=== PATIENT | female | born 1940 | race Caucasian/White ===

== ENCOUNTER → 2016-10-08 | Outpatient (CLI) | payer OTHER, BC ==
[~2016-10-08] MED LIST: ALBU18002 INH; ALBU1AER9 INH; AMLO-110 PO; B-CO-25 PO; BND25 PO; CALCTAB7 PO; CHOL100010 PO; CHOL1TAB76 PO; CLTP PO; COLE625T PO; DILT-115 PO; FISHOIL PO; HYDR12.56 PO; LISI-461 PO; LPR25 PO; LSN40 PO; MOME200A INH; MONT1TAB3 PO; OMEG10007 PO; POTA8CAP6 PO; PRED20TA PO; PRIM250T30 PO; SYMIN160 INH; ZNTT/150 PO
[2016-10-08 13:29] LABS: HEMATOCRIT 36.7 % (37-47); MEAN CELL VOLUME 91.1 fL (80-100); MEAN CORPUSCULAR HEMOGLOBIN 32.3 pg (25-34); MEAN CORPUSCULAR HGB CONC 35.4 g/dl (32-36); MEAN PLATELET VOLUME 12.3 fL (7.4-10.4); PLATELET COUNT 188 K/uL (130-400); RED BLOOD COUNT 4.03 M/uL (4.2-5.4); WHITE BLOOD COUNT 7.03 K/uL (4.8-10.8)
[2016-10-08 13:59] LABS: ALT/SGPT 28 U/L (12-78); AST/SGOT 19 U/L (15-37); BLOOD UREA NITROGEN 15 mg/dl (7-18); BUN/CREATININE RATIO 19.4 (10-20); CALCIUM 9.2 mg/dl (8.5-10.1); CARBON DIOXIDE 23 mmol/L (21-32); CHLORIDE 98 mmol/L (98-107); CHOLESTEROL 253 mg/dl (0-200); CREATININE 0.78 mg/dl (0.60-1.20); GLUCOSE 96 mg/dl (70-99); POTASSIUM 3.9 mmol/L (3.5-5.1); SODIUM 133 mmol/L (136-145); TRIGLYCERIDES 93 mg/dl (0-150); VERY LOW DENSITY LIPOPROT CALC 19 mg/dl
[2016-10-08 14:08] LABS: ALB/GLOB RATIO 0.9 (0.9-2); ALKALINE PHOSPHATASE 57 U/L (45-117); CHOLESTEROL/HDL RATIO 2.8; HDL CHOLESTEROL 92 mg/dl; LDL CHOLESTEROL CALCULATED 142 mg/dl
[2016-10-08 14:24] LABS: ESTIMATED AVERAGE GLUCOSE 114 mg/dl; HA1C FLAG Normal (Normal)
== END | disposition home or self-care (01) ==
LOC: C.LABBC 09:34
PROVIDERS: ATTEND Family Medicine
DX: I47.1 Supraventricular tachycardia (principal); I10 Essential (primary) hypertension; D69.3 Immune thrombocytopenic purpura; G40.909 Epilepsy, unspecified, not intractable, without status epilepticus; Z51.81 Encounter for therapeutic drug level monitoring; Z79.899 Other long term (current) drug therapy

== ENCOUNTER 2017-01-16 14:30 | Inpatient (IN) | payer OTHER, BC ==
[~2017-01-16] VITALS: Ht 157.5 cm; Wt 67.5 kg
[~2017-01-16 14:30] MED LIST changes: -ALBU18002 INH; -B-CO-25 PO; -BND25 PO; -CALCTAB7 PO; -CHOL1TAB76 PO; -DILT-115 PO; -HYDR12.56 PO; -LPR25 PO; -LSN40 PO; -MOME200A INH; -MONT1TAB3 PO; -OMEG10007 PO; -PRED20TA PO; -PRIM250T30 PO; +PRIM250T9 PO; -ZNTT/150 PO
[2017-01-16] MEDS ORDERED: METHYLPREDNISOLONE 125 MG VIAL IV STA (15:09)
[2017-01-16] MEDS ORDERED: DiphenhydrAMINE HCL 50 MG/ML VIAL IV STA (15:09)
--- NOTE | 2017-01-16 15:11 | EMERGENCY ROOM VISIT NOTE ---
ED Visit Note First contact with patient: 14:51 I have personally evaluated and examined this patient. I agree with assessment and plan of Issac Venegas PA-C. 76 yr old female with bilateral upper lip swelling, worse on left. No respiratory nor swallowing difficult. Does not involve tongue/posterior pharynx. Ongoing for last 12-18 hours and stable. She is on lisinopril and without other clear cause I suspect this is related to lisinopril and advised against further use of this.
[2017-01-16] MEDS ORDERED: FAMOTIDINE IV INJ 20 MG in DEXTROSE 5% 100ML 100 ML IV SCH (15:15)
[2017-01-16 15:34] LABS: BASO % 0.9 %; BASO ABS # 0.08 K/uL (0-0.2); COMPLETE YES; HEMATOCRIT 37.6 % (37-47); IG% 0.2 %; LYMPH % 36.8 %; LYMPH ABS # 3.42 K/uL (1.2-3.4); MEAN CELL VOLUME 89.7 fL (80-100); MEAN CORPUSCULAR HEMOGLOBIN 31.7 pg (25-34); MEAN CORPUSCULAR HGB CONC 35.4 g/dl (32-36); MEAN PLATELET VOLUME 11.4 fL (7.4-10.4); MONO % 8.5 %; NEUT % 48.6 %; PLATELET COUNT 165 K/uL (130-400); RED BLOOD COUNT 4.19 M/uL (4.2-5.4); WHITE BLOOD COUNT 9.29 K/uL (4.8-10.8)
[2017-01-16] MEDS ORDERED: CHOL1TAB76 PO (15:36)
[2017-01-16] MEDS ORDERED: MOME200A INH (15:36)
[2017-01-16] MEDS ORDERED: OMEG10007 PO (15:36)
[2017-01-16] MEDS ORDERED: ALBU18002 INH (15:36)
[2017-01-16] MEDS ORDERED: MONT1TAB3 PO (15:36)
[2017-01-16] MEDS ORDERED: B-CO-25 PO (15:36)
[2017-01-16] MEDS ORDERED: DILT-115 PO (15:36)
[2017-01-16] MEDS ORDERED: CALCTAB7 PO (15:36)
[2017-01-16] MEDS ORDERED: HYDR12.56 PO (15:36)
[2017-01-16] MEDS ORDERED: LSN40 PO (15:36)
[2017-01-16 15:48] LABS: CALCIUM 10.3 mg/dl (8.5-10.1)
[2017-01-16 15:52] LABS: BUN/CREATININE RATIO 22.4 (10-20); CREATININE 0.78 mg/dl (0.60-1.20); POTASSIUM 3.9 mmol/L (3.5-5.1)
[2017-01-16] MEDS ORDERED: SODIUM CHLORIDE 0.9% 1000ML 1,000 ML IV STA (17:01)
--- NOTE | 2017-01-16 17:01 | EMERGENCY ROOM VISIT NOTE ---
History First contact with patient: 14:51 Chief Complaint: SWELLING TO EXTREMITY Stated Complaint: SWELLING IN FACE History of Present Illness The patient is a 76 year old female who presents to the Emergency Room with complaints of swelling of her left cheek and upper lip. She believes her symptoms began overnight. She denies any new medications. Denies eating or drinking anything out of the ordinary last night. She did have a Gala apple, but states she has been eating them for the past week or more without issue. She currently denies any difficulty swallowing or breathing. No prior history of similar episode. No other complaints at this point. Her accompanies her today. She does take lisinopril and has been doing so since 2011. She was initially on 20 mg twice a day but states she was changed to 40 mg once a day last March. Review of Systems REVIEW OF SYSTEM: HEENT: No dizziness, visual problems, hearing loss, or tinnitus. There is no difficulty swallowing and no oral lesions are present. LYMPH: No adenopathy. PULMONARY: No cough, shortness of breath, sputum production or hemoptysis. CARDIOVASCULAR: No chest pain, palpitations, shortness of breath or peripheral edema. GASTROINTESTINAL: No diarrhea, constipation, nausea, vomiting, or abdominal pain. GENITOURINARY: No dysuria, frequency, urgency or nocturia. NEUROLOGIC: No weakness, muscle tenderness, epilepsy or history of neurological problems. MUSCULOSKELETAL: No history of joint tenderness/swelling. Positive history of arthritis and arthralgias. SKIN: No rashes or lesions. PSYCHIATRIC: No history of depression or mental illness. ENDOCRINE: No history of diabetes, thyroid disorders, or abnormal hair growth. Past Medical/Surgical History Previous surgeries: Medical history: Significant for seizure 50 years ago. Hypertension, asthma, osteoarthritis Family History Noncontributory. Social History Smoking Status: Never Smoker Smokeless Tobacco Use: No Alcohol Use: none Drug Use: none Marital Status: Housing Status: lives with family Occupation Status: retired Current/Historical Medications Scheduled B-Complex W/ Folic Acid (Super B Complex Maxi), 1 TAB PO DAILY Calcium Carbonate-Vitamin D W/ (Caltrate 600 Plus), 1 TAB PO BID Cholecalciferol (D 2000), 2,000 UNITS PO QAM Diltiazem Hcl Ext Rel (Tiazac), 240 MG PO BID Fish Oil ([place]-3), 1 CAP PO TID Hydrochlorothiazide (Hctz), 12.5 MG PO QAM Lisinopril (Lisinopril), 40 MG PO QAM Mometasone Furoate-Formoterol (Dulera 200/5 Mcg), 2 PUFFS INH BID Montelukast Sodium (Singulair), 10 MG PO QAM Potassium Chloride (Klor-Con Ext Rel), 8 MEQ PO BID Primidone (Mysoline), 250 MG PO BID Scheduled PRN Albuterol Sulfate (Proair Respiclick), 1-2 PUFFS INH Q4H PRN for Shortness of Breath Allergies Coded Allergies: Levofloxacin (Verified Allergy, Mild, rash, 01/16/17) Aspirin (Verified Allergy, Unknown, HX ITP, 01/16/17) Atorvastatin (Verified Allergy, Unknown, UNKNOWN, 01/16/17) Niacin (Verified Allergy, Unknown, UNKNOWN, 01/16/17) Phenobarbital (Verified Allergy, Unknown, UNKNOWN, 01/16/17) Uncoded Allergies: LOSARTAN/HCTZ (Allergy, Intermediate, DIZZINESS, 01/16/17) PT TAKES HCTZ ALLOW AND TOLERATES. Physical Exam Vital Signs Date Time Temp Pulse Resp B/P Pulse Ox O2 Delivery O2 Flow Rate FiO2 01/16/17 15:49 63 17 145/79 96 Room Air 01/16/17 15:21 71 01/16/17 14:33 36.6 83 18 171/80 96 Room Air Physical Exam Gen.: Well-developed, well-nourished, elderly white female, in no acute distress. Laying on a bed. Alert and oriented. Skin:Warm and dry with good turgor. No rashes or lesions. No ecchymosis or erythema. The patient is not diaphoretic. No abrasions. HEENT: Normocephalic atraumatic. Eyes PERRLA, EOMI. No conjunctiva or scleral injection. Ears TMs intact bilaterally with good light reflexes. No erythema or bulging. No hemotympanum. Canals are patent. Nares patent bilaterally without turbinate enlargement. No significant drainage. No epistaxis. Oropharynx without erythema or exudate. Uvula midline, oral mucosa moist. Significant swelling is present in her upper lip. It extends into her left cheek. No involvement of the right cheek. No involvement of her uvula or tongue. No lesions present. Lymphatics are palpated without anterior or posterior chain enlargement or tenderness. No sublingual fullness. Heart: Heart RRR. 3/6 systolic ejection murmur noted. No GR. Peripheral pulses are 2+. Lungs: Lungs are clear to auscultation. No crackles rhonchi or wheezing. Good air movement. The patient is able to take a deep breath. Musculoskeletal: Gross motor function of the upper and lower extremities is intact and unremarkable. Neurologic: Gross sensation is intact across the upper and lower extremities by soft touch. Medical Decision & Procedures Laboratory Results 01/16/17 15:20 Red Blood Count 4.19, Mean Corpuscular Volume 89.7, Mean Corpuscular Hemoglobin 31.7, Mean Corpuscular Hemoglobin Concent 35.4, Mean Platelet Volume 11.4, Neutrophils (%) (Auto) 48.6, Lymphocytes (%) (Auto) 36.8, Monocytes (%) (Auto) 8.5, Eosinophils (%) (Auto) 5.0, Basophils (%) (Auto) 0.9, Neutrophils # (Auto) 4.52, Lymphocytes # (Auto) 3.42, Monocytes # (Auto) 0.79, Eosinophils # (Auto) 0.46, Basophils # (Auto) 0.08 01/16/17 15:20 Test 01/16/17 15:20 01/16/17 16:40 White Blood Count 9.29 K/uL (4.8-10.8) Red Blood Count 4.19 M/uL (4.2-5.4) Hemoglobin 13.3 g/dL (12.0-16.0) Hematocrit 37.6 % (37-47) Mean Corpuscular Volume 89.7 fL (80-100) Mean Corpuscular Hemoglobin 31.7 pg (25-34) Mean Corpuscular Hemoglobin Concent 35.4 g/dl (32-36) Platelet Count 165 K/uL (130-400) Mean Platelet Volume 11.4 fL (7.4-10.4) Neutrophils (%) (Auto) 48.6 % Lymphocytes (%) (Auto) 36.8 % Monocytes (%) (Auto) 8.5 % Eosinophils (%) (Auto) 5.0 % Basophils (%) (Auto) 0.9 % Neutrophils # (Auto) 4.52 K/uL (1.4-6.5) Lymphocytes # (Auto) 3.42 K/uL (1.2-3.4) Monocytes # (Auto) 0.79 K/uL (0.11-0.59) Eosinophils # (Auto) 0.46 K/uL (0-0.5) Basophils # (Auto) 0.08 K/uL (0-0.2) RDW Standard Deviation 43.0 fL (36.4-46.3) RDW Coefficient of Variation 13.0 % (11.5-14.5) Immature Granulocyte % (Auto) 0.2 % Immature Granulocyte # (Auto) 0.02 K/uL (0.00-0.02) Anion Gap 10.0 mmol/L (3-11) Est Creatinine Clear Calc Drug Dose 55.6 ml/min Estimated GFR () 84.4 Estimated GFR (Non- 72.8 BUN/Creatinine Ratio 22.4 (10-20) Osmolality 262 mOsm/kg (280-300) Calcium Level 10.3 mg/dl (8.5-10.1) CBC and PRP were obtained today. Patient has a significantly low sodium at 126 and a significantly low chloride at 88. Medications Administered Medications (Trade) Dose Ordered Sig/Ever Route Start Time Stop Time Status Last Admin Dose Admin Diphenhydramine HCl 25 mg 25 mg NOW STAT IV 01/16/17 15:09 01/16/17 15:12 DC 01/16/17 15:35 25 MG Famotidine/ Dextrose (Pepcid IV Inj/ D5 100ml) 102 ml @ 200 mls/hr ONE IV 01/16/17 15:15 02/15/17 15:14 01/16/17 16:01 200 MLS/HR Methylprednisolone Sodium Succinate (Solu-Medrol IV) 125 mg NOW STAT IV 01/16/17 15:09 01/16/17 15:12 DC 01/16/17 15:35 125 MG Benadryl 25 mg IV, Pepcid 20 mg IV, Solu-Medrol 125 mg IV, 1 L normal sterile saline at 150 per hour. ED Course Patient was evaluated in B4. She and her were educated regarding today' s findings. Conservative care measures were discussed. IV was established. Labs were obtained. EKG was also obtained. Patient was given Benadryl 25 mg IV , Pepcid 20 mg IV, and Solu-Medrol 125 mg IV with no significant improvement in her perioral edema. Sodium is significantly low. Because of the combination of hyponatremia, perioral edema, and her age, I do think it would be prudent to admit her for further evaluation. [facility] hospitalist service was consulted. Please see that dictation for final management. She remained stable while in the ED. Oxygen saturation remained adequate. Patient was seen in conjunction with Dr. Rodriguez, who also evaluated the patient and concurred with today's diagnosis and treatment plan. Medical Decision Possibility of food allergy, medication allergy, angioedema from lisinopril, infection, airway compromise, and electrolyte abnormality were considered. Impression Primary Impression: Angioedema of lips Additional Impression: Hyponatremia Departure Information Referrals Kenny Castillo M.D. (PCP) Patient Instructions My [facility] Problem Qualifiers Primary Impression: Angioedema of lips Encounter type: initial encounter Qualified Codes: T78.3XXA - Angioneurotic edema, initial encounter
[2017-01-16] MEDS ORDERED: SODIUM CHLORIDE 0.9% 1000ML 1,000 ML IV SCH (17:21)
[2017-01-16] MEDS ORDERED: ALUMINUM/MAGNESIUM/SIMETH (MAALOX MAX) 30 ML UDC PO PRN (17:30)
[2017-01-16] MEDS ORDERED: ONDANSETRON INJ 2 MG/ML 2 ML VIAL IV PRN (17:30)
[2017-01-16] MEDS ORDERED: ALBUTEROL 0.083% NEBU SOLN 3 ML VIAL INH PRN (17:30)
[2017-01-16] MEDS ORDERED: ACETAMINOPHEN 325 MG TAB PO PRN (17:30)
[2017-01-16] MEDS ORDERED: MAGNESIUM HYDROXIDE SUSP 30 ML UDC PO PRN (17:30)
[2017-01-16 18:46] VITALS: BP 167/78; PULSE 76; TEMP 36.7; O2SAT 95; Ht 157.5 cm; Wt 67.5 kg
[2017-01-16 18:46] LABS: PROTHROMBIN TIME (PATIENT) 10.5 SECONDS (9.0-12.0)
[2017-01-16] MEDS: BUDESONIDE/FORMOTEROL FUMARATE 160/4.5 60 PUFFS/INHALER INH SCH (19:53)
[2017-01-16] MEDS: METHYLPREDNISOLONE IV 40 MG in SYRINGE 0 ML IV SCH (19:53)
[2017-01-16] MEDS: PRIMIDONE 250 MG TAB PO SCH (19:54)
[2017-01-16] MEDS: DILTIAZEM HCL 120 MG EXT REL CAP PO SCH (19:54)
[2017-01-16] MEDS ORDERED: NURSING DECISION MEDICATION ORDER SCH (21:15)
[2017-01-16] MEDS: HEPARIN SOD 5000 UNIT/0.5 ML CARP SQ SCH (22:24)
[2017-01-16 22:40] LABS: BUN/CREATININE RATIO 15.9 (10-20); CALCIUM 9.1 mg/dl (8.5-10.1); CREATININE 0.98 mg/dl (0.60-1.20); POTASSIUM 3.6 mmol/L (3.5-5.1)
--- NOTE | 2017-01-16 23:00 | History and Physical ---
History & Physical Date & Time of Service: Jan 16, 2017 at 16:56 Chief Complaint: Swelling In Face Primary Care Physician: Kenny Castillo M.D. History of Present Illness Source: patient, spouse 76yo female with history of HTN and asthma who presents with lip and facial swelling starting about 0330. When she went to bed last evening she had no swelling. Initially the swelling was in the upper lip, then progressed to the left cheek, and finally the right cheek. Denies any throat or neck swelling. Denies any dyspnea. Denies dysphagia or dysarthria. Since coming to the ER her swelling HAS improved in her estimation. Takes DEBRA inhibitor (lisinopril) and has taken such for about 5 years. Denies any new OTC medications or herbals. Denies any new prescription medications. No hives or generalized rash. Prior to today's events she has otherwise been feeling well. No recent illnesses. No vomiting or diarrhea. Past Medical/Surgical History PMH: 1. HTN 2. asthma 3. seizure disorder - dx 1960s - no seizures since that time (was thought to have a tumor but this was ultimately proven false) 4. ITP PSH: 1. appendectomy 2. tonsillectomy 3. 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 ) Immunizations History of Influenza Vaccine: N/A History of Tetanus Vaccine?: Unknown History of Pneumococcal: Yes History of Hepatitis B Vaccine: No Multi-Drug Resistant Organisms History of MDRO: No Allergies Coded Allergies: Levofloxacin (Verified Allergy, Mild, rash, 01/16/17) Aspirin (Verified Allergy, Unknown, HX ITP, 01/16/17) Atorvastatin (Verified Allergy, Unknown, UNKNOWN, 01/16/17) Niacin (Verified Allergy, Unknown, UNKNOWN, 01/16/17) Phenobarbital (Verified Allergy, Unknown, UNKNOWN, 01/16/17) Losartan (Verified Adverse Reaction, Intermediate, DIZZINESS., 01/16/17) PT TAKES HCTZ ALLOW AND TOLERATES. Home Medications Scheduled B-Complex W/ Folic Acid (Super B Complex Maxi), 1 TAB PO DAILY Calcium Carbonate-Vitamin D W/ (Caltrate 600 Plus), 1 TAB PO BID Cholecalciferol (D 1999), 2,000 UNITS PO QAM Diltiazem Hcl Ext Rel (Tiazac), 240 MG PO BID Fish Oil ([place]-3), 1 CAP PO TID Hydrochlorothiazide (Hctz), 12.5 MG PO QAM Lisinopril (Lisinopril), 40 MG PO QAM Mometasone Furoate-Formoterol (Dulera 200/5 Mcg), 2 PUFFS INH BID Montelukast Sodium (Singulair), 10 MG PO QAM Potassium Chloride (Klor-Con Ext Rel), 8 MEQ PO BID Primidone (Mysoline), 250 MG PO BID Scheduled PRN Albuterol Sulfate (Proair Respiclick), 1-2 PUFFS INH Q4H PRN for Shortness of Breath Review of Systems Constitutional: No chills, No fatigue, No fever, No weight loss Eyes: No worsening of vision ENT: No nasal symptoms, No sore throat, No trouble swallowing Respiratory: No cough, No dyspnea at rest, No dyspnea on exertion, No shortness of breath, No sputum, No wheezing Cardiovascular: No PND, No chest pain, No edema, No orthopnea Abdomen: No diarrhea, No nausea, No pain, No vomiting Musculoskeletal: No joint pain, No muscle pain Genitourinary - Female: No dysuria Neurologic: + problem reported (frontal headache earlier today), No numbness/ tingling Psychiatric: No anxiety, No depression symptoms Endocrine: + excessive urination (due to HCTZ?) Hematologic / Lymphatic: + abnormal bleeding/bruising (left arm ) Integumentary: No rash Physical Exam Vital Signs Date Time Temp Pulse Resp B/P Pulse Ox O2 Delivery O2 Flow Rate FiO2 01/16/17 15:49 63 17 145/79 96 Room Air 01/16/17 15:21 71 01/16/17 14:33 36.6 83 18 171/80 96 Room Air General Appearance: WD/WN, no apparent distress Head: normocephalic, atraumatic Eyes: normal inspection, PERRL ENT: hearing grossly normal, TMs normal, + pertinent finding (upper lip with angioedema; lower lip normal. There is mild angioedema of the left cheek, none appreciated on the right. There might be trace amount of posterior pharyngeal edema but the oral cavity is largely normal. Tongue is NORMAL size. ) Neck: supple, no adenopathy, thyroid normal, no JVD, no carotid bruits, trachea midline (no obvious angioedema of the neck tissues), + pertinent finding Respiratory/Chest: lungs clear, normal breath sounds, no respiratory distress, no accessory muscle use Cardiovascular: regular rate, rhythm, no gallop, normal peripheral pulses, + systolic murmur (2/6 RUSB/LSB) Abdomen/GI: normal bowel sounds, non tender, soft, no organomegaly, + pertinent finding (large scar LUQ from prior splenectomy ) Back: normal inspection Extremities/Musculoskelatal: no pedal edema Neurologic/Psych: no motor/sensory deficits, alert, normal mood/affect, normal reflexes, oriented x 3 Skin: no rash (no hives) Lymphatic: no adenopathy (no cervical LAD ) Diagnostics Laboratory Results Results Past 24 Hours Test 01/16/17 15:20 01/16/17 16:40 Range/Units White Blood Count 9.29 4.8-10.8 K/uL Red Blood Count 4.19 4.2-5.4 M/uL Hemoglobin 13.3 12.0-16.0 g/dL Hematocrit 37.6 37-47 % Mean Corpuscular Volume 89.7 80-100 fL Mean Corpuscular Hemoglobin 31.7 25-34 pg Mean Corpuscular Hemoglobin Concent 35.4 32-36 g/dl Platelet Count 165 130-400 K/uL Mean Platelet Volume 11.4 7.4-10.4 fL Neutrophils (%) (Auto) 48.6 % Lymphocytes (%) (Auto) 36.8 % Monocytes (%) (Auto) 8.5 % Eosinophils (%) (Auto) 5.0 % Basophils (%) (Auto) 0.9 % Neutrophils # (Auto) 4.52 1.4-6.5 K/uL Lymphocytes # (Auto) 3.42 1.2-3.4 K/uL Monocytes # (Auto) 0.79 0.11-0.59 K/uL Eosinophils # (Auto) 0.46 0-0.5 K/uL Basophils # (Auto) 0.08 0-0.2 K/uL RDW Standard Deviation 43.0 36.4-46.3 fL RDW Coefficient of Variation 13.0 11.5-14.5 % Immature Granulocyte % (Auto) 0.2 % Immature Granulocyte # (Auto) 0.02 0.00-0.02 K/uL Sodium Level 126 136-145 mmol/L Potassium Level 3.9 3.5-5.1 mmol/L Chloride Level 88 98-107 mmol/L Carbon Dioxide Level 28 21-32 mmol/L Anion Gap 10.0 3-11 mmol/L Blood Urea Nitrogen 18 7-18 mg/dl Creatinine 0.78 0.60-1.20 mg/dl Est Creatinine Clear Calc Drug Dose 55.6 ml/min Estimated GFR () 84.4 Estimated GFR (Non- 72.8 BUN/Creatinine Ratio 22.4 10-20 Random Glucose 87 70-99 mg/dl Calcium Level 10.3 8.5-10.1 mg/dl EKG EKG - NSR, 1st degree AV block, left axis deviation, no ST changes Impression Assessment and Plan 76yo female with history of asthma, HTN, seizure disorder, and prior ITP s/p splenectomy who presents with angioedema starting early this AM. The patient has been taking lisinopril for about 5 years and is the most likely culprit for her angioedema. She has been on NO new prescription medications or OTC meds. 1. 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 Typically DEBRA-associated angioedema responds poorly (or little to none) to steroids, antihistamines, etc but the patient feels that her ER treatment (IV benadryl, solumedrol, etc) HAS helped her thus far. Reasonable to continue steroids/H2 blockers/antihistamines. I asked the ER staff to place a 2nd IV in the event her angioedema worsens tonight. If any worsening then transfuse with FFP. Place on telemetry for close observation. DEBRA added to allergy list. 2. hyponatremia - chronic dating back to 03/2016. She keeps excellent records and she notes that she was started on HCTZ at that time. Likely that the low Na is due to HCTZ but need to r/o other causes. The mildly elevated calcium would be consistent with HCTZ as well. Check serum and urine osm along with urine Na. Recheck BMP in 6 hours then again in AM. 3. HTN - since we are stopping both the HCTZ & lisinopril we will likely need to titrate her CCB. Follow for now and adjust as needed while here. 4. DVT proph - heparin. 5. asthma - not in exacerbation. Albuterol prn. Singulair HS. 6. h/o seizure disorder - no seizure in 40+ years. Remains on primidone. 7. FEN - see #2 above. cautiously hydrate while awaiting the above studies. Full liquid diet until we know her angioedema does not worsen. serial labs. 8. h/o ITP - platelet count is normal. Level of Care Telemetry Advanced Directives Existing Advance Directive: Yes Existing Living Will: Yes Resuscitation Status FULL RESUSCITATION VTE Prophylaxis Risk Level: Moderate Given or contraindicated: Unfractionated heparin SQ Social Service Consult None Apply Additional Copies To Kenny Castillo M.D.
--- NOTE | 2017-01-16 23:22 | Progress Note ---
Progress Note Date of Service Jan 16, 2017. Progress Note Still awaiting Urine Osm and Urine Na. Repeat BMP with worsened Na to 125. Hold fluids. Await the urine studies to help with decision making on the Na. Kaleigh CRUZ MD
[2017-01-16] MEDS: RANITIDINE IV 50 MG in DEXTROSE 5% 100ML 100 ML IV SCH (23:41)
[2017-01-16 23:44] VITALS: BP 147/73; PULSE 70; TEMP 36.7; O2SAT 96
[2017-01-17] VITALS (9 sets, daily range): BP systolic 134–164; BP diastolic 68–78; PULSE 67–88; TEMP 36.4–36.9; O2SAT 95–97
[2017-01-17] MEDS: METHYLPREDNISOLONE IV 40 MG in SYRINGE 0 ML IV SCH ×3 (03:50→20:38)
[2017-01-17] MEDS: HEPARIN SOD 5000 UNIT/0.5 ML CARP SQ SCH ×3 (05:37→22:30)
[2017-01-17 07:35] LABS: BUN/CREATININE RATIO 22.5 (10-20); CREATININE 0.7 mg/dl (0.60-1.20); POTASSIUM 3.6 mmol/L (3.5-5.1)
[2017-01-17] MEDS: BUDESONIDE/FORMOTEROL FUMARATE 160/4.5 60 PUFFS/INHALER INH SCH ×2 (08:50→20:38)
[2017-01-17] MEDS: RANITIDINE IV 50 MG in DEXTROSE 5% 100ML 100 ML IV SCH ×3 (08:50→23:52)
[2017-01-17] MEDS: PRIMIDONE 250 MG TAB PO SCH ×2 (08:51→20:39)
[2017-01-17] MEDS: DILTIAZEM HCL 120 MG EXT REL CAP PO SCH ×2 (08:53→20:39)
[2017-01-17] MEDS ORDERED: MONTELUKAST SOD 10 MG TAB PO SCH ×2 (09:00→21:00)
--- NOTE | 2017-01-17 14:51 | Family Medicine Progress Note ---
Progress Note Date of Service Jan 17, 2017. Subjective Pt evaluation today including: conversation w/ patient, conversation w/ family , physical exam, conversation w/ organizational development consultant, review of inpatient medication list Pain: none Voiding: no voiding problems Patient with no acute events overnight Swelling of her lips and cheeks has gone down substantially overnight. She did have a facial rash this afternoon that the nurse informed me of, she said that is was bright red, non raised, not itchy and went part way down her neck; however when i went to see her the rash had subsided. During this episode she did not complain of any chest tightness, shortness of breath or itchiness in her throat. Overnight she did well and denied any chest pain, palpitations, leg swelling, cough, shortness of breath, chest tightness, rashes, joint pain or recurrent swelling of face and lips. Additional Comments: Please see note for ROS Medications Current Inpatient Medications Medications (Trade) Dose Ordered Sig/Ever Route Start Time Stop Time Status Last Admin Dose Admin Famotidine/ Dextrose (Pepcid IV Inj/ D5 100ml) 102 ml @ 200 mls/hr ONE IV 01/16/17 15:15 02/15/17 15:14 01/16/17 16:01 200 MLS/HR Heparin Sodium (Porcine) 5000 unit 5,000 unit Q8 SQ 01/16/17 22:00 02/15/17 21:59 01/17/17 14:35 5,000 UNIT Sodium Chloride (Nss 1000ml) 1,000 ml @ 80 mls/hr [id number] IV 01/16/17 17:21 02/15/17 17:20 Future Hold 01/16/17 19:50 80 MLS/HR Acetaminophen (Tylenol Tab) 650 mg Q4H PRN PO 01/16/17 17:30 02/15/17 17:29 Al Hydrox/Mg Hydrox/Simethicone (Maalox Max Susp) 15 ml Q4H PRN PO 01/16/17 17:30 02/15/17 17:29 Magnesium Hydroxide (Milk Of Magnesia Susp) 30 ml Q12H PRN PO 01/16/17 17:30 02/15/17 17:29 Ondansetron HCl (Zofran Inj) 4 mg Q6H PRN IV 01/16/17 17:30 02/15/17 17:29 Diltiazem HCl (TIAzac CAP) 240 mg BID PO 01/16/17 21:00 02/15/17 20:59 01/17/17 08:53 240 MG Primidone (Mysoline Tab) 250 mg BID PO 01/16/17 21:00 02/15/17 20:59 01/17/17 08:51 250 MG Albuterol Sulfate (Ventolin 0.083% 2.5MG/3ML Neb) 2.5 mg Q4H PRN INH 01/16/17 17:30 02/15/17 17:29 Budesonide/ Formoterol Fumarate 2 puffs 2 puffs BID INH 01/16/17 21:00 02/15/17 20:59 01/17/17 08:50 2 PUFFS Methylprednisolone Sodium Succinate 40 mg/Syringe 0.64 ml @ 1.5 mls/min Q8@0400,1200,2000 IV 01/16/17 20:00 02/15/17 19:59 01/17/17 11:41 1.5 MLS/MIN Ranitidine HCl/ Dextrose (zANTac IV/D5 100ml) 102 ml @ 200 mls/hr Q8H IV 01/17/17 00:00 02/16/17 00:00 01/17/17 08:50 200 MLS/HR Diphenhydramine HCl (Benadryl Cap) 25 mg Q6H PO 01/16/17 21:30 02/15/17 21:29 01/17/17 08:54 25 MG Montelukast Sodium (Singulair Tab) 10 mg HS PO 01/17/17 21:00 02/16/17 20:59 Objective Vital Signs Date Time Temp Pulse Resp B/P Pulse Ox O2 Delivery O2 Flow Rate FiO2 01/17/17 15:24 36.6 72 18 148/75 97 Room Air 01/17/17 12:00 96 Room Air 01/17/17 11:20 36.5 78 17 150/74 95 Room Air 01/17/17 08:00 95 Room Air 01/17/17 07:34 36.7 67 16 134/72 96 Room Air 01/17/17 04:33 36.4 71 16 155/68 97 Room Air 01/17/17 04:00 Room Air 01/16/17 23:44 36.7 70 16 147/73 96 Room Air 01/16/17 23:20 Room Air 01/16/17 20:00 Room Air 01/16/17 18:46 36.7 76 18 167/78 95 Room Air 01/16/17 18:19 74 16 153/59 97 01/16/17 17:45 72 21 153/59 96 Room Air 01/16/17 15:49 63 17 145/79 96 Room Air Physical Exam General Appearance: WD/WN, no apparent distress Eyes: normal inspection, PERRL, sclerae normal ENT: normal ENT inspection, hearing grossly normal, TMs normal, pharynx normal , + pertinent finding (upper lip very mildly swollen, otherwise no other facial swelling) Neck: supple, no adenopathy, thyroid normal, no JVD, trachea midline Respiratory/Chest: lungs clear, normal breath sounds, no respiratory distress, no accessory muscle use Cardiovascular: regular rate, rhythm, no JVD, + systolic murmur (harsh 4/6 systolic murmur heard best at the LUSB, with radiation to the carotids) Extremities: non-tender, no calf tenderness, normal capillary refill Neurologic/Psychiatric: alert, normal mood/affect, oriented x 3 Laboratory Results Results Past 24 Hours Test 01/16/17 22:04 01/17/17 00:00 01/17/17 06:22 Range/Units Sodium Level 125 129 136-145 mmol/L Potassium Level 3.6 3.6 3.5-5.1 mmol/L Chloride Level 89 93 98-107 mmol/L Carbon Dioxide Level 22 25 21-32 mmol/L Anion Gap 14.0 11.0 3-11 mmol/L Blood Urea Nitrogen 16 16 7-18 mg/dl Creatinine 0.98 0.70 0.60-1.20 mg/dl Est Creatinine Clear Calc Drug Dose 42.4 58.3 ml/min Estimated GFR () 64.0 96.2 Estimated GFR (Non- 55.3 83.0 BUN/Creatinine Ratio 15.9 22.5 10-20 Random Glucose 227 148 70-99 mg/dl Calcium Level 9.1 9.0 8.5-10.1 mg/dl Urine Osmolality 310 500-800 mOms/kg Urine Random Sodium 16 mEq/L Assessment and Plan 76yo female with history of asthma, HTN, seizure disorder, and prior ITP s/p splenectomy who presented with angioedema yesterday morning The patient has been taking lisinopril for about 5 years and is the most likely culprit for her angioedema. 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 Asthma - Albuterol prn - Singulair HS Hx of seizure - primidone FULL CODE . Continued [facility] stay due to: other (monitor for angioedema) History Resident Physician Supervision Note: I was present with Dr. Piedra during the history and exam. I discussed the case with the resident and agree with the findings and plan as documented in the note. Any exceptions or clarifications are listed here. Swelling continues to improve from previous. Tolerating medication regimen well. Reports no BAKER, CP/ SOB, palpitations, n/v, diaphoresis, sensory changes. General Appearance: WD/WN, no apparent distress Eye Exam: bilateral eye EOMI, bilateral eye PERRL Ears, Nose, Throat: normal ENT inspection, hearing grossly normal, pharynx normal, other (visible swelling of the face mildly at the midline upper lip and left cheek) Neck: non-tender, full range of motion, supple Respiratory: chest non-tender, lungs clear, normal breath sounds, no respiratory distress Cardiovascular: normal peripheral pulses, regular rate, rhythm, no edema, systolic murmur (3/6 SILVANA) Gastrointestinal: normal bowel sounds, non tender, soft, no organomegaly Assessment/Plan 76 y/o female h/o asthma, HTN, sz d/o, ITP s/p splenectomy p/w angioedema Angioedema - DEBRA-I discontinued. As has shown some improvement, continue steroid , H2 blockers and antihistamines Hyponatremia - d/c HCTZ, repeat BMP in AM HTN - only on diltiazem 240mg BID at present - add metrolol tartrate 25mg BID (no DEBRA-I/ARB, off diuretic 2/2 low Na, on CCB at present) Systolic murmur - agree w/ echo as outpatient for further evaluation Asthma - Albuterol, Singulair Hx of seizure - continue primidone DVTPPX - heparin FULL CODE
[2017-01-17] MEDS: METOPROLOL TARTRATE 25 MG TAB PO SCH (20:38)
[2017-01-18] MEDS: METHYLPREDNISOLONE IV 40 MG in SYRINGE 0 ML IV SCH ×2 (03:21→11:14)
[2017-01-18 03:50] VITALS: BP 147/82; PULSE 78; TEMP 36.8; O2SAT 95
[2017-01-18] MEDS: HEPARIN SOD 5000 UNIT/0.5 ML CARP SQ SCH ×2 (06:23→13:48)
[2017-01-18 07:38] VITALS: BP 131/69; PULSE 65; TEMP 36.5; O2SAT 94
[2017-01-18] MEDS: BUDESONIDE/FORMOTEROL FUMARATE 160/4.5 60 PUFFS/INHALER INH SCH (07:44)
[2017-01-18] MEDS: PRIMIDONE 250 MG TAB PO SCH (07:44)
[2017-01-18] MEDS: METOPROLOL TARTRATE 25 MG TAB PO SCH (07:44)
[2017-01-18] MEDS: DILTIAZEM HCL 120 MG EXT REL CAP PO SCH (07:44)
[2017-01-18] MEDS: RANITIDINE IV 50 MG in DEXTROSE 5% 100ML 100 ML IV SCH ×2 (07:47→15:45)
[2017-01-18 08:00] VITALS: O2SAT 94
[2017-01-18] MEDS ORDERED: DIPH25CA5 PO (11:12)
[2017-01-18] MEDS ORDERED: ZNTT/150 PO (11:12)
[2017-01-18] MEDS ORDERED: PRED20TA PO (11:12)
[2017-01-18] MEDS ORDERED: LPR25 PO (11:12)
--- NOTE | 2017-01-18 11:16 | Discharge Instructions ---
Discharge Instructions Date of Service January 18, 2017. Admission Reason for Admission: Angioedema Of Lips; Hyponatremia Discharge Discharge Diagnosis / Problem: DEBRA inhibitor related angioedema Discharge Goals Goal(s): Decrease discomfort, Therapeutic intervention, Prevent Disease Progression Activity Recommendations Activity Limitations: resume your previous activity . Instructions / Follow-Up Instructions / Follow-Up Please stop taking your lisinopril and your hydrochlorothiazide We have prescribed you with prednisone, ranitidine and benadryl to take for the next 4 days. Please take these as prescribed We have started a new hypertension medication called metoprolol. Please take this as indicated. If you have any shortness of breath, wheezing, worsening facial swelling or rash then please come back to the emergency department Please follow up with your electronic sensing equipment assembler in order to get an echo of your heart in the next couple of weeks Current Hospital Diet Patient's current hospital diet: Regular Diet Discharge Diet Recommended Diet: AHA Diet (Heart Healthy) Pending Studies Studies pending at discharge: no Medical Emergencies . Who to Call and When: Medical Emergencies: If at any time you feel your situation is an emergency, please call 911 immediately. . Non-Emergent Contact Non-Emergency issues call your: Primary Care Provider . . "Provider Documentation" section prepared by Alexx Piedra. . VTE Core Measure Inpt VTE Proph given/why not?: Unfractionated heparin SQ
[2017-01-18 11:56] VITALS: BP 118/67; PULSE 62; TEMP 36.4; O2SAT 95
[2017-01-18 12:00] VITALS: O2SAT 94
--- NOTE | 2017-01-18 14:49 | Discharge Summary ---
Discharge Summary Date of Service January 18, 2017. (Alexx Piedra MD) Discharge Summary Admission Date: Jan 16, 2017 at 17:24 Discharge Date: January 18, 2017 Discharge Disposition: Home Principal Diagnosis: DEBRA induced angioedema Immunizations: Have You Had Influenza Vaccine: N/A History of Tetanus Vaccine?: Unknown History of Pneumococcal: Yes History of Hepatitis B Vaccine: No (Alexx Piedra MD) Medication Reconciliation New Medications: Prednisone (Prednisone) 20 Mg Tab 20 MG PO DIRECTED for 4 Days, #3 TAB Take 1 tablet days 1-2 Take 1/2 tablet days 3-4 Ranitidine (Zantac) 150 Mg Tab 150 MG PO DAILY for 4 Days, #4 TAB Diphenhydramine Hcl (Benadryl) 25 Mg Cap 25 MG PO DIRECTED PRN for ALLERGIC REACTION for 14 Days, #14 CAP Metoprolol Tartrate (Lopressor) 25 Mg Tab 25 MG PO BID for 30 Days, #60 TAB Continued Medications: Albuterol Sulfate (Proair Respiclick) 108 Mcg/Act Aer 1-2 PUFFS INH Q4H PRN for Shortness of Breath B-Complex W/ Folic Acid (Super B Complex Maxi) 1 Tab Tab 1 TAB PO DAILY Calcium Carbonate-Vitamin D W/ (Caltrate 600 Plus) 1 Tab Tab 1 TAB PO BID, TAB Cholecalciferol (D 2000) 2,000 Unit Tab 2000 UNITS PO QAM Diltiazem Hcl Ext Rel (Tiazac) 240 Mg Capcr 240 MG PO BID, CAP Fish Oil ([place]-3) 1 Ea Cap 1 CAP PO TID, CAP Mometasone Furoate-Formoterol (Dulera 200/5 Mcg) 1 Aer Aer 2 PUFFS INH BID for 30 Days, #13 GM 3 Refills Montelukast Sodium (Singulair) 10 Mg Tab 10 MG PO QAM, TAB Potassium Chloride (Klor-Con Ext Rel) 8 Meq Tabcr 8 MEQ PO BID, 0 Refills Primidone (Mysoline) 250 Mg Tab 250 MG PO BID Discontinued Medications: Hydrochlorothiazide (Hctz) 12.5 Mg Cap 12.5 MG PO QAM, TAB Lisinopril (Lisinopril) 40 Mg Tab 40 MG PO QAM Discharge Exam Patient had no acute events overnight She did have another mild facial rash this morning that subsequently subsided after being given a dose of benadryl She is doing well clinically and is planned to go home today Review of Systems: Constitutional: No chills, No fever, No sweats Eyes: No diplopia, No eye pain, No worsening of vision Respiratory: No cough, No dyspnea on exertion, No shortness of breath, No sputum, No wheezing Cardiovascular: No chest pain, No claudication, No palpitations Abdomen: No nausea, No pain, No vomiting Integumentary: + rash (on face and neck), No itch Physical Exam: General Appearance: WD/WN, no apparent distress ENT: normal ENT inspection, hearing grossly normal, pharynx normal Neck: supple, no adenopathy, thyroid normal, trachea midline Respiratory/Chest: lungs clear, normal breath sounds, no accessory muscle use Cardiovascular: regular rate, rhythm, no edema, normal peripheral pulses, + systolic murmur (4/6 systolic ejection murmur) Extremities: no calf tenderness, no pedal edema, non-tender (Alexx Piedra MD) Review of Systems: Constitutional: No fever ENT: No sore throat, No trouble swallowing Respiratory: No shortness of breath Cardiovascular: No chest pain Abdomen: No nausea Physical Exam: General Appearance: no apparent distress ENT: normal ENT inspection Respiratory/Chest: lungs clear, no respiratory distress Cardiovascular: regular rate, rhythm Neurologic/Psychiatric: alert, oriented x 3 Skin: warm/dry (Micaela Daniel M.D.) Hospital Course 76 year old female with history of asthma, HTN, seizure disorder and prior ITP s /p splenectomy presented to [facility] with angioedema of her lips and cheeks. This was after the patient had been taking lisinopril for 5 years. The DEBRA inhibitor was stopped as was her HCTZ as she was found to have a low sodium. In the hospital she was given IV steroids, ranitidine and benadryl which she responded to well. Over the following two days her swelling decreased substantially. Before discharge she was started on metoprolol as her HCTZ and DEBRA were stopped. She also had a ejection systolic murmur found on physical exam or which she is to follow up with cardiology as an outpatient She was discharged on 01/18/2017 with a 4 day prescription for prednisone, ranitidine and benadryl Total Time Spent: Less than 30 minutes This includes examination of the patient, discharge planning, medication reconciliation, and communication with other providers. (Alexx Piedra MD) I have reviewed the medical record and performed a history and physical examination of this patient today. I have discussed the case with Dr. Piedra. The above note reflects my findings, conclusions, and recommendation. Total Time Spent: Greater than 30 minutes (35) (Micaela Daniel M.D.) Discharge Instructions Please refer to the electronic Patient Visit Report (Discharge Instructions) for additional information. (Alexx Piedra MD) Additional Copies To Kenny Castillo M.D.
[2017-01-18 15:28] VITALS: BP 118/67; PULSE 62; TEMP 36.4; O2SAT 94
== END 2017-01-18 16:54 | disposition home or self-care (01) | DRG 641 ==
LOC: ENRESERVTM → ENRESERVDT → C.EDB 14:30 → C.2T 17:24
PROVIDERS: ADMIT Internal Medicine; ATTEND Family Medicine
DX: E87.1 Hypo-osmolality and hyponatremia (principal); T78.3XXA Angioneurotic edema, initial encounter; T46.4X5A Adverse effect of angiotensin-converting-enzyme inhibitors, initial encounter; R22.0 Localized swelling, mass and lump, head; I10 Essential (primary) hypertension; G40.909 Epilepsy, unspecified, not intractable, without status epilepticus; J45.909 Unspecified asthma, uncomplicated; R01.1 Cardiac murmur, unspecified; Z90.81 Acquired absence of spleen; Z86.2 Personal history of diseases of the blood and blood-forming organs and certain disorders involving the immune mechanism; Z79.51 Long term (current) use of inhaled steroids; Z79.899 Other long term (current) drug therapy

== ENCOUNTER → 2017-02-09 | Outpatient (CLI) | payer OTHER, BC ==
[~2017-02-09] MED LIST changes: +ALBU18002 INH; -ALBU1AER9 INH; -AMLO-110 PO; +B-CO-25 PO; +CALCTAB7 PO; -CHOL100010 PO; +CHOL1TAB76 PO; -CLTP PO; -COLE625T PO; +DILT-115 PO; +DIPH25CA5 PO; -FISHOIL PO; -LISI-461 PO; +LPR25 PO; +MOME200A INH; +MONT1TAB3 PO; +OMEG10007 PO; -SYMIN160 INH
== END | disposition home or self-care (01) ==
LOC: C.LABSPEC 11:22
PROVIDERS: ATTEND Family Medicine
DX: N39.0 Urinary tract infection, site not specified (principal)

== ENCOUNTER → 2017-04-07 | Outpatient (CLI) | payer OTHER, BC ==
[~2017-04-07] MED LIST changes: +BND25 PO; -DIPH25CA5 PO; +PRIM250T30 PO; -PRIM250T9 PO
[2017-04-07 10:52] LABS: HEMATOCRIT 41.2 % (37-47); MEAN CELL VOLUME 94.3 fL (80-100); MEAN CORPUSCULAR HEMOGLOBIN 31.8 pg (25-34); MEAN CORPUSCULAR HGB CONC 33.7 g/dl (32-36); PLATELET COUNT 227 K/uL (130-400); RED BLOOD COUNT 4.37 M/uL (4.2-5.4); WHITE BLOOD COUNT 6.87 K/uL (4.8-10.8)
[2017-04-07 11:24] LABS: ALT/SGPT 23 U/L (12-78); BLOOD UREA NITROGEN 19 mg/dl (7-18); BUN/CREATININE RATIO 21.8 (10-20); CALCIUM 9.1 mg/dl (8.5-10.1); CARBON DIOXIDE 27 mmol/L (21-32); CHLORIDE 104 mmol/L (98-107); CHOLESTEROL 221 mg/dl (0-200); CREATININE 0.87 mg/dl (0.60-1.20); GLUCOSE 92 mg/dl (70-99); POTASSIUM 4.1 mmol/L (3.5-5.1); SODIUM 137 mmol/L (136-145); TRIGLYCERIDES 76 mg/dl (0-150); URIC ACID 4.1 mg/dl (2.6-7.2); VERY LOW DENSITY LIPOPROT CALC 15 mg/dl
[2017-04-07 11:31] LABS: ALB/GLOB RATIO 0.9 (0.9-2); ALKALINE PHOSPHATASE 62 U/L (45-117); AST/SGOT 14 U/L (15-37); CHOLESTEROL/HDL RATIO 2.8; HDL CHOLESTEROL 80 mg/dl; LDL CHOLESTEROL CALCULATED 126 mg/dl; PHOSPHORUS 3.4 mg/dl (2.5-4.9)
[2017-04-07 11:55] LABS: ESTIMATED AVERAGE GLUCOSE 117 mg/dl; HA1C FLAG Normal (Normal)
[2017-04-07 12:03] LABS: ACANTHOCYTES 1+; BASO ABS # 0.12 K/uL (0-0.2); BASOPHIL % 1.7 %; COMPLETE YES; ECHINOCYTES 2+; EOSINOPHIL % 3.5 %; LARGE GRANULAR LYMPH ABSOLUTE 1.79 K/uL; LARGE GRANULAR LYMPHOCYTE % 26.1 %; LYMPH ABS # 2.33 K/uL (1.2-3.4); LYMPHOCYTE % 33.9 %; NEUTROPHILS % 28.7 %
[2017-04-08 13:16] LABS: HOWELL-JOLLY BODIES OCCASIONAL
--- NOTE | 2017-04-15 08:10 | CODING QUERY MEDICAL NECESSITY ---
CQSUPPORTING DIAGNOSIS NEEDED A supporting diagnosis is required for the test/procedure performed on this patient in order for us to be reimbursed by the patient's insurance. Please provide a supporting diagnosis for the following test/procedure listed below next to the test name along with your signature. *If there is no additional diagnosis for this patient that would support the following test/procedure please document that below next to the test/procedure. Test(s)/Procedure(s) that require a supporting diagnosis: DOS 04/07/17 C-REACTIVE PROTEIN HIGH SENSITIVITY TESTS THYROID TESTS Provider Signature: Date: Thank you Damaris Obrien Health Information Management Once completed, please kindly fax back to [phone] For questions please call [phone]
== END | disposition home or self-care (01) ==
LOC: C.LABBC 08:21
PROVIDERS: ATTEND Family Medicine
DX: R73.09 Other abnormal glucose (principal); E55.9 Vitamin D deficiency, unspecified; D51.9 Vitamin B12 deficiency anemia, unspecified; Z79.899 Other long term (current) drug therapy; E78.5 Hyperlipidemia, unspecified; R53.83 Other fatigue

== ENCOUNTER → 2017-04-16 | Outpatient (CLI) | payer OTHER, BC ==
--- NOTE | 2017-04-19 07:43 | MAMMOGRAPHY REPORT ---
BILATERAL DIGITAL SCREENING MAMMOGRAM WITH CAD: 04/16/2017 CLINICAL HISTORY: Routine screening. Patient has no complaints. TECHNIQUE: Current study was also evaluated with a Computer Aided Detection (CAD) system. Bilateral CC and MLO views were obtained. COMPARISON: Comparison is made to exams dated: 04/15/2016 mammogram, 04/08/2015 mammogram, 04/06/2014 m ammogram, 04/05/2013 mammogram, 04/04/2012 mammogram, and 04/01/2011 mammogram - [facility] enter. BREAST COMPOSITION: There are scattered areas of fibroglandular density in both breasts. FINDINGS: No suspicious masses, calcifications, or areas of architectural distortion are noted in ei ther breast. There has been no significant interval change compared to prior exams. IMPRESSION: ACR BI-RADS CATEGORY 1: NEGATIVE There is no mammographic evidence of malignancy. A 1 year screening mammogram is recommended. The pa tient will receive written notification of the results. Approximately 10% of breast cancers are not detected with mammography. A negative mammographic report should not delay biopsy if a clinically suggestive mass is present. Deirdre Peoples M.D. /:04/16/2017 16:34:15 Estimator And Drafter Supervisor: Kellie HENAO(Sheila)(M), [facility] letter sent: Normal 1/2 BI-RADS Code: ACR BI-RADS Category 1: Negative
== END | disposition home or self-care (01) ==
LOC: C.MAMM 14:59
PROVIDERS: ATTEND Family Medicine
DX: Z12.31 Encounter for screening mammogram for malignant neoplasm of breast (principal)

== ENCOUNTER → 2017-05-13 | Outpatient (CLI) | payer OTHER, BC ==
--- NOTE | 2017-05-13 15:38 | DIAGNOSTIC IMAGING REPORT ---
HEAD CT NONCONTRAST CT DOSE: 638.56 mGycm HISTORY: R51 [id number] Vision [id number] TECHNIQUE: Multiaxial CT images of the head were performed without the use of intravenous contrast. Automated exposure control was utilized for this study. A dose lowering technique was utilized adhering to the principles of ALARA. Comparison: None. Findings: Partial passive use of the ethmoid air cells and a small fluid level within the right maxillary sinus. Mucosal thickening within the sphenoid sinuses. The mastoid air cells are clear. The calvarium and skull base are intact. There is no mass, hematoma, midline shift, acute infarct. White matter hypodensity is nonspecific but suggestive of microvascular ischemic change. The ventricles and sulci demonstrate mild age-related involutional changes. Impression: No acute intracranial abnormality. Atrophy and microvascular ischemic changes. Electronically signed by: Trey Herrera M.D. 05/13/2017 3:36 PM Dictated Date/Time: 05/13/2017 3:33 PM
== END | disposition home or self-care (01) ==
LOC: C.CTS 14:56
PROVIDERS: ATTEND Physician Assistant
DX: R51 Headache (principal); R42 Dizziness and giddiness; H53.9 Unspecified visual disturbance

== ENCOUNTER → 2017-05-28 | Outpatient (CLI) | payer OTHER, BC ==
--- NOTE | 2017-05-28 09:52 | DIAGNOSTIC IMAGING REPORT ---
ULTRASOUND OF THE CAROTID ARTERIES CLINICAL HISTORY: TIA COMPARISON STUDY: 03/16/2011 TECHNIQUE: Real-time, grayscale, and color Doppler sonography of the carotid arteries was performed. Imaging reviewed in the transverse and longitudinal planes. NASCET criteria was utilized for stenosis calcification. FINDINGS: There is moderate atherosclerotic plaque present . The peak systolic velocity within the right internal carotid artery is 89 cm/sec. The systolic velocity ratio of right internal to common carotid artery is 1.0. The peak systolic velocity within the left internal carotid artery is 124 cm/sec. The systolic velocity ratio left internal to common carotid artery is 1.8. Antegrade flow is seen in the vertebral arteries. The external carotid arteries are patent. Blood pressure in the right arm measured 178 mm/Hg. Blood pressure in the left arm measured 176 mm/Hg. IMPRESSION: Moderate atheromatous plaquing. No evidence of hemodynamically significant carotid stenosis. Electronically signed by: Eduardo Phillips M.D. 05/28/2017 9:51 AM Dictated Date/Time: 05/28/2017 9:50 AM
== END | disposition home or self-care (01) ==
LOC: C.ULTRBC 09:15
PROVIDERS: ATTEND Family Medicine
DX: G45.9 Transient cerebral ischemic attack, unspecified (principal); I65.23 Occlusion and stenosis of bilateral carotid arteries

== ENCOUNTER → 2017-08-19 | Outpatient (CLI) | payer OTHER, BC ==
[~2017-08-19] MED LIST changes: -BND25 PO; +DIPH25CA5 PO; -PRIM250T30 PO; +PRIM250T9 PO
[2017-08-19 11:06] LABS: HEMATOCRIT 35.3 % (37-47); MEAN CELL VOLUME 93.1 fL (80-100); MEAN CORPUSCULAR HEMOGLOBIN 32.7 pg (25-34); MEAN CORPUSCULAR HGB CONC 35.1 g/dl (32-36); MEAN PLATELET VOLUME 11.6 fL (7.4-10.4); PLATELET COUNT 271 K/uL (130-400); RED BLOOD COUNT 3.79 M/uL (4.2-5.4)
[2017-08-19 11:43] LABS: ESTIMATED AVERAGE GLUCOSE 128 mg/dl; HA1C FLAG Normal (Normal)
[2017-08-19 13:00] LABS: BASO ABS # 0.24 K/uL (0-0.2); BASOPHIL % 3.5 %; COMPLETE YES; EOSINOPHIL % 15.9 %; LARGE GRANULAR LYMPH ABSOLUTE 1.28 K/uL; LARGE GRANULAR LYMPHOCYTE % 18.6 %; LYMPH ABS # 2.33 K/uL (1.2-3.4); LYMPHOCYTE % 33.7 %; NEUTROPHILS % 23.9 %
[2017-08-19 14:26] LABS: ALB/GLOB RATIO 0.9 (0.9-2); ALKALINE PHOSPHATASE 64 U/L (45-117); ALT/SGPT 29 U/L (12-78); AST/SGOT 19 U/L (15-37); BLOOD UREA NITROGEN 23 mg/dl (7-18); BUN/CREATININE RATIO 20.8 (10-20); CALCIUM 9.3 mg/dl (8.5-10.1); CARBON DIOXIDE 27 mmol/L (21-32); CHLORIDE 97 mmol/L (98-107); CHOLESTEROL 242 mg/dl (0-200); CHOLESTEROL/HDL RATIO 2.4; CREATININE 1.09 mg/dl (0.60-1.20); GLUCOSE 105 mg/dl (70-99); HDL CHOLESTEROL 100 mg/dl; LDL CHOLESTEROL CALCULATED 124 mg/dl; POTASSIUM 3.8 mmol/L (3.5-5.1); SODIUM 132 mmol/L (136-145); TRIGLYCERIDES 88 mg/dl (0-150); URIC ACID 5.6 mg/dl (2.6-7.2); VERY LOW DENSITY LIPOPROT CALC 18 mg/dl
[2017-08-19 14:35] LABS: TOTAL IRON BINDING CAPACITY 360 mcg/dl (250-450)
[2017-08-24 13:37] LABS: PHENOBARBITAL 17.6 mg/L (15.0-40.0)
== END | disposition home or self-care (01) ==
LOC: C.LABBC 09:12
PROVIDERS: ATTEND Family Medicine
DX: E88.81 Metabolic syndrome and other insulin resistance (principal); E55.9 Vitamin D deficiency, unspecified; D51.9 Vitamin B12 deficiency anemia, unspecified; E78.9 Disorder of lipoprotein metabolism, unspecified; R53.83 Other fatigue

== ENCOUNTER → 2017-09-07 | Outpatient (CLI) | payer OTHER, BC ==
[~2017-09-07] MED LIST changes: +ASPI81TA28 PO; +CLON0.2T PO; +CTP1 PO; +HYDR12.55 PO; +IRBE1TAB46 PO; +PLV75 PO; +ROSU20TA PO
[2017-09-07 17:25] LABS: ALBUMIN 3.8 gm/dl (3.4-5.0); ALKALINE PHOSPHATASE 62 U/L (45-117); ALT/SGPT 36 U/L (12-78); AST/SGOT 24 U/L (15-37); BLOOD UREA NITROGEN 32 mg/dl (7-18); CALCIUM 9.7 mg/dl (8.5-10.1); CARBON DIOXIDE 29 mmol/L (21-32); CREATININE 1.04 mg/dl (0.60-1.20); GLUCOSE 168 mg/dl (70-99); POTASSIUM 3.6 mmol/L (3.5-5.1); SODIUM 130 mmol/L (136-145)
== END | disposition home or self-care (01) ==
LOC: C.CPL 15:57
PROVIDERS: ATTEND Family Medicine
DX: R55 Syncope and collapse (principal)

== ENCOUNTER 2017-09-21 13:45 | Inpatient (IN) | payer OTHER, BC ==
[2017-09-21] VITALS (19 sets, daily range): BP systolic 112–186; BP diastolic 59–117; PULSE 60–105; TEMP 36.6–36.9; O2SAT 93–97; Ht 157.5 cm; Wt 67.8 kg
[~2017-09-21] VITALS: Ht 157.5 cm; Wt 67.8 kg
[~2017-09-21 13:45] MED LIST changes: -ASPI81TA28 PO; -CLON0.2T PO; -CTP1 PO; -HYDR12.55 PO; -IRBE1TAB46 PO; -PLV75 PO; -ROSU20TA PO
[2017-09-21] MEDS ORDERED: ASPIRIN 324 MG CHEW ONE (14:03)
[2017-09-21] MEDS ORDERED: NITROGLYCERIN 0.4 MG SL PER TAB CHARGE ONE (14:03)
[2017-09-21] MEDS ORDERED: NITROGLYCERIN 0.4 MG SL PER TAB CHARGE SL STA (14:04)
[2017-09-21] MEDS ORDERED: ASPIRIN 81 MG CHEW PO STA (14:04)
[2017-09-21] MEDS ORDERED: MIDAZOLAM HCL 1 MG/ML 2ML VIAL ONE (14:07)
[2017-09-21] MEDS ORDERED: HEPARIN SOD (PORCINE) 1000 UNIT/ML 10 ML VIAL ONE (14:07)
[2017-09-21] MEDS ORDERED: NiCARDipine HCL INJ 2.5 MG/ML 10 ML AMP ONE (14:07)
[2017-09-21] MEDS ORDERED: FENTANYL CITRATE INJ 50 MCG/1 ML 2 ML VIAL ONE (14:07)
[2017-09-21] MEDS ORDERED: NITROGLYCERIN/D5W 100MCG/ML 20ML SYR ONE (14:08)
--- NOTE | 2017-09-21 14:18 | DIAGNOSTIC IMAGING REPORT ---
CHEST ONE VIEW PORTABLE CLINICAL HISTORY: Evaluate Fever/Sepsis dyspnea COMPARISON STUDY: 01/15/2011 FINDINGS: The bones soft tissues and hemidiaphragms are normal. The cardiomediastinal silhouette is normal. The lungs are clear. The pulmonary vasculature is normal. IMPRESSION: Negative chest. The above report was generated using voice recognition software. It may contain grammatical, syntax or spelling errors. Electronically signed by: Kentrell Anderson M.D. 09/21/2017 2:17 PM Dictated Date/Time: 09/21/2017 2:16 PM
[2017-09-21 14:20] LABS: ISTAT CREATININE 0.8 mg/dl (0.6-1.3); ISTAT IONIZED CALCIUM 1.15 mmol/l (1.12-1.32); ISTAT POTASSIUM 3.9 mEq/L (3.3-5.0)
--- NOTE | 2017-09-21 14:26 | EMERGENCY ROOM VISIT NOTE ---
History Report prepared by Lalo: Jack Arteaga Under the Supervision of: Dr. Giovany Aly D.O. First contact with patient: 13:57 Chief Complaint: CARDIAC ASSESSMENT Stated Complaint: TIGHTNESS IN CHEST History of Present Illness The patient is a 77 year old female who presents to the Emergency Room with complaints of chest tightness that began earlier this morning. She describes this sensation as a pressure on her chest. She has a past medical history of hypertension and SVT. She awoke this morning with this sensation present. She is mildly short of breath with a headache. She denies any nausea, vomiting, or recent illness. She is not on any blood thinners and did not take any Aspirin today. She notes that she had a similar sensation in her chest intermittently over the past couple of weeks associated with whenever her heart rate increases significantly. Source of History: patient Onset: earlier this morning Position: chest Symptom Intensity: moderate Quality: pressure Timing: constant Associated Symptoms: + headache, + SOB (mild), No nausea, No vomiting Review of Systems See HPI for pertinent positives & negatives. A total of 10 systems reviewed and were otherwise negative. Past Medical & Surgical Medical Problems: (1) HTN (hypertension) (2) SVT (supraventricular tachycardia) Family History Omitted secondary to the patient's age. Social History Smoking Status: Never Smoker Alcohol Use: none Drug Use: none Marital Status: Housing Status: lives with family Occupation Status: retired Current/Historical Medications Scheduled B-Complex W/ Folic Acid (Super B Complex Maxi), 1 TAB PO DAILY Calcium Carbonate-Vitamin D W/ (Caltrate 600 Plus), 1 TAB PO BID Cholecalciferol (D 1999), 2,000 UNITS PO QAM Diltiazem Hcl Ext Rel (Tiazac), 240 MG PO BID Fish Oil ([place]-3), 1 CAP PO TID Metoprolol Tartrate (Lopressor), 25 MG PO BID Mometasone Furoate-Formoterol (Dulera 200/5 Mcg), 2 PUFFS INH BID Montelukast Sodium (Singulair), 10 MG PO QAM Potassium Chloride (Klor-Con Ext Rel), 8 MEQ PO BID Primidone (Mysoline), 250 MG PO BID Scheduled PRN Albuterol Sulfate (Proair Respiclick), 1-2 PUFFS INH Q4H PRN for Shortness of Breath Diphenhydramine Hcl (Benadryl), 25 MG PO DIRECTED PRN for ALLERGIC REACTION Allergies Coded Allergies: Lisinopril (Verified Allergy, Severe, ANAPHYLAXIS, 01/17/17) Levofloxacin (Verified Allergy, Mild, rash, 01/16/17) Aspirin (Verified Allergy, Unknown, HX ITP, 01/16/17) Atorvastatin (Verified Allergy, Unknown, UNKNOWN, 01/16/17) CI Pigment Blue 63 (Verified Allergy, Unknown, RASH, ITCH, 09/21/17) Nebivolol (Verified Allergy, Unknown, RASH, ITCH, 09/21/17) Niacin (Verified Allergy, Unknown, UNKNOWN, 01/16/17) Phenobarbital (Verified Allergy, Unknown, UNKNOWN, 01/16/17) Yellow Dye (Verified Allergy, Unknown, RASH, ITCH, 09/21/17) Losartan (Verified Adverse Reaction, Intermediate, DIZZINESS., 01/16/17) PT TAKES HCTZ ALLOW AND TOLERATES. Physical Exam Vital Signs Date Time Temp Pulse Resp B/P (MAP) Pulse Ox O2 Delivery O2 Flow Rate FiO2 09/21/17 14:13 99 18 190/102 98 Nasal Cannula 2.0 09/21/17 14:12 98 Nasal Cannula 2.0 09/21/17 14:03 98 09/21/17 13:49 36.5 92 20 154/74 94 Room Air Physical Exam CONSTITUTIONAL/VITAL SIGNS: Reviewed / noted above. GENERAL: Non-toxic in appearance. INTEGUMENTARY: Warm, dry, and Steen. HEAD: Normocephalic. EYES: without scleral icterus or trauma. ENT/OROPHARYNX: clear and moist. LYMPHADENOPATHY/NECK: Is supple without lymphadenopathy or meningismus. RESPIRATORY: Lungs clear and equal. CARDIOVASCULAR: Regular rate and rhythm. GI/ABDOMEN: Soft and nontender. No organomegaly or pulsatile mass. No rebound or guarding. Normal bowel sounds. EXTREMITIES: Warm and well perfused. BACK: No CVA tenderness. NEUROLOGICAL: Intact without focal deficits. PSYCHIATRIC: normal affect. MUSCULOSKELETAL: Normally developed with good muscle tone. Medical Decision & Procedures ER Provider Diagnostic Interpretation: Radiology results as stated below per my review and radiologist interpretation: CHEST ONE VIEW PORTABLE CLINICAL HISTORY: Evaluate Fever/Sepsis dyspnea COMPARISON STUDY: 01/15/2011 FINDINGS: The bones soft tissues and hemidiaphragms are normal. The cardiomediastinal silhouette is normal. The lungs are clear. The pulmonary vasculature is normal. IMPRESSION: Negative chest. The above report was generated using voice recognition software. It may contain grammatical, syntax or spelling errors. Electronically signed by: Kentrell Anderson M.D. 09/21/2017 2:17 PM Dictated Date/Time: 09/21/2017 2:16 PM Laboratory Results Test 09/21/17 14:00 09/21/17 14:04 09/21/17 14:08 Creatine Kinase MB Ratio (0-3.0) Bedside Hemoglobin 12.9 g/dl (12.0-16.0) Bedside Hematocrit 38 % (37-47) Bedside Sodium 136 mEq/L (135-144) Bedside Potassium 3.9 mEq/L (3.3-5.0) Bedside Chloride 100 mEq/L (101-112) Bedside Total CO2 28 mEq/l (24-31) Anion Gap 13.0 mmol/L (16-25) Bedside Blood Urea Nitrogen 27 mg/dl (7-18) Bedside Creatinine 0.8 mg/dl (0.6-1.3) Bedside Glucose (other) 116 mg/dl (70-99) Bedside Ionized Calcium (Carmella) 1.15 mmol/l (1.12-1.32) ECG Indication: chest pain Rate (beats per minute): 92 Rhythm: sinus rhythm Findings: ST elevation (Inferior, concerning for acute inferior wall NE), no ectopy ED Course 1357: Previous medical records were reviewed. The patient was evaluated in room C7. A complete history and physical examination was performed. 1411: I spoke with Dr. Siddiqui of Cardiology at this time. He will evaluate the patient in the catheterization lab after evaluating her in the ER. Medical Decision Differentials considered include acute myocardial infarction, acute coronary syndrome, myocarditis, pericarditis, pericardial effusions /tamponade, esophageal perforation, thoracic aortic dissection, pulmonary embolism, pneumonia, pneumothorax, pancreatitis, shingles, acute cholecystitis, and perforated abdominal viscus. This is a 77-year-old female who presents to the ED with a chief complaint of chest discomfort. The patient reports that her chest discomfort started this morning. It is associated with shortness of breath. She thinks that she may have had it since she woke up. The patient also reports a recent exertional chest discomfort with activity. She had an EKG done last week by her PCP. The patient denies recent illness, fevers or chills. Her initial presentation to the emergency department revealed an EKG showing an acute inferior wall NE. Heart alert was called. Dr. Siddiqui arrived to the emergency department evaluated the patient. Initial EKG was compared to EKG last week and shows significant changes in the inferior leads as well as some reciprocal changes concerning for acute NE. The patient's exam was unremarkable. She is in no distress at this time. CBC and chemistry panel was unremarkable. Troponin was elevated at 0.7. The patient does report allergy to aspirin related to ITP in the past. She was given aspirin 325 mg by mouth as this was felt to be beneficial at this time. The patient was given one sublingual nitroglycerin tablet. The patient will be taken to the cardiac cork slabs [facility] for further evaluation by cardiology. Medication Reconcilliation Current Medication List: was personally reviewed by me Blood Pressure Screening Patient's blood pressure: Elevated blood pressure Blood pressure disposition: Referred to PCP Consults Time Called: 1408 Consulting Physician: Dr. Siddiqui - Cardiology Returned Call: 1411 We discussed the patient's case. He will evaluate the patient in the catheterization lab after evaluating her in the ER. Impression Primary Impression: Acute NE, inferior wall Critical Care I have personally spent greater than 30 minutes of critical care time in the direct management of this patient. This includes bedside care, interpretation of diagnostic studies, and testing, discussion with consultants, patient, and family members, and other required patient management activities. This 30 minutes is in excess of all separately billable procedures. Scribe Attestation The scribe's documentation has been prepared under my direction and personally reviewed by me in its entirety. I confirm that the note above accurately reflects all work, treatment, procedures, and medical decision making performed by me. Departure Information Dispostion Other (Dr. Siddiqui of Cardiology is evaluating her in the catheterization lab) Referrals Kenny Castillo M.D. (PCP) Patient Instructions My [facility]
[2017-09-21 14:32] LABS: HEMATOCRIT 37.5 % (37-47); HEMOGLOBIN 12.9 g/dL (12.0-16.0); MEAN CELL VOLUME 96.6 fL (80-100); MEAN CORPUSCULAR HEMOGLOBIN 33.2 pg (25-34); MEAN CORPUSCULAR HGB CONC 34.4 g/dl (32-36); MEAN PLATELET VOLUME 11.8 fL (7.4-10.4); PLATELET COUNT 308 K/uL (130-400); RED CELL DISTRIBUTION WIDTH CV 15.1 % (11.5-14.5); RED CELL DISTRIBUTION WIDTH SD 53.4 fL (36.4-46.3); WHITE BLOOD COUNT 10.93 K/uL (4.8-10.8)
[2017-09-21 14:44] LABS: PTT PATIENT 21.5 SECONDS (21.0-31.0)
[2017-09-21] MEDS ORDERED: CLOPIDOGREL BISULFATE 300 MG TAB PO ONE (15:09)
--- NOTE | 2017-09-21 15:25 | Post Sedation Assessment ---
Post Sedation Assessment General Date of Sedation Sep 21, 2017. Vital Signs: Vital Signs Past 12 Hours Date Time Temp Pulse Resp B/P (MAP) Pulse Ox O2 Delivery O2 Flow Rate FiO2 09/21/17 15:20 85 16 140/80 (100) 95 Room Air 09/21/17 15:08 70 16 157/91 (113) 95 Room Air 09/21/17 14:13 99 18 190/102 98 Nasal Cannula 2.0 09/21/17 14:12 98 Nasal Cannula 2.0 09/21/17 14:03 98 09/21/17 13:49 36.5 92 20 154/74 94 Room Air Post Procedure Recovery Score Activity: (2) Moves 4 extremities * Respiration: (2) Deep breath/cough Circulation: (2) +/-20% PreAnes Value Consciousness: (2) Fully Awake Oxygen Saturation: (2) > 92% On Room Air Post Anesthesia Score: 10 Discharge Sedation Level of Care: Fast Track Phase II Post Sedation Plan On clinical assessment, the patient appears to have tolerated the sedation without complications. Patient is recovering as anticipated. Patient will continue to be monitored by nursing and may be discharged when sedation discharge criteria are met per below protocol. Upon Completions of procedure and additional 15 minutes continue every 5 minute vital signs and the P.A.R. score; then discharge to a Phase I or Fast Track to Phase II per the following guidelines: * Discharge Patient to appropriate Phase II area if PAR is 8 or greater or return to pre- procedure baseline. The post - procedure orders will be as directed. * If PAR score is less than 8 or not return to pre-procedure baseline then patient will follow Phase I monitoring till PAR is reached for Phase II. The Phase I may be done in procedure room or may call to secure a Phase I area. * If naloxone or flumazenil are used for reversal, hold in Phase I for an additional 60 -120 minutes before discharge to Phase II. Please call the Sedation Physician to re-evaluate and complete post-note for discharge to Phase II area. Do NOT discharge from procedure sedation or Phase 1 until post- sedation evaluation note is complete by procedure /sedation MD Sedation Discharge Instructions to be given to the patient at discharge to home.
--- NOTE | 2017-09-21 15:25 | Pre Sedation Assessment ---
Pre Sedation Assessment General Date of Sedation: Sep 21, 2017. Vital Signs Past 12 Hours Date Time Temp Pulse Resp B/P (MAP) Pulse Ox O2 Delivery O2 Flow Rate FiO2 09/21/17 15:20 85 16 140/80 (100) 95 Room Air 09/21/17 15:08 70 16 157/91 (113) 95 Room Air 09/21/17 14:13 99 18 190/102 98 Nasal Cannula 2.0 09/21/17 14:12 98 Nasal Cannula 2.0 09/21/17 14:03 98 09/21/17 13:49 36.5 92 20 154/74 94 Room Air Review Cardiovascular: regular rate, rhythm, no edema Lungs: chest non-tender, lungs clear Pre-Sedation Airway Assessment Smoking Status: Never Smoker Hx of Sleep Apnea: No Hx of difficult intubation: No Thyro-mental Distance: > 3 Finger Breadths Oral Cavity: Dental Abnormalities Mallampati Classification: Class II ASA Classification: Class IV Procedure Planning Contraindications for Sedation: None Current Medications Reviewed: Yes Notes The planned sedation has been discussed with the patient. Informed Consent was obtained. I have identified the patient, determined the appropriateness of sedation and have assessed the patient immediately prior to the procedure. All medicine(s) and interventions are by my order.
[2017-09-21] MEDS ORDERED: ONDANSETRON INJ 2 MG/ML 2 ML VIAL IV PRN (15:30)
[2017-09-21] MEDS ORDERED: ACETAMINOPHEN 325 MG TAB PO PRN (15:30)
[2017-09-21] MEDS ORDERED: NITROGLYCERIN 0.4 MG SL PER TAB CHARGE SL PRN (15:30)
--- NOTE | 2017-09-21 15:35 | Cardiac Catheterization ---
Procedure Note Procedure Date Sep 21, 2017. Pre-Procedure Diagnosis STEMI AUC Score 9 Post-Procedure Diagnosis Severe CAD, Successful PCI Procedure(s) Performed Coronary Angiography, Drug Eluting Stent Sausage Stringer Artur Metal Machine Setter(s) Pearl Estimated Blood Loss 20 Medication(s) Clopidogrel, Fentanyl, Heparin, Versed, Lidocaine 1% Summary of Findings Indication: STEMI/Heart Alert Access: 6Fr right radial artery Catheters: [place]; JR4 guide Findings: LM - Luminal irregularities LAD - 50-60% mid LAD stenosis; distal luminal irregularities as wraps around apex. Circumflex - Chronically occluded distally at bifurcation of OM2/OM3; Large OM1 with 40% ostial stenosis; OM2/OM3 and distal AV groove circumflex fill via left to left collaterals RCA - Dominant, 50% late-proximal stenosis; diffuse mid segment disease before acute late mid 100% occlusion. -- PCI -- Antithrombotic therapy: Heparin, Clopidogrel Procedure: RCA cannulated with JR4 guide Vascular Physician 50 wire passed across lesion into distal vessel Mid RCA lesion predilated with 2.5 compliant balloon Dilated lesion stented distally with 2.75 x 30 Rolando DAVIDSON Overlapping 2nd stent placed from proximal segment back to first stent (3.0 x 22 Rolando DAVIDSON) Stents post-dilated with 3.0 noncompliant balloon IC vasodilators administered for spasm Post procedure KIMBERLY 3 flow, stent well expanded with minimal residual stenosis and no apparent cardiac complications. Arterial Closure: TR Band Summary: 1. Inferior STEMI/Occluded mid RCA 2. Multi-vessel coronary artery disease - MASTER BAKER distal circumflex with OM2/OM3 filling via left to left collaterals - 50-60% mid LAD 3. Successful PCI of mid RCA with 2 overlapping drug-eluting stents (3.0 x 22, 2.75 x 30 Rolando; post-dilated with 3.0 NC). Recommendations: Admit to ICU for continued monitoring Loaded with Clopidogrel 600 mg in catheterization laboratory technician Continue dual-antiplatelet therapy for at least 1 year Trend troponins until peak, Check Echo Continue home beta-carlota; previously was intolerant to ARB Retry high-dose statin. Consult cardiac Rehab Hemodynamics Rest Ao: 164/66/109 Final Ao: LV: -- Recommendations PCI without planned CABG Specimens None Radiation Exposure (mGy) 1264 Contrast (mls) 95 Fluids (cc crystalloids) 80 Drains none Anesthesia Moderate Procedural Complication(s) None Disposition ICU ACC Data Cardiac Status Clinical evaluation leading to the procedure CAD Presntation: STEMI Anginal Classification: CCS IV Heart Failure: No, NYHA Class: CCS I Cardiogenic Shock w/in 24Hrs: No Cardiac Arrest w/in 24Hrs: No Imaging studies past 6 months: No Stress studies past 6 months: No Closure Device Percutaneous Entry Location: Radial Closure Device: Radial Band Recommendations: PCI without planned CABG PCI Indication: Immediate PCI for STEMI First Noted: First EKG Lesion Segment Name: mid RCA Culprit Artery: Yes Stenosis Prior to Rx (%): 100 Chronic Total Occlusion: No IVUS: No FFR: No Pre-Procedure KIMBERLY Flow: 0 Previously Treated Lesion: No Lesion Complexity: Non-High/Non-C Lesion Length (mm): 25 Thrombus Present: Yes Bifurcation Lesion: No Guidewire Across Lesion: Yes Guidewire: Stenosis Post-Procedure (%): 0 Post-Procedure KIMBERLY Flow: 3 Device(s) Deployed: Yes Intraprocedure Events Significant Dissection: No Perforation: No
[2017-09-21 16:02] LABS: ALBUMIN 3.6 gm/dl (3.4-5.0); ALKALINE PHOSPHATASE 75 U/L (45-117); ALT/SGPT 32 U/L (12-78); AST/SGOT 34 U/L (15-37); BLOOD UREA NITROGEN 19 mg/dl (7-18); CALCIUM 9.4 mg/dl (8.5-10.1); CARBON DIOXIDE 24 mmol/L (21-32); CKMB 3.4 ng/ml (0.5-3.6); CREATININE 0.86 mg/dl (0.60-1.20); GLUCOSE 110 mg/dl (70-99); LIPASE 144 U/L (73-393); POTASSIUM 3.6 mmol/L (3.5-5.1); SODIUM 134 mmol/L (136-145); TOTAL PROTEIN 7.9 gm/dl (6.4-8.2)
[2017-09-21] MEDS ORDERED: ALBUTEROL HFA 8 GM INHALER INH PRN (16:15)
[2017-09-21] MEDS ORDERED: SODIUM CHLORIDE 0.9% 1000ML 1,000 ML IV SCH (16:15)
[2017-09-21] MEDS ORDERED: HYDR12.55 PO (16:31)
[2017-09-21] MEDS ORDERED: CLON0.2T PO (16:31)
--- NOTE | 2017-09-21 19:11 | CARDIOLOGY CONSULTATION ---
DATE OF CONSULTATION: 09/21/2017 CONSULTATION REQUESTED BY: Dr. Aly. REASON FOR CONSULTATION: Heart alert. PRIMARY TRUCK DESPATCHER: Dr. Howard. HISTORY OF PRESENT ILLNESS: Mrs. Tijerina is a very pleasant 77-year-old woman with a history of prior ST-T and difficult to control hypertension who presented today after developing a chest pressure earlier this a.m. that persisted throughout the day. On arrival, she was found to have inferior ST elevations on her presenting EKG and was taken emergently to the cardiac catheterization lab, there she was found to have an occluded mid RCA which was treated with 2 drug-eluting stents with good angiographic result. Her left system was remarkable for a chronically occluded distal circumflex with a distal OMs filling by left to left collaterals and an intermediate mid LAD lesion. Post-catheterization, she had minimal residual chest pain and was transferred to the ICU in stable condition. PAST MEDICAL HISTORY: 1. Supraventricular tachycardia, followed by Dr. Howard has been on longstanding AV jose agents. 2. Hypertension with difficult to control blood pressure on 4 blood pressure agents. 3. Asthma. 4. Hyperlipidemia. 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 6. Mild aortic stenosis on last echo, 03/08/2017, preserved LV function, EF 55-60%. PAST SURGICAL HISTORY: Status post appendectomy, laminectomy and tonsillectomy. FAMILY HISTORY: Her mother had an ID requiring bypass surgery in her 70s. Two siblings had MIs in their 70s. 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 HOME MEDICATIONS: Include Lovaza 1 gram 3 times daily, clonidine 0.2 three times daily, diltiazem 1 capsule 240 mg twice daily, Dulera, montelukast, ProAir, vitamin D, primidone for seizure disorder, B complex oral capsule, calcium plus vitamin D and potassium supplementation. ALLERGIES: INCLUDE LISINOPRIL, WHICH LED TO ANGIOEDEMA, LEVAQUIN, WHICH LEAD TO RASH, LIPITOR, WHICH LED ELEVATED HEPATIC ENZYMES; LOSARTAN, WHICH CAUSED DIZZINESS; NIACIN, WHICH CAUSED ELEVATED HEPATIC ENZYMES. REVIEW OF SYSTEMS: Unable to be obtained secondary to Emergency situation. PHYSICAL EXAMINATION: VITAL SIGNS: Temperature 36.9, pulse 79, blood pressure 150/65. She is 99% on room air. GENERAL: The patient appears comfortable in no acute distress. HEENT: Sclerae are anicteric. Oropharynx is clear. Mucous membranes are moist. NECK: Supple with no lymphadenopathy. LUNGS: Clear to auscultation bilaterally. HEART: Regular with no murmurs, rubs or gallops. ABDOMEN: Soft, nontender, nondistended with positive bowel sounds. EXTREMITIES: Warm. She had 2+ radial pulses bilaterally. Her right radial artery access site shows no hematoma or ecchymosis. She has intact distal pulses and sensation. NEUROLOGICAL: Nonfocal. PSYCHIATRIC: Alert, oriented and appropriate. LABORATORY AND IMAGING DATA: White blood cell count 10.9, hemoglobin of 12.9, platelets of 308. INR of 1.0. Sodium of 136, potassium is 3.9, BUN of 19, creatinine of 0.86. Presenting troponin was 0.695 and presenting chest x-ray showed no acute cardiopulmonary process. Initial EKG showed sinus rhythm with PACs and inferior ST elevations with lateral ST depressions. IMPRESSION AND PLAN: 1. Inferior ST-elevation myocardial infarction/occluded mid right coronary artery. 2. Difficult to control hypertension. 3. Multivessel coronary artery disease with moderate left anterior descending coronary artery disease, occluded distal circumflex, chronic. 4. History of supraventricular tachycardia. 5. Dyslipidemia. Mrs. Tijerina is status post primary percutaneous coronary intervention for her inferior ST-elevation myocardial infarction. She had successful placement of 2 drug-eluting stents with good angiographic result. She is now largely chest pain free and hemodynamically and electrically stable. She was loaded with clopidogrel 600 mg in the catheterization lab and will plan to continue on aspirin and Plavix for at least 1 year. She has prior intolerance to atorvastatin with elevated hepatic enzymes and will retry with Crestor at present. Otherwise, regards to her blood pressure, will continue home diltiazem, metoprolol and clonidine. We will hold her diuretic and start on ARB with irbesartan, which she states she previously tolerated in the form of a combination pill. Otherwise, we will plan to trend troponins, continue to monitor on telemetry in the ICU. Repeat echocardiogram in the morning. Will be followed while in hospital. Thank you for consultation.
[2017-09-21] MEDS: CLONIDINE HCL 0.1 MG TAB PO SCH (19:21)
[2017-09-21] MEDS: IRBESARTAN 75 MG TAB PO SCH (19:33)
[2017-09-21] MEDS: PRIMIDONE 250 MG TAB PO SCH (20:32)
[2017-09-21] MEDS: METOPROLOL TARTRATE 25 MG TAB PO SCH (20:33)
[2017-09-21] MEDS: CALCIUM 600MG + VIT D 400 IU TAB PO SCH (20:33)
[2017-09-21] MEDS: DILTIAZEM HCL 120 MG EXT REL CAP PO SCH (20:33)
[2017-09-21] MEDS: MONTELUKAST SOD 10 MG TAB PO SCH (20:35)
[2017-09-21 21:41] LABS: HEMATOCRIT 33.5 % (37-47); HEMOGLOBIN 11.7 g/dL (12.0-16.0); MEAN CELL VOLUME 95.7 fL (80-100); MEAN CORPUSCULAR HEMOGLOBIN 33.4 pg (25-34); MEAN CORPUSCULAR HGB CONC 34.9 g/dl (32-36); MEAN PLATELET VOLUME 10.7 fL (7.4-10.4); PLATELET COUNT 264 K/uL (130-400); RED CELL DISTRIBUTION WIDTH SD 52.9 fL (36.4-46.3); WHITE BLOOD COUNT 10.19 K/uL (4.8-10.8)
--- NOTE | 2017-09-21 23:02 | Critical Care Consultation ---
Critical Care Consultation Date of Consultation: Sep 21, 2017. Attending Physician: Tye Melendez M.D. Reason for Consultation: STEMI History of Present Illness Donna Tijerina is a 77-year-old female who presented today secondary to chest pressure that had developed earlier in the morning and was persisting throughout the day. On arrival to the emergency department EKG demonstrated inferior wall ST elevation and patient was taken by Dr. Siddiqui emergently to the cardiac rd lab technician. She was found to have 100% occlusion of the mid RCA and received 2 drug-eluting stents. Multivessel disease was also noted in the distal circumflex with a distal ON and mid LAD lesion. These vessels could not be stented and will currently be treated medically. Patient was loaded with parenteral 600 mg in the Hand Drawer In Helper and will be contingent on aspirin and Plavix for at least [address] Siddiqui note the patient did not tolerate her prior treatment with atorvastatin secondary to elevated hepatic enzymes and therefore he will try Crestor at this time. Patient has known hypertension which will continue to be treated with diltiazem, metoprolol and clonidine. Dr. Siddiqui ordered irbesartan and clonidine to tx hypertension. Pts TR band was also slow to remove secondary to continued bleeding at the site; likely mulitfactorial between the elevated blood pressures and hx of ITP s/p splenectomy. The patient denies weight loss, fever, dizziness, headache, muscle weakness, numbness, change in vision, sore throat, chest pain, palpitations, awareness of tachyarrhythmias, leg swelling, shortness of breath, cough, nausea, vomiting, bloody stools, diarrhea, constipation, abdominal pain, other changes in urine or bowel habits. She is concerned about side effects to current medications such as constipation. States she eats prunes regularly and would possibly like a bowel regimen if nothing by tomorrow. Past Medical/Surgical History Medical Problems: HTN (hypertension) STEMI (ST elevation myocardial infarction) SVT (supraventricular tachycardia) Asthma Hyperlipidemia History of ITP Aortic stenosis Surgical history: Splenectomy Appendectomy Tonsillectomy Laminectomy Family History Mother CAD, Bypass in 70s, Siblings x 2 with MIs in 70s Social History Smoking Status: Never Smoker Drug Use: none Marital Status: Housing Status: lives with family Occupation Status: retired Allergies Coded Allergies: Lisinopril (Verified Allergy, Severe, ANAPHYLAXIS, 01/17/17) Levofloxacin (Verified Allergy, Mild, rash, 01/16/17) Aspirin (Verified Allergy, Unknown, HX ITP, 01/16/17) Atorvastatin (Verified Allergy, Unknown, UNKNOWN, 01/16/17) CI Pigment Blue 63 (Verified Allergy, Unknown, RASH, ITCH, 09/21/17) Nebivolol (Verified Allergy, Unknown, RASH, ITCH, 09/21/17) Niacin (Verified Allergy, Unknown, UNKNOWN, 01/16/17) Phenobarbital (Verified Allergy, Unknown, UNKNOWN, 01/16/17) Yellow Dye (Verified Allergy, Unknown, RASH, ITCH, 09/21/17) Losartan (Verified Adverse Reaction, Intermediate, DIZZINESS., 01/16/17) PT TAKES HCTZ ALLOW AND TOLERATES. Home Medications Scheduled B-Complex W/ Folic Acid (Super B Complex Maxi), 1 TAB PO DAILY Calcium Carbonate-Vitamin D W/ (Caltrate 600 Plus), 1 TAB PO BID Cholecalciferol (D 2000), 2,000 UNITS PO QAM Clonidine Hcl (Catapres), 2 TAB PO DAILY Diltiazem Hcl Ext Rel (Tiazac), 240 MG PO BID Fish Oil (Saxe-3), 1 CAP PO TID Hydrochlorothiazide (Hydrochlorothiazide), 1 TAB PO DAILY Metoprolol Tartrate (Lopressor), 25 MG PO BID Mometasone Furoate-Formoterol (Dulera 200/5 Mcg), 2 PUFFS INH BID Montelukast Sodium (Singulair), 10 MG PO QAM Potassium Chloride (Klor-Con Ext Rel), 8 MEQ PO BID Primidone (Mysoline), 250 MG PO BID Scheduled PRN Albuterol Sulfate (Proair Respiclick), 1-2 PUFFS INH Q4H PRN for Shortness of Breath Diphenhydramine Hcl (Benadryl), 25 MG PO DIRECTED PRN for ALLERGIC REACTION Current Inpatient Medications Current Inpatient Medications Medications (Trade) Dose Ordered Sig/Ever Route Start Time Stop Time Status Last Admin Dose Admin Nitroglycerin (Nitrostat Tab) 0.4 mg UD PRN SL 09/21/17 15:30 10/21/17 15:29 Ondansetron HCl (Zofran Inj) 4 mg Q6H PRN IV 09/21/17 15:30 10/21/17 15:29 Clopidogrel Bisulfate (plAVix TAB) 75 mg QAM PO 09/22/17 09:00 10/22/17 08:59 Metoprolol Tartrate (Lopressor Tab) 25 mg Q12 PO 09/21/17 21:00 10/21/17 20:59 09/21/17 20:33 25 MG Acetaminophen (Tylenol Tab) 650 mg Q4H PRN PO 09/21/17 15:30 10/21/17 15:29 Calcium/Vitamin D (Caltrate Plus Tab) 1 tab BID PO 09/21/17 21:00 10/21/17 20:59 09/21/17 20:33 1 TAB Diltiazem HCl (TIAzac CAP) 240 mg BID PO 09/21/17 21:00 10/21/17 20:59 09/21/17 20:33 240 MG Diphenhydramine HCl (Benadryl Cap) 25 mg BID PRN PO 09/21/17 15:30 10/21/17 15:29 Montelukast Sodium (Singulair Tab) 10 mg QAM PO 09/22/17 09:00 10/22/17 08:59 09/21/17 20:35 10 MG Primidone (Mysoline Tab) 250 mg BID PO 09/21/17 21:00 10/21/17 20:59 09/21/17 20:32 250 MG Albuterol (Ventolin Hfa Inhaler) 1-2 PUFFS Q4H PRN INH 09/21/17 16:15 10/21/17 16:14 Miscellaneous Information (Order Awaiting Action) 1 ea QS N/A 09/22/17 00:00 10/22/17 00:00 Rosuvastatin Calcium (Crestor Tab) 20 mg QAM PO 09/22/17 09:00 10/22/17 08:59 Clonidine HCl (Catapres Tab) 0.2 mg TID PO 09/21/17 19:00 10/21/17 18:59 09/21/17 19:21 0.2 MG Irbesartan (Avapro Tab) 75 mg QAM PO 09/21/17 19:00 10/21/17 18:59 09/21/17 19:33 75 MG Review of Systems 12 systems reviewed and negative other than previously mentioned in the HPI. Physical Exam Date Time Temp Pulse Resp B/P (MAP) Pulse Ox O2 Delivery O2 Flow Rate FiO2 09/21/17 22:00 60 19 112/59 (76) 93 09/21/17 21:00 73 19 129/66 (87) 94 09/21/17 20:31 74 20 138/75 (96) 94 09/21/17 20:01 36.6 83 23 140/79 (99) 94 09/21/17 20:00 Room Air 09/21/17 19:01 77 23 168/78 (108) 96 09/21/17 18:54 82 22 183/88 (119) 96 09/21/17 18:31 86 18 178/84 (115) 97 09/21/17 18:01 96 23 165/94 (117) 95 09/21/17 17:53 91 25 186/86 (119) 96 09/21/17 17:45 93 24 181/78 (112) 96 09/21/17 17:36 96 24 165/117 (133) 96 09/21/17 17:31 105 18 183/92 (122) 96 09/21/17 17:15 90 21 172/77 (108) 97 09/21/17 17:00 36.9 79 21 150/65 (93) 96 Room Air 09/21/17 16:46 80 25 146/62 (90) 96 Room Air 09/21/17 16:30 74 16 150/72 (98) 95 Room Air 09/21/17 16:20 36.6 80 23 156/93 (114) 95 Room Air 09/21/17 15:45 95 Room Air 09/21/17 15:32 86 22 164/85 (111) 95 Room Air 09/21/17 15:20 85 16 140/80 (100) 95 Room Air 09/21/17 15:08 70 16 157/91 (113) 95 Room Air 09/21/17 14:13 99 18 190/102 98 Nasal Cannula 2.0 09/21/17 14:12 98 Nasal Cannula 2.0 09/21/17 14:03 98 09/21/17 13:49 36.5 92 20 154/74 94 Room Air Vital Signs - as noted Laboratory Data - as noted Physical Exam: General - NAD Eyes - PERRL, EOMI No icterus, gaze conjugate ENT - Mucosa moist, no lesions or candidiasis Neck - Supple, trachea midline, no masses or lymphadenopathy, no JVD or bruits Lungs - No paradoxical chest wall movement, clear to auscultation bilaterally, no wheezes, rales, or rhonchi Heart - Reg rate and rhythm, Grade 2 Systolic murmur, No rubs, clicks, or gallops appreciated Abdomen - normoactive BS present, no bruits noted, tympanic to percussion, soft , nontender, nondistended, no organomegaly Extremities - No edema, pedal pulses intact Neuro - A&OX3 Proprioception intact, neg pronator drift Strength extremities equal and appropriate bilaterally Reflexes: normal and equal Cerebellum: Finger to nose appropriate CN:PERRL, EOMI, no facial asymmetry, uvula/tongue midline Laboratory Results Last 24 Hours Test 09/21/17 14:00 09/21/17 14:08 09/21/17 14:40 09/21/17 15:01 White Blood Count 10.93 K/uL Red Blood Count 3.88 M/uL Hemoglobin 12.9 g/dL Hematocrit 37.5 % Mean Corpuscular Volume 96.6 fL Mean Corpuscular Hemoglobin 33.2 pg Mean Corpuscular Hemoglobin Concent 34.4 g/dl Platelet Count 308 K/uL Mean Platelet Volume 11.8 fL RDW Standard Deviation 53.4 fL RDW Coefficient of Variation 15.1 % Neutrophils % (Manual) 29.8 % Lymphocytes % (Manual) 34.2 % Monocytes % (Manual) 5.3 % Eosinophils % (Manual) 6.1 % Basophils % (Manual) 1.8 % Neutrophils # (Manual) 3.26 K/uL Total Absolute Neutrophils 3.26 K/uL Lymphocytes # (Manual) 3.74 K/uL Total Absolute Lymphocytes 6.23 K/uL Monocytes # (Manual) 0.58 K/uL Eosinophils # (Manual) 0.67 K/uL Basophils # (Manual) 0.20 K/uL Percent Large Granular Lymphocytes 22.8 % Absolute Large Granular Lymphocytes 2.49 K/uL Acanthocytes 1+ Prothrombin Time 10.1 SECONDS Prothromb Time International Ratio 1.0 Activated Partial Thromboplast Time 21.5 SECONDS Partial Thromboplastin Ratio 0.8 Sodium Level 134 mmol/L Potassium Level 3.6 mmol/L Chloride Level 99 mmol/L Carbon Dioxide Level 24 mmol/L Anion Gap 11.0 mmol/L 13.0 mmol/L Blood Urea Nitrogen 19 mg/dl Creatinine 0.86 mg/dl Est Creatinine Clear Calc Drug Dose 48.4 ml/min Estimated GFR () 74.5 Estimated GFR (Non- 64.3 BUN/Creatinine Ratio 22.6 Random Glucose 110 mg/dl Calcium Level 9.4 mg/dl Total Bilirubin 0.3 mg/dl Direct Bilirubin < 0.1 mg/dl Aspartate Amino Transf (AST/SGOT) 34 U/L Alanine Aminotransferase (ALT/SGPT) 32 U/L Alkaline Phosphatase 75 U/L Total Creatine Kinase 80 U/L Creatine Kinase MB 3.4 ng/ml Creatine Kinase MB Ratio 4.3 Troponin I 0.695 ng/ml Total Protein 7.9 gm/dl Albumin 3.6 gm/dl Lipase 144 U/L Bedside Hemoglobin 12.9 g/dl Bedside Hematocrit 38 % Bedside Sodium 136 mEq/L Bedside Potassium 3.9 mEq/L Bedside Chloride 100 mEq/L Bedside Total CO2 28 mEq/l Bedside Blood Urea Nitrogen 27 mg/dl Bedside Creatinine 0.8 mg/dl Bedside Glucose (other) 116 mg/dl Bedside Ionized Calcium (Carmella) 1.15 mmol/l Bedside Troponin I 0.710 ng/ml Kaolin Activated Coagulation Time 263 SECONDS 252 SECONDS Test 09/21/17 16:18 09/21/17 21:21 09/21/17 21:27 Bedside Glucose 112 mg/dl 123 mg/dl White Blood Count 10.19 K/uL Red Blood Count 3.50 M/uL Hemoglobin 11.7 g/dL Hematocrit 33.5 % Mean Corpuscular Volume 95.7 fL Mean Corpuscular Hemoglobin 33.4 pg Mean Corpuscular Hemoglobin Concent 34.9 g/dl RDW Standard Deviation 52.9 fL RDW Coefficient of Variation 15.0 % Platelet Count 264 K/uL Mean Platelet Volume 10.7 fL Troponin I 11.300 ng/ml Diagnostic Results CHEST ONE VIEW PORTABLE CLINICAL HISTORY: Evaluate Fever/Sepsis dyspnea COMPARISON STUDY: 01/15/2011 FINDINGS: The bones soft tissues and hemidiaphragms are normal. The cardiomediastinal silhouette is normal. The lungs are clear. The pulmonary vasculature is normal. IMPRESSION: Negative chest. The above report was generated using voice recognition software. It may contain grammatical, syntax or spelling errors. Electronically signed by: Kentrell Anderson M.D. 09/21/2017 2:17 PM Dictated Date/Time: 09/21/2017 2:16 PM Assessment & Plan (1) HTN (hypertension) (2) Acute VT, inferior wall PLAN: CV: * Inferior Wall VT Cath findings per Dr. Siddiqui as below * LM - Luminal irregularities * LAD - 50-60% mid LAD stenosis; distal luminal irregularities as wraps around apex. * Circumflex - Chronically occluded distally at bifurcation of OM2/OM3; Large OM1 with 40% ostial stenosis; OM2/OM3 and distal AV groove circumflex fill via left to left collaterals * RCA - Dominant, 50% late-proximal stenosis; diffuse mid segment disease before acute late mid 100% occlusion. * Troponin trending down * ECHO in AM * Dual Antiplatelet therapy x 1 yr * Continue home cardiac meds * Add Crestor and ARB * Cardiac Rehab Consulted Neuro: * Alert provider to return of chest pain * Neuro checks per protocol Resp: Supplemental oxygen as required Fluids/Renal: * Fluids discontinued * Monitor daily PRP * No catheter at this time ID: * No infectious process noted * Afebrile, No leukocytosis * Monitor Fever curve GI/Nutrition: * May advance diet as tolerated * AHA Heart Healthy Diet Heme: * Coags, H&H and Plts WNL * CBC daily Endocrine: Accu-Checks per protocol, started insulin infusion for 2 blood sugars greater than 180 or one greater than 250 CCT: 0 Minutes; Level 3 inpatient care. This time is exclusive of all separately billable procedures. Thank you for involving us in the care of this patient. Please refer to Dr. Abebe Echeverria's addendum for further recommendations.
[2017-09-22] VITALS (15 sets, daily range): BP systolic 85–130; BP diastolic 42–87; PULSE 54–74; TEMP 36.4–37; O2SAT 94–98
[2017-09-22] MEDS ORDERED: ICU PROTOCOL FOR HYPERGLYCEMIA PRN (00:15)
[2017-09-22] MEDS ORDERED: ATORVASTATIN 10 MG TAB PO ONE (00:15)
--- NOTE | 2017-09-22 00:15 | History and Physical ---
History & Physical Date & Time of Service: Sep 22, 2017 at 00:10 Chief Complaint: Acute Mi, Inferior Wall Primary Care Physician: Kenny Castillo M.D. History of Present Illness Source: patient 77 year old female with past medical history of supraventricular tachycardia, hypertension, dyslipidemia, ITP status post splenectomy and mild aortic stenosis presented to the ED with substernal chest pain. Chest pain has been on and off for the past 2-3 days. This morning she developed substernal chest pain more intense than before. Describes the pain as heaviness appears to be moderate in intensity. No associated factor. Localized at the substernal area. No shortness of breath. Accompanied by some numbness and both hands. No diaphoresis, nausea, shortness of breath, or vomiting. Presented to the ED and was found to have elevated troponin, concomitant with ST changes Patient went to cardiac cath status post 2 drug-eluting stents in RCA. Tolerated the procedure well. Past Medical/Surgical History Medical Problems: (1) HTN (hypertension) Status: Chronic (2) SVT (supraventricular tachycardia) Status: Chronic Social History Smoking Status: Never Smoker Drug Use: none Marital Status: Housing status: lives with family Occupational Status: retired Immunizations History of Influenza Vaccine: N/A History of Tetanus Vaccine?: Unknown History of Pneumococcal: Yes History of Hepatitis B Vaccine: No Multi-Drug Resistant Organisms History of MDRO: No Allergies Coded Allergies: Lisinopril (Verified Allergy, Severe, ANAPHYLAXIS, 01/17/17) Levofloxacin (Verified Allergy, Mild, rash, 01/16/17) Aspirin (Verified Allergy, Unknown, HX ITP, 01/16/17) Atorvastatin (Verified Allergy, Unknown, UNKNOWN, 01/16/17) CI Pigment Blue 63 (Verified Allergy, Unknown, RASH, ITCH, 09/21/17) Nebivolol (Verified Allergy, Unknown, RASH, ITCH, 09/21/17) Niacin (Verified Allergy, Unknown, UNKNOWN, 01/16/17) Phenobarbital (Verified Allergy, Unknown, UNKNOWN, 01/16/17) Yellow Dye (Verified Allergy, Unknown, RASH, ITCH, 09/21/17) Losartan (Verified Adverse Reaction, Intermediate, DIZZINESS., 01/16/17) PT TAKES HCTZ ALLOW AND TOLERATES. Home Medications Scheduled B-Complex W/ Folic Acid (Super B Complex Maxi), 1 TAB PO DAILY Calcium Carbonate-Vitamin D W/ (Caltrate 600 Plus), 1 TAB PO BID Cholecalciferol (D 2000), 2,000 UNITS PO QAM Clonidine Hcl (Catapres), 2 TAB PO DAILY Diltiazem Hcl Ext Rel (Tiazac), 240 MG PO BID Fish Oil (Cool-3), 1 CAP PO TID Hydrochlorothiazide (Hydrochlorothiazide), 1 TAB PO DAILY Metoprolol Tartrate (Lopressor), 25 MG PO BID Mometasone Furoate-Formoterol (Dulera 200/5 Mcg), 2 PUFFS INH BID Montelukast Sodium (Singulair), 10 MG PO QAM Potassium Chloride (Klor-Con Ext Rel), 8 MEQ PO BID Primidone (Mysoline), 250 MG PO BID Scheduled PRN Albuterol Sulfate (Proair Respiclick), 1-2 PUFFS INH Q4H PRN for Shortness of Breath Diphenhydramine Hcl (Benadryl), 25 MG PO DIRECTED PRN for ALLERGIC REACTION Review of Systems Constitutional: No fever, No chills, No sweats, No weight loss, No weakness, No fatigue, No problem reported Eyes: No worsening of vision, No eye pain, No redness, No discharge, No diplopia, No problem reported ENT: No hearing loss, No unusual epistaxis, No nasal symptoms, No sore throat, No tinnitus, No dental problems, No trouble swallowing, No problem reported Respiratory: No cough, No sputum, No wheezing, No shortness of breath, No dyspnea on exertion, No dyspnea at rest, No hemoptysis, No problem reported Cardiovascular: + chest pain, No orthopnea, No PND, No edema, No claudication, No palpitations, No problem reported Abdomen: No pain, No nausea, No vomiting, No diarrhea, No constipation, No GI bleeding, No problem reported Musculoskeletal: No joint pain, No muscle pain, No swelling, No calf pain, No problem reported Genitourinary - Female: No dysuria, No urinary frequency, No urinary urgency, No urinary incontinence, No urinary retention, No hematuria, No dysmenorrhea, No menorrhagia, No metrorrhagia, No rash, No vaginal bleeding, No vaginal discharge, No vaginal itching, No vulvodynia, No , No problem reported Neurologic: No memory loss, No paralysis, No weakness, No numbness/tingling, No vertigo, No balance problems, No problem reported Psychiatric: No depression symptoms, No anhedonism, No anxiety, No insomnia, No substance abuse, No problem reported Endocrine: No fatigue, No excessive thirst, No excessive urination, No problem reported Hematologic / Lymphatic: No abnormal bleeding/bruising, No clotting problems, No swollen lymph nodes, No night sweats, No problem reported Integumentary: No rash, No itch, No new/changing skin lesions, No color change , No bleeding, No problem reported Allergic / Immunologic: No environmental allergies, No seasonal allergies, No pet sensitivities, No food allergies, No hives, No frequent infections, No poor healing, No prolonged convalescence, No problem reported Physical Exam Vital Signs Date Time Temp Pulse Resp B/P (MAP) Pulse Ox O2 Delivery O2 Flow Rate FiO2 09/21/17 22:00 60 19 112/59 (76) 93 09/21/17 21:00 73 19 129/66 (87) 94 09/21/17 20:31 74 20 138/75 (96) 94 09/21/17 20:01 36.6 83 23 140/79 (99) 94 09/21/17 20:00 Room Air 09/21/17 19:01 77 23 168/78 (108) 96 09/21/17 18:54 82 22 183/88 (119) 96 09/21/17 18:31 86 18 178/84 (115) 97 09/21/17 18:01 96 23 165/94 (117) 95 09/21/17 17:53 91 25 186/86 (119) 96 09/21/17 17:45 93 24 181/78 (112) 96 09/21/17 17:36 96 24 165/117 (133) 96 09/21/17 17:31 105 18 183/92 (122) 96 09/21/17 17:15 90 21 172/77 (108) 97 09/21/17 17:00 36.9 79 21 150/65 (93) 96 Room Air 09/21/17 16:46 80 25 146/62 (90) 96 Room Air 09/21/17 16:30 74 16 150/72 (98) 95 Room Air 09/21/17 16:20 36.6 80 23 156/93 (114) 95 Room Air 09/21/17 15:45 95 Room Air 09/21/17 15:32 86 22 164/85 (111) 95 Room Air 09/21/17 15:20 85 16 140/80 (100) 95 Room Air 09/21/17 15:08 70 16 157/91 (113) 95 Room Air 09/21/17 14:13 99 18 190/102 98 Nasal Cannula 2.0 09/21/17 14:12 98 Nasal Cannula 2.0 09/21/17 14:03 98 09/21/17 13:49 36.5 92 20 154/74 94 Room Air General Appearance: WD/WN, no apparent distress Head: normocephalic, atraumatic Eyes: normal inspection, EOMI ENT: normal ENT inspection, hearing grossly normal Neck: supple Respiratory/Chest: chest non-tender, lungs clear, normal breath sounds, no respiratory distress Cardiovascular: regular rate, rhythm, no edema, no gallop, no JVD, no murmur Abdomen/GI: normal bowel sounds, non tender, soft, no organomegaly, no pulsatile mass Back: normal inspection Extremities/Musculoskelatal: normal inspection, no calf tenderness, normal capillary refill, no pedal edema, normal range of motion Neurologic/Psych: audio production manager II-XII nml as tested, no motor/sensory deficits, alert, normal mood/affect, normal reflexes, oriented x 3 Skin: normal color, warm/dry, no rash Diagnostics Laboratory Results Results Past 24 Hours Test 09/21/17 14:00 09/21/17 14:08 09/21/17 14:40 09/21/17 15:01 Range/Units White Blood Count 10.93 4.8-10.8 K/uL Red Blood Count 3.88 4.2-5.4 M/uL Hemoglobin 12.9 12.0-16.0 g/dL Hematocrit 37.5 37-47 % Mean Corpuscular Volume 96.6 80-100 fL Mean Corpuscular Hemoglobin 33.2 25-34 pg Mean Corpuscular Hemoglobin Concent 34.4 32-36 g/dl Platelet Count 308 130-400 K/uL Mean Platelet Volume 11.8 7.4-10.4 fL RDW Standard Deviation 53.4 36.4-46.3 fL RDW Coefficient of Variation 15.1 11.5-14.5 % Neutrophils % (Manual) 29.8 % Lymphocytes % (Manual) 34.2 % Monocytes % (Manual) 5.3 % Eosinophils % (Manual) 6.1 % Basophils % (Manual) 1.8 % Neutrophils # (Manual) 3.26 1.4-6.5 K/uL Total Absolute Neutrophils 3.26 1.4-6.5 K/uL Lymphocytes # (Manual) 3.74 1.2-3.4 K/uL Total Absolute Lymphocytes 6.23 1.2-3.4 K/uL Monocytes # (Manual) 0.58 0.11-0.59 K/uL Eosinophils # (Manual) 0.67 0-0.5 K/uL Basophils # (Manual) 0.20 0-0.2 K/uL Percent Large Granular Lymphocytes 22.8 % Absolute Large Granular Lymphocytes 2.49 K/uL Acanthocytes 1+ Prothrombin Time 10.1 9.0-12.0 SECONDS Prothromb Time International Ratio 1.0 0.9-1.1 Activated Partial Thromboplast Time 21.5 21.0-31.0 SECONDS Partial Thromboplastin Ratio 0.8 Sodium Level 134 136-145 mmol/L Potassium Level 3.6 3.5-5.1 mmol/L Chloride Level 99 98-107 mmol/L Carbon Dioxide Level 24 21-32 mmol/L Anion Gap 11.0 13.0 16-25 mmol/L Blood Urea Nitrogen 19 7-18 mg/dl Creatinine 0.86 0.60-1.20 mg/dl Est Creatinine Clear Calc Drug Dose 48.4 ml/min Estimated GFR () 74.5 Estimated GFR (Non- 64.3 BUN/Creatinine Ratio 22.6 10-20 Random Glucose 110 70-99 mg/dl Calcium Level 9.4 8.5-10.1 mg/dl Total Bilirubin 0.3 0.2-1 mg/dl Direct Bilirubin < 0.1 0-0.2 mg/dl Aspartate Amino Transf (AST/SGOT) 34 15-37 U/L Alanine Aminotransferase (ALT/SGPT) 32 12-78 U/L Alkaline Phosphatase 75 45-117 U/L Total Creatine Kinase 80 26-192 U/L Creatine Kinase MB 3.4 0.5-3.6 ng/ml Creatine Kinase MB Ratio 4.3 0-3.0 Troponin I 0.695 0-0.045 ng/ml Total Protein 7.9 6.4-8.2 gm/dl Albumin 3.6 3.4-5.0 gm/dl Lipase 144 73-393 U/L Bedside Hemoglobin 12.9 12.0-16.0 g/dl Bedside Hematocrit 38 37-47 % Bedside Sodium 136 135-144 mEq/L Bedside Potassium 3.9 3.3-5.0 mEq/L Bedside Chloride 100 101-112 mEq/L Bedside Total CO2 28 24-31 mEq/l Bedside Blood Urea Nitrogen 27 7-18 mg/dl Bedside Creatinine 0.8 0.6-1.3 mg/dl Bedside Glucose (other) 116 70-99 mg/dl Bedside Ionized Calcium (Carmella) 1.15 1.12-1.32 mmol/l Bedside Troponin I 0.710 0-0.045 ng/ml Kaolin Activated Coagulation Time 263 252 94-140 SECONDS Test 09/21/17 16:18 09/21/17 21:21 09/21/17 21:27 Range/Units Bedside Glucose 112 123 70-90 mg/dl White Blood Count 10.19 4.8-10.8 K/uL Red Blood Count 3.50 4.2-5.4 M/uL Hemoglobin 11.7 12.0-16.0 g/dL Hematocrit 33.5 37-47 % Mean Corpuscular Volume 95.7 80-100 fL Mean Corpuscular Hemoglobin 33.4 25-34 pg Mean Corpuscular Hemoglobin Concent 34.9 32-36 g/dl RDW Standard Deviation 52.9 36.4-46.3 fL RDW Coefficient of Variation 15.0 11.5-14.5 % Platelet Count 264 130-400 K/uL Mean Platelet Volume 10.7 7.4-10.4 fL Troponin I 11.300 0-0.045 ng/ml Microbiology Results 09/21/17 MRSA DNA Surveillance Screen - Final, Complete Specimen Negative for MRSA by DNA Probe Impression Assessment and Plan 77 year old female with past medical history of supraventricular tachycardia, hypertension, dyslipidemia, ITP status post splenectomy and mild aortic stenosis presented to the ED with STEMI. Assessment STEMI status post cardiac cath, 2 drug eluting stent in RCA Nonobstructive LAD disease history of supraventricular tachycardia hypertension dyslipidemia did not tolerate statins before, had elevated liver enzymes ITP status post splenectomy mild aortic stenosis Plan Status post 2 drug-eluting stents in RCA Patient agreed to challenge herself again with Lipitor and see if her liver enzymes mirlande up again. Meanwhile she wants to continue on her tablets / fish oil Started Plavix Cardiology consult appreciated Critical care consult appreciated Continue home medication Advanced Directives Existing Living Will: Yes Existing Power of Manager Business Management: Yes VTE Prophylaxis VTE Risk Assessment Done? Y/N: Yes Risk Level: Moderate
[2017-09-22] MEDS: CLONIDINE HCL 0.1 MG TAB PO SCH ×5 (00:31→20:07)
[2017-09-22] MEDS ORDERED: HEPARIN SOD 5000 UNIT/0.5 ML CARP SQ SCH (06:00)
[2017-09-22] MEDS: DULERA~ORDER AWAITING ACTION SCH ×2 (08:00)
[2017-09-22] MEDS: HEPARIN SOD 5000 UNIT/0.5 ML CARP SQ SCH ×2 (08:26→20:11)
[2017-09-22] MEDS: PRIMIDONE 250 MG TAB PO SCH ×2 (08:27→20:09)
[2017-09-22] MEDS: ROSUVASTATIN CALCIUM 20 MG TAB PO SCH (08:28)
[2017-09-22] MEDS: CALCIUM 600MG + VIT D 400 IU TAB PO SCH ×2 (08:28→20:07)
[2017-09-22] MEDS: OMEGA-3 (PURIFIED FISH OIL) 1 GM CAP PO SCH ×3 (08:28→20:07)
[2017-09-22] MEDS: DILTIAZEM HCL 120 MG EXT REL CAP PO SCH ×2 (08:28→20:08)
[2017-09-22] MEDS: METOPROLOL TARTRATE 25 MG TAB PO SCH ×2 (08:28→20:08)
[2017-09-22] MEDS: IRBESARTAN 75 MG TAB PO SCH (08:29)
[2017-09-22] MEDS: CLOPIDOGREL BISULFATE 75 MG TAB PO SCH (08:29)
[2017-09-22 08:35] LABS: BASO % 1.2 %; BASO ABS # 0.09 K/uL (0-0.2); EOS % 8.9 %; EOS ABS # 0.69 K/uL (0-0.5); HEMATOCRIT 31.3 % (37-47); HEMOGLOBIN 10.8 g/dL (12.0-16.0); IG# 0.01 K/uL (0.00-0.02); LYMPH % 39.8 %; LYMPH ABS # 3.08 K/uL (1.2-3.4); MEAN CORPUSCULAR HEMOGLOBIN 33.1 pg (25-34); MEAN CORPUSCULAR HGB CONC 34.5 g/dl (32-36); MEAN PLATELET VOLUME 11.4 fL (7.4-10.4); MONO % 7.5 %; MONO ABS # 0.58 K/uL (0.11-0.59); NEUT % 42.5 %; NEUT ABS # 3.29 K/uL (1.4-6.5); PLATELET COUNT 246 K/uL (130-400); RED CELL DISTRIBUTION WIDTH CV 14.9 % (11.5-14.5); RED CELL DISTRIBUTION WIDTH SD 52.7 fL (36.4-46.3); WHITE BLOOD COUNT 7.74 K/uL (4.8-10.8)
[2017-09-22] MEDS ORDERED: ATORVASTATIN 10 MG TAB PO SCH (09:00)
[2017-09-22 09:09] LABS: CALCIUM 8.4 mg/dl (8.5-10.1); CREATININE 0.79 mg/dl (0.60-1.20); HEMOGLOBIN A1C 5.6 % (4.5-5.6); POTASSIUM 3.4 mmol/L (3.5-5.1)
[2017-09-22 09:14] LABS: PHOSPHORUS 2.8 mg/dl (2.5-4.9)
[2017-09-22] MEDS ORDERED: MAGNESIUM SULFATE 1GM / D5W 1 GM in PREMIXED IN D5W 100 ML IV ONE (11:00)
[2017-09-22] MEDS ORDERED: POTASSIUM CHLORIDE 20 MEQ TABCR PO ONE (11:00)
--- NOTE | 2017-09-22 12:03 | Progress Note ---
Subjective Date of Service: Sep 22, 2017. Subjective Pt evaluation today including: conversation w/ patient, conversation w/ family , physical exam, chart review 77 yo female, reports feeling much better. She has mild right sided chest pain today. But denies SOB, diaphoresis, nausea, vomiting. Problem List Medical Problems: (1) Acute [place], inferior wall Status: Acute (2) Angioedema of lips Status: Acute (3) Hyponatremia Status: Acute Review of Systems Constitutional: No fever, No chills Respiratory: No cough, No sputum Cardiac: + chest pain, No orthopnea Abdomen: No pain Neurologic: No memory loss, No paralysis Psychiatric: No depression symptoms, No anhedonism Heme: No abnormal bleeding/bruising Endo: No fatigue Skin: No rash, No itch All Other Systems: Reviewed and Negative Medications Current Inpatient Medications Medications (Trade) Dose Ordered Sig/Ever Route Start Time Stop Time Status Last Admin Dose Admin Nitroglycerin (Nitrostat Tab) 0.4 mg UD PRN SL 09/21/17 15:30 10/21/17 15:29 Ondansetron HCl (Zofran Inj) 4 mg Q6H PRN IV 09/21/17 15:30 10/21/17 15:29 Clopidogrel Bisulfate (plAVix TAB) 75 mg QAM PO 09/22/17 09:00 10/22/17 08:59 09/23/17 08:36 75 MG Metoprolol Tartrate (Lopressor Tab) 25 mg Q12 PO 09/21/17 21:00 10/21/17 20:59 09/23/17 08:36 25 MG Acetaminophen (Tylenol Tab) 650 mg Q4H PRN PO 09/21/17 15:30 10/21/17 15:29 Calcium/Vitamin D (Caltrate Plus Tab) 1 tab BID PO 09/21/17 21:00 10/21/17 20:59 09/23/17 08:37 1 TAB Diltiazem HCl (TIAzac CAP) 240 mg BID PO 09/21/17 21:00 10/21/17 20:59 09/23/17 08:36 240 MG Diphenhydramine HCl (Benadryl Cap) 25 mg BID PRN PO 09/21/17 15:30 10/21/17 15:29 Montelukast Sodium (Singulair Tab) 10 mg QAM PO 09/22/17 09:00 10/22/17 08:59 09/21/17 20:35 10 MG Primidone (Mysoline Tab) 250 mg BID PO 09/21/17 21:00 10/21/17 20:59 09/23/17 08:36 250 MG Albuterol (Ventolin Hfa Inhaler) 1-2 PUFFS Q4H PRN INH 09/21/17 16:15 10/21/17 16:14 Rosuvastatin Calcium (Crestor Tab) 20 mg QAM PO 09/22/17 09:00 10/22/17 08:59 09/23/17 08:35 20 MG Irbesartan (Avapro Tab) 75 mg QAM PO 09/21/17 19:00 10/21/17 18:59 09/23/17 08:36 75 MG Miscellaneous Information (Icu Protocol For Hyperglycemia) 1 ea PRN PRN N/A 09/22/17 00:15 09/24/17 00:14 Fish Oil ([place]-3 (Purified Fish Oil) Cap) 1 gm TID PO 09/22/17 09:00 10/22/17 08:59 09/23/17 08:35 1 GM Heparin Sodium (Porcine) (Heparin Sq 5000 Unit/0.5ml) 5,000 unit BID SQ 09/22/17 09:00 10/22/17 05:59 09/23/17 08:39 5,000 UNIT Mometasone Furoate/ Formoterol Fumar (Dulera) 2 ea BID INH 09/22/17 21:00 10/22/17 20:59 09/23/17 08:37 2 EA Clonidine HCl (Catapres Tab) 0.1 mg TID PO 09/22/17 14:00 10/22/17 13:59 09/23/17 08:37 0.1 MG Objective Vital Signs Date Time Temp Pulse Resp B/P (MAP) Pulse Ox O2 Delivery O2 Flow Rate FiO2 09/22/17 12:00 Room Air 09/22/17 11:20 36.4 60 21 106/50 (68) 97 Room Air 09/22/17 11:14 57 16 85/46 (59) 95 Room Air 09/22/17 10:01 63 15 106/57 (73) 96 Room Air 09/22/17 09:02 72 21 126/65 (85) 96 Room Air 09/22/17 08:01 36.5 70 23 121/58 (79) 96 Room Air 09/22/17 08:00 Room Air 09/22/17 07:01 74 18 130/87 (101) 97 Room Air 09/22/17 06:00 69 19 114/63 (80) 98 Room Air 09/22/17 04:00 Room Air 09/22/17 04:00 36.7 68 17 105/57 (73) 97 Room Air 09/22/17 02:00 54 16 91/42 (58) 94 Room Air 09/22/17 00:01 36.8 71 19 119/62 (81) 94 Room Air 09/21/17 23:59 Room Air 09/21/17 22:00 60 19 112/59 (76) 93 09/21/17 21:00 73 19 129/66 (87) 94 09/21/17 20:31 74 20 138/75 (96) 94 09/21/17 20:01 36.6 83 23 140/79 (99) 94 09/21/17 20:00 Room Air 09/21/17 19:01 77 23 168/78 (108) 96 09/21/17 18:54 82 22 183/88 (119) 96 09/21/17 18:31 86 18 178/84 (115) 97 09/21/17 18:01 96 23 165/94 (117) 95 09/21/17 17:53 91 25 186/86 (119) 96 09/21/17 17:45 93 24 181/78 (112) 96 09/21/17 17:36 96 24 165/117 (133) 96 09/21/17 17:31 105 18 183/92 (122) 96 09/21/17 17:15 90 21 172/77 (108) 97 09/21/17 17:00 36.9 79 21 150/65 (93) 96 Room Air 09/21/17 16:46 80 25 146/62 (90) 96 Room Air 09/21/17 16:30 74 16 150/72 (98) 95 Room Air 09/21/17 16:20 36.6 80 23 156/93 (114) 95 Room Air 09/21/17 15:45 95 Room Air 1/2/18 15:32 86 22 164/85 (111) 95 Room Air 09/21/17 15:20 85 16 140/80 (100) 95 Room Air 09/21/17 15:08 70 16 157/91 (113) 95 Room Air 09/21/17 14:13 99 18 190/102 98 Nasal Cannula 2.0 09/21/17 14:12 98 Nasal Cannula 2.0 09/21/17 14:03 98 09/21/17 13:49 36.5 92 20 154/74 94 Room Air Physical Exam General Appearance: WD/WN, no apparent distress Neck: supple, no adenopathy Respiratory/Chest: chest non-tender, lungs clear, normal breath sounds Cardiovascular: regular rate, rhythm, no edema Abdomen: normal bowel sounds, non tender, soft Extremities: normal range of motion, non-tender Skin: normal color Lymphatic: no adenopathy Laboratory Results Last 24 Hours Test 09/21/17 14:00 09/21/17 14:08 09/21/17 14:40 09/21/17 15:01 White Blood Count 10.93 K/uL Red Blood Count 3.88 M/uL Hemoglobin 12.9 g/dL Hematocrit 37.5 % Mean Corpuscular Volume 96.6 fL Mean Corpuscular Hemoglobin 33.2 pg Mean Corpuscular Hemoglobin Concent 34.4 g/dl Platelet Count 308 K/uL Mean Platelet Volume 11.8 fL RDW Standard Deviation 53.4 fL RDW Coefficient of Variation 15.1 % Neutrophils % (Manual) 29.8 % Lymphocytes % (Manual) 34.2 % Monocytes % (Manual) 5.3 % Eosinophils % (Manual) 6.1 % Basophils % (Manual) 1.8 % Neutrophils # (Manual) 3.26 K/uL Total Absolute Neutrophils 3.26 K/uL Lymphocytes # (Manual) 3.74 K/uL Total Absolute Lymphocytes 6.23 K/uL Monocytes # (Manual) 0.58 K/uL Eosinophils # (Manual) 0.67 K/uL Basophils # (Manual) 0.20 K/uL Percent Large Granular Lymphocytes 22.8 % Absolute Large Granular Lymphocytes 2.49 K/uL Acanthocytes 1+ Prothrombin Time 10.1 SECONDS Prothromb Time International Ratio 1.0 Activated Partial Thromboplast Time 21.5 SECONDS Partial Thromboplastin Ratio 0.8 Sodium Level 134 mmol/L Potassium Level 3.6 mmol/L Chloride Level 99 mmol/L Carbon Dioxide Level 24 mmol/L Anion Gap 11.0 mmol/L 13.0 mmol/L Blood Urea Nitrogen 19 mg/dl Creatinine 0.86 mg/dl Est Creatinine Clear Calc Drug Dose 48.4 ml/min Estimated GFR () 74.5 Estimated GFR (Non- 64.3 BUN/Creatinine Ratio 22.6 Random Glucose 110 mg/dl Calcium Level 9.4 mg/dl Total Bilirubin 0.3 mg/dl Direct Bilirubin < 0.1 mg/dl Aspartate Amino Transf (AST/SGOT) 34 U/L Alanine Aminotransferase (ALT/SGPT) 32 U/L Alkaline Phosphatase 75 U/L Total Creatine Kinase 80 U/L Creatine Kinase MB 3.4 ng/ml Creatine Kinase MB Ratio 4.3 Troponin I 0.695 ng/ml Total Protein 7.9 gm/dl Albumin 3.6 gm/dl Lipase 144 U/L Bedside Hemoglobin 12.9 g/dl Bedside Hematocrit 38 % Bedside Sodium 136 mEq/L Bedside Potassium 3.9 mEq/L Bedside Chloride 100 mEq/L Bedside Total CO2 28 mEq/l Bedside Blood Urea Nitrogen 27 mg/dl Bedside Creatinine 0.8 mg/dl Bedside Glucose (other) 116 mg/dl Bedside Ionized Calcium (Carmella) 1.15 mmol/l Bedside Troponin I 0.710 ng/ml Kaolin Activated Coagulation Time 263 SECONDS 252 SECONDS Test 09/21/17 16:18 09/21/17 21:21 09/21/17 21:27 09/22/17 00:18 Bedside Glucose 112 mg/dl 123 mg/dl White Blood Count 10.19 K/uL Red Blood Count 3.50 M/uL Hemoglobin 11.7 g/dL Hematocrit 33.5 % Mean Corpuscular Volume 95.7 fL Mean Corpuscular Hemoglobin 33.4 pg Mean Corpuscular Hemoglobin Concent 34.9 g/dl RDW Standard Deviation 52.9 fL RDW Coefficient of Variation 15.0 % Platelet Count 264 K/uL Mean Platelet Volume 10.7 fL Troponin I 11.300 ng/ml 9.040 ng/ml Test 09/22/17 08:02 White Blood Count 7.74 K/uL Red Blood Count 3.26 M/uL Hemoglobin 10.8 g/dL Hematocrit 31.3 % Mean Corpuscular Volume 96.0 fL Mean Corpuscular Hemoglobin 33.1 pg Mean Corpuscular Hemoglobin Concent 34.5 g/dl Platelet Count 246 K/uL Mean Platelet Volume 11.4 fL Neutrophils (%) (Auto) 42.5 % Lymphocytes (%) (Auto) 39.8 % Monocytes (%) (Auto) 7.5 % Eosinophils (%) (Auto) 8.9 % Basophils (%) (Auto) 1.2 % Neutrophils # (Auto) 3.29 K/uL Lymphocytes # (Auto) 3.08 K/uL Monocytes # (Auto) 0.58 K/uL Eosinophils # (Auto) 0.69 K/uL Basophils # (Auto) 0.09 K/uL RDW Standard Deviation 52.7 fL RDW Coefficient of Variation 14.9 % Immature Granulocyte % (Auto) 0.1 % Immature Granulocyte # (Auto) 0.01 K/uL Sodium Level 136 mmol/L Potassium Level 3.4 mmol/L Chloride Level 105 mmol/L Carbon Dioxide Level 23 mmol/L Anion Gap 8.0 mmol/L Blood Urea Nitrogen 15 mg/dl Creatinine 0.79 mg/dl Est Creatinine Clear Calc Drug Dose 53.4 ml/min Estimated GFR () 82.5 Estimated GFR (Non- 71.2 BUN/Creatinine Ratio 19.0 Random Glucose 173 mg/dl Estimated Average Glucose 114 mg/dl Hemoglobin A1c 5.6 % Calcium Level 8.4 mg/dl Phosphorus Level 2.8 mg/dl Magnesium Level 1.6 mg/dl Total Creatine Kinase 176 U/L Troponin I 5.840 ng/ml Triglycerides Level 77 mg/dl Cholesterol Level 199 mg/dl HDL Cholesterol 76 mg/dl LDL Cholesterol, Calculated 108 mg/dl VLDL Cholesterol, Calculated 15 mg/dl Cholesterol/HDL Ratio 2.6 Assessment and Plan 77 year old female with past medical history of supraventricular tachycardia, hypertension, dyslipidemia, ITP status post splenectomy and mild aortic stenosis presented to the ED with STEMI. Assessment STEMI status post cardiac cath, 2 drug eluting stent in RCA Nonobstructive LAD disease history of supraventricular tachycardia hypertension dyslipidemia did not tolerate statins before, had elevated liver enzymes ITP status post splenectomy mild aortic stenosis Plan Status post 2 drug-eluting stents in RCA Patient agreed to challenge herself again with Lipitor and see if her liver enzymes mirlande up again. Meanwhile she wants to continue on her tablets / fish oil Started Plavix Awaiting Echocardiogram Cardiology consult appreciated Critical care consult appreciated Continue home medication In regards to patient hypotension, will decrease clonidine to 0.1 mg PO TID. will monitor.
--- NOTE | 2017-09-22 12:05 | ECHOCARDIOGRAM REPORT ---
*NOTICE TO RECEIVING [employer] This information is strictly Confidential and protected under [place] law. [place] law prohibits you from making any further disclosure of this information unless further disclosure is expressly permitted by the written consent of the person to whom it pertains or is authorized by law. A general authorization for the release of medical or other information is not sufficient for this purpose. Hospital accepts no responsibility if the information is made available to any other person, INCLUDING THE PATIENT. Interpretation Summary * Name: CHERIE TOLENTINOZABETH Yolie Study Date: 09/22/2017 06:29 AM BP: 114/63 mmHg * Patient Location: .[facility]ICU\S\E107\S\1 HR: 69 * : 1940 (M/d/y) Gender: Female Height: 62 in * Age: 77 yrs Ethnicity: [place] Weight: 152 lb * Ordering Physician: Elbert Siddiqui * Referring Physician: Self, Referred * Performed By: Donna Molina RDCS * * Reason For Study: AMI * BSA: 1.7 m2 * -- Conclusions -- * 1. Normal LV size. Borderline concentric LVH. * 2. Normal overall LV systolic function. LVEF 55-60%. Inferior wall severe hypokinesis. Inferlateral wall akinetic at base, hypokinetic in the mid segment. * 3. Normal RV size and function. * 4. Moderate mitral regurgitation. * 5. Moderate aortic valve sclerosis without stenosis. * 6. Atrial septal aneursym. No evidence of right to left shunt by bubble study. * 7. Normal estimated PA and RA pressures. * 8. Grade I diastolic dysfunction. * 9. Compared with prior study on 02/09/2014: Regional wall motion abnormalities are new. MR is now moderate. Procedure Details * A saline contrast injection was performed to assess for cardiac shunting. * The injection was performed through an intravenous line in the left arm. * The attending nurse who injected the saline contrast was ALLA FUNEZ RN. * A total of 10 cc of agitated saline was given. Left Ventricle * The left ventricle is grossly normal size. * There is borderline concentric left ventricular hypertrophy. * Ejection Fraction = 55-60%. * Inferior wall severe hypokinesis. Inferlateral wall akinetic at base, hypokinetic in the mid segment. Right Ventricle * The right ventricle is grossly normal size. * The right ventricular systolic function is normal as assessed by tricuspid annular plane systolic excursion (TAPSE) (normal >1.5 cm). Atria * Borderline left atrial enlargement. * The left atrium is mildly dilated. * Right atrial size is normal. * Atrial septal aneurysm incidentally noted, with small, hemodynamically insigificant shunt. Consider daily aspirin for stroke prophylaxis. Closure not currently indicated. * Injection of contrast documented no interatrial shunt. Mitral Valve * The mitral valve is grossly normal. * There is no mitral valve stenosis. * There is moderate mitral regurgitation. Tricuspid Valve * The tricuspid valve is not well visualized, but is grossly normal. * There is no tricuspid stenosis. * There is trace tricuspid regurgitation. Aortic Valve * The aortic valve is trileaflet. * Aortic valve sclerosis moderate, without significant aortic valvular stenosis. * No hemodynamically significant valvular aortic stenosis. * There is no significant aortic regurgitation. Pulmonic Valve * The pulmonary valve is inadequately visualized, but the Doppler data is adequate for interpretation. * There is no pulmonic valvular stenosis. * Mild pulmonic valvular regurgitation. Great Vessels * The aortic root and proximal ascending aorta are normal sized. Pericardium/Pleural * There is no pericardial effusion. Great Vessels * Normal inferior vena cava size and collapsability with sniff indicates a normal right atrial pressure of 3 mmHg Left Ventricular Diastolic Function * Grade I diastolic dysfunction, (abnormal relaxation pattern). MMode 2D Measurements and Calculations IVSd 1.1 cm IVSs 1.8 cm LVIDd 4.8 cm LVIDs 3.3 cm LVPWd 1.3 cm LVPWs 1.7 cm IVS/LVPW 0.86 FS 31.4 % EDV(Teich) 109.1 ml ESV(Teich) 44.5 ml EF(Teich) 59.2 % EDV(cubed) 112.7 ml ESV(cubed) 36.3 ml EF(cubed) 67.8 % % IVS thick 59.8 % % LVPW thick 29.8 % LV mass(C)d 225.3 grams LV mass(C)dI 132.5 grams/m\S\2 LV mass(C)s 232.6 grams LV mass(C)sI 136.7 grams/m\S\2 SV(Teich) 64.6 ml SI(Teich) 38.0 ml/m\S\2 SV(cubed) 76.4 ml SI(cubed) 44.9 ml/m\S\2 Ao root diam 2.7 cm Ao root area 5.7 cm\S\2 LA dimension 4.4 cm LA/Ao 1.6 LVAd ap4 25.7 cm\S\2 LVLd ap4 7.6 cm EDV(MOD-sp4) 73.2 ml EDV(sp4-el) 74.0 ml LVAs ap4 15.2 cm\S\2 LVLs ap4 6.7 cm ESV(MOD-sp4) 30.4 ml ESV(sp4-el) 29.3 ml EF(MOD-sp4) 58.5 % EF(sp4-el) 60.4 % LVAd ap2 27.7 cm\S\2 LVLd ap2 7.8 cm EDV(MOD-sp2) 81.7 ml EDV(sp2-el) 83.7 ml LVAs ap2 17.9 cm\S\2 LVLs ap2 7.3 cm ESV(MOD-sp2) 37.2 ml ESV(sp2-el) 37.4 ml EF(MOD-sp2) 54.5 % EF(sp2-el) 55.3 % LVLd %diff 3.2 % EDV(MOD-bp) 78.0 ml LVLs %diff 8.0 % ESV(MOD-bp) 34.7 ml EF(MOD-bp) 55.5 % SV(MOD-sp4) 42.8 ml SI(MOD-sp4) 25.2 ml/m\S\2 SV(MOD-sp2) 44.5 ml SI(MOD-sp2) 26.2 ml/m\S\2 SV(MOD-bp) 43.3 ml SI(MOD-bp) 25.4 ml/m\S\2 SV(sp4-el) 44.7 ml SI(sp4-el) 26.3 ml/m\S\2 SV(sp2-el) 46.3 ml SI(sp2-el) 27.2 ml/m\S\2 Doppler Measurements and Calculations MV E max pippa 112.2 cm/sec MV A max pippa 107.3 cm/sec MV E/A 1.0 MV dec time 0.19 sec Ao V2 max 255.1 cm/sec Ao max PG 26.0 mmHg Ao max PG (full) 21.5 mmHg Ao V2 mean 168.8 cm/sec Ao mean PG 13.2 mmHg Ao mean PG (full) 11.2 mmHg Ao V2 VTI 58.6 cm LV V1 max PG 4.5 mmHg LV V1 mean PG 2.0 mmHg LV V1 max 106.3 cm/sec LV V1 mean 64.4 cm/sec LV V1 VTI 25.0 cm MR max pippa 571.8 cm/sec MR max PG 130.8 mmHg MR mean pippa 429.5 cm/sec MR mean PG 83.3 mmHg MR VTI 210.8 cm SV(Ao) 337.0 ml SI(Ao) 198.1 ml/m\S\2 TR max pippa 266.6 cm/sec
--- NOTE | 2017-09-22 13:42 | Cardiology Follow-Up ---
Subjective Subjective Date of Service: Sep 22, 2017. Pt evaluation today including: conversation w/ patient, conversation w/ family , physical exam, chart review, lab review, review of studies, review of inpatient medication list Additional Details: Patient feeling well. No recurrent chest pain, shortness of breath. Up in chair earlier today -- SBP to 80s - asymptomatic. No events on telemetry. Problem List Medical Problems: (1) Acute [place], inferior wall Status: Acute (2) Angioedema of lips Status: Acute (3) Hyponatremia Status: Acute Review of Systems Constitutional: No fever Respiratory: No cough Cardiac: No chest pain Abdomen: No pain Neurologic: No memory loss Heme: No abnormal bleeding/bruising Endo: No fatigue Skin: No rash Objective Vital Signs Last Vital Signs Documentation Date Time Temp Pulse Resp B/P (MAP) Pulse Ox O2 Delivery O2 Flow Rate FiO2 09/22/17 12:00 Room Air 09/22/17 11:20 36.4 60 21 106/50 (68) 97 09/21/17 14:13 2.0 Physical Exam: General Appearance: no apparent distress ENT: hearing grossly normal, pharynx normal Respiratory/Chest: lungs clear, normal breath sounds, no respiratory distress Cardiovascular: regular rate, rhythm, no JVD, + systolic murmur (2/6) Extremities: non-tender, no calf tenderness, normal capillary refill Neurologic/Psychiatric: alert, normal mood/affect, oriented x 3 Skin: warm/dry Assessment and Plan 1. Inferior STEMI/occluded RCA 2. Multivessel CAD 3. Hypertension 4. History of ITP 5. History of SVT 5. Hypokalemia/Hypomagnesemia Chest pain free, hemodynamically/electrically stable. Troponin has peaked. LV function grossly preserved on follow-up echo. -- Continue DAPT with ASA, Clopidogrel -- Low blood pressures today with addition of ARB --> agree with reducing clonidine to 0.1 mg TID -- Continue Crestor --> repeat LFTs as an outpatient. -- From a cardiac standpoint OK for transition to telemetry today. -- Plan on outpatient stress to further evaluate mid LAD intermediate disease. Appreciate ICU and hospital medicine teams care. Medications: Current Inpatient Medications Medications (Trade) Dose Ordered Sig/Ever Route Start Time Stop Time Status Last Admin Dose Admin Nitroglycerin (Nitrostat Tab) 0.4 mg UD PRN SL 09/21/17 15:30 2/1/18 15:29 Ondansetron HCl (Zofran Inj) 4 mg Q6H PRN IV 09/21/17 15:30 10/21/17 15:29 Clopidogrel Bisulfate (plAVix TAB) 75 mg QAM PO 09/22/17 09:00 10/22/17 08:59 09/22/17 08:29 75 MG Metoprolol Tartrate (Lopressor Tab) 25 mg Q12 PO 09/21/17 21:00 10/21/17 20:59 09/22/17 08:28 25 MG Acetaminophen (Tylenol Tab) 650 mg Q4H PRN PO 09/21/17 15:30 10/21/17 15:29 Calcium/Vitamin D (Caltrate Plus Tab) 1 tab BID PO 09/21/17 21:00 10/21/17 20:59 09/22/17 08:28 1 TAB Diltiazem HCl (TIAzac CAP) 240 mg BID PO 09/21/17 21:00 10/21/17 20:59 09/22/17 08:28 240 MG Diphenhydramine HCl (Benadryl Cap) 25 mg BID PRN PO 09/21/17 15:30 10/21/17 15:29 Montelukast Sodium (Singulair Tab) 10 mg QAM PO 09/22/17 09:00 10/22/17 08:59 09/21/17 20:35 10 MG Primidone (Mysoline Tab) 250 mg BID PO 09/21/17 21:00 10/21/17 20:59 09/22/17 08:27 250 MG Albuterol (Ventolin Hfa Inhaler) 1-2 PUFFS Q4H PRN INH 09/21/17 16:15 10/21/17 16:14 Rosuvastatin Calcium (Crestor Tab) 20 mg QAM PO 09/22/17 09:00 10/22/17 08:59 09/22/17 08:28 20 MG Irbesartan (Avapro Tab) 75 mg QAM PO 09/21/17 19:00 10/21/17 18:59 09/22/17 08:29 75 MG Miscellaneous Information (Icu Protocol For Hyperglycemia) 1 ea PRN PRN N/A 09/22/17 00:15 09/24/17 00:14 Fish Oil ([place]-3 (Purified Fish Oil) Cap) 1 gm TID PO 09/22/17 09:00 10/22/17 08:59 09/22/17 12:28 1 GM Heparin Sodium (Porcine) (Heparin Sq 5000 Unit/0.5ml) 5,000 unit BID SQ 09/22/17 09:00 10/22/17 05:59 09/22/17 08:26 5,000 UNIT Mometasone Furoate/ Formoterol Fumar (Dulera) 2 ea BID INH 09/22/17 21:00 10/22/17 20:59 Magnesium Oxide (Mag-Ox Tab) 400 mg QPM ONCE PO 09/22/17 21:00 09/22/17 21:01 Clonidine HCl (Catapres Tab) 0.1 mg TID PO 09/22/17 14:00 10/22/17 13:59 Lab Results: 09/22/17 08:02 Red Blood Count 3.26, Mean Corpuscular Volume 96.0, Mean Corpuscular Hemoglobin 33.1, Mean Corpuscular Hemoglobin Concent 34.5, Mean Platelet Volume 11.4, Neutrophils (%) (Auto) 42.5, Lymphocytes (%) (Auto) 39.8, Monocytes (%) (Auto) 7.5, Eosinophils (%) (Auto) 8.9, Basophils (%) (Auto) 1.2, Neutrophils # (Auto) 3.29, Lymphocytes # (Auto) 3.08, Monocytes # (Auto) 0.58, Eosinophils # (Auto) 0.69, Basophils # (Auto) 0.09 09/22/17 08:02 Test 09/21/17 14:00 09/21/17 14:08 09/21/17 15:01 09/21/17 21:27 Neutrophils % (Manual) 29.8 % Lymphocytes % (Manual) 34.2 % Monocytes % (Manual) 5.3 % Eosinophils % (Manual) 6.1 % Basophils % (Manual) 1.8 % Neutrophils # (Manual) 3.26 K/uL (1.4-6.5) Total Absolute Neutrophils 3.26 K/uL (1.4-6.5) Lymphocytes # (Manual) 3.74 K/uL (1.2-3.4) Total Absolute Lymphocytes 6.23 K/uL (1.2-3.4) Monocytes # (Manual) 0.58 K/uL (0.11-0.59) Eosinophils # (Manual) 0.67 K/uL (0-0.5) Basophils # (Manual) 0.20 K/uL (0-0.2) Percent Large Granular Lymphocytes 22.8 % Absolute Large Granular Lymphocytes 2.49 K/uL Acanthocytes 1+ Prothrombin Time 10.1 SECONDS (9.0-12.0) Prothromb Time International Ratio 1.0 (0.9-1.1) Activated Partial Thromboplast Time 21.5 SECONDS (21.0-31.0) Partial Thromboplastin Ratio 0.8 Total Bilirubin 0.3 mg/dl (0.2-1) Direct Bilirubin < 0.1 mg/dl (0-0.2) Aspartate Amino Transf (AST/SGOT) 34 U/L (15-37) Alanine Aminotransferase (ALT/SGPT) 32 U/L (12-78) Alkaline Phosphatase 75 U/L (45-117) Creatine Kinase MB 3.4 ng/ml (0.5-3.6) Creatine Kinase MB Ratio 4.3 (0-3.0) Total Protein 7.9 gm/dl (6.4-8.2) Albumin 3.6 gm/dl (3.4-5.0) Lipase 144 U/L (73-393) Bedside Hemoglobin 12.9 g/dl (12.0-16.0) Bedside Hematocrit 38 % (37-47) Bedside Sodium 136 mEq/L (135-144) Bedside Potassium 3.9 mEq/L (3.3-5.0) Bedside Chloride 100 mEq/L (101-112) Bedside Total CO2 28 mEq/l (24-31) Bedside Blood Urea Nitrogen 27 mg/dl (7-18) Bedside Creatinine 0.8 mg/dl (0.6-1.3) Bedside Glucose (other) 116 mg/dl (70-99) Bedside Ionized Calcium (Carmella) 1.15 mmol/l (1.12-1.32) Bedside Troponin I 0.710 ng/ml (0-0.045) Kaolin Activated Coagulation Time 252 SECONDS (94-140) Bedside Glucose 123 mg/dl (70-90) Test 09/22/17 08:02 White Blood Count 7.74 K/uL (4.8-10.8) Red Blood Count 3.26 M/uL (4.2-5.4) Hemoglobin 10.8 g/dL (12.0-16.0) Hematocrit 31.3 % (37-47) Mean Corpuscular Volume 96.0 fL (80-100) Mean Corpuscular Hemoglobin 33.1 pg (25-34) Mean Corpuscular Hemoglobin Concent 34.5 g/dl (32-36) Platelet Count 246 K/uL (130-400) Mean Platelet Volume 11.4 fL (7.4-10.4) Neutrophils (%) (Auto) 42.5 % Lymphocytes (%) (Auto) 39.8 % Monocytes (%) (Auto) 7.5 % Eosinophils (%) (Auto) 8.9 % Basophils (%) (Auto) 1.2 % Neutrophils # (Auto) 3.29 K/uL (1.4-6.5) Lymphocytes # (Auto) 3.08 K/uL (1.2-3.4) Monocytes # (Auto) 0.58 K/uL (0.11-0.59) Eosinophils # (Auto) 0.69 K/uL (0-0.5) Basophils # (Auto) 0.09 K/uL (0-0.2) RDW Standard Deviation 52.7 fL (36.4-46.3) RDW Coefficient of Variation 14.9 % (11.5-14.5) Immature Granulocyte % (Auto) 0.1 % Immature Granulocyte # (Auto) 0.01 K/uL (0.00-0.02) Anion Gap 8.0 mmol/L (3-11) Est Creatinine Clear Calc Drug Dose 53.4 ml/min Estimated GFR () 82.5 Estimated GFR (Non- 71.2 BUN/Creatinine Ratio 19.0 (10-20) Estimated Average Glucose 114 mg/dl Hemoglobin A1c 5.6 % (4.5-5.6) Calcium Level 8.4 mg/dl (8.5-10.1) Phosphorus Level 2.8 mg/dl (2.5-4.9) Magnesium Level 1.6 mg/dl (1.8-2.4) Total Creatine Kinase 176 U/L (26-192) Troponin I 5.840 ng/ml (0-0.045) Triglycerides Level 77 mg/dl (0-150) Cholesterol Level 199 mg/dl (0-200) HDL Cholesterol 76 mg/dl LDL Cholesterol, Calculated 108 mg/dl VLDL Cholesterol, Calculated 15 mg/dl Cholesterol/HDL Ratio 2.6 Date/Time Source Procedure Growth Status 09/21/17 15:30 Nasal MRSA DNA Surveillance Screen - Final Specimen Negative for MRSA by DNA Probe Complete
--- NOTE | 2017-09-22 15:31 | Critical Care Progress Note ---
Critical Care Progress Note Date of Service Sep 22, 2017. ICU Day ICU Day Number: [address] Echeverria Subjective 77-year-old female presented yesterday with chest pain and found to have ST elevation NJ. Taken to the cardiac [facility] and received cardiac catheterization per Dr. Siddiqui. This morning the patient denies any continuation of bleeding. She has no chest pain at this time. No shortness of breath. She has been laying supine in bed for the last hour prior that was out of bed to chair. She denies any fever or other sequela from the procedure. She has no acute complaints. Objective Vital Signs - as noted below Laboratory Data - as noted below Physical Exam: General - NAD. Eyes - No icterus, gaze conjugate ENT - Mucosa moist, no lesions or candidiasis Neck - Supple, No JVD Lungs - No bronchospasm, rales, or rhonchi.. Good effort Heart - Regular, rate controlled Abdomen - Soft, NT, ND, BS present Extremities - No edema, pedal pulses intact. No bleeding at the right radial insertion site. Dressing dry and intact Neuro - A&OX3 Current SOFA Score SOFA Score Response (Comments) Value Platelets (x10) > 150 0 Bilirubin (mg/dL) < 1.2 0 Ronaldo Coma Score 15 0 Level of Hypotension No Hypotension 0 Creatinine (mg/dL) < 1.2 0 Total 0 Assessment & Plan (1) Acute NJ, inferior wall (2) HTN (hypertension) (3) Hypomagnesemia (4) Hypokalemia (5) Asthma CV: * Inferior Wall NJ Cath findings per Dr. 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 via left to left collaterals * 50-60% mid LAD * Successful PCI of mid RCA with 2 overlapping drug-eluting stents * Troponin trending down - now 5.84 * ECHO complete with report pending * Aspirin and clopidogrel daily * Continue home cardiac meds including Diltiazem, Clonidine, Lopressor * Add Crestor and Irbesartan * Decrease clonidine to 0.1 mg 3 times a day Neuro: * No focal deficits on exam * Neuro checks per protocol Resp: * Supplemental oxygen as required * Continue Dulera and Montelukast * Oxygenation adequate * CTA on exam Fluids/Renal: * Fluids discontinued * [employer] 0.79 / BUN 15 * Serial labs and strict I&Os Electrolytes: * Mag 1.6 - give 1 gm IV and 400mg PO mag oxide * Potassium 3.4 - give 40 mEq K+ * Phos 2.8 * Follow serial labs ID: * No infectious process noted * Afebrile, No leukocytosis * Monitor post procedure GI/Nutrition: * Advance diet as tolerated * No indication for PPI or H2 car[place]ota at this time Heme: * HgB 10.8 from 12.9 - most likely dilutional * Daily labs * 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 Thank you for involving us in the care of this patient. Please refer to Dr. Echeverria's addendum for further recommendations. I agree with assessment and plan of Dl Forrest PA-C. Consults & Procedures Consultants: Cardiology - Dr. Siddiqui Procedures: Cardiac catheterization with DAVIDSON stent 09/21/2017 - Dr. Siddiqui Infusion of IV medication Data Medications: Current Inpatient Medications Medications (Trade) Dose Ordered Sig/Ever Route Start Time Stop Time Status Last Admin Dose Admin Nitroglycerin (Nitrostat Tab) 0.4 mg UD PRN SL 09/21/17 15:30 10/21/17 15:29 Ondansetron HCl (Zofran Inj) 4 mg Q6H PRN IV 09/21/17 15:30 10/21/17 15:29 Clopidogrel Bisulfate (plAVix TAB) 75 mg QAM PO 09/22/17 09:00 10/22/17 08:59 09/22/17 08:29 75 MG Metoprolol Tartrate (Lopressor Tab) 25 mg Q12 PO 09/21/17 21:00 10/21/17 20:59 09/22/17 08:28 25 MG Acetaminophen (Tylenol Tab) 650 mg Q4H PRN PO 09/21/17 15:30 10/21/17 15:29 Calcium/Vitamin D (Caltrate Plus Tab) 1 tab BID PO 09/21/17 21:00 10/21/17 20:59 09/22/17 08:28 1 TAB Diltiazem HCl (TIAzac CAP) 240 mg BID PO 09/21/17 21:00 10/21/17 20:59 09/22/17 08:28 240 MG Diphenhydramine HCl (Benadryl Cap) 25 mg BID PRN PO 09/21/17 15:30 10/21/17 15:29 Montelukast Sodium (Singulair Tab) 10 mg QAM PO 09/22/17 09:00 10/22/17 08:59 09/21/17 20:35 10 MG Primidone (Mysoline Tab) 250 mg BID PO 09/21/17 21:00 10/21/17 20:59 09/22/17 08:27 250 MG Albuterol (Ventolin Hfa Inhaler) 1-2 PUFFS Q4H PRN INH 09/21/17 16:15 10/21/17 16:14 Rosuvastatin Calcium (Crestor Tab) 20 mg QAM PO 09/22/17 09:00 10/22/17 08:59 09/22/17 08:28 20 MG Irbesartan (Avapro Tab) 75 mg QAM PO 09/21/17 19:00 10/21/17 18:59 09/22/17 08:29 75 MG Miscellaneous Information (Icu Protocol For Hyperglycemia) 1 ea PRN PRN N/A 09/22/17 00:15 09/24/17 00:14 Fish Oil ([place]-3 (Purified Fish Oil) Cap) 1 gm TID PO 09/22/17 09:00 10/22/17 08:59 09/22/17 12:28 1 GM Heparin Sodium (Porcine) (Heparin Sq 5000 Unit/0.5ml) 5,000 unit BID SQ 09/22/17 09:00 10/22/17 05:59 09/22/17 08:26 5,000 UNIT Mometasone Furoate/ Formoterol Fumar (Dulera) 2 ea BID INH 09/22/17 21:00 10/22/17 20:59 Magnesium Oxide (Mag-Ox Tab) 400 mg QPM ONCE PO 09/22/17 21:00 09/22/17 21:01 Clonidine HCl (Catapres Tab) 0.1 mg TID PO 09/22/17 14:00 10/22/17 13:59 I & O: 24-Hour Column 09/23/17 08:00 Intake Total 580 ml Output Total 800 ml Balance -220 ml Vital Signs: Date Time Temp Pulse Resp B/P (MAP) Pulse Ox O2 Delivery O2 Flow Rate FiO2 09/22/17 14:01 68 21 126/43 (70) 95 Room Air 09/22/17 12:01 57 21 93/42 (59) 95 Room Air 09/22/17 12:00 Room Air 09/22/17 11:20 36.4 60 21 106/50 (68) 97 Room Air 09/22/17 11:14 57 16 85/46 (59) 95 Room Air 09/22/17 10:01 63 15 106/57 (73) 96 Room Air 09/22/17 09:02 72 21 126/65 (85) 96 Room Air 09/22/17 08:01 36.5 70 23 121/58 (79) 96 Room Air 09/22/17 08:00 Room Air 09/22/17 07:01 74 18 130/87 (101) 97 Room Air 09/22/17 06:00 69 19 114/63 (80) 98 Room Air 09/22/17 04:00 Room Air 09/22/17 04:00 36.7 68 17 105/57 (73) 97 Room Air 09/22/17 02:00 54 16 91/42 (58) 94 Room Air 09/22/17 00:01 36.8 71 19 119/62 (81) 94 Room Air 09/21/17 23:59 Room Air 09/21/17 22:00 60 19 112/59 (76) 93 09/21/17 21:00 73 19 129/66 (87) 94 09/21/17 20:31 74 20 138/75 (96) 94 09/21/17 20:01 36.6 83 23 140/79 (99) 94 09/21/17 20:00 Room Air 09/21/17 19:01 77 23 168/78 (108) 96 09/21/17 18:54 82 22 183/88 (119) 96 09/21/17 18:31 86 18 178/84 (115) 97 09/21/17 18:01 96 23 165/94 (117) 95 09/21/17 17:53 91 25 186/86 (119) 96 09/21/17 17:45 93 24 181/78 (112) 96 09/21/17 17:36 96 24 165/117 (133) 96 09/21/17 17:31 105 18 183/92 (122) 96 09/21/17 17:15 90 21 172/77 (108) 97 09/21/17 17:00 36.9 79 21 150/65 (93) 96 Room Air 09/21/17 16:46 80 25 146/62 (90) 96 Room Air 09/21/17 16:30 74 16 150/72 (98) 95 Room Air 09/21/17 16:20 36.6 80 23 156/93 (114) 95 Room Air 09/21/17 15:45 95 Room Air 09/21/17 15:32 86 22 164/85 (111) 95 Room Air 09/21/17 15:20 85 16 140/80 (100) 95 Room Air 09/21/17 15:08 70 16 157/91 (113) 95 Room Air Laboratory Results: Last 24 Hours Test 09/21/17 16:18 09/21/17 21:21 09/21/17 21:27 09/22/17 00:18 Bedside Glucose 112 mg/dl 123 mg/dl White Blood Count 10.19 K/uL Red Blood Count 3.50 M/uL Hemoglobin 11.7 g/dL Hematocrit 33.5 % Mean Corpuscular Volume 95.7 fL Mean Corpuscular Hemoglobin 33.4 pg Mean Corpuscular Hemoglobin Concent 34.9 g/dl RDW Standard Deviation 52.9 fL RDW Coefficient of Variation 15.0 % Platelet Count 264 K/uL Mean Platelet Volume 10.7 fL Troponin I 11.300 ng/ml 9.040 ng/ml Test 09/22/17 08:02 09/22/17 15:00 White Blood Count 7.74 K/uL Red Blood Count 3.26 M/uL Hemoglobin 10.8 g/dL Hematocrit 31.3 % Mean Corpuscular Volume 96.0 fL Mean Corpuscular Hemoglobin 33.1 pg Mean Corpuscular Hemoglobin Concent 34.5 g/dl Platelet Count 246 K/uL Mean Platelet Volume 11.4 fL Neutrophils (%) (Auto) 42.5 % Lymphocytes (%) (Auto) 39.8 % Monocytes (%) (Auto) 7.5 % Eosinophils (%) (Auto) 8.9 % Basophils (%) (Auto) 1.2 % Neutrophils # (Auto) 3.29 K/uL Lymphocytes # (Auto) 3.08 K/uL Monocytes # (Auto) 0.58 K/uL Eosinophils # (Auto) 0.69 K/uL Basophils # (Auto) 0.09 K/uL RDW Standard Deviation 52.7 fL RDW Coefficient of Variation 14.9 % Immature Granulocyte % (Auto) 0.1 % Immature Granulocyte # (Auto) 0.01 K/uL Sodium Level 136 mmol/L Potassium Level 3.4 mmol/L Chloride Level 105 mmol/L Carbon Dioxide Level 23 mmol/L Anion Gap 8.0 mmol/L Blood Urea Nitrogen 15 mg/dl Creatinine 0.79 mg/dl Est Creatinine Clear Calc Drug Dose 53.4 ml/min Estimated GFR () 82.5 Estimated GFR (Non- 71.2 BUN/Creatinine Ratio 19.0 Random Glucose 173 mg/dl Estimated Average Glucose 114 mg/dl Hemoglobin A1c 5.6 % Calcium Level 8.4 mg/dl Phosphorus Level 2.8 mg/dl Magnesium Level 1.6 mg/dl Total Creatine Kinase 176 U/L Troponin I 5.840 ng/ml Triglycerides Level 77 mg/dl Cholesterol Level 199 mg/dl HDL Cholesterol 76 mg/dl LDL Cholesterol, Calculated 108 mg/dl VLDL Cholesterol, Calculated 15 mg/dl Cholesterol/HDL Ratio 2.6
[2017-09-22] MEDS: MOMETASONE FUROATE-FORMOTEROL (DULERA) 200mcg/5mcg per inh INH SCH (20:06)
[2017-09-22] MEDS ORDERED: MAGNESIUM OXIDE 400 MG TAB PO ONE (21:00)
[2017-09-23 04:00] VITALS: BP 130/60; PULSE 64; TEMP 36.6
[2017-09-23 06:09] LABS: HEMATOCRIT 32.2 % (37-47); HEMOGLOBIN 11.1 g/dL (12.0-16.0); MEAN CELL VOLUME 97.6 fL (80-100); MEAN CORPUSCULAR HEMOGLOBIN 33.6 pg (25-34); MEAN CORPUSCULAR HGB CONC 34.5 g/dl (32-36); MEAN PLATELET VOLUME 11.6 fL (7.4-10.4); PLATELET COUNT 249 K/uL (130-400); RED CELL DISTRIBUTION WIDTH CV 14.9 % (11.5-14.5); WHITE BLOOD COUNT 9.11 K/uL (4.8-10.8)
[2017-09-23 06:50] LABS: ALBUMIN 2.9 gm/dl (3.4-5.0); CALCIUM 8.9 mg/dl (8.5-10.1); CREATININE 0.84 mg/dl (0.60-1.20); POTASSIUM 3.7 mmol/L (3.5-5.1)
[2017-09-23 06:52] LABS: TOTAL PROTEIN 6.6 gm/dl (6.4-8.2)
[2017-09-23] MEDS ORDERED: NURSING VERBAL MED ORDER ONE (07:45)
[2017-09-23 08:00] VITALS: BP 126/77; PULSE 78; TEMP 36.6; O2SAT 94
[2017-09-23] MEDS: ROSUVASTATIN CALCIUM 20 MG TAB PO SCH (08:35)
[2017-09-23] MEDS: OMEGA-3 (PURIFIED FISH OIL) 1 GM CAP PO SCH ×3 (08:35→20:25)
[2017-09-23] MEDS: DILTIAZEM HCL 120 MG EXT REL CAP PO SCH ×2 (08:36→20:24)
[2017-09-23] MEDS: IRBESARTAN 75 MG TAB PO SCH (08:36)
[2017-09-23] MEDS: METOPROLOL TARTRATE 25 MG TAB PO SCH ×2 (08:36→20:24)
[2017-09-23] MEDS: PRIMIDONE 250 MG TAB PO SCH ×2 (08:36→20:24)
[2017-09-23] MEDS: CLOPIDOGREL BISULFATE 75 MG TAB PO SCH (08:36)
[2017-09-23] MEDS: MONTELUKAST SOD 10 MG TAB PO SCH ×3 (08:36→20:31)
[2017-09-23] MEDS: CALCIUM 600MG + VIT D 400 IU TAB PO SCH ×2 (08:37→20:24)
[2017-09-23] MEDS: MOMETASONE FUROATE-FORMOTEROL (DULERA) 200mcg/5mcg per inh INH SCH ×2 (08:37→21:13)
[2017-09-23] MEDS: CLONIDINE HCL 0.1 MG TAB PO SCH ×3 (08:37→20:23)
[2017-09-23] MEDS: HEPARIN SOD 5000 UNIT/0.5 ML CARP SQ SCH ×2 (08:39→20:26)
--- NOTE | 2017-09-23 09:50 | Cardiology Follow-Up ---
Subjective Subjective Date of Service: Sep 23, 2017. Pt evaluation today including: conversation w/ patient, conversation w/ family , physical exam, chart review, lab review, review of studies, review of inpatient medication list Additional Details: Feeling well. Up in chair. Mild shortness of breath climbing back into bed. No chest pain. Tele reviewed -- no events. Problem List Medical Problems: (1) Acute SD, inferior wall Status: Acute (2) Angioedema of lips Status: Acute (3) Hyponatremia Status: Acute Review of Systems Constitutional: No fever, No chills Respiratory: No cough, No sputum Cardiac: No orthopnea Abdomen: No pain Neurologic: No memory loss, No paralysis Psychiatric: No depression symptoms, No anhedonism Heme: No abnormal bleeding/bruising Endo: No fatigue Skin: No rash, No itch Objective Vital Signs Last Vital Signs Documentation Date Time Temp Pulse Resp B/P (MAP) Pulse Ox O2 Delivery O2 Flow Rate FiO2 09/23/17 08:00 36.6 78 20 126/77 (93) 94 Room Air 09/21/17 14:13 2.0 Physical Exam: General Appearance: no apparent distress ENT: hearing grossly normal Neck: supple, no adenopathy Respiratory/Chest: chest non-tender, lungs clear, + wheezing (few scattered wheezes) Cardiovascular: regular rate, rhythm, no edema, + systolic murmur (2/6 systolic ejection murmur) Abdomen: normal bowel sounds, non tender, soft Extremities: normal range of motion, non-tender, + pertinent finding (right radial artery access site -- mild surrounding ecchymosis; no hematoma. intact distal pulses/sensation.) Neurologic/Psychiatric: alert, normal mood/affect, oriented x 3 Skin: normal color Lymphatic: no adenopathy Assessment and Plan 1. Inferior STEMI/occluded RCA 2. Multivessel CAD 3. Hypertension 4. History of ITP 5. History of SVT 5. Hypokalemia/Hypomagnesemia Chest pain free, hemodynamically/electrically stable. Well perfused, no congestion on exam. New wheezing on exam. -- Continue DAPT with ASA, Clopidogrel -- Continue metoprolol, irbesartan and Crestor -- Continue home diltiazem for history of SVT -- On reduced home clonidine -- BPs stable. HCTZ/spironolactone held. -- From a cardiac standpoint -- up walking halls today, if stable overnight -- will target possible discharge tomorrow -- Plan on outpatient stress to further evaluate mid LAD intermediate disease, repeat LFTs on statin. Medications: Current Inpatient Medications Medications (Trade) Dose Ordered Sig/Ever Route Start Time Stop Time Status Last Admin Dose Admin Nitroglycerin (Nitrostat Tab) 0.4 mg UD PRN SL 09/21/17 15:30 10/21/17 15:29 Ondansetron HCl (Zofran Inj) 4 mg Q6H PRN IV 09/21/17 15:30 10/21/17 15:29 Clopidogrel Bisulfate (plAVix TAB) 75 mg QAM PO 09/22/17 09:00 10/22/17 08:59 09/23/17 08:36 75 MG Metoprolol Tartrate (Lopressor Tab) 25 mg Q12 PO 09/21/17 21:00 10/21/17 20:59 09/23/17 08:36 25 MG Acetaminophen (Tylenol Tab) 650 mg Q4H PRN PO 09/21/17 15:30 10/21/17 15:29 Calcium/Vitamin D (Caltrate Plus Tab) 1 tab BID PO 09/21/17 21:00 10/21/17 20:59 09/23/17 08:37 1 TAB Diltiazem HCl (TIAzac CAP) 240 mg BID PO 09/21/17 21:00 10/21/17 20:59 09/23/17 08:36 240 MG Diphenhydramine HCl (Benadryl Cap) 25 mg BID PRN PO 09/21/17 15:30 10/21/17 15:29 Montelukast Sodium (Singulair Tab) 10 mg QAM PO 09/22/17 09:00 10/22/17 08:59 09/21/17 20:35 10 MG Primidone (Mysoline Tab) 250 mg BID PO 09/21/17 21:00 10/21/17 20:59 09/23/17 08:36 250 MG Albuterol (Ventolin Hfa Inhaler) 1-2 PUFFS Q4H PRN INH 09/21/17 16:15 10/21/17 16:14 Rosuvastatin Calcium (Crestor Tab) 20 mg QAM PO 09/22/17 09:00 10/22/17 08:59 09/23/17 08:35 20 MG Irbesartan (Avapro Tab) 75 mg QAM PO 09/21/17 19:00 10/21/17 18:59 09/23/17 08:36 75 MG Miscellaneous Information (Icu Protocol For Hyperglycemia) 1 ea PRN PRN N/A 09/22/17 00:15 09/24/17 00:14 Fish Oil ([place]-3 (Purified Fish Oil) Cap) 1 gm TID PO 09/22/17 09:00 10/22/17 08:59 09/23/17 08:35 1 GM Heparin Sodium (Porcine) (Heparin Sq 5000 Unit/0.5ml) 5,000 unit BID SQ 09/22/17 09:00 10/22/17 05:59 09/23/17 08:39 5,000 UNIT Mometasone Furoate/ Formoterol Fumar (Dulera) 2 ea BID INH 09/22/17 21:00 10/22/17 20:59 09/23/17 08:37 2 EA Clonidine HCl (Catapres Tab) 0.1 mg TID PO 09/22/17 14:00 10/22/17 13:59 09/23/17 08:37 0.1 MG Lab Results: 09/23/17 05:48 Red Blood Count 3.30, Mean Corpuscular Volume 97.6, Mean Corpuscular Hemoglobin 33.6, Mean Corpuscular Hemoglobin Concent 34.5, Mean Platelet Volume 11.6 09/23/17 05:48 Test 09/22/17 11:47 09/22/17 15:00 09/23/17 05:48 Bedside Glucose 143 mg/dl (70-90) Total Creatine Kinase 143 U/L (26-192) Troponin I 4.470 ng/ml (0-0.045) White Blood Count 9.11 K/uL (4.8-10.8) Red Blood Count 3.30 M/uL (4.2-5.4) Hemoglobin 11.1 g/dL (12.0-16.0) Hematocrit 32.2 % (37-47) Mean Corpuscular Volume 97.6 fL (80-100) Mean Corpuscular Hemoglobin 33.6 pg (25-34) Mean Corpuscular Hemoglobin Concent 34.5 g/dl (32-36) Platelet Count 249 K/uL (130-400) Mean Platelet Volume 11.6 fL (7.4-10.4) RDW Standard Deviation 53.0 fL (36.4-46.3) RDW Coefficient of Variation 14.9 % (11.5-14.5) Neutrophils % (Manual) 41.1 % Lymphocytes % (Manual) 17.8 % Monocytes % (Manual) 2.8 % Eosinophils % (Manual) 7.5 % Basophils % (Manual) 2.8 % Neutrophils # (Manual) 3.74 K/uL (1.4-6.5) Total Absolute Neutrophils 3.74 K/uL (1.4-6.5) Lymphocytes # (Manual) 1.62 K/uL (1.2-3.4) Total Absolute Lymphocytes 4.17 K/uL (1.2-3.4) Monocytes # (Manual) 0.26 K/uL (0.11-0.59) Eosinophils # (Manual) 0.68 K/uL (0-0.5) Basophils # (Manual) 0.26 K/uL (0-0.2) Percent Large Granular Lymphocytes 28.0 % Absolute Large Granular Lymphocytes 2.55 K/uL Acanthocytes 1+ Anion Gap 7.0 mmol/L (3-11) Est Creatinine Clear Calc Drug Dose 48.9 ml/min Estimated GFR () 76.6 Estimated GFR (Non- 66.1 BUN/Creatinine Ratio 20.5 (10-20) Calcium Level 8.9 mg/dl (8.5-10.1) Magnesium Level 2.0 mg/dl (1.8-2.4) Total Bilirubin 0.3 mg/dl (0.2-1) Aspartate Amino Transf (AST/SGOT) 29 U/L (15-37) Alanine Aminotransferase (ALT/SGPT) 26 U/L (12-78) Alkaline Phosphatase 66 U/L (45-117) Total Protein 6.6 gm/dl (6.4-8.2) Albumin 2.9 gm/dl (3.4-5.0) Globulin 3.7 gm/dl (2.5-4.0) Albumin/Globulin Ratio 0.8 (0.9-2)
[2017-09-23 11:43] VITALS: BP 100/50; PULSE 61; TEMP 36.6; O2SAT 94
[2017-09-23 13:07] VITALS: BP 115/53
[2017-09-23 16:16] VITALS: BP 104/48; PULSE 62; TEMP 36.3; O2SAT 93
[2017-09-23 19:35] VITALS: BP 138/51; PULSE 64; TEMP 36.2; O2SAT 96
--- NOTE | 2017-09-23 20:14 | Progress Note ---
Post ICU Progress Note Date & Time Sep 23, 2017 at 20:12 Vital Signs Vital Signs Past 12 Hours Date Time Temp Pulse Resp B/P (MAP) Pulse Ox O2 Delivery O2 Flow Rate FiO2 09/23/17 19:35 36.2 64 20 138/51 (80) 96 Room Air 09/23/17 19:30 Room Air 09/23/17 16:16 36.3 62 20 104/48 (66) 93 Room Air 09/23/17 16:00 Room Air 09/23/17 13:07 115/53 (73) 09/23/17 12:00 Room Air 09/23/17 11:43 36.6 61 20 100/50 (67) 94 Room Air Notes Mental Status: alert / awake, participated in evaluation Nausea / Vomiting: adequately controlled Pain: adequately controlled Airway Patency, RR, SpO2: stable & adequate BP & HR: stable & adequate Patient still in ICU room 107 but now telemetry status. Patient was in bedside chair most of the day. No further chest pain, tightness. No nausea or vomiting. No fever or chills. Tolerating diet. Ambulating in hallway Consider outpatient follow up with: Dr. Siddiqui Reviewed progress notes, labs, and inpatient medication list Continue current management Critical care medicine will sign off at this time. Please refer to Dr. Echeverria' s addendum for further recommendations. Please feel free to reconsult as needed. Thank you for including us in the care of this patient Consults & Procedures Consultants: Cardiology - Dr. Siddiqui Procedures: Cardiac catheterization with DAVIDSON stent 09/21/2017 - Dr. Siddiqui Infusion of IV medication
--- NOTE | 2017-09-23 22:37 | Progress Note ---
Subjective Date of Service: Sep 23, 2017. Subjective Patient reports feeling well. Patient has no chest pain this morning, no nausea , or vomiting. Problem List Medical Problems: (1) Acute PR, inferior wall Status: Acute (2) Angioedema of lips Status: Acute (3) Hyponatremia Status: Acute Review of Systems Constitutional: No fever, No chills Eyes: No eye pain Respiratory: No cough, No sputum Cardiac: No chest pain, No orthopnea Abdomen: No pain, No nausea Neurologic: No memory loss, No paralysis Psychiatric: No depression symptoms, No anhedonism Heme: No abnormal bleeding/bruising Skin: No rash, No itch All Other Systems: Reviewed and Negative Medications Current Inpatient Medications Medications (Trade) Dose Ordered Sig/Ever Route Start Time Stop Time Status Last Admin Dose Admin Nitroglycerin (Nitrostat Tab) 0.4 mg UD PRN SL 09/21/17 15:30 10/21/17 15:29 Ondansetron HCl (Zofran Inj) 4 mg Q6H PRN IV 09/21/17 15:30 10/21/17 15:29 Clopidogrel Bisulfate (plAVix TAB) 75 mg QAM PO 09/22/17 09:00 10/22/17 08:59 09/24/17 07:49 75 MG Metoprolol Tartrate (Lopressor Tab) 25 mg Q12 PO 09/21/17 21:00 10/21/17 20:59 09/24/17 07:47 25 MG Acetaminophen (Tylenol Tab) 650 mg Q4H PRN PO 09/21/17 15:30 10/21/17 15:29 Calcium/Vitamin D (Caltrate Plus Tab) 1 tab BID PO 09/21/17 21:00 10/21/17 20:59 09/24/17 07:46 1 TAB Diltiazem HCl (TIAzac CAP) 240 mg BID PO 09/21/17 21:00 10/21/17 20:59 09/24/17 07:49 240 MG Diphenhydramine HCl (Benadryl Cap) 25 mg BID PRN PO 09/21/17 15:30 10/21/17 15:29 Montelukast Sodium (Singulair Tab) 10 mg QAM PO 09/22/17 09:00 10/22/17 08:59 09/23/17 20:31 10 MG Primidone (Mysoline Tab) 250 mg BID PO 09/21/17 21:00 10/21/17 20:59 09/24/17 07:47 250 MG Albuterol (Ventolin Hfa Inhaler) 1-2 PUFFS Q4H PRN INH 09/21/17 16:15 10/21/17 16:14 Rosuvastatin Calcium (Crestor Tab) 20 mg QAM PO 09/22/17 09:00 10/22/17 08:59 09/24/17 07:48 20 MG Irbesartan (Avapro Tab) 75 mg QAM PO 09/21/17 19:00 10/21/17 18:59 09/24/17 07:48 75 MG Fish Oil ([place]-3 (Purified Fish Oil) Cap) 1 gm TID PO 09/22/17 09:00 10/22/17 08:59 09/24/17 07:48 1 GM Heparin Sodium (Porcine) (Heparin Sq 5000 Unit/0.5ml) 5,000 unit BID SQ 09/22/17 09:00 10/22/17 05:59 09/24/17 07:50 5,000 UNIT Mometasone Furoate/ Formoterol Fumar (Dulera) 2 ea BID INH 09/22/17 21:00 10/22/17 20:59 09/24/17 07:57 2 EA Clonidine HCl (Catapres Tab) 0.1 mg TID PO 09/22/17 14:00 10/22/17 13:59 09/24/17 07:46 0.1 MG Objective Vital Signs Date Time Temp Pulse Resp B/P (MAP) Pulse Ox O2 Delivery O2 Flow Rate FiO2 09/23/17 19:35 36.2 64 20 138/51 (80) 96 Room Air 09/23/17 19:30 Room Air 09/23/17 16:16 36.3 62 20 104/48 (66) 93 Room Air 09/23/17 16:00 Room Air 09/23/17 13:07 115/53 (73) 09/23/17 12:00 Room Air 09/23/17 11:43 36.6 61 20 100/50 (67) 94 Room Air 09/23/17 08:00 36.6 78 20 126/77 (93) 94 Room Air 09/23/17 08:00 Room Air 09/23/17 04:00 36.6 64 20 130/60 (83) 09/23/17 04:00 Room Air 09/22/17 23:59 60 15 09/22/17 23:59 Room Air Physical Exam Comments: General Appearance: WD/WN, no apparent distress Neck: supple, no adenopathy Respiratory/Chest: chest non-tender, lungs clear, normal breath sounds Cardiovascular: regular rate, rhythm, no edema Abdomen: normal bowel sounds, non tender, soft Extremities: normal range of motion, non-tender Skin: normal color Lymphatic: no adenopathy Laboratory Results Last 24 Hours Test 09/23/17 05:48 White Blood Count 9.11 K/uL Red Blood Count 3.30 M/uL Hemoglobin 11.1 g/dL Hematocrit 32.2 % Mean Corpuscular Volume 97.6 fL Mean Corpuscular Hemoglobin 33.6 pg Mean Corpuscular Hemoglobin Concent 34.5 g/dl Platelet Count 249 K/uL Mean Platelet Volume 11.6 fL RDW Standard Deviation 53.0 fL RDW Coefficient of Variation 14.9 % Neutrophils % (Manual) 41.1 % Lymphocytes % (Manual) 17.8 % Monocytes % (Manual) 2.8 % Eosinophils % (Manual) 7.5 % Basophils % (Manual) 2.8 % Neutrophils # (Manual) 3.74 K/uL Total Absolute Neutrophils 3.74 K/uL Lymphocytes # (Manual) 1.62 K/uL Total Absolute Lymphocytes 4.17 K/uL Monocytes # (Manual) 0.26 K/uL Eosinophils # (Manual) 0.68 K/uL Basophils # (Manual) 0.26 K/uL Percent Large Granular Lymphocytes 28.0 % Absolute Large Granular Lymphocytes 2.55 K/uL Acanthocytes 1+ Sodium Level 137 mmol/L Potassium Level 3.7 mmol/L Chloride Level 105 mmol/L Carbon Dioxide Level 25 mmol/L Anion Gap 7.0 mmol/L Blood Urea Nitrogen 17 mg/dl Creatinine 0.84 mg/dl Est Creatinine Clear Calc Drug Dose 48.9 ml/min Estimated GFR () 76.6 Estimated GFR (Non- 66.1 BUN/Creatinine Ratio 20.5 Random Glucose 108 mg/dl Calcium Level 8.9 mg/dl Magnesium Level 2.0 mg/dl Total Bilirubin 0.3 mg/dl Aspartate Amino Transf (AST/SGOT) 29 U/L Alanine Aminotransferase (ALT/SGPT) 26 U/L Alkaline Phosphatase 66 U/L Total Protein 6.6 gm/dl Albumin 2.9 gm/dl Globulin 3.7 gm/dl Albumin/Globulin Ratio 0.8 Assessment and Plan 77 year old female with past medical history of supraventricular tachycardia, hypertension, dyslipidemia, ITP status post splenectomy and mild aortic stenosis presented to the ED with STEMI. Assessment STEMI status post cardiac cath, 2 drug eluting stent in RCA Nonobstructive LAD disease history of supraventricular tachycardia hypertension dyslipidemia did not tolerate statins before, had elevated liver enzymes ITP status post splenectomy mild aortic stenosis Plan Patient will continue on tele monitor for one more day. Status post 2 drug-eluting stents in RCA Patient agreed to challenge herself again with Lipitor and see if her liver enzymes mirlande up again. Meanwhile she wants to continue on her tablets / fish oil Started Plavix Cardiology consult appreciated Cardio input: -- Continue DAPT with ASA, Clopidogrel -- Continue metoprolol, irbesartan and Crestor -- Continue home diltiazem for history of SVT -- On reduced home clonidine -- BPs stable. HCTZ/spironolactone held. -- From a cardiac standpoint -- up walking halls today, if stable overnight -- will target possible discharge tomorrow -- Plan on outpatient stress to further evaluate mid LAD intermediate disease, repeat LFTs on statin. Critical care consult appreciated Continue home medication In regards to patient hypotension, it has improved with the clonidine being decreased to 0.1mg PO TID. Cardio mentioned wheezing yesterday, but I did not appreciate this on my exam. will reassess in AM. Patient has been ambulating the halls today.
[2017-09-24] VITALS (20 sets, daily range): BP systolic 105–163; BP diastolic 44–84; PULSE 57–88; TEMP 36.2–37; O2SAT 95–96
[2017-09-24 05:59] LABS: HEMATOCRIT 32.4 % (37-47); HEMOGLOBIN 11.1 g/dL (12.0-16.0); MEAN CORPUSCULAR HEMOGLOBIN 33.2 pg (25-34); MEAN CORPUSCULAR HGB CONC 34.3 g/dl (32-36); MEAN PLATELET VOLUME 11.6 fL (7.4-10.4); PLATELET COUNT 235 K/uL (130-400); RED CELL DISTRIBUTION WIDTH CV 14.5 % (11.5-14.5); RED CELL DISTRIBUTION WIDTH SD 51.2 fL (36.4-46.3); WHITE BLOOD COUNT 8.38 K/uL (4.8-10.8)
[2017-09-24 06:31] LABS: CALCIUM 8.9 mg/dl (8.5-10.1); CREATININE 0.86 mg/dl (0.60-1.20); POTASSIUM 3.8 mmol/L (3.5-5.1)
[2017-09-24] MEDS: CLONIDINE HCL 0.1 MG TAB PO SCH ×2 (07:46→13:37)
[2017-09-24] MEDS: CALCIUM 600MG + VIT D 400 IU TAB PO SCH (07:46)
[2017-09-24] MEDS: PRIMIDONE 250 MG TAB PO SCH (07:47)
[2017-09-24] MEDS: METOPROLOL TARTRATE 25 MG TAB PO SCH (07:47)
[2017-09-24] MEDS: ROSUVASTATIN CALCIUM 20 MG TAB PO SCH (07:48)
[2017-09-24] MEDS: OMEGA-3 (PURIFIED FISH OIL) 1 GM CAP PO SCH ×2 (07:48→13:37)
[2017-09-24] MEDS: IRBESARTAN 75 MG TAB PO SCH (07:48)
[2017-09-24] MEDS: DILTIAZEM HCL 120 MG EXT REL CAP PO SCH (07:49)
[2017-09-24] MEDS: CLOPIDOGREL BISULFATE 75 MG TAB PO SCH (07:49)
[2017-09-24] MEDS: HEPARIN SOD 5000 UNIT/0.5 ML CARP SQ SCH (07:50)
[2017-09-24] MEDS: MOMETASONE FUROATE-FORMOTEROL (DULERA) 200mcg/5mcg per inh INH SCH (07:57)
--- NOTE | 2017-09-24 09:40 | Cardiology Follow-Up ---
Subjective Subjective Date of Service: Sep 24, 2017. Pt evaluation today including: conversation w/ patient, conversation w/ family , physical exam, chart review, lab review, review of studies, review of inpatient medication list Additional Details: No chest pain. Up walking halls yesterday. Minimal shortness of breath. No events on telemetry Problem List Medical Problems: (1) Acute HI, inferior wall Status: Acute (2) Angioedema of lips Status: Acute (3) Hyponatremia Status: Acute Review of Systems Constitutional: No fever, No chills Eyes: No eye pain Respiratory: No cough, No sputum Cardiac: No chest pain, No orthopnea Abdomen: No pain, No nausea Neurologic: No memory loss, No paralysis Psychiatric: No depression symptoms, No anhedonism Heme: No abnormal bleeding/bruising Endo: No fatigue Skin: No rash, No itch Objective Vital Signs Last Vital Signs Documentation Date Time Temp Pulse Resp B/P (MAP) Pulse Ox O2 Delivery O2 Flow Rate FiO2 09/24/17 09:30 64 18 09/24/17 07:39 37.0 156/68 (97) 95 Room Air 09/21/17 14:13 2.0 Physical Exam: General Appearance: no apparent distress ENT: hearing grossly normal Neck: supple, no adenopathy Respiratory/Chest: chest non-tender, lungs clear, + wheezing (few scattered wheezes) Cardiovascular: regular rate, rhythm, no edema, + systolic murmur (2/6 systolic ejection murmur) Abdomen: normal bowel sounds, non tender, soft Extremities: normal range of motion, non-tender, + pertinent finding (right radial artery access site -- mild surrounding ecchymosis; no hematoma. intact distal pulses/sensation.) Neurologic/Psychiatric: alert, normal mood/affect, oriented x 3 Skin: normal color Lymphatic: no adenopathy Assessment and Plan 1. Inferior STEMI/occluded RCA 2. Multivessel CAD 3. Hypertension 4. History of ITP 5. History of SVT 5. Hypokalemia/Hypomagnesemia Chest pain free, hemodynamically/electrically stable. Well perfused, no congestion on exam. -- OK from cardiac standpoint for discharge today Cardiac Meds on discharge: -- Aspirin 81mg daily -- Clopidogrel 75mg daily -- Metoprolol 25mg BID -- Irbesartan 75 mg Daily -- Diltiazem 240mg BID -- Clonidine 0.1 TID -- Crestor 20mg daily -- Hold HCTZ/spironolactone. Will attempt to wean off clonidine as an outpatient. -- Plan on outpatient stress to further evaluate mid LAD intermediate disease, repeat LFTs on statin. -- Follow-up with me in 3 weeks. Medications: Current Inpatient Medications Medications (Trade) Dose Ordered Sig/Ever Route Start Time Stop Time Status Last Admin Dose Admin Nitroglycerin (Nitrostat Tab) 0.4 mg UD PRN SL 09/21/17 15:30 10/21/17 15:29 Ondansetron HCl (Zofran Inj) 4 mg Q6H PRN IV 09/21/17 15:30 10/21/17 15:29 Clopidogrel Bisulfate (plAVix TAB) 75 mg QAM PO 09/22/17 09:00 10/22/17 08:59 09/24/17 07:49 75 MG Metoprolol Tartrate (Lopressor Tab) 25 mg Q12 PO 09/21/17 21:00 10/21/17 20:59 09/24/17 07:47 25 MG Acetaminophen (Tylenol Tab) 650 mg Q4H PRN PO 09/21/17 15:30 10/21/17 15:29 Calcium/Vitamin D (Caltrate Plus Tab) 1 tab BID PO 09/21/17 21:00 10/21/17 20:59 09/24/17 07:46 1 TAB Diltiazem HCl (TIAzac CAP) 240 mg BID PO 09/21/17 21:00 10/21/17 20:59 09/24/17 07:49 240 MG Diphenhydramine HCl (Benadryl Cap) 25 mg BID PRN PO 09/21/17 15:30 10/21/17 15:29 Montelukast Sodium (Singulair Tab) 10 mg QAM PO 09/22/17 09:00 10/22/17 08:59 09/23/17 20:31 10 MG Primidone (Mysoline Tab) 250 mg BID PO 09/21/17 21:00 10/21/17 20:59 09/24/17 07:47 250 MG Albuterol (Ventolin Hfa Inhaler) 1-2 PUFFS Q4H PRN INH 09/21/17 16:15 10/21/17 16:14 Rosuvastatin Calcium (Crestor Tab) 20 mg QAM PO 09/22/17 09:00 10/22/17 08:59 09/24/17 07:48 20 MG Irbesartan (Avapro Tab) 75 mg QAM PO 09/21/17 19:00 10/21/17 18:59 09/24/17 07:48 75 MG Fish Oil ([place]-3 (Purified Fish Oil) Cap) 1 gm TID PO 09/22/17 09:00 10/22/17 08:59 09/24/17 07:48 1 GM Heparin Sodium (Porcine) (Heparin Sq 5000 Unit/0.5ml) 5,000 unit BID SQ 09/22/17 09:00 10/22/17 05:59 09/24/17 07:50 5,000 UNIT Mometasone Furoate/ Formoterol Fumar (Dulera) 2 ea BID INH 09/22/17 21:00 10/22/17 20:59 09/24/17 07:57 2 EA Clonidine HCl (Catapres Tab) 0.1 mg TID PO 09/22/17 14:00 10/22/17 13:59 09/24/17 07:46 0.1 MG Lab Results: 09/24/17 05:47 Red Blood Count 3.34, Mean Corpuscular Volume 97.0, Mean Corpuscular Hemoglobin 33.2, Mean Corpuscular Hemoglobin Concent 34.3, Mean Platelet Volume 11.6 09/24/17 05:47 Test 09/24/17 05:47 White Blood Count 8.38 K/uL (4.8-10.8) Red Blood Count 3.34 M/uL (4.2-5.4) Hemoglobin 11.1 g/dL (12.0-16.0) Hematocrit 32.4 % (37-47) Mean Corpuscular Volume 97.0 fL (80-100) Mean Corpuscular Hemoglobin 33.2 pg (25-34) Mean Corpuscular Hemoglobin Concent 34.3 g/dl (32-36) Platelet Count 235 K/uL (130-400) Mean Platelet Volume 11.6 fL (7.4-10.4) RDW Standard Deviation 51.2 fL (36.4-46.3) RDW Coefficient of Variation 14.5 % (11.5-14.5) Neutrophils % (Manual) 37.3 % Lymphocytes % (Manual) 17.3 % Monocytes % (Manual) 8.2 % Eosinophils % (Manual) 9.1 % Basophils % (Manual) 3.6 % Neutrophils # (Manual) 3.13 K/uL (1.4-6.5) Total Absolute Neutrophils 3.13 K/uL (1.4-6.5) Lymphocytes # (Manual) 1.45 K/uL (1.2-3.4) Total Absolute Lymphocytes 3.50 K/uL (1.2-3.4) Monocytes # (Manual) 0.69 K/uL (0.11-0.59) Eosinophils # (Manual) 0.76 K/uL (0-0.5) Basophils # (Manual) 0.30 K/uL (0-0.2) Percent Large Granular Lymphocytes 24.5 % Absolute Large Granular Lymphocytes 2.05 K/uL [place] Bodies 1+ Acanthocytes 1+ Anion Gap 6.0 mmol/L (3-11) Est Creatinine Clear Calc Drug Dose 47.9 ml/min Estimated GFR () 74.5 Estimated GFR (Non- 64.3 BUN/Creatinine Ratio 22.6 (10-20) Calcium Level 8.9 mg/dl (8.5-10.1)
--- NOTE | 2017-09-24 13:11 | Discharge Instructions ---
Discharge Instructions Date of Service Sep 24, 2017. Admission Reason for Admission: Acute Mi, Inferior Wall Discharge Discharge Diagnosis / Problem: Inferior NSTEMI (myocardial infarction) Discharge Goals Goal(s): Decrease discomfort, Improve function Activity Recommendations Activity Limitations: as noted below Lifting Limitations: gradually increase as tolerated . Instructions / Follow-Up Instructions / Follow-Up 1. Inferior STEMI/occluded RCA 2. Multivessel CAD Chest pain free, hemodynamically/electrically stable. Well perfused, no congestion on exam. -- OK from cardiac standpoint for discharge today Cardiac Meds on discharge: -- Aspirin 81mg daily -- Clopidogrel 75mg daily -- Metoprolol 25mg BID -- Irbesartan 75 mg Daily -- Diltiazem 240mg BID -- Clonidine 0.1 TID -- Crestor 20mg daily -- Hold HCTZ/spironolactone. Will attempt to wean off clonidine as an outpatient. -- Plan on outpatient stress to further evaluate mid LAD intermediate disease, repeat LFTs on statin. -- Follow-up with me in 3 weeks. Followup with PCP in 1-2 weeks Current Hospital Diet Patient's current hospital diet: AHA Diet (Heart Healthy) Discharge Diet Recommended Diet: AHA Diet (Heart Healthy) Pending Studies Studies pending at discharge: no Laboratory Results Hemoglobin A1c Test 09/22/17 08:02 Range/Units Estimated Average Glucose 114 mg/dl Hemoglobin A1c 5.6 4.5-5.6 % Lipid Panel Test 09/22/17 08:02 Range/Units Triglycerides Level 77 0-150 mg/dl Cholesterol Level 199 0-200 mg/dl HDL Cholesterol 76 mg/dl Cholesterol/HDL Ratio 2.6 LDL Cholesterol, Calculated 108 mg/dl Medical Emergencies . Who to Call and When: Medical Emergencies: If at any time you feel your situation is an emergency, please call 911 immediately. . Non-Emergent Contact Non-Emergency issues call your: Primary Care Provider, Pile Driving Superintendent . . "Provider Documentation" section prepared by Tye Melendez. . VTE Core Measure Inpt VTE Proph given/why not?: Unfractionated heparin SQ
[2017-09-24] MEDS ORDERED: PLV75 PO (13:19)
[2017-09-24] MEDS ORDERED: ROSU20TA PO (13:19)
[2017-09-24] MEDS ORDERED: IRBE1TAB46 PO (13:19)
[2017-09-24] MEDS ORDERED: CTP1 PO (13:19)
[2017-09-24] MEDS ORDERED: ASPI81TA28 PO (13:19)
== END 2017-09-24 14:51 | disposition home or self-care (01) | DRG 247 ==
LOC: C.EDB 13:47 → ENRESERV 14:41 → C.MSICU 15:40 → UNDOADMIN 15:40 → C.MSICU 09-24 11:01
PROVIDERS: ADMIT Internal Medicine Sports Medicine; ATTEND Internal Medicine Sports Medicine
PROC: 027035Z Dilation of Coronary Artery, One Artery with Two Drug-eluting Intraluminal Devices, Percutaneous Approach (ICD-10-PCS; principal; 2017-09-21 14:03)
PROC: B211YZZ Fluoroscopy of Multiple Coronary Arteries using Other Contrast (ICD-10-PCS; principal; 2017-09-21 14:03)
DX: I21.19 ST elevation (STEMI) myocardial infarction involving other coronary artery of inferior wall (principal); I47.1 Supraventricular tachycardia; D69.3 Immune thrombocytopenic purpura; I10 Essential (primary) hypertension; I35.0 Nonrheumatic aortic (valve) stenosis; E78.5 Hyperlipidemia, unspecified; E83.42 Hypomagnesemia; I25.10 Atherosclerotic heart disease of native coronary artery without angina pectoris; E87.6 Hypokalemia; J45.909 Unspecified asthma, uncomplicated; Z79.899 Other long term (current) drug therapy

== ENCOUNTER → 2017-10-15 | Outpatient (CLI) | payer OTHER, BC ==
[~2017-10-15] MED LIST changes: +ASPI81TA28 PO; +CTP1 PO; +IRBE1TAB46 PO; +PLV75 PO; -POTA8CAP6 PO; +REGADENOSON 0.4 MG/5 ML SYR ONE; +ROSU20TA PO
--- NOTE | 2017-10-20 08:14 | Myocardial Perfusion Study ---
Myocardial Perfusion Study Rpt Myocardial Perfusion Study Rpt Myocardial Perfusion Study Rpt ONE DAY NUCLEAR MEDICINE LEXISCAN TECHNETIUM 99M MYOCARDIAL PERFUSION SCAN Indication: Recent inferior STEMI with non-culprit multivessel disease. Baseline ECG: Normal sinus rhythm, inferior ST depression/T wave inversions. Ventricular rate 71. Stress ECG: No Lexiscan induced ST changes. No arrhythmias. HR mirlande from 71 to 93 representing 65% MPHR. Technique: For the stress portion of the study 32.8 mCi of Technetium 99m Cardiolite IV was injected at 13:35 pm on 10/15/2017. 30 minutes following the injection, imaging of the heart was performed in multiple projections. For the rest portion of the study, 10.6 mCi of Technetium 99m Cardiolite was injected IV at 11:25 am. One hour following the injection, imaging of the hear was performed in the same projections. Findings: Rotating raw images were reviewed in detail. Potential sources of attenuation include vertical motion at rest, and minimal gut uptake impacting the inferior imaging border of the heart. No significant extracardiac pathologic uptake. Short axis, vertical long axis and horizontal long axis images were reviewed in detail. No visual TID. Base to mid inferolateral, moderate, small reversible perfusion defect (SDS 4, 5.9 % myocardium). Normal LV size. EDV 77 ml. Calculated EF 56%. No regional wall motion abnormalities. SUMMARY: 1. Moderate inferior/inferolateral reversible perfusion defect consistent with circumflex/OM ischemia. 2. Normal LV size and function. LVEF 56% with no regional wall motion abnormalities. 3. Non-diagnostic stress ECG due to inability to reach target HR with Lexiscan.
== END | disposition home or self-care (01) ==
LOC: C.NUCL 10:57
PROVIDERS: ATTEND Internal Medicine Interventional Cardiology
DX: I25.10 Atherosclerotic heart disease of native coronary artery without angina pectoris (principal)

== ENCOUNTER → 2017-12-14 | Outpatient (CLI) | payer OTHER, BC ==
[~2017-12-14] MED LIST changes: -REGADENOSON 0.4 MG/5 ML SYR ONE
[2017-12-14 10:42] LABS: BASO % 1.4 %; BASO ABS # 0.09 K/uL (0-0.2); EOS % 10.3 %; EOS ABS # 0.68 K/uL (0-0.5); HEMATOCRIT 32.8 % (37-47); HEMOGLOBIN 11.5 g/dL (12.0-16.0); IG# 0.01 K/uL (0.00-0.02); LYMPH % 44.3 %; LYMPH ABS # 2.93 K/uL (1.2-3.4); MEAN CELL VOLUME 89.9 fL (80-100); MEAN CORPUSCULAR HEMOGLOBIN 31.5 pg (25-34); MEAN CORPUSCULAR HGB CONC 35.1 g/dl (32-36); MEAN PLATELET VOLUME 10.4 fL (7.4-10.4); MONO ABS # 0.66 K/uL (0.11-0.59); NEUT % 33.8 %; NEUT ABS # 2.24 K/uL (1.4-6.5); PLATELET COUNT 266 K/uL (130-400); RED CELL DISTRIBUTION WIDTH CV 13.1 % (11.5-14.5); RED CELL DISTRIBUTION WIDTH SD 42.6 fL (36.4-46.3); WHITE BLOOD COUNT 6.61 K/uL (4.8-10.8)
[2017-12-14 11:39] LABS: HEMOGLOBIN A1C 6.7 % (4.5-5.6)
[2017-12-14 14:04] LABS: BLOOD UREA NITROGEN 38 mg/dl (7-18); CREATININE 1.27 mg/dl (0.60-1.20); GLUCOSE 98 mg/dl (70-99)
[2017-12-14 14:05] LABS: ALBUMIN 3.6 gm/dl (3.4-5.0); ALT/SGPT 29 U/L (12-78); AST/SGOT 24 U/L (15-37); CALCIUM 9.2 mg/dl (8.5-10.1); CARBON DIOXIDE 26 mmol/L (21-32); CHOLESTEROL 136 mg/dl (0-200); POTASSIUM 4.1 mmol/L (3.5-5.1); SODIUM 129 mmol/L (136-145); TOTAL PROTEIN 7.4 gm/dl (6.4-8.2); URIC ACID 5.5 mg/dl (2.6-7.2)
[2017-12-14 14:13] LABS: ALKALINE PHOSPHATASE 44 U/L (45-117); LDL CHOLESTEROL CALCULATED 49 mg/dl; TRANSFERRIN 287 mg/dl (200-360)
== END | disposition home or self-care (01) ==
LOC: C.LABBC 09:00
PROVIDERS: ATTEND Family Medicine
DX: D72.9 Disorder of white blood cells, unspecified (principal); R73.09 Other abnormal glucose; E55.9 Vitamin D deficiency, unspecified; D51.9 Vitamin B12 deficiency anemia, unspecified; E78.9 Disorder of lipoprotein metabolism, unspecified; R53.83 Other fatigue

== ENCOUNTER → 2018-04-22 | Outpatient (CLI) | payer OTHER, BC ==
--- NOTE | 2018-04-25 15:10 | MAMMOGRAPHY REPORT ---
BILATERAL DIGITAL SCREENING MAMMOGRAM TOMOSYNTHESIS WITH CAD: 04/22/2018 CLINICAL HISTORY: Routine screening. Patient has no complaints. TECHNIQUE: The study was acquired using full field digital technology and interpreted from soft copy. Breast tomosynthesis in addition to standard 2D mammography was performed. Current study was also ev aluated with a Computer Aided Detection (CAD) system. COMPARISON: Comparison is made to exams dated: 04/16/2017 mammogram, 04/15/2016 mammogram, 04/08/2015 m ammogram, 04/06/2014 mammogram, 04/05/2013 mammogram, and 04/04/2012 mammogram - [facility] enter. BREAST COMPOSITION: There are scattered areas of fibroglandular density in both breasts. FINDINGS: No suspicious masses, calcifications, or areas of architectural distortion are noted in either breast . There has been no significant interval change compared to prior exams. IMPRESSION: ACR BI-RADS CATEGORY 1: NEGATIVE There is no mammographic evidence of malignancy. A 1 year screening mammogram is recommended.( 019) The patient will receive written notification of the results. Some breast cancers are not detected with mammography. A negative mammographic report should not latonya y biopsy if a clinically suggestive mass is present. Deirdre Peoples M.D. ah/:04/22/2018 15:21:34 Doctor Naturopathic: RT Daniel(R)(M), [facility] letter sent: Normal 1/2 BI-RADS Code: ACR BI-RADS Category 1: Negative
== END | disposition home or self-care (01) ==
LOC: C.MAMM 14:50
PROVIDERS: ATTEND Family Medicine
DX: Z12.31 Encounter for screening mammogram for malignant neoplasm of breast (principal)

== ENCOUNTER 2019-06-05 10:41 | Inpatient (IN) ==
--- NOTE | 2019-05-24 14:44 | Anesthesiology Consultation ---
Date of Service May 24, 2019 Assessment & Plan (1) Encounter for pre-operative examination: Chart Review Chart Review: Pending: Refer to Additional Notes / Consult section (Awaiting CXR and Labs and cardiac clearance/ instructions for plavix) and Patient seen in Pre Admission Testing Consults Requested cardiac (Awaiting cardiac approval and recommendations for plavix) History Surgery Operation Date: 06/05/19 12:10 Proposed Procedures p L4-L5, L5-S1 Laminectomy, - Pranav Louise DO s Possible L4-L5, L5-S1 Fusion - Pranav Louise DO Height/Weight Height: 5 ft 2 in Weight: 65.9 kg Allergies Allergy/AdvReac Type Severity Reaction Status Date / Time lisinopril Allergy Severe unk Verified 05/23/19 16:57 levofloxacin Allergy Mild rash Verified 05/23/19 16:57 nebivolol Allergy Unknown RASH, ITCH Verified 05/23/19 16:57 niacin Allergy Unknown Hives Verified 05/23/19 16:57 phenobarbital Allergy Unknown UNKNOWN Verified 05/23/19 16:57 atorvastatin AdvReac Intermediate elevated Verified 05/23/19 16:57 LFTs losartan AdvReac Intermediate DIZZINESS. Verified 05/23/19 16:57 Medications Home Medications Medication Instructions Recorded Confirmed Last Taken B-complex with vitamin C [Super B 1 tab PO DAILY 04/27/19 05/23/19 05/10/19 Complex-Vitamin C] Caltrate 600 plus D 1 tab PO BID 04/27/19 05/23/19 05/10/19 Symbicort 2 puff INHALATION BID 04/27/19 05/23/19 05/10/19 albuterol sulfate [ProAir HFA] 1 puff INHALATION Q6H PRN 04/27/19 05/23/19 Unknown aspirin 81 mg PO QAM 04/27/19 05/23/19 05/10/19 cholecalciferol (vitamin D3) 2,000 unit PO DAILY 04/27/19 05/23/19 05/10/19 [Vitamin D3] clopidogrel [Plavix] 75 mg PO QAM 04/27/19 05/23/19 05/10/19 diltiazem HCl 240 mg PO BID 04/27/19 05/23/19 05/10/19 irbesartan 150 mg PO QPM 04/27/19 05/23/19 05/10/19 metoprolol tartrate 25 mg PO BID 04/27/19 05/23/19 05/10/19 omega-3 acid ethyl esters [Lovaza] 2 cap PO TID 04/27/19 05/23/19 05/10/19 primidone 250 mg PO BID 04/27/19 05/23/19 05/10/19 rosuvastatin [Crestor] 20 mg PO QAM 04/27/19 05/23/19 05/10/19 spironolactone 12.5 mg PO 4XWK 04/27/19 05/23/19 05/10/19 hydromorphone 2 mg PO QID PRN 05/23/19 05/23/19 Unknown meloxicam 15 mg PO QAM 05/23/19 05/23/19 Unknown Past Medical History Medical History Asthma Last asthma attack in 2014 GERD (gastroesophageal reflux disease) Hx of supraventricular tachycardia NO EPISODES SINCE MEDICATIONS STARTED OVER 2 YRS Myocardial Infarction SEP 2017 Osteoarthritis Seizure 1967. takes Primidone, no seizures since 1967. Exercise / Class Metabolic Activity III < 4 Walking/Shop/Light housework (Ambulation limited due to back pain - uses a walker, denies CP or SOB) Past Family History Family History Mother Diabetes Sister Diabetes Brother Diabetes Past Surgical History Surgical History History of appendectomy History of cardiac cath History of cataract surgery bilateral History of colonoscopy History of heart artery stent [address] [facility] History of splenectomy History of tonsillectomy S/P epidural steroid injection Past Anesthesia History No Hx of Anesthesia Complications History of PONV No Hx of PONV and No Hx of Motion Sickness Social History Smoking Status: Never smoker Do You Dip or Chew Tobacco: No Hx Alcohol Use: No Hx Substance Use: No substance use type: does not use Review of Systems Reports increased heart burn in the last few weeks due to GERD associated with pain medications. Positive for left leg pain and weakness Physical Exam Vital Signs Last Vital Signs Temp 36.5 C 05/24/19 14:32 Pulse 62 05/24/19 14:32 Resp 20 05/24/19 14:32 BP 118/70 05/24/19 14:32 Pulse Ox 96 05/24/19 14:32 Constitutional not obese ENMT Mouth: no TMJ abnormality and oral opening not small Thyromental Distance: < 3.5 Finger Breadths Mallampati Class: II Neck normal visual inspection; neck extension not limited Respiratory normal respiratory effort Auscultation: lungs clear to auscultation bilaterally Cardiovascular Rate/Rhythm: regular rate and regular rhythm Heart Sounds: + murmur Vessels: no carotid bruit Neurologic moves all extremities Psychiatric Orientation: alert and oriented x 3 Testing Electrocardiogram Date: 05/24/19 Findings: + NSR @ (62) 1st degree AV block Echocardiogram Date: 09/21/18 EF: 55-60% LV Function: normal RWMA: + hypokinetic (Inferior wall severe hypokinesis, inferlateral wall akinetic at base, hypokinetic in mid segment) Other Findings: + diastolic dysfunction (grade 1) Valvular Disease: + MR (moderate) moderate aortic valve sclerosis without stenosis, normal estimated PA and RA pressures, atrial septal aneurysm, no evidence of right to left shunt Cardiac Catheterization Date: 09/21/17 Severe CAD - successful PCI. Inferior STEMI/Occluded mid RCA, multi-vessel CAD (TMD TEACHER ASSISTANT distal circumflex with OM2/OM3 filling via left to left collaterals), 50- 60% LAD. Successful PCI of mid RCA with 2 overlapping drug eluting stents.
--- NOTE | 2019-05-24 15:54 | XRay Report ---
XR chest Pre-admission PA/Lat HISTORY: 78 years-old Female pat preoperative exam. No acute chest complaints COMPARISON: Chest radiograph 09/21/2017 TECHNIQUE: PA and lateral views of the chest FINDINGS: Cardiac silhouette is upper limits of normal in size. Suggestion of a coronary arterial stent graft. Lungs are mildly hyperinflated. Eventration of the right hemidiaphragm. There is no pneumothorax, ple ural effusion, focal airspace consolidation or overt pulmonary edema. Degenerative changes are seen a bout the shoulders and spine. IMPRESSION: No acute process. The above report was generated using voice recognition software. It may contain grammatical, syntax o r spelling errors. Electronically signed by: Omari Butterfield M.D. 05/24/2019 3:53 PM
[2019-05-24 16:27] LABS: Basophils # (auto) 0.02 K/uL (0-0.2); Basophils % (auto) 0.3 %; Eosinophils # (auto) 0.05 K/uL (0-0.5); Eosinophils % (auto) 0.8 %; Hematocrit (blood only) 34.6 % (37-47); Immature Granulocytes # (auto) 0.01 K/uL (0.00-0.02); Immature Granulocytes % (auto) 0.2 %; Lymphocytes # (auto) 2.34 K/uL (1.2-3.4); Lymphocytes % (auto) 35.9 %; Mean Corpuscular Hemoglobin 32.6 pg (25-34); Mean Corpuscular Hgb Conc 34.7 g/dL (32-36); Mean Platelet Volume 10.2 fL (7.4-10.4); Monocytes # (auto) 0.75 K/uL (0.11-0.59); Monocytes % (auto) 11.5 %; Neutrophils # (auto) 3.34 K/uL (1.4-6.5); Neutrophils % (auto) 51.3 %; Platelet Count 231 K/uL (130-400); RDW Coefficient of Variation 14.7 % (11.5-14.5); RDW Standard Deviation 50.8 fL (36.4-46.3); Red Blood Count 3.68 M/uL (4.2-5.4); White Blood Count 6.51 K/uL (4.8-10.8)
[2019-05-24 16:39] LABS: BUN Creatinine Ratio 30.3 (10-20); Calcium 8.8 mg/dl (8.5-10.1); Creatinine Clr Calc Pharmacy 49.3 ml/min; Est GFR (African American) 79.5; Est GFR (Non-African American) 68.6; Potassium 3.9 mmol/L (3.5-5.1)
[2019-05-24 16:41] LABS: Partial Thromboplastin Ratio 0.9; Partial Thromboplastin Time 24.5 Seconds (21.0-31.0)
--- NOTE | 2019-06-02 20:46 | History and Physical Report ---
DATE OF ADMISSION: 06/05/2019 CHIEF COMPLAINT: Lower extremity difficulty, weakness, paresthesias, numbness and tingling. HISTORY OF PRESENT ILLNESS: Donna is delightful. She is 78, she is immensely compromised, back and lower extremity difficulty. She can barely stand. She can barely function with lower extremity and leg problems. She has failed conservative care. There is no room for conservative care. She uses a wheelchair bound or we help her. PAST MEDICAL HISTORY: Hypertension, heart disease, asthma, respiratory issues, childhood diseases, high cholesterol. PAST SURGICAL HISTORY: Tonsillectomy, splenectomy, appendectomy. ALLERGIES: Negative. FAMILY HISTORY: Heart disease, stroke, diabetes. SOCIAL HISTORY: , 2 children. No alcohol, tobacco. REVIEW OF SYSTEMS: Twelve system review no fevers, sweats, chills, ear, nose and throat negative. Admits to some heart difficulty, asthma. No nausea, vomiting. No urgency, frequency. No memory loss, confusion. She has easy bruisability. MEDICATIONS: Diltiazem, Plavix, aspirin, metoprolol, Crestor, omega, hydrochlorothiazide, ProAir and vitamins. OBJECTIVE: GENERAL: She is alert, oriented, pleasant young lady, 78 years of age. She is 5 feet 2 inches, 146 pounds. VITAL SIGNS: Blood pressure 130/80, pulse 80, respirations 16. CARDIAC: Normal S1, S2, no S3, no ectopy. LUNGS: Clear. ABDOMEN: Soft, nontender. EXTREMITIES: She has weakness with dorsiflexion, plantarflexion, weakness of quadriceps on the left hand side she has numbness and tingling. IMAGES: Reviewed. She has a large herniation, profound stenosis of the spine. IMPRESSION: Profound stenosis and large herniation of the spine. PLAN: Includes a lumbar spine laminectomy, possible fusion L4-S1.
[~2019-06-05 10:41] MED LIST changes: -ALBU18002 INH; -ASPI81TA28 PO; -B-CO-25 PO; -CALCTAB7 PO; +CEFAZOLIN 2000MG 2,000 MG/15 ML SYR IV SCH; -CHOL1TAB76 PO; -CTP1 PO; -DILT-115 PO; -DIPH25CA5 PO; -IRBE1TAB46 PO; -LPR25 PO; +LR 15ML/HR IV SCH; -MOME200A INH; -MONT1TAB3 PO; -OMEG10007 PO; -PLV75 PO; -PRIM250T9 PO; -ROSU20TA PO; +SODIUM CHLORIDE 0.9% 1000ML IV SCH
[2019-06-05 11:43] LABS: BUN Creatinine Ratio 23.3 (10-20); Calcium 9.3 mg/dl (8.5-10.1); Est GFR (African American) 77.2; Est GFR (Non-African American) 66.6; Potassium 4.5 mmol/L (3.5-5.1)
[2019-06-05] MEDS ORDERED: MoRPHine SULFATE 10 MG/ML CARP/VIAL IV PRN (12:01)
[2019-06-05] MEDS ORDERED: ePHEDrine sulfate 50 MG/ML AMP IV PRN (12:01)
[2019-06-05] MEDS ORDERED: fentaNYL citrate 100 MCG/2 ML VIAL IV PRN (12:01)
[2019-06-05] MEDS ORDERED: ATROPINE SULFATE 0.1 MG/ML 10ML SYR IV PRN (12:01)
[2019-06-05] MEDS ORDERED: ONDANSETRON INJ 2 MG/ML 2 ML VIAL IV PRN ×2 (12:01→16:14)
[2019-06-05] MEDS ORDERED: ONDANSETRON INJ 2 MG/ML 2 ML VIAL ONE (12:24)
[2019-06-05] MEDS ORDERED: MIDAZOLAM HCL 1 MG/ML 2ML VIAL ONE (12:24)
[2019-06-05] MEDS ORDERED: DEXAMETHASONE SOD INJ 4 MG/ML VIAL ONE (12:24)
[2019-06-05] MEDS ORDERED: PROPOFOL IV EMULSION 10 MG/ML 20 ML VIAL IV ONE (12:24)
[2019-06-05] MEDS ORDERED: NEOSTIGMINE METHYLSULFATE 5 MG/5 ML SYR ONE (12:24)
[2019-06-05] MEDS ORDERED: fentaNYL citrate 100 MCG/2 ML VIAL ONE (12:24)
[2019-06-05] MEDS ORDERED: LIDOCAINE HCL 2% 2 ML VIAL/AMP(20MG/ML) INFIL ONE (12:24)
[2019-06-05] MEDS ORDERED: GLYCOPYRROLATE 0.2 MG/ML VIAL ONE (12:24)
[2019-06-05] MEDS ORDERED: VANCOMYCIN HCL 1000MG/20ML VIAL ONE (13:05)
[2019-06-05] MEDS ORDERED: GELATIN SPONGE SZ 100 ONE (13:05)
[2019-06-05] MEDS ORDERED: BUPIVACAINE/EPINEPHRINE 0.5% MPF 1:200,000 30 ML VIAL ONE (13:05)
[2019-06-05] MEDS ORDERED: BACITRACIN INJ 50,000 UNIT VIAL ONE (13:06)
[2019-06-05] MEDS ORDERED: THROMBIN FOR SOLN 20000 UNIT KIT ONE (13:06)
--- NOTE | 2019-06-05 13:13 | History & Physical Bridge Note ---
Date of Service June 05, 2019 History & Physical Bridge Note I have examined the patient, reviewed the History & Physical and in the interval since the performance of the History & Physical I have noted the following changes of clinical significance: no changes noted
[2019-06-05] MEDS ORDERED: ePHEDrine sulfate 50 MG/ML SYR ONE (14:17)
--- NOTE | 2019-06-05 14:59 | Fluoroscopy Report ---
FL spine 1V any level CLINICAL HISTORY: L4-S1 LAMINECTOMY COMPARISON STUDY: Lumbar spine MRI April 24, 2019. FLUOROSCOPY TIME: 5.4 seconds. FLUOROSCOPIC IMAGES: 1. FINDINGS: Posterior decompression is noted. Bilateral pedicle screws at the L4 and L5 levels are note d. Surgical retractors are noted. IMPRESSION: Fluoroscopic image demonstrating a posterior decompression with bilateral pedicle screws at the L4 and L5 levels. Electronically signed by: Hu Vidal M.D. 06/05/2019 2:58 PM
--- NOTE | 2019-06-05 15:04 | Post Operative Brief Note ---
PG Immediate Post Op with CF Date of Surgery June 05, 2019 Pre & Post Diagnosis Operation Date: 06/05/19 12:10 Pre-Op Diagnosis: Lumber Spinal Stenosis Post-Op Diagnosis: Lumber Spinal Stenosis Procedure Operation Date: 06/05/19 12:10 Actual Procedures p L4-S1 Laminectomy, L4-L5 Fusion(Not Applicable) - Pranav Louise DO Surgeon Pranav Louise DO Machine Cloth Trimmer jasvir Estimated Blood Loss 100 Findings Consistent with Post-Op Diagnosis Specimens Specimen Description: none Drains Vera Catheter and Hemovac Drain Disposition Accompanied Patient To Recovery: Yes Overlapping Procedure I was present for: the critical portions of procedure.
--- NOTE | 2019-06-05 15:48 | Anesthesiology Progress Note ---
Date of Service June 05, 2019 Anesthesia Post Procedure Vital Signs Vital Signs: Temp Pulse Resp BP Pulse Ox 06/05/19 15:40 97.2 F L 74 17 128/55 L 100 06/05/19 15:30 72 16 131/49 L 100 06/05/19 15:20 75 17 133/55 L 100 06/05/19 15:10 98.2 F 83 16 137/61 99 06/05/19 11:11 98.1 F 64 18 150/57 H 97 Pain Intensity Back: Pain Intensity: 3 Transfer of Care Handoff Completed per policy Notes Mental Status: alert / awake / arousable and participated in evaluation Patient Amnestic to Procedure: Yes Nausea / Vomiting: adequately controlled Pain: adequately controlled Airway Patency, RR, SpO2: stable & adequate BP & HR: stable & adequate Hydration State: stable & adequate Anesthetic Complications: no major complications apparent and Pt Satisfied with anesthetic care
[2019-06-05] MEDS ORDERED: FAMOTIDINE 20 MG TAB PO PRN (16:14)
[2019-06-05] MEDS ORDERED: MAGNESIUM HYDROXIDE SUSP 30 ML UDC PO PRN (16:14)
[2019-06-05] MEDS ORDERED: ALBUTEROL HFA INHALER 8.5 GM INH PRN (16:14)
[2019-06-05] MEDS ORDERED: ACETAMINOPHEN 1,000 MG/100 ML VIAL IV PRN (16:14)
[2019-06-05] MEDS ORDERED: BISACODYL 10 MG SUPP PR PRN (16:14)
[2019-06-05] MEDS ORDERED: NALOXONE HCL 0.4 MG/1 ML VIAL/CARP IV PRN (16:14)
[2019-06-05] MEDS ORDERED: HYDROmorphone INJ 0.5 MG/0.5 ML SYR IV PRN (16:14)
[2019-06-05] MEDS ORDERED: ALUMINUM/MAGNESIUM SUSP 30 ML UDC PO PRN (16:14)
[2019-06-05] MEDS ORDERED: SOD PHOSPHATE/SOD BIPHOSPHATE ENEMA 132 ML BTL PR PRN (16:14)
[2019-06-05] MEDS ORDERED: DO NOT ADMINISTER FLU VACCINE PRN (16:14)
[2019-06-05] MEDS ORDERED: DO NOT ADMINISTER PNEUMOCOCCAL VACCINE PRN (16:14)
--- NOTE | 2019-06-05 16:20 | Operative Report ---
DATE OF OPERATION: 06/05/2019 PREOPERATIVE DIAGNOSIS: Spinal stenosis, lumbar spine, L4-L5, L5-S1. POSTOPERATIVE DIAGNOSIS: Spinal stenosis, lumbar spine, L4-L5, L5-S1. PROCEDURE: Include a laminectomy L4-L5, L5-S1 and fusion, instrumentation with pedicle screws L4-L5 and posterior lateral fusion L4-L5. SURGEON: Pranav Louise DO. CLINICAL DOCUMENTATION SPECIALIST: Abebe Villanueva PA-C. COMPLICATIONS: Zero. ESTIMATED BLOOD LOSS: 100 mL. DESCRIPTION OF PROCEDURE: The patient was identified in the preop holding area and marked. A bridge note provided. Brought back to the operating room. Vera catheter administered. Placed prone on the Odell table. Scrubbed, prepped, draped sterile. A skin incision, fascial incision from L4 to the sacrum, dissecting the soft tissue in the same plane. Our focus was at the L4-L5 area, lumbar spine. We did decompression of L4, L5, S1 lumbar spine, foraminotomies, partial facetectomies. In my opinion, I did stabilize the patient with the aggressive decompression of nerve roots, take out in addition a synovial cyst and a disc herniation at L4-L5. I felt obligated to instrument the spine to prevent any iatrogenic instability. I safely got pedicle screws in L4-L5 bilaterally, pleased with the x-ray appearance. We irrigated thoroughly, locked down the longitudinal flaco with the Podimetrics. We bone grafted out of the transverse processes with a posterior lateral fusion. We closed in layers over vancomycin powder and Hemovac drain with 1 Vicryl, 2-0 and 3-0 nylon. Sterile dressings applied. The patient extubated to PACU, improved, stable. IMPLANTS USED: By the Podimetrics. Sponge and needle count correct at the close of the procedure. A bone graft used was autograft morcellized and demineralized bone matrix. There were no complications. I attest to the content of the Intraoperative Record and any orders documented therein. Any exceptions are noted below. [facility]
[2019-06-05] MEDS ORDERED: HYDROmorphone INJ 1 MG/ML SYRINGE IV PRN (16:27)
[2019-06-05] MEDS: OXYCODONE HCL IR 5 MG TAB (IMMEDIATE RELEASE) PO PRN ×2 (16:45→22:08)
[2019-06-05] MEDS: SODIUM CHLORIDE 0.9% 1000ML 1,000 ML IV SCH (21:07)
[2019-06-05] MEDS: IRBESARTAN 150 MG TAB PO SCH (21:09)
[2019-06-05] MEDS: PRIMIDONE 250 MG TAB PO SCH (21:09)
[2019-06-05] MEDS: DOCUSATE SODIUM/SENNA 50/8.6MG TAB PO SCH (21:10)
[2019-06-05] MEDS: METOPROLOL TARTRATE 25 MG TAB PO SCH (21:10)
[2019-06-05] MEDS: OMEGA-3 (PURIFIED FISH OIL) 1 GM CAP PO SCH (21:11)
[2019-06-05] MEDS: dilTIAZem HCL 240 MG CAPCR PO SCH (21:11)
[2019-06-05] MEDS: BUDESONIDE/FORMOTEROL FUMARATE 80/4.5 60 PUFFS/INHALER INH SCH (21:12)
[2019-06-05] MEDS: CEFAZOLIN 2000MG 2,000 MG/15 ML SYR IV SCH (21:17)
[2019-06-06] MEDS: SODIUM CHLORIDE 0.9% 1000ML 1,000 ML IV SCH (05:30)
[2019-06-06] MEDS: CEFAZOLIN 2000MG 2,000 MG/15 ML SYR IV SCH (05:33)
[2019-06-06 06:22] LABS: Hematocrit (blood only) 26.4 % (37-47); Hemoglobin 9.4 g/dL (12.0-16.0); Immature Granulocytes # (auto) 0.02 K/uL (0.00-0.02); Immature Granulocytes % (auto) 0.2 %; Lymphocytes # (auto) 1.24 K/uL (1.2-3.4); Lymphocytes % (auto) 13.3 %; Mean Corpuscular Hemoglobin 33.6 pg (25-34); Mean Corpuscular Hgb Conc 35.6 g/dL (32-36); Mean Corpuscular Volume 94.3 fL (80-100); Mean Platelet Volume 9.8 fL (7.4-10.4); Monocytes # (auto) 0.44 K/uL (0.11-0.59); Monocytes % (auto) 4.7 %; Neutrophils # (auto) 7.61 K/uL (1.4-6.5); Neutrophils % (auto) 81.8 %; Platelet Count 236 K/uL (130-400); RDW Coefficient of Variation 14.4 % (11.5-14.5); RDW Standard Deviation 49.9 fL (36.4-46.3); White Blood Count 9.31 K/uL (4.8-10.8)
[2019-06-06 06:51] LABS: BUN Creatinine Ratio 21.7 (10-20); Creatinine Clr Calc Pharmacy 52.4 ml/min; Est GFR (African American) 85.9; Est GFR (Non-African American) 74.1; Potassium 4.9 mmol/L (3.5-5.1)
--- NOTE | 2019-06-06 07:31 | Anesthesiology Progress Note ---
Date of Service June 06, 2019 Anesthesia Post Procedure Vital Signs Vital Signs: Temp Pulse Pulse Resp BP BP Pulse Ox 06/06/19 07:02 37 C 87 16 156/79 H 99 06/06/19 03:19 36.9 C 82 16 126/65 97 06/06/19 00:00 36.9 C 80 16 131/70 97 06/05/19 21:04 88 127/73 06/05/19 19:20 36.5 C 82 16 132/73 95 06/05/19 18:15 36.5 C 76 16 113/60 95 06/05/19 17:15 78 16 126/59 L 97 06/05/19 16:45 77 17 118/62 97 06/05/19 16:05 69 14 128/47 L 99 06/05/19 15:50 70 14 131/51 L 100 06/05/19 15:40 36.2 C L 74 17 128/55 L 100 06/05/19 15:30 72 16 131/49 L 100 06/05/19 15:20 75 17 133/55 L 100 06/05/19 15:10 36.8 C 83 16 137/61 99 06/05/19 11:11 36.7 C 64 18 150/57 H 97 Pain Intensity Back: Pain Intensity: 1 Notes Mental Status: alert / awake / arousable and participated in evaluation Nausea / Vomiting: adequately controlled Pain: adequately controlled Airway Patency, RR, SpO2: stable & adequate BP & HR: stable & adequate Hydration State: stable & adequate
[2019-06-06] MEDS: dilTIAZem HCL 240 MG CAPCR PO SCH ×2 (08:14→20:16)
[2019-06-06] MEDS: CLOPIDOGREL BISULFATE 75 MG TAB PO SCH (08:14)
[2019-06-06] MEDS: BUDESONIDE/FORMOTEROL FUMARATE 80/4.5 60 PUFFS/INHALER INH SCH ×2 (08:14→20:16)
[2019-06-06] MEDS: PRIMIDONE 250 MG TAB PO SCH ×2 (08:15→20:16)
[2019-06-06] MEDS: ROSUVASTATIN CALCIUM 20 MG TAB PO SCH (08:15)
[2019-06-06] MEDS: METOPROLOL TARTRATE 25 MG TAB PO SCH ×2 (08:15→20:17)
[2019-06-06] MEDS: OMEGA-3 (PURIFIED FISH OIL) 1 GM CAP PO SCH ×3 (08:15→20:16)
[2019-06-06] MEDS: ASPIRIN 81 MG ECTAB PO SCH (08:15)
[2019-06-06] MEDS: OXYCODONE HCL IR 5 MG TAB (IMMEDIATE RELEASE) PO PRN ×2 (11:25→19:37)
[2019-06-06] MEDS: IRBESARTAN 150 MG TAB PO SCH (20:16)
[2019-06-06] MEDS: DOCUSATE SODIUM/SENNA 50/8.6MG TAB PO SCH (20:16)
[2019-06-07] MEDS: OXYCODONE HCL IR 5 MG TAB (IMMEDIATE RELEASE) PO PRN ×3 (03:53→14:47)
[2019-06-07] MEDS: METOPROLOL TARTRATE 25 MG TAB PO SCH (08:09)
[2019-06-07] MEDS: OMEGA-3 (PURIFIED FISH OIL) 1 GM CAP PO SCH ×2 (08:09→13:44)
[2019-06-07] MEDS: ROSUVASTATIN CALCIUM 20 MG TAB PO SCH (08:09)
[2019-06-07] MEDS: dilTIAZem HCL 240 MG CAPCR PO SCH (08:09)
[2019-06-07] MEDS: PRIMIDONE 250 MG TAB PO SCH (08:09)
[2019-06-07] MEDS: CLOPIDOGREL BISULFATE 75 MG TAB PO SCH (08:09)
[2019-06-07] MEDS: ASPIRIN 81 MG ECTAB PO SCH (08:09)
[2019-06-07] MEDS: BUDESONIDE/FORMOTEROL FUMARATE 80/4.5 60 PUFFS/INHALER INH SCH (08:10)
--- NOTE | 2019-06-07 11:04 | Discharge Summary ---
She is alert, oriented this morning. Pain is controlled. No chest pain or shortness of breath, no confusion. Taking p.o. and ambulatory slowly. Vital signs are stable, blood pressure controlled, afebrile. ASSESSMENT: Status post lumbar spine decompression and fusion, L4-S1 with an uneventful postoperative course. PLAN: We will get her up and ambulatory. Dressing is changed. She has an appointment with us in approximately 12 days. We are going to getting her to [facility] as soon as a bed is available. She should be up on her feet and ambulatory at least 3 times a day, short distances preferred.
== END 2019-06-07 15:19 | disposition home or self-care (01) | DRG 460 ==
LOC: ASU 10:41 → 3E 15:14

== ENCOUNTER 2024-12-03 10:16 | Inpatient (IN) ==
--- NOTE | 2024-12-03 10:33 | Emergency Department Note ---
Impression & Plan Stroke-like symptoms, Carotid artery stenosis, Atrial fibrillation ED Provider Note NAME: TAMAR TOLENTINO AGE: 84 SEX: F : 1940 ARRIVES VIA: Walk-In INFORMANT: Patient, the patient's ED PROVIDER(S): Moose Torrez DO CHIEF COMPLAINT: Strokelike symptoms HPI: The patient is a 84-year-old female who presented to the emergency department for an evaluation of strokelike symptoms. The patient went to bed at her normal time last evening. She was in her normal state of health. Her states that ever since she woke up this morning she has been slow to answer questions confused and is complaining of an occipital headache. There is no forted falls. There is no reported vomiting. The patient was also noted to have a left-sided facial droop. ROS: See above HPI for pertinent positives & negatives. A total of 10 systems reviewed and were otherwise negative. PAST MEDICAL HISTORY: See Below PAST SURGICAL HISTORY: See Below FAMILY HISTORY: See Below SOCIAL HISTORY: See Below HOME MEDICATIONS: See Below ALLERGIES: See Below VITALS: See Below PHYSICAL EXAMINATION: GENERAL: The patient is awake and alert. The patient is resting comfortably. EYES: The conjunctivae are clear. The pupils are round and reactive. EARS, NOSE, MOUTH AND THROAT: The nose is without any evidence of any deformity. NECK: The neck is nontender and supple. RESPIRATORY: Normal respiratory effort is noted there is no evidence of wheezing rhonchi or rales CARDIOVASCULAR: Regular rate and rhythm noted there no murmurs rubs or gallops normal S1 normal S2. GASTROINTESTINAL: The abdomen is soft. Abdomen is nontender. MUSCULOSKELETAL/EXTREMITIES: There is no evidence of gross deformity full range of motion is noted in the hips and shoulders. SKIN: There is no obvious evidence of any rash. There are no petechiae, pallor or cyanosis noted. NEUROLOGIC: Patient is awake to verbal commands. The patient is oriented to person and place. Licensed Psychologist Director strength was symmetric. There is a left-sided facial droop with forehead sparing. Gait was slow but the patient can support her self on her feet. MEDICAL DECISION MAKING: The patient is an 84-year-old female who presented to the emergency department through triage for strokelike symptoms. The patient describes a headache. The patient seemed to be somewhat confused. She had pressured speech. She also had a facial droop. The patient's initial CAT scan did show signs of a previous stroke. I discussed the patient's laboratory and radiographic studies with her and her . Given her findings she was felt to be a good candidate for TNK after her true last known well time was identified. I discussed her condition with the telestroke neurologist and he agreed. TNK was ordered by myself. The patient received TNK without issue. I discussed the patient's condition with the artillery maintenance supervisor as well as the on-call [facility] hospitalist. They have agreed to evaluate the patient in the emergency department for further management and disposition. The risks and benefits of TNK were discussed with the as well as the patient. They do agree verbally to receiving TNK. Triage Nursing notes reviewed. Prior medical records reviewed Vital Signs: reviewed and remarkable for elevated blood pressure. Differential diagnosis: Infection, dehydration, metabolic abnormality, hypo/hyperglycemia, electrolyte disturbance, anemia, hypoxia, cardiac sources, intracerebral event, toxicologic, neurologic, as well as other pathologies. ER treatment provided: See below Diagnostics interpreted by me: ECG: EKG was obtained in the emergency department. My interpretation is atrial fibrillation at 87 bpm. No PVCs were noted. Nonspecific ST segment abnormalities noted. This was compared to a tracing from July 14, 2022. No changes were noted. Cardiac Monitoring: An order was placed for continuous cardiac monitoring. The monitor shows a rate of 60 bpm with atrial fibrillation. Laboratory studies: As stated above and show below. Imaging studies: See below. Radiographic imaging was reviewed by myself Consultation(s): I discussed this case with Dr. Arce who is on for telestroke neurology at [facility]. Dr[facility] De La Cruz [facility] the patient. I discussed this case with Dr. Enciso who is on for the artillery maintenance supervisor group. ED COURSE: When the patient was brought back to room B1 we had to find her . Upon interviewing the it does appear the patient's last known well time may be at 0 840 this morning. Procedures: none Critical Care: I have personally spent greater than 45 minutes of critical care time in the direct management of this patient. This includes bedside care, interpretation of diagnostic studies, and testing, discussion with consultants, patient, and family members, and other required patient management activities. This 45 minutes is in excess of all separately billable procedures. Thrombolytics MDM Did the patient receive IV thrombolytics?: Yes Was there any delay in administration?: Yes Reason(s) for Delay: The initial last known well time was not the correct last known well time. On further investigation the patient's last known well time was 0 840 this morning. Past Med/Surg History Problem List CVA (cerebral vascular accident) Atrial fibrillation (Acute) Carotid artery stenosis (Acute) Stroke-like symptoms (Acute) Urinary incontinence Cataract, right eye Colon cancer Seizure disorder Palpitations Idiopathic thrombocytopenic purpura 3-vessel coronary artery disease COPD (chronic obstructive pulmonary disease) Lumbar spinal stenosis Asthma SVT (supraventricular tachycardia) (Chronic) History of colon cancer 06/2022 Hypertension Aortic valve stenosis Osteoporosis Mitral regurgitation Hypercholesterolemia H/O right hemicolectomy (07/09/22) Open Right Hemicolectomy(Not Applicable);enterolysis - Andrea Ovalle DO Medical History History of COVID-19 diagnosed 05/04/[address] [facility]--ear pain, headache, severe weakness, severe dehydration (went to ER for IV Fluids and then discharged)--still experiencing weakness (states she is doing therapy) Murmur Osteoarthritis GERD (gastroesophageal reflux disease) Seizure 1967. takes Primidone, no seizures since 1967. Hx of supraventricular tachycardia NO EPISODES SINCE MEDICATIONS STARTED OVER 2 YRS Myocardial Infarction SEP 2017--had heart cath with 2 stents placed @ [facility]--follows with Dr. Schmidt Asthma Last asthma attack in 2014 Surgical History History of lumbar spinal fusion (~05/2019) History of left hip replacement (~09/2019) partial hip replacement History of tonsillectomy History of cataract surgery bilateral S/P epidural steroid injection History of colonoscopy History of splenectomy History of appendectomy History of heart artery stent [address] ZEN SCHMIDT- [facility] History of cardiac cath (~09/2017) @ [facility]--2 stents placed Family History Mother Diabetes Myocardial infarction Sister Diabetes Brother Diabetes Myocardial infarction Father Myocardial infarction Other No family history of adverse response to anesthesia Denies family history of Ovarian cancer Prostate cancer Breast cancer Lung cancer Colorectal cancer Social History Smoking Status: Never smoker Second Hand Exposure: No; Do You Dip or Chew Tobacco: No; Hx Alcohol Use: No Hx Substance Use: No Preferred Language: Tamazight Communication Ability: Effective Visual Impairment: Limited Hearing Ability: Normal Agricultural Equipment Mechanic Required: No Beliefs That Will Affect Care: None marital status: Current Living Situation: Spouse current occupational status: retired How many Children do You have: 2 Other Information That Helps Us Care for You: No Feels Safe at Home: Yes Safety Concerns: Feels Safe At This Time Childhood Exposure to Second-Hand Smoke: No Diet: regular caffeine: Yes (2 cups of coffee daily ) during the past year weight has: remained stable Dental Care, Regularly: Yes Physical Activity Frequency: 1-2 Times per Week Seatbelt Use: always Sunscreen Use: Yes Assistive Devices: Glasses and Walker Allergies Allergies Allergy/AdvReac Type Severity Reaction Status Date / Time losartan Allergy Intermediate DIZZINESS/tingling Verified 09/11/24 13:32 arms and legs nebivolol Allergy Intermediate itchy and Verified 09/11/24 13:32 rash niacin Allergy Intermediate Hives Verified 09/11/24 13:32 levofloxacin Allergy Mild rash Verified 09/11/24 13:32 phenobarbital Allergy Unknown UNKNOWN Verified 09/11/24 13:32 lisinopril AdvReac Severe elevated Verified 09/11/24 13:32 liver enzymes atorvastatin AdvReac Unknown Unknown Verified 09/11/24 13:32 Home Meds Home Medications Medication Instructions Recorded Confirmed aspirin 81 mg chewable tablet 81 mg PO QAM 04/27/19 12/03/24 calcium 600 mg (as carbonate)-vit 1 tab PO BID 04/27/19 12/03/24 D3 20 mcg (800 unit) chewable tablet (Caltrate plus D) cholecalciferol (vitamin D3) 50 2,000 unit PO QPM 04/27/19 12/03/24 mcg (2,000 unit) tablet (Vitamin D3) ascorbate calcium (vitamin C) 1 cap PO QAM 11/06/21 12/03/24 multivitamin 1 tab PO QAM 06/03/22 12/03/24 alendronate 70 mg tablet 70 mg PO UD 12/03/24 12/03/24 levalbuterol tartrate 45 2 inh inhalation UD 12/03/24 12/03/24 mcg/actuation aerosol inhaler metoprolol tartrate 25 mg tablet 25 mg PO UD 12/03/24 12/03/24 spironolactone 25 0.5 tab PO UD 12/03/24 12/03/24 mg-hydrochlorothiazide 25 mg tablet Previous Rx's Medication Instructions Recorded B-complex with vitamin C 1 tab PO QDL #90 tabs 02/01/24 albuterol sulfate 90 mcg/actuation 2 puff inhalation Q4H PRN 03/07/24 aerosol inhaler (ProAir HFA) Shortness Of Breath #18 grams fluticasone fur. 100 mcg-umeclid 1 inh inhalation 1200 #180 ea 03/07/24 62.5 mcg-vilant 25 mcg inhalat.powder (Trelegy Ellipta) omega-3 acid ethyl esters 1 gram 1 cap PO TID #270 caps 03/07/24 capsule (Lovaza) rosuvastatin 20 mg tablet 20 mg PO QAM #90 tabs 03/07/24 diltiazem HCl 240 mg 240 mg PO BID #180 caps 09/07/24 capsule,extended release 24 hr (Cardizem CD) codeine 10 mg-guaifenesin 100 mg/5 5 ml PO Q6H PRN cough #200 mL 09/11/24 mL oral liquid primidone 250 mg tablet 250 mg PO BID #180 tabs 11/02/24 Results & Data (ED) Vital Signs Vital Signs - 24 hr 12/03/24 10:20 12/03/24 11:13 12/03/24 11:15 Temperature 36.4 C L Temperature Source Temporal Artery Scan Pulse Rate 52 L Pulse Rate [Apical] 73 73 Pulse Rhythm [Apical] Irregular Irregular Respiratory Rate 14 23 19 Respiratory Effort / Characteristics Non-Labored Spontaneous Non-Labored Spontaneous Respiratory Depth Normal Normal Respiratory Pattern Regular Blood Pressure 150/73 H Blood Pressure [Right Arm] 142/93 H 155/89 H Blood Pressure Mean 98 Blood Pressure Mean [Right Arm] 109 111 Blood Pressure Position [Right Arm] Semi-fowlers Pulse Oximetry 97 94 94 Oxygen Delivery Method Room Air Room Air Sepsis New/Unexplained Change in Mental Status No Sepsis Action Taken by Nursing No Action Required 12/03/24 11:24 12/03/24 11:30 12/03/24 11:45 Temperature 36.5 C 36.5 C Temperature Source Oral Oral Pulse Rate Pulse Rate [Apical] 65 68 Pulse Rhythm [Apical] Respiratory Rate 22 22 Respiratory Effort / Characteristics Non-Labored Spontaneous Non-Labored Spontaneous Respiratory Depth Normal Normal Respiratory Pattern Regular Blood Pressure Blood Pressure [Right Arm] 147/65 H 163/88 H Blood Pressure Mean Blood Pressure Mean [Right Arm] 92 113 Blood Pressure Position [Right Arm] Semi-fowlers Pulse Oximetry 93 94 Oxygen Delivery Method Room Air Room Air Room Air Sepsis New/Unexplained Change in Mental Status Sepsis Action Taken by Nursing 12/03/24 11:45 12/03/24 12:00 Temperature Temperature Source Pulse Rate 66 Pulse Rate [Apical] 76 Pulse Rhythm [Apical] Irregular Respiratory Rate 24 Respiratory Effort / Characteristics Non-Labored Spontaneous Respiratory Depth Normal Respiratory Pattern Blood Pressure Blood Pressure [Right Arm] 140/67 Blood Pressure Mean Blood Pressure Mean [Right Arm] 91 Blood Pressure Position [Right Arm] Semi-fowlers Pulse Oximetry 94 Oxygen Delivery Method Room Air Sepsis New/Unexplained Change in Mental Status Sepsis Action Taken by [facility]ent[facility] Medications Current Medication List: was personally reviewed by me Laboratory Data Attestation: I reviewed the patient's lab results. 12/03/24 10:52 12/03/24 16:00 Lab Results 12/03/24 12/03/24 Range/Units 10:52 10:59 WBC 9.40 (4.8-10.8) K/ul RBC 3.59 L (4.20-5.40) M/uL Hgb 12.1 (12.0-16.0) g/dl Hct 34.8 L (37.0-47.0) % MCV 96.9 (80.0-100.0) fL MCH 33.7 (25.0-34.0) pg MCHC 34.8 (32.0-36.0) g/dL RDW Std Deviation 54.2 H (36.4-46.3) fL RDW Coeff of Julio 15.1 H (11.5-14.5) % Plt Count 226 (130-400) K/uL MPV 10.9 (9.4-12.4) fL PT 11.6 (9.0-12.0) Seconds INR 1.1 (0.9-1.1) APTT 24 (21-31) Seconds PTT Ratio 0.9 Sodium 128 L (136-145) mmol/L Potassium 3.8 (3.5-5.1) mmol/L Chloride 96 L (98-107) mmol/L Carbon Dioxide 29 (21-32) mmol/L Anion Gap 3 (3-11) BUN 26 H (6-23) mg/dl Creatinine 0.87 (0.6-1.2) mg/dl Est Cr Clr Drug Dosing 45.7 ml/min eGFR 64.84 BUN/Creatinine Ratio 29.9 H (10-20) Glucose 112 H (70-99(Fasting)) mg/dl POC Glucose 130 H (70-99) mg/dl Calcium 8.8 (8.6-10.3) mg/dl Magnesium 1.7 (1.7-2.4) mg/dl Total Bilirubin 0.3 (0.2-1.0) mg/dl AST 28 (13-39) U/L ALT 28 (7-52) U/L Alkaline Phosphatase 44 (34-104) U/L Troponin I High Sens 10.0 (0-14) pg/ml Total Protein 6.5 (6.0-8.3) gm/dl Albumin 3.5 (3.4-5.0) gm/dl Globulin 3.0 (2.5-4.0) gm/dl Albumin/Globulin Ratio 1.2 (0.9-2) Administered Medications Discontinued Medications Tenecteplase 18 mg/ Syringe 3.6 mls @ 43.2 mls/min IV NOW ONE; Protocol Stop: 12/03/24 11:12 Last Admin: 12/03/24 11:12 Dose: 43.2 mls/min Documented By: MEREDITH Co-signed By: MARICEL Acetaminophen (irmev) 1,000 mg in 100 mls @ 400 mls/hr IV NOW STA Stop: 12/03/24 12:31 Last Infusion: 12/03/24 12:59 Dose: Infused Documented By: Admin: 12/03/24 12:41 Dose: 400 mls/hr Documented By: MEREDITH Ioversol (Optiray 320 125ml) 117 ml IV ONCE ONE Stop: 12/03/24 10:46 Last Admin: 12/03/24 10:45 Dose: 117 ml Documented By: JACEY Miscellaneous (Stat Iv/Im) 1 each N/A NOW STA Stop: 12/03/24 11:02 Last Admin: 12/03/24 11:29 Dose: Not Given Documented By: MEREDITH Sodium Chloride (Sodium Chloride 0.9% 10ml Flush) 20 ml IV NOW STA Stop: 12/03/24 11:02 Last Admin: 12/03/24 11:47 Dose: 20 ml Documented By: MEREDITH Imaging Data Attestation: I personally reviewed and interpreted this imaging study as follows: My Impression: 1 view chest x-ray was obtained in the emergency department. My interpretation is no free air or definite infiltrate, final report below. CT of the brain was obtained in the emergency department. My interpretation is no intracranial hemorrhage or mass effect noted, final report below. Radiologist's Impression: Chest X-Ray 12/03/24 10:25 HISTORY: Stroke alert. TECHNIQUE: Portable AP radiograph of the chest. COMPARISON: Chest radiograph dated 05/05/2022. FINDINGS: Linear left basilar opacity favoring atelectasis. No other focal consolidation. No pneumothorax or pleural effusion. Normal heart size. Left-sided aortic arch. Midline trachea. Included upper abdomen is unremarkable.No acute osseous abnormality. IMPRESSION: 1. No acute cardiopulmonary findings. 2. Linear left basilar opacity favoring discoid atelectasis. Electronically signed by Pranav Elder 12-03-2024 2:[address] 12/03/24 10:25 HISTORY: Confusion. TECHNIQUE: CT of the head without contrast. Images are presented in axial, sagittal, and coronal reformats. COMPARISON: Head CT dated 05/25/2022. FINDINGS: Encephalomalacia involving the left frontal lobe likely representing sequelae of subacute or chronic infarct. This is new since the prior study from 2021. ModeratePresumed chronic microvascular ischemic changes. No evidence of acute intracranial hemorrhage. Ventricular caliber is appropriate. Fourth ventricle is midline. Basal cisterns are patent. Intracranial atherosclerotic vascular calcifications. Globes and orbits are unremarkable.Soft tissues about the skull base and scalp are unremarkable.Paranasal sinuses and mastoid air cells are clear. No calvarial fracture. IMPRESSION: 1. No acute intracranial findings. If there is high clinical suspicion for acute infarct,Brain MRI with diffusion weighted imaging is recommended. 2. Encephalomalacia involving the left frontal lobe is new since the prior study from 2021 and may represent sequela Subacute or chronic infarct. 3. Mild volume loss and moderate presumed chronic microvascular ischemic changes. Findings were discussed with the ordering provider Dr. Moose Ceballos at 10:58 AM on 12/03/2024. Electronically signed by Pranav Elder 12-03-2024 10:58 AM Head CTA 12/03/24 10:27 HISTORY: Confusion. TECHNIQUE: CT Angiography of the head was performed following uneventful administration 117 mL of Optiray 320 IV contrast. Images are presented in axial, sagittal, coronal reformats. Coronal and sagittal 3D MIP reconstructions are provided. COMPARISON: CT of the head without contrast from the same day. FINDINGS: Angiography: Moderate stenosis of the intradural vertebral arteries. The basilar artery is patent, but diminutive. The majority of posterior circulation flow is through robust posterior communicating arteries. The posterior cerebral arteries are patent. Mild atherosclerotic calcification along the cavernous internal carotid arteries.The A1 segments are present and patent. Patent anterior communicating artery. The anterior cerebral artery branches are patent. The M1 and proximal M2 segment branches are patent bilaterally. The more distal MCA branches appear symmetric. Soft tissues: No enhancing intracranial mass or vascular malformation. Soft tissues about the skull base and scalp are unremarkable. Globes and orbits are unremarkable. Bones: Paranasal sinus mucosal thickening. No air-fluid levels. Mastoid air cells are well aerated. Calvarium is unremarkable. IMPRESSION: * No evidence of central vessel occlusion. * Moderate stenosis of the intradural vertebral arteries. Diminutive vertebrobasilar system with majority of posterior cerebral artery flow coming through robust posterior communicating arteries. * Mild atherosclerotic calcification of the cavernous internal carotid arteries without hemodynamically significant stenosis. Findings discussed with the ordering provider Dr. Moose Torrez at 11 AM on 12/03/2024. Electronically signed by Pranav Elder 12-03-2024 11:03 AM Neck CTA 12/03/24 10:27 HISTORY: Confusion. TECHNIQUE: CT Angiography of the neck was performed following uneventful administration of 117 mL of Optiray 320 IV contrast. Images are presented in axial, sagittal, coronal reformats. Coronal and sagittal 3D MIP reconstructions are provided. COMPARISON: CT of the head and CT of the head and neck from the same day. FINDINGS: Angiography: Mild atherosclerotic vascular disease involving the aorta and arch vessels. Common carotid arteries are patent with partially retropharyngeal course. Severe stenosis of the proximal right internal carotid artery with greater than 75% luminal narrowing. Moderate stenosis of the left internal carotid artery with approximately 50% luminal narrowing. The cervical internal carotid arteries remain patent to the skull base. Patent codominant cervical vertebral arteries. Soft tissues: 1 cm hypodense nodule in the left thyroid lobe requires no follow-up based on ACR White paper recommendations. Soft tissues of the neck are otherwise unremarkable. Lung apices: Unremarkable. Bones: Degenerative changes of the spine. Paranasal sinus mucosal thickening. No acute osseous abnormality. IMPRESSION: 1. Severe stenosis at the proximal right internal carotid artery related to atherosclerotic plaque with greater than 75% luminal narrowing.Moderate stenosis of the proximal left internal carotid artery with greater than 50% luminal narrowing. 2. Patent vertebral arteries with antegrade flow. 3. Additional chronic and/or incidental findings7 As detailed above. Electronically signed by Pranav Elder 12-03-2024 11:06 AM Discharge Plan Visit Data Chief Complaint: TIA Symptoms Stated Complaint: SUDDEN ONSET HEAD PAIN, CONFUSION ED Provider: Moose Torrez Discharge Problem: Stroke-like symptoms, Carotid artery stenosis, Atrial fibrillation Patient Disposition: Admitted As Inpatient Discharge Instructions Interventions: ED Discharge Assessment Last Done: 12/03/24 13:45
[2024-12-03] MEDS: OPTIRAY 320 125ml IV ONE (10:45)
--- NOTE | 2024-12-03 10:59 | CT Scan Report ---
HISTORY: Confusion. TECHNIQUE: CT of the head without contrast. Images are presented in axial, sagittal, and coronal reformats. COMPARISON: Head CT dated 05/25/2022. FINDINGS: Encephalomalacia involving the left frontal lobe likely representing sequelae of subacute or chronic infarct. This is new since the prior study from 2021. ModeratePresumed chronic microvascular ischemic changes. No evidence of acute intracranial hemorrhage. Ventricular caliber is appropriate. Fourth ventricle is midline. Basal cisterns are patent. Intracranial atherosclerotic vascular calcifications. Globes and orbits are unremarkable.Soft tissues about the skull base and scalp are unremarkable.Paranasal sinuses and mastoid air cells are clear. No calvarial fracture. IMPRESSION: 1. No acute intracranial findings. If there is high clinical suspicion for acute infarct,Brain MRI with diffusion weighted imaging is recommended. 2. Encephalomalacia involving the left frontal lobe is new since the prior study from 2021 and may represent sequela Subacute or chronic infarct. 3. Mild volume loss and moderate presumed chronic microvascular ischemic changes. Findings were discussed with the ordering provider Dr. Moose Ceballos at 10:58 AM on 12/03/2024. Electronically signed by Pranav Elder 12-03-2024 10:58 AM
[2024-12-03 11:02] LABS: Hematocrit (blood only) 34.8 % (37.0-47.0); Hemoglobin 12.1 g/dl (12.0-16.0); Mean Corpuscular Hemoglobin 33.7 pg (25.0-34.0); Mean Corpuscular Hgb Conc 34.8 g/dL (32.0-36.0); Mean Corpuscular Volume 96.9 fL (80.0-100.0); Mean Platelet Volume 10.9 fL (9.4-12.4); Platelet Count 226 K/uL (130-400); RDW Coefficient of Variation 15.1 % (11.5-14.5); RDW Standard Deviation 54.2 fL (36.4-46.3); Red Blood Count 3.59 M/uL (4.20-5.40)
--- NOTE | 2024-12-03 11:04 | CT Scan Report ---
HISTORY: Confusion. TECHNIQUE: CT Angiography of the head was performed following uneventful administration 117 mL of Optiray 320 IV contrast. Images are presented in axial, sagittal, coronal reformats. Coronal and sagittal 3D MIP reconstructions are provided. COMPARISON: CT of the head without contrast from the same day. FINDINGS: Angiography: Moderate stenosis of the intradural vertebral arteries. The basilar artery is patent, but diminutive. The majority of posterior circulation flow is through robust posterior communicating arteries. The posterior cerebral arteries are patent. Mild atherosclerotic calcification along the cavernous internal carotid arteries.The A1 segments are present and patent. Patent anterior communicating artery. The anterior cerebral artery branches are patent. The M1 and proximal M2 segment branches are patent bilaterally. The more distal MCA branches appear symmetric. Soft tissues: No enhancing intracranial mass or vascular malformation. Soft tissues about the skull base and scalp are unremarkable. Globes and orbits are unremarkable. Bones: Paranasal sinus mucosal thickening. No air-fluid levels. Mastoid air cells are well aerated. Calvarium is unremarkable. IMPRESSION: * No evidence of central vessel occlusion. * Moderate stenosis of the intradural vertebral arteries. Diminutive vertebrobasilar system with majority of posterior cerebral artery flow coming through robust posterior communicating arteries. * Mild atherosclerotic calcification of the cavernous internal carotid arteries without hemodynamically significant stenosis. Findings discussed with the ordering provider Dr. Moose Torrez at 11 AM on 12/03/2024. Electronically signed by Pranav Elder 12-03-2024 11:03 AM
--- NOTE | 2024-12-03 11:07 | CT Scan Report ---
HISTORY: Confusion. TECHNIQUE: CT Angiography of the neck was performed following uneventful administration of 117 mL of Optiray 320 IV contrast. Images are presented in axial, sagittal, coronal reformats. Coronal and sagittal 3D MIP reconstructions are provided. COMPARISON: CT of the head and CT of the head and neck from the same day. FINDINGS: Angiography: Mild atherosclerotic vascular disease involving the aorta and arch vessels. Common carotid arteries are patent with partially retropharyngeal course. Severe stenosis of the proximal right internal carotid artery with greater than 75% luminal narrowing. Moderate stenosis of the left internal carotid artery with approximately 50% luminal narrowing. The cervical internal carotid arteries remain patent to the skull base. Patent codominant cervical vertebral arteries. Soft tissues: 1 cm hypodense nodule in the left thyroid lobe requires no follow-up based on ACR White paper recommendations. Soft tissues of the neck are otherwise unremarkable. Lung apices: Unremarkable. Bones: Degenerative changes of the spine. Paranasal sinus mucosal thickening. No acute osseous abnormality. IMPRESSION: 1. Severe stenosis at the proximal right internal carotid artery related to atherosclerotic plaque with greater than 75% luminal narrowing.Moderate stenosis of the proximal left internal carotid artery with greater than 50% luminal narrowing. 2. Patent vertebral arteries with antegrade flow. 3. Additional chronic and/or incidental findings7 As detailed above. Electronically signed by Pranav Elder 12-03-2024 11:06 AM
[2024-12-03] MEDS: TENECTEPLASE 18 MG in SYRINGE 0 ML IV ONE (11:12)
[2024-12-03 11:15] LABS: INR 1.1 (0.9-1.1); Partial Thromboplastin Ratio 0.9; Partial Thromboplastin Time 24 Seconds (21-31); Prothrombin Time 11.6 Seconds (9.0-12.0)
[2024-12-03] MEDS ORDERED: No Aspirin within 24hrs of THROMBOLYTIC-Stroke PO SCH (11:15)
[2024-12-03 11:19] LABS: Albumin Level 3.5 gm/dl (3.4-5.0); Bilirubin,Total 0.3 mg/dl (0.2-1.0); Calcium 8.8 mg/dl (8.6-10.3); Magnesium 1.7 mg/dl (1.7-2.4); Potassium 3.8 mmol/L (3.5-5.1)
[2024-12-03 11:25] LABS: Albumin Globulin Ratio 1.2 (0.9-2); BUN Creatinine Ratio 29.9 (10-20); Creatinine Clr Calc Pharmacy 45.7 ml/min; Total Protein 6.5 gm/dl (6.0-8.3)
[2024-12-03] MEDS: STAT IV/IM STA (11:29)
--- NOTE | 2024-12-03 11:45 | History & Physical Report ---
Date of Service December 03, 2024 Assessment & Plan (1) CVA (cerebral vascular accident): Plan: Cha is an 84-year-old female with past medical history of aortic stenosis, STEMI with PCI to RCA with no recent anginal disease, single episode of postoperative A-fib without recurrence until day of admission 12/03, COPD/asthma overlap who presents from [facility] as a stroke alert after the development of sudden onset speech difficulty, confusion, and possibly acute on chronic left-sided visual neglect acutely at around 8:30 AM. She was evaluated by telestroke was felt to be a good TNKase candidate and was given TNKase at 1112. She was recommended for admission to the ICU for post thrombolysis management. Strokelike symptoms -Normal upon awakening at 7 AM, 830am. Dysarthria. Reported left peripheral visual neglect although this may be chronic. LEFT sided facial droop. No extremity deficits. Telestroke --> TNKase given @ 1112 - Normotensive at time of assessment - CThead: No acute intracranial findings. Encephalomalacia of the left frontal lobe new since prior, may represent sequela of subacute versus chronic infarct. Microvascular ischemic changes suspected based on mild volume loss CTAhead: No central vessel occlusion. Moderate stenosis of intradural vertebral arteries. Diminutive vertebrobasilar system with majority of flow through communicating arteries. Internal cavernous carotid atherosclerosis without significant stenosis CTAneck: Severe stenosis of proximal right ICA related to plaque greater than 75% luminal narrowing. Moderate stenosis of left internal carotid with greater than 50% luminal narrowing. Patent vertebral arteries MRI pending Vascular consulted for ICA stenosis with greater than 75% narrowing with contralateral deficits Patient is in A-fib at time of admitting assessment. DDx includes cardioembolic Labetalol 10 mg IV every 15 minutes as needed for BP greater than 180/105. Oral antihypertensives held Lipid panel, A1c pending No venipuncture at this time per TNKase parameters troponin is ordered if this can be added onto already collected labs, otherwise defer until next labs are available Echo with bubble study pending Clinically improving per and patient at bedside. Speech is improving and fluency and left-sided facial droop is improving. Afib, second occurence History of 1 episode of postoperative A-fib 06/2022 without known recurrence and normal event monitor 09/2022 EKG A-fib incomplete left bundle branch block. No chest pain or chest pressure at any point. Rate controlled at 87 Anticoagulation contraindicated post thrombolysis In case hypertension parameters x 24 hours, resume oral metoprolol/diltiazem 12/04 CAD, history of STEMI 09/2017 with PCI to RCA, severe aortic stenosis Last echo 05/2024: EF 55-60%. Grade 2 diastolic dysfunction. Severe aortic stenosis MARCIANO 0.83, peak velocity 4.3 Asymptomatic from and TAVR not yet pursued due to minimal symptoms Continue aspirin, statin Metoprolol/diltiazem held for post TNK blood pressure management parameters COPD/asthma overlap Continue Trelegy/mammillary equivalent Albuterol every 4 hours as needed as needed for wheezing No hypoxia on admission Chronic stable issues: History of colon cancer s/p right hemicolectomy 2021. Last colonoscopy 2022 with diverticulosis, nonbleeding internal hemorrhoids, and healthy appearing mucosa around her ileocolic anastomoses. No areas of concern. History of splenectomy: Vaccines up-to-date. Noted. DVT PPX: SCDs. Chemical prophylaxis contraindicated due to thrombolysis CODE STATUS: DNR/DNI discussed with patient and at time of assessment Diet: Advance as tolerated to heart healthy Disposition: ICU (2) Carotid artery stenosis: (3) Stroke-like symptoms: (4) 3-vessel coronary artery disease: (5) COPD (chronic obstructive pulmonary disease): (6) History of colon cancer: History of Present Illness Primary Care Provider: Kenny Castillo MD Donna is a 84-year-old female with a past medical history of seizure disorder on primidone, splenectomy, aortic valve stenosis, asthma on Trelegy, SVT on metoprolol, triple bypass on metoprolol and aspirin without recent heart failure exacerbation, COPD with asthma overlap on Trelegy with albuterol as needed, hyperlipidemia, hypertension, colon cancer, ITP, and urinary i ncontinence who presented to the emergency department as a stroke alert. Patient had occipital headache, left-sided facial droop, and speech delay/? Initially reported as last known well was evening prior however on further review by ER and telestroke patient was normal and she awoke around 7 AM was getting ready for spiritism and suddenly developed confusion, facial droop, and aphasia around 830. Presented emergently as a stroke alert and was inside of the window for thrombolysis. Was given TNKase at 1112. Subsequently recommended for admission to the ICU for postthrombolytic monitoring "Lives "is seen at the bedside with her present. Reports that she felt normal when she woke up around 7 AM however when she was at [facility] service felt more confused, had a left-sided facial droop, and had difficulty speaking/aphasia. She was brought emergently to the ER as a stroke alert. She reports that she has not had a stroke or CVA before. 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 She denies vision change. She endorses dysarthria. She endorses confusion. She denies extremity weakness/sensory change. She reports she does feel much better since receiving thrombolysis and her notes she has had significant improvement in her mentation and confusion No recent fevers chills or sweats. No recent illness No abdominal pain No bleeding/bleeding complications She did take her medications this morning including aspirin She does not use tobacco products She does not drink alcohol Medication allergies reviewed DNR/DNI. Discussed with patient and her at bedside Allergies Allergy/AdvReac Type Severity Reaction Status Date / Time losartan Allergy Intermediate DIZZINESS/tingling Verified 09/11/24 13:32 arms and legs nebivolol Allergy Intermediate itchy and Verified 09/11/24 13:32 rash niacin Allergy Intermediate Hives Verified 09/11/24 13:32 levofloxacin Allergy Mild rash Verified 09/11/24 13:32 phenobarbital Allergy Unknown UNKNOWN Verified 09/11/24 13:32 lisinopril AdvReac Severe elevated Verified 09/11/24 13:32 liver enzymes atorvastatin AdvReac Unknown Unknown Verified 09/11/24 13:32 Home Medications Medication Instructions Recorded Confirmed Type aspirin 81 mg chewable tablet 81 mg PO QAM 04/27/19 12/03/24 History calcium 600 mg (as carbonate)-vit 1 tab PO BID 04/27/19 12/03/24 History D3 20 mcg (800 unit) chewable tablet (Caltrate plus D) cholecalciferol (vitamin D3) 50 2,000 unit PO QPM 04/27/19 12/03/24 History mcg (2,000 unit) tablet (Vitamin D3) ascorbate calcium (vitamin C) 1 cap PO QAM 11/06/21 12/03/24 History multivitamin 1 tab PO QAM 06/03/22 12/03/24 History B-complex with vitamin C 1 tab PO QDL #90 tabs 02/01/24 12/03/24 Rx albuterol sulfate 90 mcg/actuation 2 puff inhalation Q4H PRN 03/07/24 12/03/24 Rx aerosol inhaler (ProAir HFA) Shortness Of Breath #18 grams fluticasone fur. 100 mcg-umeclid 1 inh inhalation 1200 #180 ea 03/07/24 12/03/24 Rx 62.5 mcg-vilant 25 mcg inhalat.powder (Trelegy Ellipta) omega-3 acid ethyl esters 1 gram 1 cap PO TID #270 caps 03/07/24 12/03/24 Rx capsule (Lovaza) rosuvastatin 20 mg tablet 20 mg PO QAM #90 tabs 03/07/24 12/03/24 Rx diltiazem HCl 240 mg 240 mg PO BID #180 caps 09/07/24 12/03/24 Rx capsule,extended release 24 hr (Cardizem CD) codeine 10 mg-guaifenesin 100 mg/5 5 ml PO Q6H PRN cough #200 mL 09/11/2411/18 Rx mL oral liquid primidone 250 mg tablet 250 mg PO BID #180 tabs 11/02/24 12/03/24 Rx alendronate 70 mg tablet 70 mg PO UD 12/03/24 12/03/24 History levalbuterol tartrate 45 2 inh inhalation UD 12/03/24 12/03/24 History mcg/actuation aerosol inhaler metoprolol tartrate 25 mg tablet 25 mg PO UD 12/03/24 12/03/24 History spironolactone 25 0.5 tab PO UD 12/03/24 12/03/24 History mg-hydrochlorothiazide 25 mg tablet Past Med/Surg History Problem List CVA (cerebral vascular accident) Atrial fibrillation (Acute) Carotid artery stenosis (Acute) Stroke-like symptoms (Acute) Urinary incontinence Cataract, right eye Colon cancer Seizure disorder Palpitations Idiopathic thrombocytopenic purpura 3-vessel coronary artery disease COPD (chronic obstructive pulmonary disease) Lumbar spinal stenosis Asthma SVT (supraventricular tachycardia) (Chronic) History of colon cancer 06/2022 Hypertension Aortic valve stenosis Osteoporosis Mitral regurgitation Hypercholesterolemia H/O right hemicolectomy (07/09/22) Open Right Hemicolectomy(Not Applicable);enterolysis - Andrea Ovalle DO Medical History History of COVID-19 diagnosed 05/04/22 @ [facility]--ear pain, headache, severe weakness, severe dehydration (went to ER for IV Fluids and then discharged)--still experiencing weakness (states she is doing therapy) Murmur Osteoarthritis GERD (gastroesophageal reflux disease) Seizure 1967. takes Primidone, no seizures since 1967. Hx of supraventricular tachycardia NO EPISODES SINCE MEDICATIONS STARTED OVER 2 YRS Myocardial Infarction SEP 2017--had heart cath with 2 stents placed @ [facility]--follows with Dr. Schmidt Asthma Last asthma attack in 2014 Surgical History History of lumbar spinal fusion (~05/2019) History of left hip replacement (~09/2019) partial hip replacement History of tonsillectomy History of cataract surgery bilateral S/P epidural steroid injection History of colonoscopy History of splenectomy History of appendectomy History of heart artery stent [address] ZEN SCHMIDT- [facility] History of cardiac cath (~09/2017) @ [facility]--2 stents placed Family History Mother Diabetes Myocardial infarction Sister Diabetes Brother Diabetes Myocardial infarction Father Myocardial infarction Other No family history of adverse response to anesthesia Denies family history of Ovarian cancer Prostate cancer Breast cancer Lung cancer Colorectal cancer Social History Smoking Status: Never smoker Second Hand Exposure: No; Do You Dip or Chew Tobacco: No; Hx Alcohol Use: No Hx Substance Use: No Preferred Language: Syriac Communication Ability: Effective Visual Impairment: Limited Hearing Ability: Normal Design Project Manager Required: No Beliefs That Will Affect Care: None marital status: Current Living Situation: Spouse current occupational status: retired How many Children do You have: 2 Feels Safe at Home: Yes Childhood Exposure to Second-Hand Smoke: No Diet: regular caffeine: Yes (2 cups of coffee daily ) during the past year weight has: remained stable Dental Care, Regularly: Yes Physical Activity Frequency: 1-2 Times per Week Seatbelt Use: always Sunscreen Use: Yes Assistive Devices: Glasses and Walker Physical Exam Physical Exam: General: A&Ox3. NAD. Cooperative. HEENT: Atraumatic, normocephalic. Neuroexam below Pulm: CTAB A&P. -wheezes, -rales, -rhonchi. Symmetrical chest rise. No increased work of breathing. No respiratory distress. Cardiac: RRR, +sm. Radial pulses intact and symmetrical. Abdominal: Nontender, nondistended, soft. BS present. Extremities: Left AC peripheral IV with some blood leaking from [place] site, no oozing at catheter. Replaced with nursing staff, no ongoing leak. IV salvaged doubt any ongoing bleeding CRANIAL NERVES: Pupils equal and reactive. Left eye peripheral visual field cut. EOM intact, no gaze preference or deviation, no nystagmus. normal sensation in V1, V2, and V3 segments bilaterally Trace droop of the left lateral commissure no nasolabial fold flattening. Cheek puff eyebrow raise symmetrical. Normal hearing to speech. No uvular deviation. Head turn intact and symmetrical. Tongue protrudes midline. MOTOR: RUE: 5/5 Shoulder internal rotation, external rotation, flexion, extension, abduction, adduction 5/5 Elbow flexion/extension, wrist flexi on/extension 5/5 agricultural production engineer strength, finger flexion/extens ion, interosseus LUE: 5/5 Shoulder internal rotation, external rotation, flexion, extension, abduction, adduction 5/5 Elbow flexion/extension, wrist flexi on/extension 5/5 agricultural production engineer strength, finger flexion/extens ion, interosseus RLE: 5/5 to ankle dorsiflexion/plantarflexion LLE: 5/5 to ankle dorsiflexion/plantarflexio n SENSORY: Normal to touch in upper and lower extremities without deficit or asymmetry Results & Data Results & Data Vital Signs (Past 12 Hours) Vital Signs Temp Pulse Pulse Resp BP BP Pulse Ox 12/03/24 11:24 12/03/24 11:15 73 19 155/89 H 94 12/03/24 11:13 73 23 142/93 H 94 12/03/24 10:20 36.4 C L 52 L 14 150/73 H 97 O2 Del Method 12/03/24 11:24 Room Air 12/03/24 11:15 Room Air 12/03/24 11:13 Room Air 12/03/24 10:20 PG Care Time/CCT Total # of Minutes Spent Total Time Spent with Patient: Total time spent is greater than 50% in coordination of care (as documented) at patient's floor/unit and/or counseling patient: Coding Level of Care Code 87242 INT INP/OBS CARE 75MIN Diagnoses CVA (cerebral vascular accident) I63.9 Carotid artery stenosis I65.29 Stroke-like symptoms R29.90 3-vessel coronary artery disease I25.10 COPD (chronic obstructive pulmonary disease) J44.9 History of colon cancer Z85.038
[2024-12-03] MEDS: SODIUM CHLORIDE 0.9% 10ML FLUSH IV STA (11:47)
[2024-12-03] MEDS ORDERED: PHARMACIST DISCHARGE MED REC CONSULT PRN (12:12)
--- NOTE | 2024-12-03 12:17 | Electrocardiogram Report ---
Test Reason : Blood Pressure : */* mmHG Vent. Rate : 87 BPM Atrial Rate : * BPM P-R Int : * ms QRS Dur : 112 ms QT Int : 406 ms P-R-T Axes : * -20 70 degrees QTcB Int : 488 ms Atrial fibrillation Incomplete left bundle block Minimal voltage criteria for LVH, may be normal variant Nonspecific ST and T wave abnormality Prolonged QT Abnormal ECG When compared with ECG of 14-Jul-2022 09:32, Incomplete left bundle block is now Present Confirmed by Moose Reddy ([id number]) on 12/03/2024 12:17:25 PM Referred By: REFERRED SELF Confirmed By: Moose Reddy
[2024-12-03] MEDS: ACETAMINOPHEN 1,000 MG/100 ML VIAL IV STA (12:41)
[2024-12-03] MEDS ORDERED: ALBUTEROL HFA 8 GM INHALER INH PRN (14:06)
--- NOTE | 2024-12-03 14:08 | XRay Report ---
HISTORY: Stroke alert. TECHNIQUE: Portable AP radiograph of the chest. COMPARISON: Chest radiograph dated 05/05/2022. FINDINGS: Linear left basilar opacity favoring atelectasis. No other focal consolidation. No pneumothorax or pleural effusion. Normal heart size. Left-sided aortic arch. Midline trachea. Included upper abdomen is unremarkable.No acute osseous abnormality. IMPRESSION: 1. No acute cardiopulmonary findings. 2. Linear left basilar opacity favoring discoid atelectasis. Electronically signed by Pranav Elder 12-03-2024 2:08 PM
--- NOTE | 2024-12-03 15:37 | Critical Care Consultation ---
Date of Consultation December 03, 2024 Assessment & Plan (1) CVA (cerebral vascular accident): 84-year-old female with a history of coronary artery disease, carotid artery stenosis, COPD and seizure disorder presenting to the hospital with strokelike symptoms. Status post TNKase administration and now in the ICU for monitoring. Neurologic: CT head in 24 hours to evaluate for hemorrhagic conversion. MRI brain routine. Follow-up lipids and A1c. Follow-up echo. PT/OT/speech consult. Heart healthy diet. Avoid antiplatelets and consider reinitiation tomorrow. Follow-up neurology consult. Keep head of the bed elevated. Will need vascular surgery evaluation for carotid artery stenosis. Pulmonary: Prior history of COPD. Continue ICS/LABA/LAMA inhaler. No acute issues. Chest x-ray in the ER revealed linear left basilar opacity favoring atelectasis. Cardiovascular: Follow-up echo. Gastrointestinal: No significant issues. Renal: Monitor urine output closely. Follow-up on sodium levels given hyponatremia in the ER. If persistently hyponatremic, will need to to do further workup. Infectious disease: Afebrile, obtain urine cultures and blood cultures. Otherwise no issues presently. Hematologic: Monitor for signs of bleeding. Some issues with bleeding related to IVs in the ER which have now resolved. Endocrine: Maintain euglycemia. Check TSH in the morning. VTE prophylaxis: SCDs CODE STATUS: DNR/DNI Family at bedside: at bedside updated Disposition: ICU overnight I have personally spent 37 minutes of critical care time in the direct management of this patient. This is a life/limb threatening event. This includes time spent evaluating patient, direct bedside care, chart review, placing orders, interpretation of diagnostic studies, discussion with consultants, patient, and family members, as well as other required patient management activities. This time is exclusive of all separately billable procedures, and teaching time and separate from and in addition to any other critical care service time. Thank you for allowing us to participate in the care of this patient. (2) Carotid artery stenosis: (3) COPD (chronic obstructive pulmonary disease): (4) 3-vessel coronary artery disease: (5) Hyponatremia: History of Present Illness Reason for Consultation: Post TNKase monitoring Attending Physician: Roverto Rose MD History of Present Illness 84-year-old female with a past medical history of seizure disorder, splenectomy, aortic valve stenosis, asthma, SVT, coronary artery bypass grafting who presents to the hospital with strokelike symptoms. She was feeling well when she woke up this morning. A member of her orthodox felt that she was behaving in a confused manner. Reportedly she had left-sided facial droop and significant occipital headache. Patient's last known well time was 840 in the morning. Patient was evaluated by the stroke neurologist via telehealth consult in the ER and recommendation was for TNKase. Initial NIH was 5 and currently is 3. Headache is resolved. CT head negative on admission. Encephalomalacia was seen in the left frontal lobe which is new compared to her prior study in 2021. [place] to be subacute or chronic infarct. CTA head revealed moderate stenosis of the intradural vertebral arteries and diminutive vertebrobasilar system with majority of posterior cerebral artery flow coming from the robust posterior communicating artery. CTA of the neck revealed severe stenosis of the proximal right internal carotid artery related to atherosclerotic plaque with greater than 75% luminal narrowing and moderate stenosis of the proximal left internal carotid artery with greater than 50% luminal narrowing. Allergies Allergy/AdvReac Type Severity Reaction Status Date / Time losartan Allergy Intermediate DIZZINESS/tingling Verified 09/11/24 13:32 arms and legs nebivolol Allergy Intermediate itchy and Verified 09/11/24 13:32 rash niacin Allergy Intermediate Hives Verified 09/11/24 13:32 levofloxacin Allergy Mild rash Verified 09/11/24 13:32 phenobarbital Allergy Unknown UNKNOWN Verified 09/11/24 13:32 lisinopril AdvReac Severe elevated Verified 09/11/24 13:32 liver enzymes atorvastatin AdvReac Unknown Unknown Verified 09/11/24 13:32 Home Medications Medication Instructions Recorded Confirmed Type aspirin 81 mg chewable tablet 81 mg PO QAM 04/27/19 12/03/24 History calcium 600 mg (as carbonate)-vit 1 tab PO BID 04/27/19 12/03/24 History D3 20 mcg (800 unit) chewable tablet (Caltrate plus D) cholecalciferol (vitamin D3) 50 2,000 unit PO QPM 04/27/19 12/03/24 History mcg (2,000 unit) tablet (Vitamin D3) ascorbate calcium (vitamin C) 1 cap PO QAM 11/06/21 12/03/24 History multivitamin 1 tab PO QAM 06/03/22 12/03/24 History B-complex with vitamin C 1 tab PO QDL #90 tabs 02/01/24 12/03/24 Rx albuterol sulfate 90 mcg/actuation 2 puff inhalation Q4H PRN 03/07/24 12/03/24 Rx aerosol inhaler (ProAir HFA) Shortness Of Breath #18 grams fluticasone fur. 100 mcg-umeclid 1 inh inhalation 1200 #180 ea 03/07/24 12/03/24 Rx 62.5 mcg-vilant 25 mcg inhalat.powder (Trelegy Ellipta) omega-3 acid ethyl esters 1 gram 1 cap PO TID #270 caps 03/07/24 12/03/24 Rx capsule (Lovaza) rosuvastatin 20 mg tablet 20 mg PO QAM #90 tabs 03/07/24 12/03/24 Rx diltiazem HCl 240 mg 240 mg PO BID #180 caps 09/07/24 12/03/24 Rx capsule,extended release 24 hr (Cardizem CD) codeine 10 mg-guaifenesin 100 mg/5 5 ml PO Q6H PRN cough #200 mL 09/11/24 12/03/24 Rx mL oral liquid primidone 250 mg tablet 250 mg PO BID #180 tabs 11/02/24 12/03/24 Rx alendronate 70 mg tablet 70 mg PO UD 12/03/24 12/03/24 History levalbuterol tartrate 45 2 inh inhalation UD 12/03/24 12/03/24 History mcg/actuation aerosol inhaler metoprolol tartrate 25 mg tablet 25 mg PO UD 12/03/24 12/03/24 History spironolactone 25 0.5 tab PO UD 12/03/24 12/03/24 History mg-hydrochlorothiazide 25 mg tablet Patient History Medical History History of COVID-19 diagnosed 05/04/22 @ [facility]--ear pain, headache, severe weakness, severe dehydration (went to ER for IV Fluids and then discharged)--still experiencing weakness (states she is doing therapy) Murmur Osteoarthritis GERD (gastroesophageal reflux disease) Seizure 1967. takes Primidone, no seizures since 1967. Hx of supraventricular tachycardia NO EPISODES SINCE MEDICATIONS STARTED OVER 2 YRS Myocardial Infarction SEP 2017--had heart cath with 2 stents placed @ [facility]--follows with Dr. Schmidt Asthma Last asthma attack in 2014 Surgical History History of lumbar spinal fusion (~05/2019) History of left hip replacement (~09/2019) partial hip replacement History of tonsillectomy History of cataract surgery bilateral S/P epidural steroid injection History of colonoscopy History of splenectomy History of appendectomy History of heart artery stent [address] ZEN SCHMIDT- [facility] History of cardiac cath (~09/2017) @ [facility]--2 stents placed Family History Mother Diabetes Myocardial infarction Sister Diabetes Brother Diabetes Myocardial infarction Father Myocardial infarction Other No family history of adverse response to anesthesia Denies family history of Ovarian cancer Prostate cancer Breast cancer Lung cancer Colorectal cancer Social History Smoking Status: Never smoker Second Hand Exposure: No; Do You Dip or Chew Tobacco: No; Hx Alcohol Use: No Hx Substance Use: No Preferred Language: Uzbek Communication Ability: Effective Visual Impairment: Limited Hearing Ability: Normal Spare Hand Required: No Beliefs That Will Affect Care: None marital status: Current Living Situation: Spouse current occupational status: retired How many Children do You have: 2 Other Information That Helps Us Care for You: No Feels Safe at Home: Yes Safety Concerns: Feels Safe At This Time Childhood Exposure to Second-Hand Smoke: No Diet: regular caffeine: Yes (2 cups of coffee daily ) during the past year weight has: remained stable Dental Care, Regularly: Yes Physical Activity Frequency: 1-2 Times per Week Seatbelt Use: always Sunscreen Use: Yes Assistive Devices: Glasses and Walker Review of Systems Review of Systems: All systems reviewed & are unremarkable except as noted in HPI & below Physical Exam Physical Exam: Constitutional: Patient appears to be of their stated age. Patient is in no apparent distress. Patient is well-developed. Eyes: Pupils are equal round and reactive to light. Conjunctivae are normal. Anicteric sclera. Ears nose, mouth and throat: Mallampati class 2. Normal posterior oropharynx. Uvula is midline. Neck: Trachea is midline. Visual inspection is normal. Respiratory: Clear to auscultation bilaterally. No use of accessory muscles. No significant clubbing noted. Cardiovascular: Regular rate and rhythm. No murmurs. No edema. Gastrointestinal: Normal bowel sounds, soft, nontender and nondistended. No hepatosplenomegaly noted. Musculoskeletal: No cyanosis. Patient is able to move all extremities. Strength is 5 out of 5 in the upper and lower extremities. Skin: No rashes, warm dry and intact. 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 Otherwise no clear focal deficits. Psychiatric: Alert and oriented x3 with a euthymic affect. Results & Data Results & Data Vital Signs (Past 12 Hours) Vital Signs Temp Pulse Pulse Resp BP BP Pulse Ox 12/03/24 14:30 60 16 149/69 H 96 12/03/24 14:23 36.3 C L 61 18 149/96 H 98 12/03/24 14:00 36.3 C L 59 L 17 154/89 H 96 12/03/24 13:30 36.7 C 50 L 19 156/72 H 94 12/03/24 13:15 36.6 C 63 22 143/76 H 94 12/03/24 13:00 36.5 C 56 L 19 167/61 H 94 12/03/24 12:45 36.5 C 63 24 126/61 93 12/03/24 12:30 36.5 C 56 L 20 159/72 H 94 12/03/24 12:15 36.5 C 61 16 159/72 H 95 12/03/24 12:12 12/03/24 12:00 76 24 140/67 94 12/03/24 11:45 66 12/03/24 11:45 36.5 C 68 22 163/88 H 94 12/03/24 11:30 36.5 C 65 22 147/65 H 93 12/03/24 11:24 12/03/24 11:15 73 19 155/89 H 94 12/03/24 11:13 73 23 142/93 H 94 12/03/24 10:20 36.4 C L 52 L 14 150/73 H 97 O2 Del Method 12/03/24 14:30 Room Air 12/03/24 14:23 Room Air 12/03/24 14:00 Room Air 12/03/24 13:30 Room Air 12/03/24 13:15 Room Air 12/03/24 13:00 Room Air 12/03/24 12:45 Room Air 12/03/24 12:30 Room Air 12/03/24 12:15 Room Air 12/03/24 12:12 Room Air 12/03/24 12:00 Room Air 12/03/24 11:45 12/03/24 11:45 Room Air 12/03/24 11:30 Room Air 12/03/24 11:24 Room Air 12/03/24 11:15 Room Air 12/03/24 11:13 Room Air 12/03/24 10:20 Coding Level of Care Code 67380 CRITICAL CARE 1ST 30-74M Diagnoses CVA (cerebral vascular accident) I63.9 Carotid artery stenosis I65.29 COPD (chronic obstructive pulmonary disease) J44.9 3-vessel coronary artery disease I25.10 Hyponatremia E87.1
[2024-12-03 16:33] LABS: BUN Creatinine Ratio 30.5 (10-20); Creatinine Clr Calc Pharmacy 44.4 ml/min; Potassium 3.9 mmol/L (3.5-5.1)
[2024-12-03] MEDS: ICU Protocol for HYPERglycemia SCH (17:45)
[2024-12-03] MEDS: CALCIUM 600MG + VIT D 400 IU TAB PO SCH (21:59)
--- NOTE | 2024-12-03 23:27 | Magnetic Resonance Report ---
Exam(s): MRI HEAD Without Contrast EXAM: MR Head Without Intravenous Contrast CLINICAL HISTORY: Reason for exam: CVA post TNKase. TECHNIQUE: Magnetic resonance images of the head/brain without intravenous contrast in multiple planes. COMPARISON: Same-day head CT and CTA. FINDINGS: Brain: Restricted diffusion in the right temporal and parietal lobes consistent with acute infarct. No intracranial hemorrhage. Chronic left frontal infarct. Global parenchymal atrophy with periventricular T2 hyperintensities consistent with chronic microvascular ischemic changes. Ventricles: Unremarkable. No ventriculomegaly. Bones/joints: Unremarkable. No acute fracture. Sinuses: Unremarkable as visualized. No acute sinusitis. Mastoid air cells: Unremarkable as visualized. No mastoid effusion. Orbits: Unremarkable as visualized. IMPRESSION: 1. Acute infarct involving the right temporal and parietal lobes. 2. No intracranial hemorrhage. Communications: Verify Receipt Electronically signed by: Alfonso Doyle MD 12/03/24 23:27 PM
[2024-12-04 07:18] LABS: BUN Creatinine Ratio 27.8 (10-20); Calcium 9.3 mg/dl (8.6-10.3); Chol HDL Ratio 2.2 (0-5); Creatinine Clr Calc Pharmacy 31.6 ml/min; Magnesium 1.9 mg/dl (1.7-2.4); Potassium 3.7 mmol/L (3.5-5.1)
[2024-12-04 07:33] LABS: Thyroid Stimulating Hormone 5.189 uIu/ml (0.300-4.500)
[2024-12-04 08:08] LABS: T4 Free Thyroxine 0.96 ng/dl (0.61-1.60)
[2024-12-04] MEDS: ROSUVASTATIN CALCIUM 20 MG TAB PO SCH (08:35)
--- NOTE | 2024-12-04 08:45 | Neurology Consultation ---
Date of Consultation December 04, 2024 Assessment & Plan (1) Acute CVA (cerebrovascular accident): (2) Atrial fibrillation: (3) Carotid artery stenosis: (4) Left homonymous hemianopsia due to recent cerebral infarction: Plan This patient suffered an acute right posterior parietal/temporal stroke with medium size. The etiology of this stroke not apparent. This could be ischemic, however, she has significant stenosis in the proximal right internal carotid artery (greater than 75%) and atrial fibrillation. Therefore cardiac embolus or carotid embolus cannot be excluded. The CTA of the head did not show intracranial vascular stenoses including the right middle cerebral artery distribution, which would make embolus more likely. Nevertheless, the event happened despite aspirin. On exam the patient has a partial left homonymous hemianopsia. There may be a slight asymmetry of the left corner of the mouth compared to the right but this is close. She does not have aphasia or dysarthria but does have some mild "confusion" and hesitancy to answer at times. Otherwise she is fairly good with her memory. There are no other neurologic deficits although gait was not tested today. The patient has been in persistent atrial fibrillation since admission The patient has bilateral right greater than left internal carotid artery stenosis Recommendations: 1. Repeat CT scan of the head at 24 hours post TNK, per protocol 2. Awaiting echocardiogram results. 3. Given her age and lipid numbers, she is not a high-dose statin candidate. For now, I would keep rosuvastatin 20 mg daily 4. After 24 hours, we may consider antiplatelet and/or anticoagulant medication . Given her vascular stenoses I would switch her aspirin to clopidogrel 75 mg daily. Depending on the echocardiogram and clinical course, we may need an anticoagulant as well. We may need cardiology to help us with anticoagulation decision (her hand patcher is Dr. Schmidt). 5. Physical, occupational, and speech therapy consults increasing activity as able. 6. Awaiting hemoglobin A1c, but the patient does not have a history of diabetes 7. Continue primidone for now but I am not certain she needs this medication, with a history of no seizures since 1967. Consideration for tapering off pr imidone would be an outpatient decision. 8. TSH was elevated. I will leave this to the hospitalist to decide how further to evaluate her thyroid. 9. Apparently vascular surgery was already consulted, and we will await their consult Overall, I spent a total of 100 minutes with this case including review of records, review of MRI films, direct evaluation the patient, report generation, and discussion of the case with the patient and RN at bedside, Dr. Gilliam, including differential diagnosis and treatment options. History of Present Illness Reason for Consultation: Patient is an 84-year-old, who I was asked to see at the request of Dr. Rose, for neurologic consultation regarding stroke Requesting Physician: Dr. Rose Attending Physician: Andre Gilliam MD History of Present Illness This patient has a history of atrial fibrillation in the past, hypertension, dyslipidemia, and cardiac issues including coronary artery disease, SVT, and mitral regurgitation. She was on 81 mg aspirin, 20 mg rosuvastatin, and metoprolol prior to admission. She tells me she has had ophthalmologic issues in the left eye and has poor vision in that eye chronically. Apparently the patient had a seizure in 1967 and has been on primidone ever since. Currently she is on 250 mg twice daily and has not had a seizure since 1967. Patient has a history of lumbar spinal stenosis, L4-5 and L5-S1 status post laminectomy and fusion by Dr. Louise in May 2019 Patient went to bed the evening of December 02 feeling well. She woke at 0700 on June 05 without any symptoms or problems and was getting ready for [facility]. History states that around 0830 she had the sudden onset of confusion, left facial droop, and speech problems. The patient herself tells me that she went to [facility] and then came home and then came to the hospital. Apparently she did not go to [facility]. She arrived at the emergency room at 1016 on December 03, with a temperature of 36.4, pulse 52 and she was in atrial fibrillation. Blood pressure was 150/73, respiratory rate 14, and O2 saturation 97%. She was described as having a mild left facial droop, slow gait, and pressured speech. There was no indication of aphasia or dysarthria or any other neurologic deficits. She underwent telestroke with Dr. Arce at [facility], and the decision for TNK was made. Door to needle time was 56 minutes. CBC and CHEM profile were largely unremarkable. Chest x-ray was unremarkable as well. CT scan of the head showed encephalomalacia of an old nature in the left frontal head region this was not present in 2021. There was mild atrophy and small vessel ischemic disease of an old nature noted. CT angiography of the head revealed some moderate stenosis in the distal vertebral arteries. CT angiography of the neck revealed severe proximal right internal carotid artery stenosis at greater than 75%. There was moderate proximal left internal carotid artery stenosis at greater than 50%. MRI of the brain showed an acute stroke in the posterior right parietal and right temporal lobes. There was no mass effect or edema. There was mild generalized atrophy and moderate old small vessel ischemic disease including an area of left posterior frontal encephalomalacia (old). I reviewed these films. According to nursing staff she has had no new events overnight and has not NIH stroke scale of 1 This morning, patient has no complaint of pain or headache, dizziness, vision problems, weakness, or numbness. She says she feels "okay". CBC and CHEM profile were unremarkable. Hemoglobin A1c is pending. Magnesium was 1.9. TSH was elevated at 5.18. Total cholesterol was 153, triglycerides 78, and LDL 66. The patient has been in persistent atrial fibrillation since admission with a variable rate. Currently the rate is in the low 100s. Allergies Allergy/AdvReac Type Severity Reaction Status Date / Time losartan Allergy Intermediate DIZZINESS/tingling Verified 09/11/24 13:32 arms and legs nebivolol Allergy Intermediate itchy and Verified 09/11/24 13:32 rash niacin Allergy Intermediate Hives Verified 09/11/24 13:32 levofloxacin Allergy Mild rash Verified 09/11/24 13:32 phenobarbital Allergy Unknown UNKNOWN Verified 09/11/24 13:32 lisinopril AdvReac Severe elevated Verified 09/11/24 13:32 liver enzymes atorvastatin AdvReac Unknown Unknown Verified 09/11/24 13:32 Home Medications Medication Instructions Recorded Confirmed Type aspirin 81 mg chewable tablet 81 mg PO QAM 04/27/19 12/03/24 History calcium 600 mg (as carbonate)-vit 1 tab PO BID 04/27/19 12/03/24 History D3 20 mcg (800 unit) chewable tablet (Caltrate plus D) cholecalciferol (vitamin D3) 50 2,000 unit PO QPM 04/27/19 12/03/24 History mcg (2,000 unit) tablet (Vitamin D3) ascorbate calcium (vitamin C) 1 cap PO QAM 11/06/21 12/03/24 History multivitamin 1 tab PO QAM 06/03/22 12/03/24 History B-complex with vitamin C 1 tab PO QDL #90 tabs 02/01/24 12/03/24 Rx albuterol sulfate 90 mcg/actuation 2 puff inhalation Q4H PRN 03/07/24 12/03/24 Rx aerosol inhaler (ProAir HFA) Shortness Of Breath #18 grams fluticasone fur. 100 mcg-umeclid 1 inh inhalation 1200 #180 ea 03/07/24 12/03/24 Rx 62.5 mcg-vilant 25 mcg inhalat.powder (Trelegy Ellipta) omega-3 acid ethyl esters 1 gram 1 cap PO TID #270 caps 03/07/24 12/03/24 Rx capsule (Lovaza) rosuvastatin 20 mg tablet 20 mg PO QAM #90 tabs 03/07/24 12/03/24 Rx diltiazem HCl 240 mg 240 mg PO BID #180 caps 09/07/24 12/03/24 Rx capsule,extended release 24 hr (Cardizem CD) codeine 10 mg-guaifenesin 100 mg/5 5 ml PO Q6H PRN cough #200 mL 09/11/24 12/03/24 Rx mL oral liquid primidone 250 mg tablet 250 mg PO BID #180 tabs 11/02/24 12/03/24 Rx alendronate 70 mg tablet 70 mg PO UD 12/03/24 12/03/24 History levalbuterol tartrate 45 2 inh inhalation UD 12/03/24 12/03/24 History mcg/actuation aerosol inhaler metoprolol tartrate 25 mg tablet 25 mg PO UD 12/03/24 12/03/24 History spironolactone 25 0.5 tab PO UD 12/03/24 12/03/24 History mg-hydrochlorothiazide 25 mg tablet Patient History Medical History History of COVID-19 diagnosed 05/04/22 @ [facility]--ear pain, headache, severe weakness, severe dehydration (went to ER for IV Fluids and then discharged)--still experiencing weakness (states she is doing therapy) Murmur Osteoarthritis GERD (gastroesophageal reflux disease) Seizure 1967. takes Primidone, no seizures since 1967. Hx of supraventricular tachycardia NO EPISODES SINCE MEDICATIONS STARTED OVER 2 YRS Myocardial Infarction SEP 2017--had heart cath with 2 stents placed @ [facility]--follows with Dr. Schmidt Asthma Last asthma attack in 2014 Surgical History History of lumbar spinal fusion (~05/2019) History of left hip replacement (~09/2019) partial hip replacement History of tonsillectomy History of cataract surgery bilateral S/P epidural steroid injection History of colonoscopy History of splenectomy History of appendectomy History of heart artery stent [address] [facility] History of cardiac cath (~09/2017) @ [facility]--2 stents placed Family History Mother , age 78 of an [place] Diabetes Myocardial infarction Sister Diabetes Brother Diabetes Myocardial infarction Father , age 71 of heart issues. Myocardial infarction Other No family history of adverse response to anesthesia Denies family history of Ovarian cancer Prostate cancer Breast cancer Lung cancer Colorectal cancer Social History (Updated 12/04/24 @ 08:34 by Buddy Yen MD) Smoking Status: Never smoker Second Hand Exposure: No; Do You Dip or Chew Tobacco: No; Hx Alcohol Use: No Hx Substance Use: No Preferred Language: Yi Communication Ability: Effective Visual Impairment: Limited Hearing Ability: Normal Complex Care Nurse Practitioner Required: No Beliefs That Will Affect Care: None marital status: Current Living Situation: Spouse Current Living Situation Comment: 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 How many Children do You have: 2 Feels Safe at Home: Yes Childhood Exposure to Second-Hand Smoke: No Diet: regular caffeine: Yes (2 cups of coffee daily ) during the past year weight has: remained stable Dental Care, Regularly: Yes Physical Activity Frequency: 1-2 Times per Week Seatbelt Use: always Sunscreen Use: Yes Assistive Devices: Glasses and Walker Review of Systems Constitutional: no fever, no fatigue and no weakness Eyes: no diplopia, no eye pain and no worsening vision Ear, Nose, Mouth, Throat: no ear pain, no tinnitus, no hearing loss, no dizziness, no snoring, no hoarseness and no dysphagia Respiratory: no cough and no dyspnea Cardiovascular: no chest pain, no palpitations and no lightheadedness Gastrointestinal: no abdominal pain, no nausea and no vomiting Genitourinary: no dysuria, no urinary frequency and no urinary incontinence Musculoskeletal: no back pain, no neck pain, no radicular pain, no joint pain and no myalgia Integumentary: no rash and no lesions Neurologic: no gait abnormality, no localized weakness, no generalized weakness, no tingling, no numbness, no tremor(s), no abnormal movements, no headache(s), no abnormal speech, no confusion and no memory loss Psychiatric: no depression, no irritability, no anxiety, no difficulty concentrating, no confusion and no hallucinations Endocrine: no fatigue and no flushing Hematologic / Lymphatic: no easy bleeding and no easy bruising Allergy / Immunological: no urticaria and no problem reported Exam (Neuro) Physical Exam: The patient is left-handed. The patient is awake, alert, and attentive. Speech is normal without any aphasia or dysarthria. She is hesitant to answer at times but tends to get the right answers and is disoriented to age, where she is, and the month. She was not sure of the date or the year. Long-term memory seemed intact when questioned. Mood and affect are normal and appropriate. Appearance and grooming are normal. Pupils are 4 mm bilaterally and reactive to light. Extraocular eye muscles are intact without nystagmus. With glasses, the patient could read test phrases but I noticed she was missing the first couple of words on the left of each eye. She could read test words fairly well. She could name objects and colors. Visual field testing revealed some decreased vision off to the left in each eye to about 45 degrees. There are no deficits to sensation in the face in all 3 distributions of the fifth cranial nerve bilaterally. Corneal reflexes are positive bilaterally. Facial strength and symmetry was normal bilaterally. There may have been some slight asymmetry with movement in the left corner of the mouth compared to the right but it was subtle. Hearing seems intact grossly to voice and finger rub bilaterally. Palate moves well without asymmetry. There is normal sternocleidomastoid and trapezius strength bilaterally. Tongue is midline with good strength bilaterally. Neck has a full range of motion without discomfort. There are no cervical bruits bilaterally. There are no cranial or ocular bruits. Heart is without murmur. There is a regular rhythm and rate. Cervical, thoracic, and lumbar spine are nontender to palpation. Gait was not tested but stance sitting up was unremarkable. With outstretched arms there is no drift. There are no resting, postural, or action tremors. There is no ataxia with finger to nose testing. There is good facility in the hands. No other abnormal involuntary movements are noted. Motor strength is 5/5 diffusely in the arms bilaterally including deltoids, biceps, triceps, brachioradialis, wrist flexors and extensors, jewelry jobber, and intrinsic hand muscles. Motor strength is 5/5 diffusely in the legs bilaterally including hip flexors, quadriceps, hamstrings, gastrocnemius, tibialis anterior, tibialis posterior, and Peroneii muscles bilaterally. Toe extensors are normal and there is good bulk in the extensor digitorum brevis muscles bilaterally. The limbs have good tone without rigidity or spasticity. There is no atrophy noted in the muscles. Muscle bulk is normal, there is no tenderness to palpation, no myotonia to percussion, and no fasciculations seen. Sensory examination is intact to touch and pin throughout all 4 limbs diffusely. Reflexes are 1/4 in the biceps, triceps, brachioradialis, and quadriceps tendons bilaterally. Achilles tendon reflexes were absent bilaterally. Toes are downgoing with plantar stimulation bilaterally. Peripheral pulses are present and of normal quality distally in all 4 limbs. There is no peripheral edema noted in the limbs. Results & Data Vital Signs (Past 12 Hours) Vital Signs Temp Pulse Resp BP Pulse Ox O2 Del Method 12/04/24 06:00 37 C 96 H 16 124/73 92 Room Air 12/04/24 05:00 37 C 82 16 138/69 92 Room Air 12/04/24 04:00 37 C 77 17 109/56 L 92 Room Air 12/04/24 03:00 36.9 C 72 16 115/47 L 91 Room Air 12/04/24 02:00 36.9 C 78 18 129/69 92 Room Air 12/04/24 01:00 36.9 C 81 18 119/75 94 Room Air 12/04/24 00:00 37 C 82 17 112/64 93 Room Air 12/03/24 23:00 37 C 68 16 103/59 L 92 Room Air 12/03/24 22:00 37 C 77 17 113/62 92 Room Air 12/03/24 21:00 36.7 C 76 16 133/68 92 Room Air PG Care Time/CCT Total # of Minutes Spent Total Time Spent with Patient: Total time spent is greater than 50% in coordination of care (as documented) at patient's floor/unit and/or counseling patient: Coding Level of Care Code 57337 INT INP/OBS CARE MIN Diagnoses Acute CVA (cerebrovascular accident) I63.9 Atrial fibrillation I48.91 Carotid artery stenosis I65.29 Left homonymous hemianopsia due to recent cerebral infarction I69.398; H53.462 Time Spent (min) 100
--- NOTE | 2024-12-04 08:59 | Consultation ---
Date of Consultation December 04, 2024 Assessment & Plan (1) Symptomatic stenosis of right carotid artery: Pt with likely symptomatic R ICA stenosis. She is somewhat confused today regarding yesterday's events, and family is not present. Dr Syed recommending R TCAR for RICAS, hopefully within 2 weeks. In order to do this, pt will require DAPT as soon as safe per medical team. Attempted to discuss recommendations with pt, but would like to discuss further with family present before scheduling procedure. History of Present Illness Reason for Consultation: R ICAS Attending Physician: Andre Gilliam MD History of Present Illness 84 yo f with hx of colon ca, COPD, SVT, lumbvar spinal stenosis, HTN, aortic stenosis, osteoporosis, mitral regurg, hypercholesterolemia, ITP, admitted after R hemispheric CVA yesterday. Pt is a poor historian today, unable to relate yesterday's events. Per chart, pt was having a BAKER and mild confusion, went [facility], where sx worsened to L facial droop and dysarthria. She came to [facility], stroke alert called, and TNKase given. Per chart, pt no longer with focal deficits. Pt today states she had a BAKER yesterday, but remembers nothing else. Pt denies vision changes, unilateral extremity weakness or numbness, palpitations, chest pain, SOB, abd pain, N/V, other complaints. Pt also noted to have a fib on EKG. MRI demonstrates R hemispheric acute CVA. CTA neck demonstrates 80% R ICA stenosis. Allergies Allergy/AdvReac Type Severity Reaction Status Date / Time losartan Allergy Intermediate DIZZINESS/tingling Verified 09/11/24 13:32 arms and legs nebivolol Allergy Intermediate itchy and Verified 09/11/24 13:32 rash niacin Allergy Intermediate Hives Verified 09/11/24 13:32 levofloxacin Allergy Mild rash Verified 09/11/24 13:32 phenobarbital Allergy Unknown UNKNOWN Verified 09/11/24 13:32 lisinopril AdvReac Severe elevated Verified 09/11/24 13:32 liver enzymes atorvastatin AdvReac Unknown Unknown Verified 09/11/24 13:32 Home Medications Medication Instructions Recorded Confirmed Type aspirin 81 mg chewable tablet 81 mg PO QAM 04/27/19 12/03/24 History calcium 600 mg (as carbonate)-vit 1 tab PO BID 04/27/19 12/03/24 History D3 20 mcg (800 unit) chewable tablet (Caltrate plus D) cholecalciferol (vitamin D3) 50 2,000 unit PO QPM 04/27/19 12/03/24 History mcg (2,000 unit) tablet (Vitamin D3) ascorbate calcium (vitamin C) 1 cap PO QAM 11/06/21 12/03/24 History multivitamin 1 tab PO QAM 06/03/22 12/03/24 History B-complex with vitamin C 1 tab PO QDL #90 tabs 02/01/24 12/03/24 Rx albuterol sulfate 90 mcg/actuation 2 puff inhalation Q4H PRN 03/07/24 12/03/24 Rx aerosol inhaler (ProAir HFA) Shortness Of Breath #18 grams fluticasone fur. 100 mcg-umeclid 1 inh inhalation 1200 #180 ea 03/07/24 12/03/24 Rx 62.5 mcg-vilant 25 mcg inhalat.powder (Trelegy Ellipta) omega-3 acid ethyl esters 1 gram 1 cap PO TID #270 caps 03/07/24 12/03/24 Rx capsule (Lovaza) rosuvastatin 20 mg tablet 20 mg PO QAM #90 tabs 03/07/24 12/03/24 Rx diltiazem HCl 240 mg 240 mg PO BID #180 caps 09/07/24 12/03/24 Rx capsule,extended release 24 hr (Cardizem CD) codeine 10 mg-guaifenesin 100 mg/5 5 ml PO Q6H PRN cough #200 mL 09/11/24 12/03/24 Rx mL oral liquid primidone 250 mg tablet 250 mg PO BID #180 tabs 11/02/24 12/03/24 Rx alendronate 70 mg tablet 70 mg PO UD 12/03/24 12/03/24 History levalbuterol tartrate 45 2 inh inhalation UD 12/03/24 12/03/24 History mcg/actuation aerosol inhaler metoprolol tartrate 25 mg tablet 25 mg PO UD 12/03/24 12/03/24 History spironolactone 25 0.5 tab PO UD 12/03/24 12/03/24 History mg-hydrochlorothiazide 25 mg tablet Patient History Medical History History of COVID-19 diagnosed 05/04/22 @ [facility]--ear pain, headache, severe weakness, severe dehydration (went to ER for IV Fluids and then discharged)--still experiencing weakness (states she is doing therapy) Murmur Osteoarthritis GERD (gastroesophageal reflux disease) Seizure 1967. takes Primidone, no seizures since 1967. Hx of supraventricular tachycardia NO EPISODES SINCE MEDICATIONS STARTED OVER 2 YRS Myocardial Infarction SEP 2017--had heart cath with 2 stents placed @ [facility]--follows with Dr. Schmidt Asthma Last asthma attack in 2014 Surgical History History of lumbar spinal fusion (~05/2019) History of left hip replacement (~09/2019) partial hip replacement History of tonsillectomy History of cataract surgery bilateral S/P epidural steroid injection History of colonoscopy History of splenectomy History of appendectomy History of heart artery stent [address] ZEN SCHMIDT- [facility] History of cardiac cath (~09/2017) @ [facility]--2 stents placed Family History Mother , age 78 of an [place] Diabetes Myocardial infarction Sister Diabetes Brother Diabetes Myocardial infarction Father , age 71 of heart issues. 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 How many Children do You have: 2 Other Information That Helps Us Care for You: No Feels Safe at Home: Yes Safety Concerns: Feels Safe At This Time Childhood Exposure to Second-Hand Smoke: No Diet: regular caffeine: Yes (2 cups of coffee daily ) during the past year weight has: remained stable Dental Care, Regularly: Yes Physical Activity Frequency: 1-2 Times per Week Seatbelt Use: always Sunscreen Use: Yes Assistive Devices: Glasses and Walker Review of Systems Review of Systems: All systems reviewed & are unremarkable except as noted in HPI & below (poor historian) Physical Exam Constitutional: WD/WN, vitals as above cooperative and comfortable; not in distress Neck: trachea midline Respiratory: normal respiratory effort, lungs clear to auscultation Auscultation: + diminished lung sounds Cardiovascular: Rate/Rhythm: + irregularly irregular Vessels: dorsalis pedis pulses present and radial pulses present; + abnormal peripheral pulses Extremities: normal capillary refill Gastrointestinal (Abdomen): Inspection/Auscultation: abdomen normal to inspection and normal bowel sounds Percussion/Palpation: abdomen soft; abdomen nontender Musculoskeletal: no cyanosis or clubbing, extremities motor strength 5/5 Skin: no rashes, warm and dry Neurologic: moves all extremities, awake and + confused (mildlly); no focal motor deficits Speech / Cognition: normal speech Psychiatric: Orientation: alert, oriented to person, oriented to place and oriented to time Results & Data Vital Signs (Past 12 Hours) Vital Signs Temp Pulse Resp BP Pulse Ox O2 Del Method 12/04/24 06:00 37 C 96 H 16 124/73 92 Room Air 12/04/24 05:00 37 C 82 16 138/69 92 Room Air 12/04/24 04:00 37 C 77 17 109/56 L 92 Room Air 12/04/24 03:00 36.9 C 72 16 115/47 L 91 Room Air 12/04/24 02:00 36.9 C 78 18 129/69 92 Room Air 12/04/24 01:00 36.9 C 81 18 119/75 94 Room Air 12/04/24 00:00 37 C 82 17 112/64 93 Room Air 12/03/24 23:00 37 C 68 16 103/59 L 92 Room Air 12/03/24 22:00 37 C 77 17 113/62 92 Room Air 12/03/24 21:00 36.7 C 76 16 133/68 92 Room Air
--- NOTE | 2024-12-04 09:30 | Critical Care Progress Note ---
Date of Service December 04, 2024 Assessment & Plan (1) CVA (cerebral vascular accident): Plan: 84-year-old female with a history of coronary artery disease, carotid artery stenosis, COPD and seizure disorder presenting to the hospital with strokelike symptoms. Status post TNKase administration and now in the ICU for monitoring. Neurologic: CT head in 24 hours to evaluate for hemorrhagic conversion. Follow-up echo. PT/OT/speech consult. Heart healthy diet. Await vascular surgery evaluation for carotid artery stenosis. -Reviewed neurology consult Pulmonary: Prior history of COPD. Continue ICS/LABA/LAMA inhaler. No acute issues. Cardiovascular: A-fib chronic - Follow-up echo. Gastrointestinal: No significant issues. Renal: Hyponatremia improved: Continue to trend Acute kidney injury: Suspect secondary to contrast load -Continue to trend Infectious disease: Afebrile, obtain urine cultures and blood cultures. Otherwise no issues presently. Hematologic: Monitor for signs of bleeding. Defer systemic anticoagulation in the setting of A-fib to hospitalist medicine versus primary team -Convert from aspirin to Plavix per neurology recommendations Endocrine: Maintain euglycemia. VTE prophylaxis: SCDs CODE STATUS: DNR/DNI Disposition: Stable for downgrade out of ICU after [address] (2) Carotid artery stenosis: (3) COPD (chronic obstructive pulmonary disease): (4) 3-vessel coronary artery disease: Admission and Anticipated Discharge Date Admission Date: December 03, 2024 Subjective No complaints, feels back to baseline. Was concerned over the events occurring in the last 24 hours Physical Exam Physical Exam: General: Alert. nontoxic. Skin: Warm, dry, Head: Atraumatic Ears, nose, mouth and throat: airway patent Cardiovascular: Normal peripheral perfusion Respiratory: no respiratory distress Gastrointestinal: Non distended Musculoskeletal: No deformity Results & Data Results & Data Vital Signs (Past 12 Hours) Vital Signs Temp Pulse Resp BP Pulse Ox O2 Del Method 12/04/24 06:00 37 C 96 H 16 124/73 92 Room Air 12/04/24 05:00 37 C 82 16 138/69 92 Room Air 12/04/24 04:00 37 C 77 17 109/56 L 92 Room Air 12/04/24 03:00 36.9 C 72 16 115/47 L 91 Room Air 12/04/24 02:00 36.9 C 78 18 129/69 92 Room Air 12/04/24 01:00 36.9 C 81 18 119/75 94 Room Air 12/04/24 00:00 37 C 82 17 112/64 93 Room Air 12/03/24 23:00 37 C 68 16 103/59 L 92 Room Air 12/03/24 22:00 37 C 77 17 113/62 92 Room Air Critical Care Results & Data Vital Signs (Past 12 Hours) Vital Signs Temp Pulse Resp BP Pulse Ox O2 Del Method 12/04/24 06:00 37 C 96 H 16 124/73 92 Room Air 12/04/24 05:00 37 C 82 16 138/69 92 Room Air 12/04/24 04:00 37 C 77 17 109/56 L 92 Room Air 12/04/24 03:00 36.9 C 72 16 115/47 L 91 Room Air 12/04/24 02:00 36.9 C 78 18 129/69 92 Room Air 12/04/24 01:00 36.9 C 81 18 119/75 94 Room Air 12/04/24 00:00 37 C 82 17 112/64 93 Room Air 12/03/24 23:00 37 C 68 16 103/59 L 92 Room Air 12/03/24 22:00 37 C 77 17 113/62 92 Room Air Lab & Micro Results (Past 24 Hours) No Data to Display Na 134 mmol/L (136-145) L 12/04/24 K 3.7 mmol/L (3.5-5.1) 12/04/24 Cl 98 mmol/L (98-107) 12/04/24 CO2 27 mmol/L (21-32) 12/04/24 Anion Gap 9 (3-11) 12/04/24 BUN 32 mg/dl (6-23) H 12/04/24 Creatinine 1.15 mg/dl (0.6-1.2) 12/04/24 BUN/Creatinine Ratio 27.8 (10-20) H 12/04/24 Glu 101 mg/dl (70-99(Fasting)) H 12/04/24 Ca 9.3 mg/dl (8.6-10.3) 12/04/24 Mg 1.9 mg/dl (1.7-2.4) 12/04/24 06:00 Calcium Level 9.3 mg/dl (8.6-10.3) 12/04/24 06:00 Diagnostic Findings (Past 24 Hours) Chest X-Ray 12/03/24 10:25 HISTORY: Stroke alert. TECHNIQUE: Portable AP radiograph of the chest. COMPARISON: Chest radiograph dated 05/05/2022. FINDINGS: Linear left basilar opacity favoring atelectasis. No other focal consolidation. No pneumothorax or pleural effusion. Normal heart size. Left-sided aortic arch. Midline trachea. Included upper abdomen is unremarkable.No acute osseous abnormality. IMPRESSION: 1. No acute cardiopulmonary findings. 2. Linear left basilar opacity favoring discoid atelectasis. Electronically signed by Pranav Elder 12-03-2024 2:[address] 12/03/24 10:25 HISTORY: Confusion. TECHNIQUE: CT of the head without contrast. Images are presented in axial, sagittal, and coronal reformats. COMPARISON: Head CT dated 05/25/2022. FINDINGS: Encephalomalacia involving the left frontal lobe likely representing sequelae of subacute or chronic infarct. This is new since the prior study from 2021. ModeratePresumed chronic microvascular ischemic changes. No evidence of acute intracranial hemorrhage. Ventricular caliber is appropriate. Fourth ventricle is midline. Basal cisterns are patent. Intracranial atherosclerotic vascular calcifications. Globes and orbits are unremarkable.Soft tissues about the skull base and scalp are unremarkable.Paranasal sinuses and mastoid air cells are clear. No calvarial fracture. IMPRESSION: 1. No acute intracranial findings. If there is high clinical suspicion for acute infarct,Brain MRI with diffusion weighted imaging is recommended. 2. Encephalomalacia involving the left frontal lobe is new since the prior study from 2021 and may represent sequela Subacute or chronic infarct. 3. Mild volume loss and moderate presumed chronic microvascular ischemic changes. Findings were discussed with the ordering provider Dr. Moose Ceballos at 10:58 AM on 12/03/2024. Electronically signed by Pranav Elder 12-03-2024 10:58 AM Head CTA 12/03/24 10:27 HISTORY: Confusion. TECHNIQUE: CT Angiography of the head was performed following uneventful administration 117 mL of Optiray 320 IV contrast. Images are presented in axial, sagittal, coronal reformats. Coronal and sagittal 3D MIP reconstructions are provided. COMPARISON: CT of the head without contrast from the same day. FINDINGS: Angiography: Moderate stenosis of the intradural vertebral arteries. The basilar artery is patent, but diminutive. The majority of posterior circulation flow is through robust posterior communicating arteries. The posterior cerebral arteries are patent. Mild atherosclerotic calcification along the cavernous internal carotid arteries.The A1 segments are present and patent. Patent anterior communicating artery. The anterior cerebral artery branches are patent. The M1 and proximal M2 segment branches are patent bilaterally. The more distal MCA branches appear symmetric. Soft tissues: No enhancing intracranial mass or vascular malformation. Soft tissues about the skull base and scalp are unremarkable. Globes and orbits are unremarkable. Bones: Paranasal sinus mucosal thickening. No air-fluid levels. Mastoid air cells are well aerated. Calvarium is unremarkable. IMPRESSION: * No evidence of central vessel occlusion. * Moderate stenosis of the intradural vertebral arteries. Diminutive vertebrobasilar system with majority of posterior cerebral artery flow coming through robust posterior communicating arteries. * Mild atherosclerotic calcification of the cavernous internal carotid arteries without hemodynamically significant stenosis. Findings discussed with the ordering provider Dr. Moose Torrez at 11 AM on 12/03/2024. Electronically signed by Pranav Elder 12-03-2024 11:03 AM Neck CTA 12/03/24 10:27 HISTORY: Confusion. TECHNIQUE: CT Angiography of the neck was performed following uneventful administration of 117 mL of Optiray 320 IV contrast. Images are presented in axial, sagittal, coronal reformats. Coronal and sagittal 3D MIP reconstructions are provided. COMPARISON: CT of the head and CT of the head and neck from the same day. FINDINGS: Angiography: Mild atherosclerotic vascular disease involving the aorta and arch vessels. Common carotid arteries are patent with partially retropharyngeal course. Severe stenosis of the proximal right internal carotid artery with greater than 75% luminal narrowing. Moderate stenosis of the left internal carotid artery with approximately 50% luminal narrowing. The cervical internal carotid arteries remain patent to the skull base. Patent codominant cervical vertebral arteries. Soft tissues: 1 cm hypodense nodule in the left thyroid lobe requires no follow-up based on ACR White paper recommendations. Soft tissues of the neck are otherwise unremarkable. Lung apices: Unremarkable. Bones: Degenerative changes of the spine. Paranasal sinus mucosal thickening. No acute osseous abnormality. IMPRESSION: 1. Severe stenosis at the proximal right internal carotid artery related to atherosclerotic plaque with greater than 75% luminal narrowing.Moderate stenosis of the proximal left internal carotid artery with greater than 50% luminal narrowing. 2. Patent vertebral arteries with antegrade flow. 3. Additional chronic and/or incidental findings7 As detailed above. Electronically signed by Pranav Elder 12-03-2024 11:06 AM Brain MRI 12/03/24 12:12 CR Exam(s): MRI HEAD Without Contrast EXAM: MR Head Without Intravenous Contrast CLINICAL HISTORY: Reason for exam: CVA post TNKase. TECHNIQUE: Magnetic resonance images of the head/brain without intravenous contrast in multiple planes. COMPARISON: Same-day head CT and CTA. FINDINGS: Brain: Restricted diffusion in the right temporal and parietal lobes consistent with acute infarct. No intracranial hemorrhage. Chronic left frontal infarct. Global parenchymal atrophy with periventricular T2 hyperintensities consistent with chronic microvascular ischemic changes. Ventricles: Unremarkable. No ventriculomegaly. Bones/joints: Unremarkable. No acute fracture. Sinuses: Unremarkable as visualized. No acute sinusitis. Mastoid air cells: Unremarkable as visualized. No mastoid effusion. Orbits: Unremarkable as visualized. IMPRESSION: 1. Acute infarct involving the right temporal and parietal lobes. 2. No intracranial hemorrhage. Communications: Verify Receipt Electronically signed by: Alfonso Doyle MD 12/03/24 23:27 PM I & O Totals 24 Hours 12/03/24 12/04/24 12/05/24 06:59 06:59 06:59 Intake Total 500 / 500 Output Total 300 / 300 Balance 200 / 200 Cumulative 12/03/24 10:16 thru 12/04/24 05:00 Intake Total 500 Output Total 300 Balance 200 RT Ventilator Mngmt (Last Documented) Ventilator Ordered Settings Respiratory Rate 16 12/04/24 06:00 Ventilator - PT Measurements Respiratory Rate 16 Coding Level of Care Code 23255 SUB INP/OBS CARE 2/35MIN Diagnoses CVA (cerebral vascular accident) I63.9 Carotid artery stenosis I65.29 COPD (chronic obstructive pulmonary disease) J44.9 3-vessel coronary artery disease I25.10
[2024-12-04] MEDS: FLUTICASONE FUROATE 100MCG 14 PUFFS/INHALER INH SCH (11:04)
[2024-12-04] MEDS: UMECLIDINIUM/VILANTEROL 62.5/25MCG 7 PUFFS/INHALER INH SCH (11:04)
[2024-12-04] MEDS: METOPROLOL TARTRATE 25 MG TAB PO SCH (11:04)
[2024-12-04 11:38] LABS: Estimated Average Glucose 126 mg/dl
[2024-12-04] MEDS ORDERED: NON-FORMULARY MEDICATION (Fluticasone-Umeclidin-Vilanter [Trelegy Ellipta] 100-62.5-25 mcg INH SCH (12:00)
--- NOTE | 2024-12-04 12:21 | CT Scan Report ---
CT OF THE HEAD WITHOUT CONTRAST CLINICAL HISTORY: Post TPA/TNK 24 hour COMPARISON STUDY: Head CT December 03, 2024. MRI of the brain December 03, 2024. CT DOSE: 547.75 mGy.cm TECHNIQUE: Helical axial images of the head were obtained without IV contrast. Automated exposure con trol was utilized for the study. A dose lowering technique was utilized adhering to the principles o f ALARA. FINDINGS: No acute intracranial hemorrhage is present. The ventricular system is stable. The basal ci sterns are patent. There are no extra axial collections. There is subtle hypodensity with loss of gra y-white differentiation within the right parietal and temporal lobes which corresponds to the foci of restricted diffusion on MRI of December 03, 2024. There is an old left frontal lobe infarct. There are no calvarial fractures. Mild sinus mucosal thickening is present. IMPRESSION: 1. No acute intracranial hemorrhage. 2. Subtle hypodensity with loss of keith-white differentiation within the right parietal and temporal lobes consistent with acute right MCA territory infarct, as shown on MRI of December 03, 2024. No signif icant mass effect. ACT 112: Negative or not required by law. Electronically signed by: Hu Vidal M.D. 12/04/2024 12:19 PM
--- NOTE | 2024-12-04 13:06 | XCELERA ---
[id number] \\[email or web address]\[id number]___[id number].pdf
--- NOTE | 2024-12-04 15:00 | Hospitalist Progress Note ---
Date of Service December 04, 2024 Assessment & Plan (1) CVA (cerebral vascular accident): Plan: Ischemic right temporal/parietal CVA. Status post TNKase on admission. Head CT scan #2 completed today is negative for evidence of intracerebral hemorrhage. She does have a 70% right ICA stenosis that will need to be followed and addressed at a later date. She will be transferred out of the ICU today, December 04. Continue OT and PT while hospitalized. Cha is an 84-year-old female with past medical history of aortic stenosis, STEMI with PCI to RCA with no recent anginal disease, single episode of postoperative A-fib without recurrence until day of admission 12/03, COPD/asthma overlap who presents from [facility] as a stroke alert after the development of sudden onset speech difficulty, confusion, and possibly acute on chronic left-sided visual neglect acutely at around 8:30 AM. She was evaluated by telestroke was felt to be a good TNKase candidate and was given TNKase at 1112. She was recommended for admission to the ICU for post thrombolysis management. Strokelike symptoms -Normal upon awakening at 7 AM, 830am. Dysarthria. Reported left peripheral visual neglect although this may be chronic. LEFT sided facial droop. No extremity deficits. Telestroke --> TNKase given @ 1112 - Normotensive at time of assessment - CThead: No acute intracranial findings. Encephalomalacia of the left frontal lobe new since prior, may represent sequela of subacute versus chronic infarct. Microvascular ischemic changes suspected based on mild volume loss CTAhead: No central vessel occlusion. Moderate stenosis of intradural vertebral arteries. Diminutive vertebrobasilar system with majority of flow through communicating arteries. Internal cavernous carotid atherosclerosis without significant stenosis CTAneck: Severe stenosis of proximal right ICA related to plaque greater than 75% luminal narrowing. Moderate stenosis of left internal carotid with greater than 50% luminal narrowing. Patent vertebral arteries MRI pending Vascular consulted for ICA stenosis with greater than 75% narrowing with contralateral deficits Patient is in A-fib at time of admitting assessment. DDx includes cardioembolic Labetalol 10 mg IV every 15 minutes as needed for BP greater than 180/105. Oral antihypertensives held Lipid panel, A1c pending No venipuncture at this time per TNKase parameters troponin is ordered if this can be added onto already collected labs, otherwise defer until next labs are available Echo with bubble study pending Clinically improving per and patient at bedside. Speech is improving and fluency and left-sided facial droop is improving. Afib, second occurence History of 1 episode of postoperative A-fib 06/2022 without known recurrence and normal event monitor 09/2022 EKG A-fib incomplete left bundle branch block. No chest pain or chest pressure at any point. Rate controlled at 87 Anticoagulation contraindicated post thrombolysis In case hypertension parameters x 24 hours, resume oral metoprolol/diltiazem 12/04 CAD, history of STEMI 09/2017 with PCI to RCA, severe aortic stenosis Last echo 05/2024: EF 55-60%. Grade 2 diastolic dysfunction. Severe aortic stenosis MARCIANO 0.83, peak velocity 4.3 Asymptomatic from and TAVR not yet pursued due to minimal symptoms Continue aspirin, statin Metoprolol/diltiazem held for post TNK blood pressure management parameters COPD/asthma overlap Continue Trelegy/mammillary equivalent Albuterol every 4 hours as needed as needed for wheezing No hypoxia on admission Chronic stable issues: History of colon cancer s/p right hemicolectomy 2021. Last colonoscopy 2022 with diverticulosis, nonbleeding internal hemorrhoids, and healthy appearing mucosa around her ileocolic anastomoses. No areas of concern. History of splenectomy: Vaccines up-to-date. Noted. DVT PPX: SCDs. Chemical prophylaxis contraindicated due to thrombolysis CODE STATUS: DNR/DNI discussed with patient and at time of assessment Diet: Advance as tolerated to heart healthy Disposition: ICU (2) Carotid artery stenosis: Plan: 70% right ICA stenosis seen on imaging. Vascular surgery consultation requested and pending. (3) 3-vessel coronary artery disease: Plan: Currently stable. Continue current medical management (4) COPD (chronic obstructive pulmonary disease): Plan: Currently stable. Continue current medical management (5) Atrial fibrillation: Plan: Present on admission. Telemetry. Rate is controlled. Systemic anticoagulation is currently contraindicated after TNKase. Plan Continue OT and PT while hospitalized. It appears she will be able to go home rather than to [facility]. Hopeful discharge to home with home health services tomorrow, December 05. Admission and Anticipated Discharge Date Admission Date: December 03, 2024 Subjective Alert and oriented. is at the bedside. Head CT scan #2 negative for evidence of intracranial hemorrhage. She has been cleared for transfer out of the ICU. Metoprolol has been restarted to help control heart rate. Vascular surgery consultation is pending but I suspect they will simply monitor the 70% right ICA stenosis and intervene at a later date. Review of Systems 2 Review of Systems: Constitutionalno fever or chills ENTno blurred vision, no double vision, no epistaxis, no sore throat Respiratoryno cough, no wheezing, no shortness of breath Cardiacno palpitations, no chest pain, no syncope Zachery nausea, vomiting, diarrhea, melena, hematochezia GUno urinary retention, no urinary incontinence, no dysuria, no hematuria Musculoskeletalno joint pain, no muscle tenderness Skinno bruising, no rashes, no pruritus Neurono isolated weakness, no paresthesia Psychno depression, no anxiety Physical Exam 2 Physical Exam: General-alert and oriented x3, no fever, no chills HEENT-head atraumatic and normocephalic, pupils equal and reactive to light, extraocular muscles intact Neck-no lymphadenopathy or thyromegaly, trachea midline Chest-clear to auscultation. No rales, wheezing or rhonchi Cardiac-regular rate and rhythm, normal S1 and S2 Abdomen-normal bowel sounds, no hepatosplenomegaly Extremities-no cyanosis, clubbing, or edema Neuro-cranial nerves II through XII intact, motor and sensory function within normal limits, strength symmetrical, no focal deficits Psych-flat affect Results & Data Results & Data Vital Signs (Past 12 Hours) Vital Signs Temp Pulse Pulse Resp BP Pulse Ox O2 Del Method 12/04/24 13:51 71 17 93 12/04/24 13:05 79 17 92 12/04/24 13:00 36.8 C 82 17 132/71 92 Room Air 12/04/24 12:05 94 H 18 97 12/04/24 11:00 36.8 C 90 18 121/71 96 Room Air 12/04/24 10:00 36.8 C 83 17 121/73 94 Room Air 12/04/24 09:00 36.8 C 95 H 20 133/78 94 Room Air 12/04/24 08:00 Room Air 12/04/24 08:00 36.7 C 89 19 123/72 93 Room Air 12/04/24 07:00 36.7 C 89 17 120/61 92 Room Air 12/04/24 06:00 37 C 96 H 16 124/73 92 Room Air 12/04/24 05:00 37 C 82 16 138/69 92 Room Air 12/04/24 04:00 37 C 77 17 109/56 L 92 Room Air 12/04/24 03:00 36.9 C 72 16 115/47 L 91 Room Air Laboratory Results 12/03/24 10:52 12/04/24 06:00 PG Care Time/CCT Total # of Minutes Spent Total Time Spent with Patient: Total time spent is greater than 50% in coordination of care (as documented) at patient's floor/unit and/or counseling patient: Coding Level of Care Code 42860 SUB INP/OBS CARE 3/50MIN Diagnoses CVA (cerebral vascular accident) I63.9 Carotid artery stenosis I65.29 3-vessel coronary artery disease I25.10 COPD (chronic obstructive pulmonary disease) J44.9 Atrial fibrillation I48.91
[2024-12-05 07:28] LABS: BUN Creatinine Ratio 29.8 (10-20); Calcium 8.9 mg/dl (8.6-10.3); Creatinine Clr Calc Pharmacy 42.9 ml/min; Magnesium 1.8 mg/dl (1.7-2.4); Potassium 3.8 mmol/L (3.5-5.1)
[2024-12-05 07:31] VITALS: RESP 16; TEMP 97.7
--- NOTE | 2024-12-05 08:21 | Neurology Progress Note ---
Date of Service December 05, 2024 Assessment & Plan (1) Acute CVA (cerebrovascular accident): (2) Atrial fibrillation: (3) Carotid artery stenosis: (4) Left homonymous hemianopsia due to recent cerebral infarction: Plan This patient suffered an acute right posterior parietal/temporal stroke of a medium to rather large size. The etiology of this stroke not conclusive. It could be ischemic, however, she has significant stenosis in the proximal right internal carotid artery (greater than 75%) and atrial fibrillation. Therefore cardiac embolus or carotid embolus is possible. Since the CTA of the head did not show intracranial vascular stenoses including the right middle cerebral artery distribution, and ischemic stroke is less likely. Nevertheless, the event happened despite 81 mg aspirin daily. On examination today, the patient has a partial left homonymous hemianopsia (to about 30 degrees from the side to midline in HPI). There is a slight asymmetry of the left corner of the mouth compared to the right. She does not have aphasia or dysarthria and she seems to converse much better and have no obvious confusion or memory problems. The patient has been in persistent atrial fibrillation since admission. The patient has bilateral, right greater than left, internal carotid artery stenosis. Vascular surgery consultation was noted and a right TCAR procedure is recommended. Patient has a history of several seizures in the late 1960s and has been on anjali midone 250 mg twice daily ever since. She has been seizure-free for over 50 years. Primidone can be associated with fatigue and decreased mental clarity. Recommendations: 1. At this point, given her vascular stenoses, initiate dual antiplatelet therapy including 81 mg aspirin and 75 mg clopidogrel daily. Continue this for now. 2. In light of her persistent atrial fibrillation, we may need an anticoagulant as well. We may need cardiology (her integration project manager is Dr. Siddiqui) to help with this decision as an outpatient. 3. Continue rosuvastatin 20 mg daily. Given her age and lipid numbers, she is not a high-dose statin candidate. 4. Vascular surgery procedure in 4 weeks or so (since this stroke was rather large) 5. Physical, occupational, and speech therapy consults, increasing activity as able. 6. Check a primidone level 7. Consider (depending on the primidone level) lowering primidone dose. The patient is reluctant to stop this medication. This can all be done as an o utpatient. 8. TSH was elevated. I will leave this to the hospitalist, or PCP as an outpatient, to decide how further to evaluate her thyroid. 9. Ophthalmology evaluation as an outpatientcheck visual brown. 10. Can follow-up with neurology PA several weeks after discharge Overall, I spent a total of 80 minutes with this case including review of records, review of MRI and CT films, direct evaluation the patient, report generation, and discussion of the case with the patient, spouse, and RN at bedside, and Dr. Gilliam, including differential diagnosis and treatment options. Admission and Anticipated Discharge Date Admission Date: December 03, 2024 Subjective Patient has no complaint of pain or headache. She has no dizziness and was up to the bathroom overnight without difficulty. She is walking okay, has no weakness or numbness in the arms and legs, and has no speech or swallowing problems. She is less confused than yesterday also. Patient's spouse is at bedside. He reiterated the history that the patient was normal with her functioning, speech and mentation, when she woke up in the morning. The patient stated that she had a right occipital headache. She got ready for the morning and they ended up going to [facility]. Sometime while at [facility] she had the onset of confusion, they left [facility], and came to the emergency room. Echocardiogram December 04 revealed no shunt or obvious thrombus. There is moderate to severe aortic stenosis (likely same as previous echo in May 2024) and mild mitral regurgitation. A repeat CT scan of the head 24 hours after TNK showed no hemorrhage and the right posterior parietal stroke. I reviewed these films. The patient has been in atrial for persistently since admission and currently is controlled with a rate of 80s. Blood pressure is 141/84 and she is afebrile. Vascular surgery saw the patient December 04 and recommended a right TCAR procedure in several weeks (when patient medically stable). Hemoglobin A1c is 6.0 and she has no history of diabetes. The patient and her tell me that she had her first seizure in 1967 close to age 28, and had 2 more seizures in 1968. She was put on primidone at [facility] at that time and has been on 250 mg twice a day ever since. She has had no further seizures. 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 She is not a diabetic. Results & Data Vital Signs (Past 12 Hours) Vital Signs Temp Pulse Pulse Resp BP Pulse Ox O2 Del Method 12/05/24 07:30 36.5 C 94 H 16 141/84 H 93 Room Air 12/05/24 06:59 89 12/05/24 03:54 36.3 C L 102 H 18 120/67 94 Room Air 12/05/24 00:34 36.8 C 90 20 137/81 93 Room Air 12/04/24 22:03 99 H Exam (Neuro) Physical Exam: She is awake and alert. Speech is without aphasia or dysarthria. She can read test phrases quite well and is not missing any words (on the left) as she was yesterday. In addition, she names objects well and could describe what was happening in the test picture. Her memory is good and she is responding and conversing much better than yesterday. I tested each eye separately: There is seems to be decreased vision off to the left in each eye (not just the left eye which has some ocular issues and is "legally blind"), peripherally to about 30 degrees towards midline. The visual field is full off to the right in each eye. The left eye has finger vision and she can see objects moving wave within that vision but cannot make out detail. Extraocular eye muscles are intact without nystagmus. There is no facial droop but with voluntary smile the left corner of the mouth does not move as symmetrically as the right. Tongue is midline with good strength bilaterally. Facial sensation on the face is normal bilaterally. Stance sitting up is quite normal Coordination is normal in the arms without tremor or ataxia. There is no drift. Motor strength is 5/5, for age, diffusely in all major muscle groups in the arms and leg both proximally and distally. There is good tone in the limbs. 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
[2024-12-05] MEDS: ASPIRIN 81 MG ECTAB PO SCH (11:25)
[2024-12-05] MEDS: CLOPIDOGREL BISULFATE 75 MG TAB PO SCH (11:25)
[2024-12-05] MEDS: dilTIAZem HCL 240 MG CAPCR PO SCH (11:25)
[2024-12-05 11:53] VITALS: BP 123/77; O2SAT 95
[2024-12-05] MEDS ORDERED: STROKE PATIENT DISCHARGE STA (12:39)
[2024-12-05 12:43] VITALS: PULSE 82
--- NOTE | 2024-12-05 12:43 | Discharge Summary ---
Discharge Summary Date of Service December 05, 2024 Principal Dx & Hospital Course #1 = Principal Diagnosis (1) CVA (cerebral vascular accident): Ischemic right temporal/parietal CVA. Status post TNKase on admission. Head CT scan #2 completed today is negative for evidence of intracerebral hemorrhage. She does have a 70% right ICA stenosis that will need to be followed and addressed at a later date. Vascular surgery consultation appreciated. Right TCAR has been recommended in the near future. (2) Carotid artery stenosis: 70% right ICA stenosis seen on imaging. Vascular surgery consultation appreciated. Right TCAR has been recommended in the near future (3) 3-vessel coronary artery disease: Currently stable. Continue current medical management (4) COPD (chronic obstructive pulmonary disease): Currently stable. Continue current medical management (5) Atrial fibrillation: Present on admission. Telemetry. Rate is controlled. Systemic anticoagulation is currently contraindicated after TNKase. Plan She is medically stable for discharge home today, December 05, with home health services. She will remain on aspirin and Plavix for the time being. All other medications remain the same. It has been recommended that she follow-up with cardiology, ophthalmology, vascular surgery and her PCP as soon as possible. Admission HPI Per Admitting Provider Donna is a 84-year-old female with a past medical history of seizure disorder on primidone, splenectomy, aortic valve stenosis, asthma on Trelegy, SVT on metoprolol, triple bypass on metoprolol and aspirin without recent heart failure exacerbation, COPD with asthma overlap on Trelegy with albuterol as needed, hyperlipidemia, hypertension, colon cancer, ITP, and urinary incontinence who presented to the emergency department as a stroke alert. Patient had occipital headache, left-sided facial droop, and speech delay/? Initially reported as last known well was evening prior however on further review by ER and telestroke patient was normal and she awoke around 7 AM was getting ready for confucianism and suddenly developed confusion, facial droop, and aphasia around 830. Presented emergently as a stroke alert and was inside of the window for thrombolysis. Was given TNKase at 1112. Subsequently recommended for admission to the ICU for postthrombolytic monitoring "Lives "is seen at the bedside with her present. Reports that she felt normal when she woke up around 7 AM however when she was at [facility] service felt more confused, had a left-sided facial droop, and had difficulty speaking/aphasia. She was brought emergently to the ER as a stroke alert. She reports that she has not had a stroke or CVA before. 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 She denies vision change. She endorses dysarthria. She endorses confusion. She denies extremity weakness/sensory change. She reports she does feel much better since receiving thrombolysis and her notes she has had significant improvement in her mentation and confusion No recent fevers chills or sweats. No recent illness No abdominal pain No bleeding/bleeding complications She did take her medications this morning including aspirin She does not use tobacco products She does not drink alcohol Medication allergies reviewed DNR/DNI. Discussed with patient and her at bedside Discharge Exam General-alert and oriented x3, no fever, no chills HEENT-head atraumatic and normocephalic, pupils equal and reactive to light, extraocular muscles intact Neck-no lymphadenopathy or thyromegaly, trachea midline Chest-clear to auscultation. No rales, wheezing or rhonchi Cardiac-regular rate and rhythm, normal S1 and S2 Abdomen-normal bowel sounds, no hepatosplenomegaly Extremities-no cyanosis, clubbing, or edema Neuro-cranial nerves II through XII intact, motor and sensory function within normal limits, strength symmetrical, no focal deficits Psych-flat affect Discharge Plan Discharge Items Patient Disposition: Home - Home Health Services Reason For Visit: CVA POST TNKASE Discharge Diagnosis: Ischemic right CVA, status post intravenous thrombolytic therapy, right ICA stenosis, transient atrial fibrillation Activity: As commented below Activity Comment: Avoid excessive exertion Non-emergency contact: Primary Care Provider, Surgeon, [employer] Call non-emergency contact if: you have any medication questions and your symptoms worsen Follow-up/Referrals: Kenny Castillo MD [Primary Care Provider] - Diet: Regular and Heart Healthy Addtl Attending Provider Instructions: Take aspirin 81 mg daily along with Plavix (clopidogrel) 75 mg once daily. All other medications remain the same. Follow-up with cardiology, vascular surgeon, and ophthalmology along with primary care physician as soon as possible. Pending Studies at Discharge: No Stand-Alone Forms: [facility], Smoking Cessation Medications and DC Order Prescriptions: New clopidogrel 75 mg Tablet 75 mg PO QAM Qty: 30 0RF Continued B-complex with vitamin C Tablet 1 tab PO QDL Qty: 90 3RF Rx Instructions: otc unable to verify diltiazem HCl [Cardizem CD] 240 mg capsule,extended release 24hr 240 mg PO BID Qty: 180 3RF Rx Instructions: last filled 09/08/24 90 day supply primidone 250 mg tablet 250 mg PO BID Qty: 180 0RF Rx Instructions: last filled 11/02/24 ascorbate calcium (vitamin C) 1 cap PO QAM Rx Instructions: otc unable to verify omega-3 acid ethyl esters [Lovaza] 1 gram capsule 1 cap PO TID Qty: 270 3RF Trelegy Ellipta 100-62.5-25 mcg blister with device 1 inh inhalation 1200 Qty: 180 3RF rosuvastatin 20 mg tablet 20 mg PO QAM Qty: 90 6RF Rx Instructions: last filled 09/28/24 albuterol sulfate [ProAir HFA] 90 mcg/actuation HFA aerosol inhaler 2 puff INHALATION Q4H PRN (Reason: Shortness Of Breath) Qty: 18 11RF Rx Instructions: pharmacy doesn't have on file codeine-guaifenesin 10-100 mg/5 mL liquid 5 ml PO Q6H PRN (Reason: cough) Qty: 200 2RF Rx Instructions: last filled 09.11.24 aspirin 81 mg Tablet,Chewable 81 mg PO QAM Rx Instructions: otc unable to verify cholecalciferol (vitamin D3) [Vitamin D3] 2,000 unit Tablet 2,000 unit PO QPM Rx Instructions: otc unable to verify Caltrate 600 plus D 600 mg (1,500 mg)-800 unit Tablet,Chewable 1 tab PO BID Rx Instructions: otc unable to verify multivitamin Tablet 1 tab PO QAM Rx Instructions: otc unable to verify spironolacton-hydrochlorothiaz 25-25 mg tablet 0.5 tab PO UD Rx Instructions: 0.5 mg po daily. last filled 06/22/24 90 day supply alendronate 70 mg tablet 70 mg PO UD Rx Instructions: 70 mg po wk. last filled 06/22/24 84 day supply levalbuterol tartrate 45 mcg/actuation HFA aerosol inhaler 2 inh inhalation UD Rx Instructions: 2 puff q6h. last filled 03/13/24 per pharmacy metoprolol tartrate 25 mg tablet 25 mg PO BID Qty: 0 0RF Rx Instructions: 25 mg po bid. last filled 06/22/24 90 day supply Discharge Orders: Discharge Order (Routine); Ordered 12/05/24 Ordered By: Andre Gilliam Admission Data Admit Date/Time: 12/03/24 12:12 Attending Provider: Andre Gilliam Admit Provider: Roverto Rose Primary Care Provider: Kenny Castillo Other Providers: Roverto Rose; Abebe Vega; Dominick Syed Hospital Stay Data Consultations 12/03/24 11:26 ED Decision to Admit Stat 12/03/24 12:14 Consult Neurology Routine 12/04/24 09:00 Consult Vascular Surgery Routine Diagnostic Imagining Performed 12/03/24 10:25 CT head/brain wo con Stat 12/03/24 10:27 CT angio head w con Stat CT angio neck with con Stat 12/03/24 12:12 MR brain wo con Routine 12/04/24 12:14 CT head/brain wo con Routine Pending Results Patient Have Any Pending Studies at Discharge: No Discharge Instructions Given to Patient (Per Discharging Provider) Take aspirin 81 mg daily along with Plavix (clopidogrel) 75 mg once daily. All other medications remain the same. Follow-up with cardiology, vascular surgeon, and ophthalmology along with primary care physician as soon as possible. Total Time Total Time Spent Total Time Spent (In Minutes): 45 minutes Coding Level of Care Code 98577 INP/OBS DISCH >30 MIN Diagnoses CVA (cerebral vascular accident) I63.9 Carotid artery stenosis I65.29 3-vessel coronary artery disease I25.10 COPD (chronic obstructive pulmonary disease) J44.9 Atrial fibrillation I48.91
--- NOTE | 2024-12-05 12:46 | Communication Note ---
Date of Service: December 05, 2024 Agree with neurology recommendations. Will wait 4 to 6 weeks for carotid intervention with a TCAR due to the size of the stroke area. Will see her in the office in 4 weeks postdischarge for reevaluation. If at that time she continues to have improvement we will schedule for a TCAR procedure. Thank you very much for letting us participate in the care of this patient.
--- NOTE | 2024-12-05 12:52 | Pharmacy Report ---
- Date of Service December 05, 2024 - Pharmacy CVA/TIA Medication Review Medications to Prevent Stroke handout has been added to the patients discharge packet. Antiplatelet(s) * Aspirin 81 mg PO daily + clopidogrel 75 mg PO daily Cholesterol * High intensity statin: rosuvastatin 20 mg daily DVT Prophylaxis * SCD knee Therapeutic Anticoagulation * Hx Afib/Aflutter noted, but anticoagulation is being deferred to cardiology on discharge per neurology Type 2 Diabetes * Patient does not have T2DM
--- NOTE | 2024-12-07 12:47 | Pharmacy Report ---
Pharmacist Stroke Counseling - Date of Service December 07, 2024 - Scope: Pharmacy has been consulted to provide medication discharge counseling for this patient admitted with [ischemic stroke] [hemorrhagic stroke] [transient ischemic attack] as per the Pharmacist Discharge Counseling for Stroke Patients Protoc . - Medications on Discharge: Home Medications Medication Instructions Recorded Confirmed alendronate 70 mg tablet 70 mg PO UD 12/03/24 12/07/24 ascorbate calcium (vitamin C) 1 cap PO QAM 12/07/24 12/07/24 aspirin 81 mg chewable tablet 81 mg PO QAM 12/07/24 12/07/24 calcium 600 mg (as carbonate)-vit 1 tab PO BID 12/07/24 12/07/24 D3 20 mcg (800 unit) chewable tablet (Caltrate plus D) cholecalciferol (vitamin D3) 50 2,000 unit PO QPM 12/07/24 12/07/24 mcg (2,000 unit) tablet (Vitamin D3) multivitamin 1 tab PO QAM 12/07/24 12/07/24 spironolactone 25 0.5 tab PO .COMPLEX 12/07/24 12/07/24 mg-hydrochlorothiazide 25 mg tablet New Rx's Medication Instructions Recorded B-complex with vitamin C 1 tab PO QDL #90 tabs 02/01/24 fluticasone fur. 100 mcg-umeclid 1 inh inhalation 1200 #180 ea 03/07/24 62.5 mcg-vilant 25 mcg inhalat.powder (Trelegy Ellipta) omega-3 acid ethyl esters 1 gram 1 cap PO TID #270 caps 03/07/24 capsule (Lovaza) rosuvastatin 20 mg tablet 20 mg PO QAM #90 tabs 03/07/24 diltiazem HCl 240 mg 240 mg PO BID #180 caps 09/07/24 capsule,extended release 24 hr (Cardizem CD) primidone 250 mg tablet 250 mg PO BID #180 tabs 11/02/24 clopidogrel 75 mg tablet 75 mg PO QAM #30 tabs 12/05/24 metoprolol tartrate 25 mg tablet 25 mg PO BID #0 tabs 12/05/24 albuterol sulfate 90 mcg/actuation 2 puff inhalation Q4H PRN 12/07/24 aerosol inhaler Shortness Of Breath #18 grams - Action: The above medications, specifically ones for stroke treatment/prophylaxis, have been reviewed in detail with the patient and/or patient customer loyalty representative(s) prior to discharge. This includes indication, common adverse reactions, drug interactions, and medication administration. Medication counseling has been employed using the teach-back method to ensure understanding. - Outcome: The patient and/or patient customer loyalty representative(s) have demonstrated understanding of the medications. Additional comments: - Reviewed s/s of bleeding with patient and when to notify PCP. - Advised that she continue daily ASA + clopidogrel until further direction from Cardiology/Vascular Surgery - Patient reports filling prescription for clopidogrel and taking it as directed - Patient was continued on ASA and rosuvastatin - she denies questions/concerns r/e these medications - Patient has post-discharge appt with PCP this week Thank you for allowing pharmacy to be involved in the care of this patient. Please call [phone] with any additional questions
== END 2024-12-05 13:58 | disposition home health service (06) | DRG 62 ==
LOC: ED 10:16 → SUATTDRO 12:12 → 1E 12:12 → 2N 12-04 17:19

== ENCOUNTER 2025-01-15 07:39 | Inpatient (IN) ==
--- NOTE | 2025-01-09 15:51 | Anesthesiology Consultation ---
Date of Service January 09, 2025 Assessment & Plan (1) Encounter for pre-operative examination: - Infectious disease screening: Per assessment on 01/09/25- No known recent infectious disease contacts or current infectious disease symptoms. - Cardiology visit (01/02/25): "We reviewed testing from recent hospitalization for acute stroke. Fortunately she seems to have recovered with minimal residual neurologic deficits. She was noted to be in atrial fibrillation at time of presentation and again appears to be in rate controlled A-fib today. Feel AF is most likely etiology for patient's CVA and agree with DOAC. Does have carotid artery disease as well (appears more moderate on my read). TCAR has been considered. Would need triple therapy following procedure. On recent repeat echo appears stable. Continues to walk with walker and no new limiting chest symptoms. Plan on continued surveillance of . Continue ASCVD secondary prevention. No change to current antihypertensives, statin. Follow-up in 6 months. Repeat echo next year." Chart Review Chart Review: Acceptable Risk for Surgery (pending evaluation DOS) and Patient NOT seen in Pre Admission Testing History Surgery Operation Date: 01/15/25 10:10 Proposed Procedures p Right Transcarotid Artery Revascularization - Dominick Syed MD Height/Weight Height: 5 ft 1.5 in Weight: 63.503 kg Allergies Allergy/AdvReac Type Severity Reaction Status Date / Time losartan Allergy Intermediate Dizziness/tingling Verified 01/09/25 15:40 arms and legs nebivolol Allergy Intermediate Itchy, rash Verified 01/09/25 15:40 niacin Allergy Intermediate Hives Verified 01/09/25 14:46 levofloxacin Allergy Mild Rash Verified 01/09/25 15:40 phenobarbital Allergy Unknown Unknown Verified 01/09/25 15:40 lisinopril AdvReac Severe elevated Verified 01/09/25 14:46 liver enzymes atorvastatin AdvReac Unknown Unknown Verified 01/09/25 14:46 Medications Home Medications Medication Instructions Recorded Confirmed Last Taken B-complex with vitamin C 1 tab PO QDL #90 tabs 02/01/24 01/09/25 Unknown fluticasone fur. 100 mcg-umeclid 1 inh inhalation 1200 #180 ea 03/07/24 01/09/25 Unknown 62.5 mcg-vilant 25 mcg inhalat.powder (Trelegy Ellipta) omega-3 acid ethyl esters 1 gram 1 cap PO TID #270 caps 03/07/24 01/09/25 Unknown capsule (Lovaza) rosuvastatin 20 mg tablet 20 mg PO QAM #90 tabs 03/07/24 01/09/25 Unknown primidone 250 mg tablet 250 mg PO BID #180 tabs 11/02/24 01/09/25 Unknown albuterol sulfate 90 mcg/actuation 2 puff inhalation Q4H PRN 12/07/24 01/09/25 Unknown aerosol inhaler Shortness Of Breath #18 grams aspirin 81 mg chewable tablet 81 mg PO QAM 12/07/24 01/09/25 Unknown calcium 600 mg (as carbonate)-vit 1 tab PO BID 12/07/24 01/09/25 Unknown D3 20 mcg (800 unit) chewable tablet (Caltrate plus D) cholecalciferol (vitamin D3) 50 2,000 unit PO DAILY 12/07/24 01/09/25 Unknown mcg (2,000 unit) tablet (Vitamin D3) multivitamin 1 tab PO QAM 12/07/24 01/09/25 Unknown spironolactone 25 0.5 tab PO .COMPLEX 12/07/24 01/09/25 Unknown mg-hydrochlorothiazide 25 mg tablet diltiazem HCl 240 mg 240 mg PO BID #180 caps 01/03/25 01/09/25 Unknown capsule,extended release 24 hr (Cardizem CD) metoprolol tartrate 25 mg tablet 25 mg PO BID #180 tabs 01/03/25 01/09/25 Unknown apixaban 5 mg tablet (Eliquis) 5 mg PO QAM 01/09/25 01/09/25 Unknown ascorbic acid (vitamin C) 1,000 mg 1 g PO QAM 01/09/25 01/09/25 Unknown tablet (Vitamin C) clopidogrel 75 mg tablet (Plavix) 75 mg PO QAM 01/09/25 01/09/25 Unknown Past Medical History Medical History 3-vessel coronary artery disease 2018 > 2 stents Aortic valve stenosis Echo 12/04/24: Transaortic velocities suggest moderate aortic stenosis but the dimensionless index would suggest more severe aortic stenosis. Arthritis Asthma Atrial fibrillation Atrial fibrillation COPD (chronic obstructive pulmonary disease) GERD (gastroesophageal reflux disease) History of colon cancer 06/2022 > surgery only History of CVA (cerebrovascular accident) 12/03/24, [facility] hospitalization > loss of peripheral vision, no other residual issues Hx of supraventricular tachycardia Hyperlipidemia Hypertension Idiopathic thrombocytopenic purpura Hx per remote records Myocardial Infarction 2018 > [address] Siddiqui Osteoarthritis Seizure No seizures since 1967 Takes Primidone Past Family History Family History Mother , age 78 of an [place] Diabetes Myocardial infarction Sister Diabetes Brother Diabetes Myocardial infarction Father , age 71 of heart issues. Myocardial infarction Other No family history of adverse response to anesthesia Denies family history of Ovarian cancer Prostate cancer Breast cancer Lung cancer Colorectal cancer Past Surgical History Surgical History H/O right hemicolectomy (07/09/22) Open Right Hemicolectomy; enterolysis History of appendectomy History of cardiac cath (2017) Stents x2 History of cataract surgery R/L History of colon resection History of colonoscopy History of colonoscopy History of heart artery stent 2 stents (2017) History of left hip replacement (2019) Partial hip replacement History of lumbar spinal fusion (2018) History of splenectomy History of tonsillectomy S/P epidural steroid injection Social History Smoking Status: Never smoker Do You Dip or Chew Tobacco: No Hx Alcohol Use: No substance use type: does not use Lab Results Anesthesia Preop Results Results Anesthesia Widget: WBC 9.40 K/ul (4.8-10.8) 12/03/24 Hgb 12.1 g/dl (12.0-16.0) 12/03/24 Hct 34.8 % (37.0-47.0) L 12/03/24 Plt 226 K/uL (130-400) 12/03/24 Na 133 mmol/L (136-145) L 12/05/24 K 3.8 mmol/L (3.5-5.1) 12/05/24 Cl 99 mmol/L (98-107) 12/05/24 CO2 26 mmol/L (21-32) 12/05/24 BUN 25 mg/dl (6-23) H 12/05/24 Creat 0.84 mg/dl (0.6-1.2) 12/05/24 Glucose Level 110 mg/dl (70-99(Fasting)) H 12/05/24 PT 11.6 Seconds (9.0-12.0) 12/03/24 PTT 24 Seconds (21-31) 12/03/24 INR 1.1 (0.9-1.1) 12/03/24 TSH 5.189 uIu/ml (0.300-4.500) H 12/04/24 Free T4 0.96 ng/dl (0.61-1.60) 12/04/24 HA1c 6.0 % (4.5-5.6) H 12/04/24 Testing Electrocardiogram Date: 12/03/24 A. fib at 87bpm. iLBBB. Minimal voltage criteria for LVH, may be normal variant. NS ST/TWA. Prolonged QT* Chest X-Ray Date: 12/03/24 IMPRESSION: No acute cardiopulmonary findings. Linear left basilar opacity favoring discoid atelectasis. Echocardiogram Date: 12/04/24 EF 55-60%. Mild LAD. Mild AR. Transaortic velocities suggest moderate aortic stenosis but the dimensionless index would suggest more severe aortic stenosis. Mild MR. RVSP normal. LV wall motion is normal. Other Testing Head CT Date: 12/03/24 IMPRESSION: 1. No acute intracranial findings. If there is high clinical suspicion for acute infarct,Brain MRI with diffusion weighted imaging is recommended. 2. Encephalomalacia involving the left frontal lobe is new since the prior study from 2021 and may represent sequela Subacute or chronic infarct. 3. Mild volume loss and moderate presumed chronic microvascular ischemic changes. Head CTA Date: 12/03/24 IMPRESSION: No evidence of central vessel occlusion. Moderate stenosis of the intradural vertebral arteries. Diminutive vertebrobasilar system with majority of posterior cerebral artery flow coming through robust posterior communicating arteries. Mild atherosclerotic calcification of the cavernous internal carotid arteries without hemodynamically significant stenosis. Neck CTA Date: 12/03/24 Severe stenosis at the proximal right internal carotid artery related to atherosclerotic plaque with greater than 75% luminal narrowing. Moderate stenosis of the proximal left internal carotid artery with greater than 50% luminal narrowing. Patent vertebral arteries with antegrade flow. Brain MRI Date: 12/03/24 IMPRESSION: 1. Acute infarct involving the right temporal and parietal lobes. 2. No intracranial hemorrhage. Head CT Date: 12/04/24 IMPRESSION: 1. No acute intracranial hemorrhage. 2. Subtle hypodensity with loss of keith-white differentiation within the right parietal and temporal lobes consistent with acute right MCA territory infarct, as shown on MRI of December 03, 2024. No significant mass effect.
--- NOTE | 2025-01-15 07:40 | History & Physical Report ---
Date of Service January 15, 2025 History of Present Illness Primary Care Provider: Kenny Castillo MD Subjective I had the pleasure of seeing Donna today for follow-up. As you know she is a 84-year-old female who was admitted to [facility] with a right hemisphere CVA. She had a CT angiogram which showed a greater than 75% narrowing of her right internal carotid artery. Her MRI was consistent with an acute infarct involving the right temporal and parietal lobes. There is no apparent showering effect seen on the MRI. She does have a history of atrial fibrillation and is now on Eliquis. During her hospital stay she was started on Plavix and aspirin but recently her Plavix was stopped when she was placed on the Eliquis. Objective Vitals & Measurements HR: 73 (Monitored) BP: 134/68 SpO2: 95% Physical Exam On exam she is awake alert and oriented x 3. She is in no apparent distress. Her blood pressure is 134/68. She has had improvement in her mentation and speech. Her upper and lower extremities are intact to motor and sensory function. Her lungs are clear. Her heart and irregular regular rhythm. Abdominal exam is benign. Diagnostic Results CT angiogram indeed shows greater than 75% stenosis of the right internal carotid artery and is close to approximately 80% in the proximal internal. Assessment/Plan 1. Carotid stenosis, bilateral At this point being that she does have significant narrowing of her carotids and she did have a right hemispheric stroke without any evidence of showering affect I believe that her stroke was secondary to carotid artery disease which is most common cause. We recommend intervention. We went over the risks options benefits of an endarterectomy versus a TCAR. She is elected to go ahead with a TCAR. The risks of the benefits also documented in the consent form. We did start her back on her Plavix which she will need to take as well as her aspirin and statin nonstop for 3 days prior and 30 days post procedure. After 30 days we can stop the aspirin and keep her on the Plavix and the Eliquis. The Eliquis will only be stopped for 24 hours at the time of surgery. Will keep you informed as to her results. Thank you very much for letting us participate in the care of this patient. Sincerely, Dl Syed MD Attestation I have personally spent ___35__ minutes performing [id number] and [id number] activities on this date of service. Activities Include: _x_ review of the medical record _x_ obtaining a history _x_ physical exam/evaluation __ review labs __x review radiology reports __x counseling/educating patient/family/caregiver __ discussion/referral to other healthcare professional _x_ documenting care in the medical record __ independent interpretation of results [facility] __ communication of results to patient/family/caregiver __ coordination of care Signature Line Electronic Signature on File Dominick Syed MD Author Signature Dt/Tm: 01/04/2025 10:24 AM Therapist Rrt [facility] [place], [address] [place] [address] EJS Result Type: .Outpt Ltr Date of Service: January 04, 2025 09:02 EDT Authorization Status: Final Subject: Follow Up Visit Author or Import Date: MD Syed Eugene J on January 04, 2025 10:24 EDT Verified By: MD Syed Eugene J on January 04, 2025 10:24 EDT Encounter info: [id number], [facility], Clinic, 01/04/2025 - 01/04/2025 Allergies Allergy/AdvReac Type Severity Reaction Status Date / Time losartan Allergy Intermediate Dizziness/tingling Verified 01/09/25 15:40 arms and legs nebivolol Allergy Intermediate Itchy, rash Verified 01/09/25 15:40 niacin Allergy Intermediate Hives Verified 01/09/25 14:46 levofloxacin Allergy Mild Rash Verified 01/09/25 15:40 phenobarbital Allergy Unknown Unknown Verified 01/09/25 15:40 lisinopril AdvReac Severe elevated Verified 01/09/25 14:46 liver enzymes atorvastatin AdvReac Unknown Unknown Verified 01/09/25 14:46 Home Medications Medication Instructions Recorded Confirmed Type B-complex with vitamin C 1 tab PO QDL #90 tabs 02/01/24 01/09/25 Rx fluticasone fur. 100 mcg-umeclid 1 inh inhalation 1200 #180 ea 03/07/24 01/09/25 Rx 62.5 mcg-vilant 25 mcg inhalat.powder (Trelegy Ellipta) omega-3 acid ethyl esters 1 gram 1 cap PO TID #270 caps 03/07/24 01/09/25 Rx capsule (Lovaza) rosuvastatin 20 mg tablet 20 mg PO QAM #90 tabs 03/07/24 01/09/25 Rx primidone 250 mg tablet 250 mg PO BID #180 tabs 11/02/24 01/09/25 Rx albuterol sulfate 90 mcg/actuation 2 puff inhalation Q4H PRN 12/07/24 01/09/25 Rx aerosol inhaler Shortness Of Breath #18 grams aspirin 81 mg chewable tablet 81 mg PO QAM 12/07/24 01/09/25 History calcium 600 mg (as carbonate)-vit 1 tab PO BID 12/07/24 01/09/25 History D3 20 mcg (800 unit) chewable tablet (Caltrate plus D) cholecalciferol (vitamin D3) 50 2,000 unit PO DAILY 12/07/24 01/09/25 History mcg (2,000 unit) tablet (Vitamin D3) multivitamin 1 tab PO QAM 12/07/24 01/09/25 History spironolactone 25 0.5 tab PO .COMPLEX 12/07/24 01/09/25 History mg-hydrochlorothiazide 25 mg tablet diltiazem HCl 240 mg 240 mg PO BID #180 caps 01/03/25 01/09/25 Rx capsule,extended release 24 hr (Cardizem CD) metoprolol tartrate 25 mg tablet 25 mg PO BID #180 tabs 01/03/25 01/09/25 Rx apixaban 5 mg tablet (Eliquis) 5 mg PO QAM 01/09/25 01/09/25 History ascorbic acid (vitamin C) 1,000 mg 1 g PO QAM 01/09/25 01/09/25 History tablet (Vitamin C) clopidogrel 75 mg tablet (Plavix) 75 mg PO QAM 01/09/25 01/09/25 History Past Med/Surg History Problem List (Updated 01/09/25 @ 15:51 by Dominique Huitron) Symptomatic stenosis of right carotid artery 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 Arthritis Asthma Atrial fibrillation Atrial fibrillation COPD (chronic obstructive pulmonary disease) GERD (gastroesophageal reflux disease) History of colon cancer 06/2022 > surgery only History of CVA (cerebrovascular accident) 12/03/24, [facility] hospitalization > loss of peripheral vision, no other residual issues Hx of supraventricular tachycardia Hyperlipidemia Hypertension Idiopathic thrombocytopenic purpura Hx per remote records Myocardial Infarction 2018 > [address] Siddiqui Osteoarthritis Seizure No seizures since 1967 Takes Primidone Surgical History H/O right hemicolectomy (07/09/22) Open Right Hemicolectomy; enterolysis History of appendectomy History of cardiac cath (2017) Stents x2 History of cataract surgery R/L History of colon resection History of colonoscopy History of colonoscopy History of heart artery stent 2 stents (2017) History of left hip replacement (2019) Partial hip replacement History of lumbar spinal fusion (2018) History of splenectomy History of tonsillectomy S/P epidural steroid injection Family History Mother , age 78 of an [place] Diabetes Myocardial infarction Sister Diabetes Brother Diabetes Myocardial infarction Father , age 71 of heart issues. 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
--- NOTE | 2025-01-15 07:40 | History & Physical Bridge Note ---
Date of Service January 15, 2025 History & Physical Bridge Note I have examined the patient, reviewed the History & Physical and in the interval since the performance of the History & Physical I have noted the following changes of clinical significance: no changes noted
[2025-01-15] MEDS ORDERED: fentaNYL citrate PF 100 MCG/2 ML VIAL ONE (09:12)
[2025-01-15] MEDS ORDERED: ONDANSETRON INJ 2 MG/ML 2 ML VIAL ONE ×2 (09:13→12:24)
[2025-01-15] MEDS ORDERED: ROCURONIUM BROMIDE 10 MG/ML 5 ML VIAL IV ONE (09:13)
[2025-01-15] MEDS ORDERED: DEXAMETHASONE SOD INJ 4 MG/ML VIAL ONE (09:13)
[2025-01-15] MEDS ORDERED: GLYCOPYRROLATE 0.2 MG/ML VIAL ONE (09:13)
[2025-01-15] MEDS ORDERED: PROPOFOL IV EMULSION 10 MG/ML 20 ML VIAL IV ONE (09:13)
[2025-01-15] MEDS ORDERED: LIDOCAINE 2% 2 ML VIAL/AMP(20MG/ML) INFIL ONE (09:13)
[2025-01-15] MEDS: SODIUM CHLORIDE 0.9% 1,000 ML IV SCH (09:19)
[2025-01-15] MEDS ORDERED: fentaNYL citrate PF 100 MCG/2 ML VIAL IV PRN (09:26)
[2025-01-15] MEDS ORDERED: HYDROmorphone INJ 2 MG/ML SYR/VIAL IV PRN (09:26)
[2025-01-15] MEDS ORDERED: ATROPINE SULFATE 0.1 MG/ML 10ML SYR IV PRN (09:26)
[2025-01-15] MEDS ORDERED: ePHEDrine sulfate 50 MG/ML AMP IV PRN (09:26)
[2025-01-15] MEDS ORDERED: PROMETHAZINE HCL 6.25 MG in SODIUM CHLORIDE 0.9% 50 ML IV PRN (09:26)
[2025-01-15] MEDS ORDERED: ONDANSETRON INJ 2 MG/ML 2 ML VIAL IV PRN (09:26)
[2025-01-15] MEDS ORDERED: HEPARIN SOD (PORCINE) 1000 UNIT/ML ONE (09:27)
--- OUTSIDE RECORDS SUMMARY | 2025-01-15 10:03 | External Medical Summary | Continuity of Care Document ---
Author Name Unknown Organization [facility] [address] [facility] 2 Address [address] [facility] [address] [id number] Care Team Providers Care Medical Voucher Clerk Name Role Phone Kenny Castillo Primary Care Physician [phone] Encounter [facility] [id number] Date(s): 01/11/25 - 01/11/25 [facility] 303 [facility] 2 [address] [facility] [address] [id number] Encounter Diagnosis Inflamed seborrheic keratosis(Discharge Diagnosis) - 01/11/25 Pruritus(Discharge Diagnosis) - 01/11/25 Discharge Disposition: Home or Self Care Attending Physician: MD Huitron Thomas A Referring Physician: MD Huitron Thomas A Encounter Type: Clinic Allergies, Adverse Reactions, Alerts Substance Criticality Severity Reaction Reaction Severity Status niacin hives Active lisinopril Elevated liver enzymes level Active hydrochlorothiazide-l osartan dizziness, tingling Active Lipitor elevated liver enzymes Active Levaquin rash Active Bystolic Rash Itching Active Assessment and Plan Extracted from: Title:Clinical Document Author:MD Elana, Shaneka Lewis Date:01/11/25 OUTPATIENT NOTE Name: DONNA TOLENTINO Patient Number:1 [id number] : 1940 Date of Service: 01/11/2025 _ Donna Tolentino returns for evaluation of pruritus which predominantly involves the back and arms. This has been present for over 1 year. She notes that areas of blotchy erythema may develop and subsequently resolve over a week or more. She notes improvement with application of triamcinolone cream and she would like another prescription for this today which she was given. She notes no seasonal variation in the severity of the eruption and notes that the pruritus preceded the changes in medication that occurred after she developed a stroke. Review of systems medications allergies as noted on the chart. 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 She is going to undergo a carotid endarterectomy within the next week. She notes that she has had multiple laboratory evaluations preoperatively without any abnormal findings. Examination today reveals single area of blotchy erythema present on the right wrist consistent with eczematous dermatitis to which the patient may apply the triamcinolone. There are numerous lentigines and areas of postinflammatory hyperpigmentation present on the extensor forearms and on the upper back. No acute eczematous lesions are noted here today. There may be a component of notalgia paresthetica present here as well. Clinical impression is that of a combination of dermatitis and lichenoid keratoses which appears very limited today. Would continue the triamcinolone cream to be used as needed for the acute phase lesions for several days at a time and otherwise use moisturizers and also recommended several antipruritic [id number] topicals to apply for symptomatic relief. Patient was advised not to excoriate the areas. The patient will return as needed for reevaluation. Medications Aspir 81 oral delayed release tablet Start: 01/04/25 9:15:00 AM EDT, 1 tab, PO, Daily Start Date: 01/04/25 Status: Ordered Repeat number: 1 Caltrate 600 + D Start: 03/10/16 2:00:00 PM EDT, 1 tab, PO, bid Start Date: 03/10/16 Status: Ordered Repeat number: 1 Cardizem CD 240 mg/24 hours oral capsule, extended release Start: 01/04/25 9:18:00 AM EDT, 1 cap, PO, bid Start Date: 01/04/25 Status: Ordered Repeat number: 1 hydrochlorothiazide-spironolactone 25 mg-25 mg oral tablet Start: 01/04/25 9:23:00 AM EDT, 0.5 tab po q daily,4-5 days per week Start Date: 01/04/25 Status: Ordered Repeat number: 1 Lovaza 1000 mg oral capsule Start: 01/04/25 9:21:00 AM EDT, 2 cap, PO, bid Start Date: 01/04/25 Status: Ordered Repeat number: 1 metoprolol tartrate 25 mg oral tablet Start: 01/04/25 9:19:00 AM EDT, 1 tab, PO, bid Start Date: 01/04/25 Status: Ordered Repeat number: 1 Plavix 75 mg oral tablet Start: 01/04/25 10:08:00 AM EDT, 1 tab, PO, Daily, Disp# 30 tab, Refills: 11, Pharmacy: [facility]/pharmacy#[id number] Start Date: 01/04/25 Status: Ordered Quantity: 30.0 Unit: tab Repeat number: 12 Indications: Occlusion and stenosis of bilateral carotid arteries; primidone 250 mg oral tablet Start: 03/10/16 1:57:00 PM EDT, 1 tab, PO, bid Start Date: 03/10/16 Status: Ordered Repeat number: 1 ProAir HFA Start: 03/10/16 1:59:00 PM EDT, 2 puff, inhaled, qid Start Date: 03/10/16 Status: Ordered Repeat number: 1 rosuvastatin 20 mg oral tablet Start: 01/04/25 9:22:00 AM EDT, 1 tab, PO, Daily Start Date: 01/04/25 Status: Ordered Repeat number: 1 Super B Complex oral tablet Start: 03/10/16 2:00:00 PM EDT, 1 tab, PO, Daily Start Date: 03/10/16 Status: Ordered Repeat number: 1 Trelegy Ellipta 100 mcg-62.5 mcg-25 mcg/inh inhalation powder Start: 01/04/25 9:19:00 AM EDT, 1 puff, inhaled, Daily Start Date: 01/04/25 Status: Ordered Repeat number: 1 triamcinolone 0.1% topical cream Start: 01/11/25 4:16:00 PM EDT, 1 appl, topical, bid, Disp# 30 g, Refills: 2, BID PRN to affected area on arms and legs as needed for itch, Pharmacy: [facility]/pharmacy #[id number] Start Date: 01/11/25 Status: Ordered Quantity: 30.0 Unit: g Repeat number: 3 Indications: Disorder of the skin and subcutaneous tissue, unspecified; Vitamin D3 2000 intl units oral tablet Start: 03/10/16 1:59:00 PM EDT, PO, Daily Start Date: 03/10/16 Status: Ordered Repeat number: 1 Mental Status 01/11/25 Barriers to Learning one year None evide nt Mandatory Health Literacy Documentation Yes Health Literacy Communication Barriers N ever Primary Language Palestinian Problem List Condition Confirmation Course Effective Dates Status Health St atus Informant Carotid stenosis, bilateral Confirmed Active Rash Confirmed Active Diagnosis Diagnosis Type Effective Dates Health Status Clinical Service Informant Pruritus Discharge Diagnosis 01/11/25 Inflamed seborrheic keratosis Discharge Diagnosis 01/11/25 Procedures Procedure Date Related Diagnosis Body Site Status Appendectomy Completed Appendectomy Completed Tonsillectomy and adenoidectomy Completed Social History Social History Type Response Smoking Status Never smoked cigaret babita Sex Female Sex Representation Female (finding) Outpatient Note * MD Elana, Rolf Lewis: PERFORM Event Display: .Outpt Note Authored Date: [id number] OUTPATIENT NOTE Name: DONNA TOLENTINO Patient Number:1 [id number] : 1940 Date of Service: 01/11/2025 _ Donna Tolentino returns for evaluation of pruritus which predominantly involves the back and arms. This has been present for over 1 year. She notes that areas of blotchy erythema may develop and subsequently resolve over a week or more. She notes improvement with application of triamcinolone cream and she would like another prescription for this today which she was given. She notes no seasonal variation in the severity of the eruption and notes that the pruritus preceded the changes in medication that occurred after she developed a stroke. Review of systems medications allergies as noted on the chart. Patient has lost vision in the righteye as result of her stroke. She is going to undergo a carotid endarterectomy within the next week.She notes that she has had multiple laboratory evaluations preoperatively without any abnormal findings. Examination today reveals single area of blotchy erythema present on the right wrist consistent with eczematous dermatitis to which the patient may apply the triamcinolone. There are numerous lentigines and areas of postinflammatory hyperpigmentation present on the extensor forearms and on the upper back. No acute eczematous lesions are noted here today. There may be a component of notalgia paresthetica present here as well. Clinical impression is that of a combination of dermatitis and lichenoid keratoses which appears very limited today. Would continue the triamcinolone cream to be used as needed for the acute phase lesions for several days at a time and otherwise use moisturizers and also recommended several antipruritic [id number]-lqt-[id number] topicals to apply for symptomatic relief. Patient was advised not to excoriate the areas. The patient will return as needed for reevaluation. Electronic Signature on File Electronically Reviewed/Signed by: Rolf Huitron MD Author Signature Dt/Tm:01/11/2025 04:33 PM Department of Dermatology [facility] Patient Care team information Care Team Personnel Name: MD Jonathan, Kenny Farris Position: Referring Member Role: Primary Care Provider Address: [facility] [address] [place] [address] Telecom: [phone] Care Team Related Persons Name: FAVIOLA TOLENTINO Insurance Providers Guarantor name: DONNA TOLENTINO Health Plan Information #: 2 Payer: [facility] Member Number: [id number] Policy Number: NA Group Number: [id number] Payer Identifier: [id number] Health Plan Information #: 1 Payer: MEDICARE Member Number: [id number] Policy Number: NA Group Number: NA Payer Identifier: [id number] Health Plan Information #: 3 Payer: SELF PAY Member Number: NA Policy Number: NA Group Number: NA Payer Identifier: [id number]
--- OUTSIDE RECORDS SUMMARY | 2025-01-15 10:03 | External Medical Summary | Continuity of Care Document ---
Author Name Unknown Organization [facility] [address] Address [address] [place], [place] [id number] Care Team Providers Care Credentialing Assistant Name Role Phone Kenny Castillo Primary Care Physician [phone] [id number] Date(s): 01/09/25 - 01/09/25 [facility] [address] [facility] [address] [place], [place] [phone] Encounter Diagnosis Occlusion and stenosis of bilateral carotid arteries(Final) - Discharge Disposition: Home or Self Care Attending Physician: MD Syed Eugene J Referring Physician: MD Syed Eugene J Encounter Type: Clinic Allergies, Adverse Reactions, Alerts Substance Criticality Severity Reaction Reaction Severity Status niacin hives Active lisinopril Elevated liver enzymes level Active Bystolic Rash Itching Active hydrochlorothiazide-l osartan dizziness, tingling Active Lipitor elevated liver enzymes Active Levaquin rash Active Medications Aspir 81 oral delayed release tablet [...] Daily, Disp# 30 tab, Refills: 11, Pharmacy: [facility]/pharmacy#[id number] Start Date: 01/04/25 Status: Ordered Quantity: 30.0 [...] and legs as needed for itch, Pharmacy: [facility]/pharmacy #[id number] Start Date: 01/11/25 Status: Ordered Quantity: 30.0 Unit: g Repeat number: 3 Indications: Disorder of the skin and subcutaneous tissue, unspecified; Vitamin D3 2000 intl units oral tablet Start: 03/10/16 1:59:00 PM EDT, PO, Daily Start Date: 03/10/16 Status: Ordered Repeat number: 1 Problem List Condition Confirmation Course Effective Dates Status Health St atus Informant Carotid stenosis, bilateral Confirmed Active Rash Confirmed Active Procedures Procedure Date Related Diagnosis Body Site Status Appendectomy Completed Appendectomy Completed Tonsillectomy and adenoidectomy Completed Results Laboratory List Name Date Platelet Function (P2Y12 Receptor) (PLT FUNCTION P2Y12) 01/09/25 Most recent to oldest [Reference Range]: 1 P2Y12 Platelet Function [194-418 PRU] 14 PRU 1 *LOW* (01/09/25 11:55 AM) 1Result Comment: PRU reference range is 194-418 (healthy adults, no drug treatment). Post Drug Results: Lower PRU levels are expected following treatment with antiplatelet drugs. Post-treatment values are usually below the stated reference range above. The post-drug PRU values reported in the VerifyNOW P2Y12 package insert are 18-435. This broader range reflects the variability in drug response and is consistent with significant numbers of patients with decreased sensitivity to P2Y12 receptor antagonists (prasugrel or clopidogrel). Clinical studies suggest an on-treatment PRU>230 indicates less than optimal response to therapy, and PRU<208 at 12-24 hours after percutaneous intervention or during follow-up is associated with a lower risk of cardiovascular events (1). (1).Standard-vs high-dose clopidogrel based on platelet function testing after percutaneouscoronary intervention: the GRAVITAS randomized trial. Brian et al. VENKAT. 2010December 03; 305(11): 5531-5852. doi: 10.1001/venkat.2011.290 Social History Social History Type Response Smoking Status Never smoked cigaret babita Sex Female Sex Representation Female (finding) Patient Care team information Care Team Personnel Name: MD Castillo Stephen J Position: Referring Member Role: Primary Care Provider Address: [facility] [address] Telecom: [phone] Care Team Related Persons Name: FAVIOLA TOLENTINO Insurance Providers Guarantor name: TAMAR TOLENTINO Health Plan Information #: 2 [address]ayer: [facility] Member Number: [id number] Policy Number: NA Group Number: [id number] Payer Identifier: [id number] Health Plan Information #: 1 Payer: MEDICARE Member Number: [id number] Policy Number: NA Group Number: NA Payer Identifier: [id number] Health Plan Information #: 3 Payer: SELF PAY Member Number: NA Policy Number: NA Group Number: NA Payer Identifier: [id number]
--- OUTSIDE RECORDS SUMMARY | 2025-01-15 10:03 | External Medical Summary | Continuity of Care Document ---
Author Name Unknown Organization [facility] [address] Address [address] [place], [place] [id number] Care Team Providers Care Handbag Operator Name Role Phone Kenny Castillo Primary Care Physician [phone] Encounter [facility] [id number] Date(s): 01/04/25 - 01/04/25 [facility] [address], [address] [place] [phone] Encounter Diagnosis Carotid stenosis, bilateral(Discharge Diagnosis) - 01/04/25 Discharge Disposition: Home or Self Care Attending Physician: MD Syed Eugene J Referring Physician: MD Castillo Stephen J Encounter Type: Clinic Allergies, Adverse Reactions, Alerts Substance Criticality Severity Reaction Reaction Severity Status niacin hives Active lisinopril Elevated liver enzymes level Active hydrochlorothiazide-l osartan dizziness, tingling Active Bystolic Rash Itching Active Levaquin rash Active Lipitor elevated liver enzymes Active Medications Aspir 81 oral delayed release [...] Daily, Disp# 30 tab, Refills: 11, Pharmacy: [facility]/pharmacy#[id number] Start Date: 01/04/25 Status: Ordered Quantity: 30.0 [...] number: 1 triamcinolone 0.1% topical cream Start: 03/01/24 9:23:00 AM EDT, 1 appl, topical, bid, Disp# 30 g, Refills: 0, BID PRN to affected area on arms and legs as needed for itch, Pharmacy: [facility]/pharmacy #[id number] Start Date: 03/01/24 Status: Ordered Quantity: 30.0 Unit: g Repeat number: 1 Indications: Disorder of the skin and subcutaneous tissue, unspecified; Vitamin D3 2000 intl units oral tablet Start: 03/10/16 1:59:00 PM EDT, PO, Daily Start Date: 03/10/16 Status: Ordered Repeat number: 1 Mental Status 01/04/25 Barriers to Learning one year None evide nt Mandatory Health Literacy Documentation Yes Health Literacy Communication Barriers N ever Primary Language [place]ese Problem List Condition Confirmation Course Effective Dates Status Health St atus Informant Carotid stenosis, bilateral Confirmed Active Rash Confirmed Active Diagnosis Diagnosis Type Effective Dates Health Status Cl inical Service Informant Carotid stenosis, bilateral Discharge Diagnosis 01/04/25 Procedures Procedure Date Related Diagnosis Body Site Status Appendectomy Completed Appendectomy Completed Tonsillectomy and adenoidectomy Completed Vital Signs Most recent to oldest [Reference Range]: 1 Heart Rate 73 bpm (01/04/25 9:26 AM) Blood Pressure 134/68mmHg (01/04/25 9:26 AM) Cuff Pulse Pressure 66 mmHg (01/04/25 9:26 AM) BP Location # 1 Right Arm (01/04/25 9:26 AM) Social History Social History Type Response Smoking Status Never smoked cigaret babita Sex Female Sex Representation Female (finding) Patient Care team information Care Team Personnel Name: MD Jonathan, Kenny Farris Position: Referring Member Role: Primary Care Provider Address: [facility] [address] Telecom: [phone] Care Team Related Persons Name: FAVIOLA TOLENTINO Insurance Providers Guarantor name: TAMAR TOLENTINO Health Plan Information #: 1 Payer: MEDICARE Member Number: [id number] Policy Number: NA Group Number: NA Payer Identifier: [id number] Health Plan Information #: 2 Payer: [facility] Member Number: [id number] Policy Number: NA Group Number: [id number] Payer Identifier: [id number] Health Plan Information #: 3 Payer: SELF PAY Member Number: NA Policy Number: NA Group Number: NA Payer Identifier: [id number]
[2025-01-15] MEDS: ASPIRIN 81 MG ECTAB PO SCH (10:13)
[2025-01-15] MEDS: CLOPIDOGREL BISULFATE 75 MG TAB PO ONE (10:13)
[2025-01-15] MEDS: ceFAZolin 2000MG 2,000 MG/15 ML SYR IV SCH ×2 (10:16→18:03)
[2025-01-15] MEDS ORDERED: ePHEDrine sulfate 50 MG/5 ML SYR ONE (11:05)
[2025-01-15] MEDS ORDERED: PROTAMINE SULFATE 10 MG/ML 5 ML VIAL IV ONE (12:07)
[2025-01-15] MEDS ORDERED: SUGAMMADEX SODIUM 200 MG/2 ML VIAL IV ONE (12:10)
[2025-01-15] MEDS: SURGICEL ABSORB HEMOSTAT 2IN X 14IN TOP ONE (12:21)
[2025-01-15] MEDS: VISIPAQUE IV ONE (12:21)
[2025-01-15] MEDS: GELATIN SPONGE SZ 100 ONE (12:22)
[2025-01-15] MEDS: ceFAZolin 330 MG/ML 1 GM VIAL ONE (12:22)
[2025-01-15] MEDS: THROMBIN FOR SOLN 20000 UNIT KIT ONE (12:22)
--- NOTE | 2025-01-15 12:31 | Post Operative Brief Note ---
Immediate Post Op Note Date of Surgery January 15, 2025 Pre & Post Diagnosis Operation Date: 01/15/25 10:10 Pre-Op Diagnosis: Right Internal Carotid Artery Stenosis Post-Op Diagnosis: Right Internal Carotid Artery Stenosis I identified the patient and participated in the time-out.: Yes Procedure Operation Date: 01/15/25 10:10 Actual Procedures p Right Transcarotid Artery Revascularization, Ultrasound Left Common Femoral Vein(Right) - Dominick Syed MD Surgeon Dominick Syed MD Government Relations Director MD Cleo OrdazMinarchmisael,PAC Estimated Blood Loss 50 Findings Consistent with Post-Op Diagnosis Anesthesia Type General Complications none Disposition Accompanied Patient To Recovery: No Disposition: Recovery Room
[2025-01-15] MEDS: BUPIVACAINE/EPINEPHRINE 0.5% MPF 1:200,000 30 ML VIAL ONE (12:37)
--- NOTE | 2025-01-15 12:39 | Operative Report ---
Post Operative Report Pre & Post Diagnosis Operation Date: 01/15/25 10:10 Pre-Op Diagnosis: Right Internal Carotid Artery Stenosis Post-Op Diagnosis: Right Internal Carotid Artery Stenosis I identified the patient and participated in the time-out.: Yes Procedure Operation Date: 01/15/25 10:10 Actual Procedures p Right Transcarotid Artery Revascularization, Ultrasound Left Common Femoral Vein(Right) - Dominick Syed MD Surgeon Dominick Syed MD Buttonholer MD Diogenes Ordaz,PAC Estimated Blood Loss 50 Findings Consistent with Post-Op Diagnosis Patent ICA following stent placement with good expansion of the carotid stent on multiple views. No dissection seen. Specimens None Anesthesia Type General Complications None Disposition Accompanied Patient To Recovery: No Indications Donna Garvin is a very pleasant 84 year old female with symptomatic carotid artery disease on the right. After discussion of the procedue, risks and benefits she elected to proceed with TCAR, Right Description of Procedure The patient was taken to the operating room and placed in supine position. After general anesthesia was accomplished the right-side of the neck and left groin were prepped and draped in a sterile manner. A transverse 4cm incision was made on the right neck over the sternal and clavicular heads of the sternocleidomastoid muscle and below the omohyoid. Subcutaneous tissue and platysma were divided using electrocautery. Dissection using Metzenbaum scissors proceeded and the carotid sheath was identified medially. It was divided longitudinally. The internal jugular was retracted laterally. The common carotid artery was identified with the Vagus nerve posterolateral. The common carotid artery was mobilized with Metzenbaum scissors and umbilical tape was placed around the artery. Once sufficient length, about 2cm of the common carotid were mobilized, a 5-0 Proline suture was used to place a U-Stitch in the anterior surface of the right common carotid artery. 6000U IV heparin were given to obtain an ACT >250 Attention was turned to the left common femoral vein which was then accessed under ultrasound guidance using a micropuncture needle. This was exchanged for the Venous Return Sheath over the provided 0.035'' wire. Blood was aspirated from the flow line followed by flushing of the venous sheath with heparinized saline. The sheath was sutured in place to the patient's skin. A micropuncture needle was used to access the common carotid artery in the center of the U-stitch. The micropuncture wire was then advance 4cm into the common carotid artery and the micropuncture needle was removed. The micropuncture sheath was advanced 2-3cm into the common carotid artery and the wire and dilator were removed. A carotid angiogram was taken and the lesion was marked. Due to the tortuosity of the proximal CCA, we elected to select the ECA. The micropuncture wire was then advanced through the micropuncture sheath into the ECA under fluoroscopic guidance, making sure not to engage the ICA lesion. Once in the ECA, the sheath and dilator were advanced into the ECA. Next a 0.035'' J guidewire was was inserted and placed into the ECA. The micropuncture sheath was exchanged over the guidewire and the Transcarotid Arterial Sheath was advanced to the 2.5cm marker in correct coaxial orientation and the J wire and dilator were removed. The Sheath was sutured to the patient and then flushed with heparinized saline. No air bubbles visualized during flushing The flow controller was connected to the Transcarotid arterial sheath. Arterial blood was allowed to passively fill the device completely to which it was then connected to the Venous return sheath. The flow controller was set to high. The common carotid artery proximal to the access point was then clamped with an angled DeBakey and flow reversal was confirmed. A right carotid angiogram was then performed and the right internal carotid a rtery lesion was marked. HR and systolic blood pressures were adequate with HR of about 80 and blood pressure between 140 and 160 systolic. The lesion was then crossed using a 0.014'' guidewire. The lesion was then pre-dilated using a 5mm x 25mm balloon. This balloon was then exchanged and primary stenting was performed with the Transcarotid stent, appropriately sized (9-7 30mm).. Completion carotid angiography demonstrated patent stent with no significant residual stenosis in two views Antegrade flow was restored following release of the common carotid artery clamp. The arterial sheath was removed and U-Stitch tied. The femoral venous sheath was removed and pressure held for 5 min with adequate hemostasis. Adequate hemostasis was seen of the carotid artery. The wound was inspected and adequate hemostasis was obtained. It was then closed with a running 3-0 Vicryl suture for the platysmal layer and a 4-0 subcuticular Vicryl suture for the skin edges. Dermabond was used for dressing. Patient awoke from anesthesia without difficulties. Was neurovascularly intact, moving all extremities and following commands at case completion. The patient left the operating room in satisfactory condition and tolerated the procedure well A total of 34mGy, 7.8 min of fluoroscopy time, and 12cc of contrast were used during the procedure. Dr. Syed was present and scrubbed for the entire procedure. I attest to the content of the Intraoperative Record and any orders documented therein. Any exceptions are noted below. Supervising Physician Co-Signing Physician Notes Dominick Syed MD
[2025-01-15] MEDS ORDERED: STAT IV Infusion **Titration per Protocol STA (14:33)
[2025-01-15] MEDS ORDERED: SPIRONOLACTONE/HCTZ 25-25 PO SCH (14:33)
[2025-01-15] MEDS ORDERED: oxyCODONE/ACETAMINOPHEN 5mg/325mg TAB PO PRN (14:33)
[2025-01-15] MEDS ORDERED: PHENYLEPHRINE/NSS 25 MG/250 ML BAG IV PRN (14:33)
[2025-01-15] MEDS ORDERED: ALBUTEROL HFA 8 GM INHALER INH PRN (14:33)
--- NOTE | 2025-01-15 14:39 | Anesthesiology Progress Note ---
Date of Service January 15, 2025 Anesthesia Post Procedure Vital Signs Vital Signs: Temp Pulse Pulse Resp BP BP Pulse Ox 01/15/25 14:05 95 H 14 108/50 L 107/60 98 01/15/25 13:55 36.4 C L 99 H 22 111/51 L 119/72 99 01/15/25 13:45 96 H 20 106/49 L 104/62 95 01/15/25 13:35 101 H 17 103/50 L 93 01/15/25 13:25 104 H 18 103/49 L 108/73 98 01/15/25 13:15 96 H 19 111/49 L 95/73 L 100 01/15/25 13:05 97 H 18 104/46 L 109/62 99 01/15/25 12:57 36.3 C L 98 H 16 98/45 L 103/73 98 01/15/25 09:06 53 L 16 187/116 H 146/108 H 95 O2 Del Method O2 Flow Rate 01/15/25 14:05 Room Air 01/15/25 13:55 Room Air 01/15/25 13:45 Room Air 01/15/25 13:35 Room Air 01/15/25 13:25 Oxymask 3 01/15/25 13:15 Oxymask 3 01/15/25 13:05 Oxymask 6 01/15/25 12:57 Oxymask 6 01/15/25 09:06 Room Air Transfer of Care Handoff Completed per policy Notes Mental Status: alert / awake / arousable and participated in evaluation Patient Amnestic to Procedure: Yes Nausea / Vomiting: adequately controlled Pain: adequately controlled Airway Patency, RR, SpO2: stable & adequate BP & HR: stable & adequate Hydration State: stable & adequate Anesthetic Complications: no major complications apparent
[2025-01-15] MEDS ORDERED: hydroCHLOROthiazide 25 MG TAB PO PRN (15:24)
[2025-01-15] MEDS: LACTATED RINGER'S 1,000 ML IV SCH (15:24)
[2025-01-15] MEDS ORDERED: SPIRONOLACTONE 12.5 MG TAB PO PRN (15:25)
--- NOTE | 2025-01-15 16:04 | Critical Care Consultation ---
Date of Consultation January 15, 2025 Assessment & Plan (1) Symptomatic stenosis of right carotid artery: (2) Atrial fibrillation: (3) Hypertension: (4) Osteoporosis: (5) Seizure disorder: (6) Mitral regurgitation: (7) Hypercholesterolemia: (8) COPD (chronic obstructive pulmonary disease): (9) Hypertension: (10) Aortic valve stenosis: Plan Pt is an 84 yo female with PMH of CAD, persistent a-fib, seizures, aortic stenosis, COPD, OP, hx of colon cancer, and recent R CVA who presented for right TCAR with Dr. Syed on 01/15/25. Pt's vitals and cognition have been stable since transfer to ICU. Neuro: Pt appears at baseline in terms of her recovery from R CVA in November 2024. She carries a diagnosis of seizures and using primidone 250mg BID at home. Will continue home seizure medication. Cardiovascular: Right TCAR appears to be healing well. Pt is hemodynamically stable with stable BPs and MAP above 65. Pain after surgery is under control with protocol from Dr. Syed. Significant murmur noted on exam. Pt noted to have normal LVEF, however severe aortic stenosis and mild mitral regurgitation noted on echo from 12/03/24. Pt has hx of persistent a-fib and on Eliquis following CVA. Will hold Eliquis for 48 hrs, plan to resume on 01/18/25. Continue home meds of metoprolol 25mg BID and diltiazem 250mg BID for rate control. Continue spironolactone 12.5mg for LE edema control. Continue on clopidogrel, rosuvastatin, and low dose aspirin. Respiratory: Pt follows with Dr. Byrne in outpatient for COPD. No respiratory issues at this time. Continue using Trelegy daily GI: No GI issues at this time. No need for PPI at this time. Continue Heart healthy diet. Renal: No current renal issues. Monitor kidney function with AM BMP Endocrine: Pt carried diagnosis of osteoporosis taking Vitamin D3 and calcium +D3 at home. Continue these supplements Heme-onc: Hx of colon cancer with right hemicolectomy and anastomosis in 2021- no chemo/radiation needed. Repeat colonoscopy in 2022 was normal. No other issues noted ID: Pt is afebrile, vitals are stable. No signs of infection at this time. MSK: Pt currently on bed rest. Consider PT/OT eval for safety and determining rehab level with pt hx of use of assistive device for household ambulation and recent CVA. Supervising Physician Co-Signing Physician Notes Dr. Marcelino was the resident-physician during care of patient. I separately evaluated patient for lemus portions of the history and the exam. I was present during the critical portion of medical decision making, and I discussed the case with the resident. I generally agree with the findings and plan except for any additions/exceptions noted. 84-year-old female was presented to the hospital for right-sided TCAR Past medical history: COPD and non-smoker, TIA, aortic stenosis, A-fib In the ICU for further care The time of examination patient's was in the room She was saturating well on room air Denied any shortness of breath, no chest pain, no abdominal pain Does have chronic blurry vision which has not changed. No pain at the site of the incision. No difficulty swallowing or soreness in the mouth No nausea or vomiting Constitutional: No acute distress HEENT: EOMI, PERRLA Respiratory system: Decreased air entry bilaterally, no wheeze, rhonchi, no crackles CVS: S1-S2 positive, positive 3 out of 6 systolic murmur appreciated best at left parasternal border Abdomen: Soft, nontender, nondistended, positive bowel sounds x4 Extremities: +2 pulses bilaterally radialis/ dorsalis pedis, no cyanosis, no edema Neuro: Awake alert oriented x3 Psych: Normal mood and affect G/U: No Vera --Prophylaxis VTE: Eliquis to be resumed tonight GI: None Lines: Peripheral, left radial Diet: Cardiorenal Plan: Strict ins and outs Continue with neurochecks Monitor H&H Chest x-ray from 12/03/2024 personally reviewed, hyperinflated film, no pulmonary infiltrate. PFT 12/10/2020 personally reviewed: Severe obstructive lung dysfunction, insignificant bronchodilator response, air trapping, severe decrease in DLCO FVC 1.41 L 63%, FEV1 0.69 L 42%, FEV1/FVC 49%, RV 14%, TLC to 37%, RV/TLC 180%, DLCO 33% Continue with inhalers for underlying COPD, not in any exacerbation Case discussed with RN at bedside I spent more than 75 minutes looking in the chart, images, discussing the plan of care with the patient, RN as well as primary team This includes time spent evaluating patient, direct bedside care, chart review, placing orders, interpretation of diagnostic studies, discussion with consultants, patient, and/or family members regarding treatment decisions, as well as other required patient management activities. This time is exclusive of all separately billable procedures, and teaching time and separate from and in addition to any other critical care service time. History of Present Illness Reason for Consultation: s/p right TCAR Requesting Physician: Dr. Syed Attending Physician: Dominick Syed MD History of Present Illness Pt is an 84 yo female with PMH of CAD, persistent a-fib, seizures, aortic stenosis, COPD, OP, hx of colon cancer, and recent R CVA who presented for right TCAR with Dr. Syed on 01/15/25. Pt was awake and alert upon examination in ICU. She reports no significant pain. She denies headache, chest pain, SOB, abdominal pain, nausea, extremity weakness or numbness. Pt states he has long standing vision deficits due to macular degeneration at recent peripheral vision loss from R CVA. Allergies Allergy/AdvReac Type Severity Reaction Status Date / Time losartan Allergy Intermediate Dizziness/tingling Verified 01/15/25 08:58 arms and legs nebivolol Allergy Intermediate Itchy, rash Verified 01/15/25 08:58 niacin Allergy Intermediate Hives Verified 01/15/25 08:58 levofloxacin Allergy Mild Rash Verified 01/15/25 08:58 phenobarbital Allergy Unknown Unknown Verified 01/15/25 08:58 lisinopril AdvReac Severe elevated Verified 01/15/25 08:58 liver enzymes atorvastatin AdvReac Unknown Unknown Verified 01/15/25 08:58 Home Medications Medication Instructions Recorded Confirmed Type B-complex with vitamin C 1 tab PO QDL #90 tabs 02/01/24 01/15/25 Rx fluticasone fur. 100 mcg-umeclid 1 inh inhalation 1200 #180 ea 03/07/24 01/15/25 Rx 62.5 mcg-vilant 25 mcg inhalat.powder (Trelegy Ellipta) omega-3 acid ethyl esters 1 gram 1 cap PO TID #270 caps 03/07/24 01/15/25 Rx capsule (Lovaza) rosuvastatin 20 mg tablet 20 mg PO QAM #90 tabs 03/07/24 01/15/25 Rx primidone 250 mg tablet 250 mg PO BID #180 tabs 11/02/24 01/15/25 Rx albuterol sulfate 90 mcg/actuation 2 puff inhalation Q4H PRN 12/07/24 01/15/25 Rx aerosol inhaler Shortness Of Breath #18 grams aspirin 81 mg chewable tablet 81 mg PO QAM 12/07/24 01/15/25 History calcium 600 mg (as carbonate)-vit 1 tab PO BID 12/07/24 01/15/25 History D3 20 mcg (800 unit) chewable tablet (Caltrate plus D) cholecalciferol (vitamin D3) 50 2,000 unit PO DAILY 12/07/24 01/15/25 History mcg (2,000 unit) tablet (Vitamin D3) multivitamin 1 tab PO QAM 12/07/24 01/15/25 History spironolactone 25 0.5 tab PO .COMPLEX 12/07/24 01/15/25 History mg-hydrochlorothiazide 25 mg tablet diltiazem HCl 240 mg 240 mg PO BID #180 caps 01/03/25 01/15/25 Rx capsule,extended release 24 hr (Cardizem CD) metoprolol tartrate 25 mg tablet 25 mg PO BID #180 tabs 01/03/25 01/15/25 Rx apixaban 5 mg tablet (Eliquis) 5 mg PO QAM 01/09/25 01/15/25 History ascorbic acid (vitamin C) 1,000 mg 1 g PO QAM 01/09/25 01/15/25 History tablet (Vitamin C) clopidogrel 75 mg tablet (Plavix) 75 mg PO QAM 01/09/25 01/15/25 History Patient History Medical History 3-vessel coronary artery disease 2018 > 2 stents Aortic valve stenosis Echo 12/04/24: Transaortic velocities suggest moderate aortic stenosis but the dimensionless index would suggest more severe aortic stenosis. Arthritis Asthma Atrial fibrillation Atrial fibrillation COPD (chronic obstructive pulmonary disease) GERD (gastroesophageal reflux disease) History of colon cancer 06/2022 > surgery only History of CVA (cerebrovascular accident) 12/03/24, [facility] hospitalization > loss of peripheral vision, no other residual issues Hx of supraventricular tachycardia Hyperlipidemia Hypertension Idiopathic thrombocytopenic purpura Hx per remote records Myocardial Infarction 2018 > [address] Siddiqui Osteoarthritis Seizure No seizures since 1967 Takes Primidone Surgical History H/O right hemicolectomy (07/09/22) Open Right Hemicolectomy; enterolysis History of appendectomy History of cardiac cath (2018) Stents x2 History of cataract surgery R/L History of colon resection History of colonoscopy History of colonoscopy History of heart artery stent 2 stents (2017) History of left hip replacement (2019) Partial hip replacement History of lumbar spinal fusion (2018) History of splenectomy History of tonsillectomy S/P epidural steroid injection Family History Mother , age 78 of an [place] Diabetes Myocardial infarction Sister Diabetes Brother Diabetes Myocardial infarction Father , age 71 of heart issues. 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 How many Children do You have: 2 Feels Safe at Home: Yes Childhood Exposure to Second-Hand Smoke: No Diet: regular caffeine: Yes (2 cups of coffee daily ) during the past year weight has: remained stable Dental Care, Regularly: Yes Physical Activity Frequency: 1-2 Times per Week Seatbelt Use: always Sunscreen Use: Yes Assistive Devices: Walker and Other Review of Systems Review of Systems: As per HPI Physical Exam Constitutional: well developed; no acute distress Eyes: PERRL, conjunctivae normal, anicteric sclerae ENMT: external ear and nose normal, oropharynx normal Neck: trachea midline, no thyromegaly Incision at right anterior neck is clean, dry and well approximated. Ecchymosis noted beata-incision. Respiratory: normal respiratory effort, lungs clear to auscultation Cardiovascular: Rate/Rhythm: regular rate and regular rhythm Heart Sounds: + murmur (systolic heard best at left sternal boarder, grade 3/6) Extremities: normal capillary refill; no edema Gastrointestinal (Abdomen): normal bowel sounds, soft, nontender, no hepatosplenomegaly Musculoskeletal: no cyanosis or clubbing, extremities motor strength 5/5 Neurologic: PERRL, EOMI, accommodation nl, no face palsy, no dysarthria Speech / Cognition: + abnormal speech (Slow speech) Psychiatric: Orientation: alert and oriented x 3 Results & Data Results & Data Vital Signs (Past 12 Hours) Vital Signs Temp Pulse Pulse Pulse Resp BP BP 01/15/25 15:03 87 17 01/15/25 15:00 107/60 01/15/25 15:00 107/60 01/15/25 15:00 107/60 01/15/25 14:46 116/63 01/15/25 14:46 116/63 01/15/25 14:45 87 17 01/15/25 14:36 79 20 01/15/25 14:30 110/56 L 01/15/25 14:30 36.2 C L 01/15/25 14:05 95 H 14 108/50 L 01/15/25 13:55 36.4 C L 99 H 22 111/51 L 01/15/25 13:45 96 H 20 106/49 L 01/15/25 13:35 101 H 17 103/50 L 01/15/25 13:25 104 H 18 103/49 L 01/15/25 13:15 96 H 19 111/49 L 01/15/25 13:05 97 H 18 104/46 L 01/15/25 12:57 36.3 C L 98 H 16 98/45 L 01/15/25 09:06 53 L 16 187/116 H BP Pulse Ox O2 Del Method O2 Flow Rate 01/15/25 15:03 98 01/15/25 15:00 01/15/25 15:00 01/15/25 15:00 01/15/25 14:46 01/15/25 14:46 01/15/25 14:45 96 Room Air 01/15/25 14:36 100 01/15/25 14:30 01/15/25 14:30 01/15/25 14:05 107/60 98 Room Air 01/15/25 13:55 119/72 99 Room Air 01/15/25 13:45 104/62 95 Room Air 01/15/25 13:35 93 Room Air 01/15/25 13:25 108/73 98 Oxymask 3 01/15/25 13:15 95/73 L 100 Oxymask 3 01/15/25 13:05 109/62 99 Oxymask 6 01/15/25 12:57 103/73 98 Oxymask 6 01/15/25 09:06 146/108 H 95 Room Air Resident Activity Tracking Resident Involvement: Resident Care Provided Care Provided: Adult Hospital Medicine
--- NOTE | 2025-01-15 16:38 | Billing Data ---
Date of Service January 15, 2025 Coding Level of Care Code 36815 INT INP/OBS CARE
[2025-01-15] MEDS: OMEGA-3 (PURIFIED FISH OIL) 1 GM CAP PO SCH (16:39)
[2025-01-15] MEDS: CALCIUM 600MG + VIT D 400 IU TAB PO SCH (21:02)
[2025-01-15] MEDS: PRIMIDONE 250 MG TAB PO SCH (21:02)
[2025-01-15] MEDS: METOPROLOL TARTRATE 25 MG TAB PO SCH (21:02)
[2025-01-15] MEDS: dilTIAZem HCL 240 MG CAPCR PO SCH (21:02)
[2025-01-16 02:06] VITALS: TEMP 98.1
--- NOTE | 2025-01-16 08:34 | Critical Care Progress Note ---
Date of Service January 16, 2025 Assessment & Plan (1) Symptomatic stenosis of right carotid artery: (2) Atrial fibrillation: (3) Hypertension: (4) Osteoporosis: (5) Seizure disorder: (6) Mitral regurgitation: (7) Hypercholesterolemia: (8) COPD (chronic obstructive pulmonary disease): (9) Aortic valve stenosis: Plan Pt is an 84 yo female with PMH of CAD, persistent a-fib, seizures, aortic stenosis, COPD, OP, hx of colon cancer, and recent R CVA who presented for right TCAR with Dr. Syed on 01/15/25. Pt's vitals and neurological status have been stable since transfer to ICU. Increased overall fluid volume noted with positive 2495 balance without pulmonary effect. At this time, pt no longer requires ICU level of care. Pt's disposition to be determined by Dr. Syed and his team. Neuro: Pt appears at baseline in terms of her recovery from R CVA in November 2024. She carries a diagnosis of seizures. Will continue primidone 250mg BID Cardiovascular: Right TCAR appears to be healing well. Pt is hemodynamically stable with soft BPs, MAP above 65. Post surgical pain has been well controlled per Dr. Syed. Significant murmur noted on exam. Pt noted to have normal LVEF, however severe aortic stenosis and mild mitral regurgitation noted on echo from 12/03/24. Plan to resume Eliquis 5mg PO today. Continue home meds of metoprolol 25mg BID and diltiazem 250mg BID for rate control. Continue spironolactone 12.5mg for LE edema control. Continue on clopidogrel, rosuvastatin, and low dose aspirin. Respiratory: Pt follows with Dr. Byrne in outpatient for COPD. No respiratory issues at this time. Continue using Trelegy daily GI: No GI issues at this time. No need for PPI at this time. Continue Heart healthy diet. Renal: No current renal issues. Endocrine: Pt carries diagnosis of osteoporosis, continue Vitamin D3 and calcium +D3. Heme-onc: Hx of colon cancer with right hemicolectomy and anastomosis in 2021- no chemo/radiation needed. Repeat colonoscopy in 2022 was normal. No other issues noted ID: Pt is afebrile, vitals are stable. No signs of infection at this time. MSK: Activity level is out of bed with assist. Reporting dizziness and unsteady on her feet this morning. Consider PT/OT eval for safety and determining rehab level with pt hx of use of assistive device for household ambulation and recent CVA. Admission and Anticipated Discharge Date Admission Date: January 15, 2025 Supervising Physician Co-Signing Physician Notes Dr. Marcelino was the resident-physician during care of patient. I separately evaluated patient for lemus portions of the history and the exam. I was present during the critical portion of medical decision making, and I discussed the case with the resident. I generally agree with the findings and plan except for any additions/exceptions noted. PFT 12/10/2020 personally reviewed: Severe obstructive lung dysfunction, ins ignificant bronchodilator response, air trapping, severe decrease in DLCO FVC 1.41 L 63%, FEV1 0.69 L 42%, FEV1/FVC 49%, RV 14%, TLC to 37%, RV/TLC 180%, DLCO 33% Patient seen and examined at bedside. No acute distress, no adverse events overnight Her systolic blood pressure was in the 120s, saturation 97% on room air. She has just finished her breakfast. Denies any difficulty swallowing. No nausea or vomiting Denies any weakness. No unusual headache. Chronic blurry vision Overall feeling better. Constitutional: No acute distress HEENT: EOMI, PERRLA Respiratory system: Decreased air entry bilaterally, no wheeze, rhonchi, no crackles CVS: S1-S2 positive, positive 3 out of 6 systolic murmur appreciated best at left parasternal border Abdomen: Soft, nontender, nondistended, positive bowel sounds x4 Extremities: +2 pulses bilaterally radialis/ dorsalis pedis, no cyanosis, no edema Neuro: Awake alert oriented x3, cranial nerves II through XII grossly intact, muscle strength 5/5 bilateral upper and lower extremities Psych: Normal mood and affect G/U: No Vera --Prophylaxis VTE: Eliquis GI: None Lines: Peripheral, left radial Diet: Cardiorenal Plan: In/out: +2.4 L, urine output 275 Continue with inhalers for underlying COPD, not in any exacerbation Case discussed with RN at bedside Discontinue arterial line Disposition as per vascular team This includes time spent evaluating patient, direct bedside care, chart review, placing orders, interpretation of diagnostic studies, discussion with consultants, patient, and family members, as well as other required patient management activities. This time is exclusive of all separately billable procedures, and teaching time and separate from and in addition to any other critical care service time Please note the above document was generated using voice recognition software. It may contain grammatical, syntax or spelling errors.Any formal questions or concerns about the content, text or information contained within the body of this dictation should be directly addressed to the provider for clarification. Subjective No acute overnight events, however, pt had some soft BP readings with MAPs above 65. Today, pt reports ability to get out of bed without difficulty with nursing assist, however, pt reports this morning she had some dizziness upon standing and required a walker plus nursing assist. At time of exam, pt denies dizziness while laying in bed. Pt denies chest pain, SOB, abdominal pain, nausea, new onset weakness or extremity numbness. Pt continues with vision deficits that she has had previous to surgery yesterday that are resulting from macular degeneration and from CVA in November 2024. Review of Systems Review of Systems: As per HPI Physical Exam Constitutional: well developed; no acute distress Eyes: PERRL, conjunctivae normal, anicteric sclerae ENMT: external ear and nose normal, oropharynx normal Neck: trachea midline, no thyromegaly Respiratory: normal respiratory effort, lungs clear to auscultation Cardiovascular: Rate/Rhythm: regular rate and regular rhythm Heart Sounds: + murmur (systolic heard best at left sternal boarder, grade 3/6) Extremities: normal capillary refill and + edema (trace at ankles) Gastrointestinal (Abdomen): normal bowel sounds, soft, nontender, no hepatosplenomegaly Musculoskeletal: no cyanosis or clubbing, extremities motor strength 5/5 Neurologic: PERRL, EOMI, accommodation nl, no face palsy, no dysarthria Speech / Cognition: + abnormal speech (Slow speech) Psychiatric: Orientation: alert and oriented x 3 Results & Data Results & Data Vital Signs (Past 12 Hours) Vital Signs Temp Pulse Resp BP Pulse Ox O2 Del Method 01/16/25 06:03 81 14 103/46 L 91 Room Air 01/16/25 05:39 89 16 91 Room Air 01/16/25 05:12 83 15 92 Room Air 01/16/25 04:45 81 19 92 Room Air 01/16/25 04:00 75 14 92 Room Air 01/16/25 04:00 91 H 118/54 L 01/16/25 03:48 81 15 92 Room Air 01/16/25 02:33 82 17 95 Room Air 01/16/25 02:00 83 19 92 Room Air 01/16/25 01:33 83 21 92 Room Air 01/16/25 01:18 89 21 93 Room Air 01/16/25 00:33 94 H 21 94 Room Air 01/16/25 00:00 36.7 C 94 H 19 94 Room Air 01/16/25 00:00 84 122/56 L 01/15/25 23:45 36.6 C 89 19 94 Room Air 01/15/25 23:09 91 H 16 96 Room Air 01/15/25 22:30 90 16 93 Room Air 01/15/25 22:03 100 H 19 93 Room Air 01/15/25 21:00 106/63 93 Room Air 01/15/25 21:00 96 H 20 92 Room Air 01/15/25 21:00 113/58 L Resident Activity Tracking Resident Involvement: Resident Care Provided Care Provided: Adult Hospital Medicine
[2025-01-16] MEDS: APIXABAN 5 MG TABLET PO SCH (08:39)
[2025-01-16] MEDS: ASCORBIC ACID 500 MG TAB PO SCH (08:40)
[2025-01-16] MEDS: CLOPIDOGREL BISULFATE 75 MG TAB PO SCH (08:40)
[2025-01-16] MEDS: ROSUVASTATIN CALCIUM 20 MG TAB PO SCH (08:41)
[2025-01-16] MEDS: MULTIVITAMIN TAB PO SCH (08:42)
[2025-01-16] MEDS: CHOLECALCIFEROL 25 MCG (1000 UNITS) TAB PO SCH (08:42)
[2025-01-16] MEDS: UMECLIDINIUM/VILANTEROL 62.5/25MCG 7 PUFFS/INHALER INH SCH (08:43)
[2025-01-16] MEDS: FLUTICASONE FUROATE 100MCG 14 PUFFS/INHALER INH SCH (08:44)
[2025-01-16 08:57] VITALS: RESP 22; O2SAT 95
[2025-01-16] MEDS ORDERED: UMECLIDINIUM/VILANTEROL 62.5/25MCG 7 PUFFS/INHALER INH SCH (09:00)
[2025-01-16] MEDS ORDERED: FLUTICASONE FUROATE 200MCG 14 PUFFS/INHALER INH SCH (09:00)
[2025-01-16] MEDS ORDERED: ASPIRIN 81 MG CHEW PO SCH (09:00)
--- NOTE | 2025-01-16 09:11 | Surgery Progress Note ---
Date of Service January 16, 2025 Assessment & Plan (1) Symptomatic stenosis of right carotid artery: Plan: Pt is POD #1 after uncomplicated R TCAR, doing well post op. VSS. OK for d/c home today. Will see in office in 2 weeks. Admission and Anticipated Discharge Date Admission Date: January 15, 2025 Subjective 84 yo F POD #1 after R TCAR d/t symptomatic R ICA stenosis seen in f/u today. Pt states she had some difficulty chewing and swallowing her chicken last evening, but no problems swallowing since then. Ate breakfast without problem. No N/V or other concerns. Ambulating in room with walker. Mild R neck discomfort. Review of Systems Review of Systems: All systems reviewed & are unremarkable except as noted in HPI & below Physical Exam Constitutional: WD/WN, vitals as above cooperative and comfortable; not in distress Neck: trachea midline (R supraclavicular incision C/D/I, mild local ecchymosis/min swelling.) Respiratory: normal respiratory effort, lungs clear to auscultation Auscultation: + diminished lung sounds Cardiovascular: Rate/Rhythm: + irregularly irregular Vessels: posterior tibial pulses present, dorsalis pedis pulses present and radial pulses present; + abnormal peripheral pulses Extremities: normal capillary refill Gastrointestinal (Abdomen): Inspection/Auscultation: abdomen normal to inspection and normal bowel sounds Percussion/Palpation: abdomen soft; abdomen nontender Musculoskeletal: no cyanosis or clubbing, extremities motor strength 5/5 Skin: no rashes, warm and dry no erythema Neurologic: moves all extremities and awake; no focal motor deficits and not confused Psychiatric: A+Ox3, euthymic affect Results & Data Vital Signs (Past 12 Hours) Vital Signs Temp Pulse Resp BP Pulse Ox O2 Del Method 01/16/25 08:00 89 22 95 Room Air 01/16/25 07:09 86 21 96 01/16/25 06:48 101/53 L 01/16/25 06:48 101/53 L 01/16/25 06:48 101/53 L 01/16/25 06:03 81 14 103/46 L 91 Room Air 01/16/25 05:39 89 16 91 Room Air 01/16/25 05:12 83 15 92 Room Air 01/16/25 04:45 81 19 92 Room Air 01/16/25 04:00 75 14 92 Room Air 01/16/25 04:00 91 H 118/54 L 01/16/25 03:48 81 15 92 Room Air 01/16/25 02:33 82 17 95 Room Air 01/16/25 02:00 83 19 92 Room Air 01/16/25 01:33 83 21 92 Room Air 01/16/25 01:18 89 21 93 Room Air 01/16/25 00:33 94 H 21 94 Room Air 01/16/25 00:00 36.7 C 94 H 19 94 Room Air 01/16/25 00:00 84 122/56 L 01/15/25 23:45 36.6 C 89 19 94 Room Air 01/15/25 23:09 91 H 16 96 Room Air 01/15/25 22:30 90 16 93 Room Air 01/15/25 22:03 100 H 19 93 Room Air
--- NOTE | 2025-01-16 09:13 | Discharge Summary ---
Date of Service January 16, 2025 Admission HPI Per Admitting Provider Subjective I had the pleasure of seeing Donna today for follow-up. 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 She had a CT angiogram which showed a greater than 75% narrowing of her right internal carotid artery. Her MRI was consistent with an acute infarct involving the right temporal and parietal lobes. There is no apparent showering effect seen on the MRI. She does have a history of atrial fibrillation and is now on Eliquis. During her hospital stay she was started on Plavix and aspirin but recently her Plavix was stopped when she was placed on the Eliquis. Objective Vitals & Measurements HR: 73 (Monitored) BP: 134/68 SpO2: 95% Physical Exam On exam she is awake alert and oriented x 3. She is in no apparent distress. Her blood pressure is 134/68. She has had improvement in her mentation and speech. Her upper and lower extremities are intact to motor and sensory function. Her lungs are clear. Her heart and irregular regular rhythm. Abdominal exam is benign. Diagnostic Results CT angiogram indeed shows greater than 75% stenosis of the right internal carotid artery and is close to approximately 80% in the proximal internal. Assessment/Plan 1. Carotid stenosis, bilateral At this point being that she does have significant narrowing of her carotids and she did have a right hemispheric stroke without any evidence of showering affect I believe that her stroke was secondary to carotid artery disease which is most common cause. We recommend intervention. We went over the risks options benefits of an endarterectomy versus a TCAR. She is elected to go ahead with a TCAR. The risks of the benefits also documented in the consent form. We did start her back on her Plavix which she will need to take as well as her aspirin and statin nonstop for 3 days prior and 30 days post procedure. After 30 days we can stop the aspirin and keep her on the Plavix and the Eliquis. The Eliquis will only be stopped for 24 hours at the time of surgery. Will keep you informed as to her results. Thank you very much for letting us participate in the care of this patient. Sincerely, Dl Simpson MD Attestation I have personally spent ___35__ minutes performing [id number] and [id number] activities on this date of service. Activities Include: _x_ review of the medical record _x_ obtaining a history _x_ physical exam/evaluation __ review labs __x review radiology reports __x counseling/educating patient/family/caregiver __ discussion/referral to other healthcare professional _x_ documenting care in the medical record __ independent interpretation of results cta mn __ communication of results to patient/family/caregiver __ coordination of care Signature Line Electronic Signature on File Dominick Simpson MD Author Signature Dt/Tm: 01/04/2025 10:24 AM Security Shift Manager [facility], [address] [place] [address] EJ Result Type: .Outpt Ltr Date of Service: January 04, 2025 09:02 EDT Authorization Status: Final Subject: Follow Up Visit Author or Import Date: MD Simpson Eugene J on January 04, 2025 10:24 EDT Verified By: MD Simpson Eugene J on January 04, 2025 10:24 EDT Encounter info: [id number], [facility], Clinic, 01/04/2025 - 01/04/2025 Admission Exam Per Admitting Provider On exam she is awake alert and oriented x 3. She is in no apparent distress. Her blood pressure is 134/68. She has had improvement in her mentation and speech. Her upper and lower extremities are intact to motor and sensory function. Her lungs are clear. Her heart and irregular regular rhythm. Abdominal exam is benign. Principal Diagnosis 1. s/p R TCAR 2. Symptomatic R ICA stenosis Discharge Exam Constitutional WD/WN, vitals as above cooperative and comfortable; not in distress Neck trachea midline (R supraclavicular incision C/D/I, mild local ecchymosis/min swelling.) Respiratory normal respiratory effort, lungs clear to auscultation Auscultation: + diminished lung sounds Cardiovascular Rate/Rhythm: + irregularly irregular Vessels: posterior tibial pulses present, dorsalis pedis pulses present and radial pulses present; + abnormal peripheral pulses Extremities: normal capillary refill Gastrointestinal (Abdomen) Inspection/Auscultation: abdomen normal to inspection and normal bowel sounds Percussion/Palpation: abdomen soft; abdomen nontender Musculoskeletal no cyanosis or clubbing, extremities motor strength 5/5 Skin no rashes, warm and dry no erythema Neurologic moves all extremities and awake; no focal motor deficits and not confused Psychiatric A+Ox3, euthymic affect Discharge Data Allergies Allergy/AdvReac Type Severity Reaction Status Date / Time losartan Allergy Intermediate Dizziness/tingling Verified 01/15/25 08:58 arms and legs nebivolol Allergy Intermediate Itchy, rash Verified 01/15/25 08:58 niacin Allergy Intermediate Hives Verified 01/15/25 08:58 levofloxacin Allergy Mild Rash Verified 01/15/25 08:58 phenobarbital Allergy Unknown Unknown Verified 01/15/25 08:58 lisinopril AdvReac Severe elevated Verified 01/15/25 08:58 liver enzymes atorvastatin AdvReac Unknown Unknown Verified 01/15/25 08:58 Consultations 01/15/25 14:33 Consult 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 VSS. OK for d/c home today. Will see in office in 2 weeks. Total Time Total Time Spent Total Time Spent (In Minutes): 0 Discharge Plan Discharge Items Patient Disposition: Home - Self-Care Reason For Visit: Right Internal Carotid Artery Stenosis Discharge Diagnosis: 1. s/p R TCAR 2. R ICA stenosis Activity: Per Instructions section Non-emergency contact: Primary Care Provider and Surgeon Call non-emergency contact if: you have any medication questions, your symptoms worsen, your pain is not controlled, you have a fever, your wound has increased redness and your wound has increased drainage Follow-up/Referrals: Kenny Castillo MD [Primary Care Provider] - (Follow up with your PCP within 2 weeks) Dominick Simpson MD [Physician] - (Follow up with Dr Simpson or Meeta Wick PA-C, in 2 weeks.) Diet: Heart Healthy Add Attending Provider Instructions: SPECIAL CARE INSTRUCTIONS: Diet: * You may return to previous diet. Medications: * Continue to take Aspirin, plavix, and statin medication as directed. DO NOT STOP THESE MEDICATIONS WITHOUT SPEAKING TO DR SIMPSON'S OFFICE. Incision Care: * You may shower, but do not rub incision. You may let the warm soapy water run over it. Be sure to dry the incision well after bathing. * Do not shave directly over the incision until it is healed. * DO NOT IMMERSE THE INCISION IN A TUB/POOL/etc. UNTIL HEALED. Restrictions: * Do not drive if you are still taking any narcotic pain medication. * Do not lift anything heavier than a gallon of milk for one week after going home. Possible Complications: * Numbness - It is normal to have some numbness around the incision. Numbness can extend beyond the incision to areas of the neck, ear and face. The numbness is due to bruising of nerves during the surgery and will gradually improve over a period of months. * Hoarseness/Difficulty Speaking and Swallowing - The bruising of nerves in the neck can also cause a hoarse voice, difficulty speaking or swallowing. This may improve over time, HOWEVER, if it continues for more than a few days please contact our office ([phone]). * Excessive Swelling - There will be some swelling immediately after surgery which usually resolves within one week. If you notice that the swelling is getting worse, notify your surgeon ([phone]). * Drainage/Bleeding - If there is any drainage or bleeding, it should be a very small amount (less than a teaspoon per day). If you have excessive bleeding or drainage from the incision, call your surgeon ([phone]) right away. ACTIVATION OF EMERGENCY MEDICAL SYSTEM: Call 911, immediately, if you experience any of the following: Warning Signs and Symptoms of Stroke: * Sudden numbness or weakness of the face, arm or leg, especially on one side of the body * Sudden confusion, trouble speaking or understanding * Sudden trouble seeing in one or both eyes * Sudden trouble walking, dizziness, loss of balance or coordination * Sudden severe headache with no cause Do not delay calling 911 if you experience any warning signs or symptoms of a stroke. Delay in seeking medical attention may affect what treatments can be given to you. Risk Factors for Stroke: You can reduce your chances of stroke by working with your medical provider to adopt a healthy lifestyle. Some specific ways to lower your chance of stroke are: * If you are a smoker, now is the time to stop smoking cigarettes * If you are diabetic, improve the control of your blood sugars * Avoid excessive amounts of alcohol * Control high blood pressure * Lose weight if you are overweight * Be sure to lead an active lifestyle * Eat a healthy diet low in salt, cholesterol and fat You should know about other risk factors for stroke that you are unable to control. These include: * Age 55 years or older * Male gender * Certain racial groups: , or / * Family History of Stroke, Mini stroke or Heart Attack * Sickle Cell Disease You will be receiving a call from the Vascular Surgery Nurse after you are discharged. FOLLOW UP VISIT: It is important for you to keep your follow up appointments with your medical provider. Keep any scheduled doctor appointments. Pending Studies at Discharge: No Stand-Alone Forms: My [facility], Smoking Cessation Medications and DC Order Prescriptions: Continued B-complex with vitamin C Tablet 1 tab PO QDL Qty: 90 3RF Rx Instructions: otc unable to verify primidone 250 mg tablet 250 mg PO BID Qty: 180 0RF Rx Instructions: last filled 11/02/24 omega-3 acid ethyl esters [Lovaza] 1 gram capsule 1 cap PO TID Qty: 270 3RF Trelegy Ellipta 100-62.5-25 mcg blister with device 1 inh inhalation 1200 Qty: 180 3RF rosuvastatin 20 mg tablet 20 mg PO QAM Qty: 90 6RF Rx Instructions: last filled 09/28/24 diltiazem HCl [Cardizem CD] 240 mg capsule,extended release 24hr 240 mg PO BID Qty: 180 0RF metoprolol tartrate 25 mg tablet 25 mg PO BID Qty: 180 3RF albuterol sulfate 90 mcg/actuation HFA aerosol inhaler 2 puff INHALATION Q4H PRN (Reason: Shortness Of Breath) Qty: 18 11RF Patient Comments: has not used for a long time multivitamin Tablet 1 tab PO QAM Rx Instructions: "womens One a day" Caltrate 600 plus D 600 mg-20 mcg (800 unit) tablet,chewable 1 tab PO BID aspirin 81 mg tablet,chewable 81 mg PO QAM cholecalciferol (vitamin D3) [Vitamin D3] 50 mcg (2,000 unit) tablet 2,000 unit PO DAILY Patient Comments: lunch spironolacton-hydrochlorothiaz 25-25 mg tablet 0.5 tab PO .COMPLEX Rx Instructions: 0.5 tabs orally 4-5 times a week, per swelling in ankles when needed.; 0.5 mg 4-5 x a week. ( Patient does not take an specific days just when needed) ascorbic acid (vitamin C) [Vitamin C] 1,000 mg Tablet 1 g PO QAM clopidogrel [Plavix] 75 mg Tablet 75 mg PO QAM Eliquis 5 mg tablet 5 mg PO QAM Discharge Orders: Discharge Order (Routine); Ordered 01/16/25 Ordered By: Meeta Wick Admission Data Admit Date/Time: 01/15/25 08:47 Attending Provider: Dominick Simpson Admit Provider: Dominick Simpson Primary Care Provider: Kenny Castillo Other Providers: Abebe Echeverria; Garry England; Mehran Guerrero; Jeremy Byrne; Juli Alexander; Rashawn Ahmadi; Paty Rivers; Dalton Charles
[2025-01-16 10:36] VITALS: BP 107/60; PULSE 53
--- NOTE | 2025-01-16 10:47 | Billing Data ---
Date of Service January 16, 2025 Coding Level of Care Code 42657 SUB INP/OBS CARE
[2025-01-16] MEDS ORDERED: VITAMIN B COMPLEX TAB PO SCH (11:30)
[2025-01-16] MEDS ORDERED: NON-FORMULARY MEDICATION (Fluticasone-Umeclidin-Vilanter [Trelegy Ellipta] 100-62.5-25 mcg INH SCH (12:00)
== END 2025-01-16 10:59 | disposition home or self-care (01) | DRG 35 ==
LOC: ASU 08:46 → 1E 08:47
PROC: EV.TCAR (2025-01-15 10:10)
DX: Z85.038 Personal history of other malignant neoplasm of large intestine; Z79.01 Long term (current) use of anticoagulants; I48.19 Other persistent atrial fibrillation; Z79.899 Other long term (current) drug therapy; I69.398 Other sequelae of cerebral infarction; I08.0 Rheumatic disorders of both mitral and aortic valves; M81.0 Age-related osteoporosis without current pathological fracture; J45.909 Unspecified asthma, uncomplicated; Z95.5 Presence of coronary angioplasty implant and graft; Z88.1 Allergy status to other antibiotic agents; I25.2 Old myocardial infarction; G40.909 Epilepsy, unspecified, not intractable, without status epilepticus; Z79.82 Long term (current) use of aspirin; I25.10 Atherosclerotic heart disease of native coronary artery without angina pectoris; J44.9 Chronic obstructive pulmonary disease, unspecified; E78.2 Mixed hyperlipidemia; Z79.02 Long term (current) use of antithrombotics/antiplatelets; Z88.8 Allergy status to other drugs, medicaments and biological substances; I10 Essential (primary) hypertension; I65.23 Occlusion and stenosis of bilateral carotid arteries; H35.30 Unspecified macular degeneration